=== PATIENT | female | born 1945 | race Caucasian/White ===

== ENCOUNTER 2020-04-07 21:38 | Emergency (ER) | payer MEDICARE, SELFPAY ==
[2020-04-07 21:39] VITALS: BP 152/83; PULSE 57; RESP 18; TEMP 36.2; O2SAT 100; BMI 27.5
[2020-04-07 22:13] VITALS: BP 152/83; PULSE 57; RESP 18; TEMP 36.2; O2SAT 100
[2020-04-07 22:21] LABS: Red Blood Cells-Urine 0 SEEN /hpf (0-5)
[2020-04-07 22:28] LABS: Color, Urine Yellow (Yellow); Glucose, Dipstick Normal (Normal); Ketone-Dipstick 5 mg/dl (Negative); Leukocyte Esterase-Dipstick 500 /ul (Negative); Nitrite-Dipstick Negative (Negative); Occult Blood-Urine 25 /ul (Negative); Protein-Dipstick 30 mg/dl (Negative); Specific Gravity, Urine 1.015 (1.002-1.030); Urine Bilirubin Dipstick Negative (Negative); Urine Clarity Clear (Clear); Urine Urobilinogen Normal (Normal)
[2020-04-07 22:35] LABS: Squamous Epithelial Cells - UA 50-100 SEEN /hpf (5-10)
[2020-04-07 22:36] LABS: Mucous, Urine 1+ /hpf (<or=2+); White Blood Cells 25-50 SEEN /hpf (0-5)
[2020-04-07 22:37] LABS: Bacteria 1+ /hpf (None Seen)
--- NOTE | 2020-04-08 01:22 | ED.VISSUMM ---
- ER Visit Summary Date of Service: 04/08/20 Chief Complaint: Dysuria History of Present Illness: The patient is a 74 F who presents with dysuria that has been getting worse over the past 3 weeks. Patient states she has burning whenever she urinates. Patient was originally given a prescription for Omnicef for 3 days. Patient completed this with no improvement of her symptoms. Patient was then given a prescription for Cipro for 3 days. Patient states she completed this and had no improvement of her symptoms. Patient was then given a prescription for fosfomycin. Patient states she had 2 doses of this and still has some dysuria. Patient admits to subjective chills. Patient denies any nausea or vomiting. Patient denies any back pain. Patient denies any flank pain. Physical Examination: Vital signs are stable. Patient is afebrile. Patient is in no acute distress. Oral mucosa is pink and moist. Neck is supple. Trachea is midline. There is no JVD. Heart was regular rate and rhythm. Lungs are clear and equal bilaterally. Abdomen is soft. Bowel sounds are normal. There is some mild suprapubic tenderness. There is no rebound or guarding noted. Cranial nerves II through XII are intact. There are no focal motor or sensory deficits noted. Pelvic exam shows normal vaginal mucosa. There is no evidence of vaginal candidiasis. Test Results: Urinalysis showed leukocyte esterase of 500 with 25-50 white blood cells. There were also 50-100 epithelial cells and 1+ bacteria. Emergency Department Course and Treatment: Patient's urinalysis and urine culture from 04/03/2028 done at [facility] were reviewed. Urinalysis did appear to be infected. Urine culture however showed multiple pathogens consistent with contaminated specimen. Patient was advised of her results. Patient was advised that this does appear to be a contaminated specimen. Patient was instructed to take her third dose of fosfomycin tomorrow night. Patient was instructed to follow-up with her primary care physician after this. Patient understood and was agreeable with the plan. All questions were answered. Disposition: Discharge home Impression: Urinary tract infection This note was generated with [employer] software. It may contain incorrect words, spelling, and punctuation that were not noted in review of the chart prior to signing ED Disposition - Plan for ED Patient: Disposition: Home or Assisted Living Diagnosis: Urinary tract infection Instructions: ED CYSTITIS Female Adult Referrals: Javier Martinez DO [Primary Care Provider] - 3-5 Days Additional Instructions: Take the whole packet of fosfomycin tomorrow night. Follow-up with your primary care physician in 2 to 3 days.
[2020-04-08 01:32] VITALS: BP 140/70; PULSE 72; RESP 16; TEMP 36.2; O2SAT 98
== END 2020-04-08 01:33 | disposition home or self-care (01) ==
PROVIDERS: Emergency Provider Emergency Medicine; PCP Student in an Organized Health Care Education/Training Program
DX: N39.0 Urinary tract infection, site not specified (principal)
CPT/HCPCS: 81001; 99282

== ENCOUNTER 2023-03-28 14:00 | Inpatient (IN) | payer MEDICARE, SELFPAY ==
[2023-03-28 14:01] VITALS: BP 181/87; PULSE 72; RESP 16; TEMP 36.4; BMI 25.7
--- NOTE | 2023-03-28 14:04 | CT_ITS ---
INDICATION: Neuro deficit, acute, stroke suspected EXAMINATION: CT BRAIN - CT Head Stroke Protocol W/O Contrast Injection TECHNIQUE: Multiple axial images were obtained of the head without intravenous contrast. A radiation dose optimization technique was used for this scan. IV Contrast dosage and agent: None. RADIATION DOSAGE (If Supplied By Facility): CTDIvol = ( ) mGy, DLP = ( ) mGycm COMPARISON: FINDINGS: BRAIN PARENCHYMA: No intra- or extra-axial hemorrhage. No evidence of acute infarct. No intracranial mass or mass effect. There is preservation of the torres/white matter interface. Posterior fossa structures are unremarkable. CSF SPACES: Appropriate for age. No hydrocephalus. Basal cisterns are patent. CALVARIUM, SKULL BASE, PARANASAL SINUSES AND MASTOID AIR CELLS: Clear. No discrete lytic or blastic abnormalities. ORBITS: Both globes, extraocular muscles, optic nerves and retrobulbar fat appear unremarkable. ASPECTS Score for Acute Strokes: 10 CT/STROKE Brain/Head without Cont IMPRESSION: Negative Brain CT without contrast. N.B. : The above Results were Read Back by Benitez Schrader MD to Janet Saucedo MD, and understanding confirmed on 03/28/2023 14:26:59 (ET). Electronically Signed: Benitez Schrader MD at 14:27 EDT ,
--- NOTE | 2023-03-28 14:04 | EKG12_ITS ---
Test Reason : STROKE TEAM Blood Pressure : / mmHG Vent. Rate : 065 BPM Atrial Rate : 065 BPM P-R Int : 180 ms QRS Dur : 180 ms QT Int : 468 ms P-R-T Axes : 066 031 017 degrees QTc Int : 486 ms Sinus rhythm with marked sinus arrhythmia Right bundle branch block Abnormal ECG Confirmed by JENI MCLAUGHLIN, KIARA ([id number]), editor house organ SONA BURDICK ([id number]) on 04/13/2023 1:49:21 PM Referred By: Confirmed By:JAIRO NGO MD
--- NOTE | 2023-03-28 14:04 | NURSING ---
STROKE ALERT CALLED
--- NOTE | 2023-03-28 14:04 | NURSING ---
NO OLD EKGS
[2023-03-28 14:08] VITALS: BMI 25.7
--- NOTE | 2023-03-28 14:14 | EDS_ITS ---
HPI History of Present Illness Chief Complaint: Neuro S/Sx Informant: patient and family Onset/Context/Timing Onset: Today Narrative Narrative: Patient presents with slurred speech for the last 30 minutes. At bedside family states it seems that her speech is improving but is not yet back to baseline. Patient reports generalized weakness. She denies pain. Family states that she was recently treated for hypercalcemia. He states since that time she seems to be somewhat confused. Nurse later tells me that family feels she had difficulty swallowing for the past 2 days. I was able to pull up some blood work from [facility] that was collected on February 23. At that time her calcium level was 11.6 with an ionized calcium of 1.56. It is noted that her TSH was greater than 100 at that time. Family state s there were no adjustments made to her levothyroxine. [facility] Medical History (Updated 03/28/23 @ 15:[address] Janet Saucedo MD) Hx of gastroesophageal reflux (GERD) Hypertension Hypothyroidism Home Medications amlodipine 5 mg tablet 5 mg PO BID 04/07/20 [History Last Taken Unknown] aspirin 81 mg chewable tablet 81 mg PO DAILY@0800 04/07/20 [History Last Taken Unknown] cholecalciferol (vitamin D3) 50 mcg (2,000 unit) capsule 2,000 unit PO DAILY 04/07/20 [History Last Taken Unknown] docusate sodium 50 mg capsule 50 mg PO BID PRN Constipation 04/07/20 [History Last Taken Unknown] fluticasone propionate 50 mcg/actuation nasal spray,suspension 1 spray NASAL QO DAY 04/07/20 [History Last Taken Unknown] levothyroxine 150 mcg tablet 150 mcg PO DAILY 04/07/20 [History Last Taken Unknown] pantoprazole 40 mg tablet,delayed release 40 mg PO DAILY 04/07/20 [History Last Taken Unknown] ranolazine 500 mg tablet,extended release,12 hr 500 mg PO BID 04/07/20 [History Last Taken Unknown] Allergy/AdvReac Type Severity Reaction Status Date / Time aspirin [ASA] Allergy Hives Verified 04/07/20 21:43 hydrocodone Allergy Nausea Verified 04/07/20 21:43 morphine Allergy PT UNSURE Verified 04/07/20 21:43 OF REACTION Penicillins Allergy Anaphylaxis Verified 04/07/20 21:43 Social History Smoking Status: Never smoker ROS ROS ED Constitutional Constitutional ED: Denies chills or fever(s) Eyes Eyes: Denies change in vision ENT ENT ED: Denies rhinorrhea or sore throat Cardiovascular Cardiovascular: Denies chest pain Respiratory/Chest Respiratory/Chest: Denies cough or dyspnea Gastrointestinal Gastrointestinal: Denies abdominal pain, nausea or vomiting Genitourinary Genitourinary ED: Denies dysuria Musculoskeletal Musculoskeletal: Denies back pain or extremity pain Integumentary Denies Abrasions or rash Neurologic Neurologic: Reports weakness; Denies headache(s) Psychiatric Psychiatric: Denies anxiety or depression Allergic/Immunologic Allergic/Immunologic ED: Denies lip swelling or urticaria EXAM Physical Exam Const Vital Signs: 03/28/23 14:01 03/28/23 14:01 03/28/23 14:27 Temperature 97.6 F L 97.6 F L Temperature Source Temporal Temporal Pulse Rate 72 72 Respiratory Rate 16 16 Blood Pressure 181/87 H 181/87 H Blood Pressure Mean 118 118 Pulse Ox Oxygen Delivery Method Room Air 03/28/23 14:27 Temperature 97.6 F L Temperature Source Temporal Pulse Rate 72 Respiratory Rate 16 Blood Pressure 181/87 H Blood Pressure Mean 118 Pulse Ox 97 Oxygen Delivery Method Room Air Positive well nourished and well developed General Appearance ED: well developed HEENT Reports moist mucous membranes Eyes EOMs intact bilaterally Chest Wall inspection of chest normal and palpation of chest normal Resp normal respiratory effort and clear to auscultation bilaterally Cardio Rate: regular rate Rhythm: regular rhythm GI soft to palpation and non-tender Extremity normal to inspection Neuro Neuro Narrative: A&O x2. Patient thinks that she is in [place] when she is in fact in [place]. She is able to hold both arms up with no drift. No lower extremity deficit noted. She has good sensation bilaterally. She does get somewhat confused when we ask her to repeat sentences. Family feels her speech is still slightly slurred. Skin no wounds NIHSS NIHSS Initial: 1a Level of Consciousness: 0 1b LOC Questions (Score 2 if aphasic/stupor): 0 1c LOC Commands (Only score 1st attempt): 0 2 Best Gaze (If aphasic, use reflexive mvmts.): 0 3 Visual: 0 4 Facial Palsy: 0 5 Motor Arm Right (UN = amputation/fusion): 0 5 Motor Arm Left: 0 6 Motor Leg Right: 0 6 Motor Leg Left: 0 7 Limb ataxia (Only + if out of proportion): 0 8 Sensory (Aphasia/stupor=0 or 1, coma=2): 0 9 Best Language: 0 10 Dysarthria (mute, coma=2, intubated=UN): 1 11 Extinction and Inattention (only scored if +): 0 Total Score: 1 MDM MDM MDM Narrative Medical decision making narrative: Stroke team initiated after my initial eval as family reported symptoms started half hour ago. I was later told that she had some difficulty swallowing for the past 2 days and this may have been the onset of her symptoms. Patient placed on environmental monitoring specialist. EKG obtained to evaluate for cardiac arrhythmia/ischemia. Chest x-ray obtained to evaluate for acute lung pathology, cardiac size, or mediastinal abnormality. Labwork obtained to evaluate for leukocytosis, anemia, and electrolyte derangement. CT scan of the head obtained to evaluate given signs of possible stroke. It is noted that the patient was evaluated by the stroke neurologist. At the time of her examination family now states symptoms of been going on at least 2 weeks if not a month. History & Record Review Discussion w/independent historian: Patient and Family Additional record(s) reviewed:: Prior outpatient record and Prior labs Lab Data Attestation: I reviewed the patient's lab results. Labs: Laboratory Results - last 24 hr 03/28/23 14:10 WBC 8.5 RBC 3.41 L Hgb 11.5 L Hct 33.5 L MCV 98.2 MCH 33.7 H MCHC 34.3 RDW Std Deviation 43.5 RDW Coeff of Theresa 12.0 Plt Count 243 MPV 11.0 Immature Gran % (Auto) 0.200 Neut % (Auto) 67.3 Lymph % (Auto) 23.7 [place] % (Auto) 8.0 Eos % (Auto) 0.4 Baso % (Auto) 0.4 Absolute Neuts (auto) 5.7 Absolute Lymphs (auto) 2.01 Nucleated RBC % 0 PT 13.8 INR 1.1 APTT 23.8 L Sodium 142 Potassium 2.9 L Chloride 100 Carbon Dioxide 36.0 H Anion Gap 6 BUN 22 H Creatinine 1.13 H Estim Creat Clear Calc 39.26 Est GFR (MDRD) Af Amer 60 Est GFR (MDRD) Non-Af 49 L BUN/Creatinine Ratio 19.5 Glucose 116 H Calcium 13.6 H* Troponin I High Sens 50 TSH 0.26 L Radiography Chest X-Ray - ED: 1 View, Read by ED Physician, Normal, Heart, Lungs and Mediastinum Diagnostic Testing: Clinical Impression(s) from Imaging Studies Brain CT 03/28/23 14:04 IMPRESSION: Negative Brain CT without contrast. N.B. : The above Results were Read Back by Benitez Schrader MD to Janet Saucedo MD, and understanding confirmed on 03/28/2023 14:26:59 (ET). Electronically Signed: Benitez Schrader MD at 14:27 EDT Reading Location ID and State: [employer] , Service support , ADDENDUM: 03/28/23 1434 IMPRESSION: Negative Brain CT without contrast. N.B. : The above Results were Read Back by Benitez Schrader MD to Janet Saucedo MD, and understanding confirmed on 03/28/2023 14:26:59 (ET). Electronically Signed: Benitez Schrader MD at 14:27 EDT Reading Location ID and State: [employer] , Service support , Chest X-Ray 03/28/23 15:05 IMPRESSION: Normal x-ray examination of the chest. Electronically Signed: Benitez Schrader MD at 15:32 EDT Reading Location ID and State: [employer] , Service support , EKG Initial EKG: Attestation: I personally reviewed and interpreted this EKG as follows: Interpretation: Sinus Rhythm (Sinus at 65 with right bundle branch block. No acute ischemia. No prior studies available for comparison.) Treatment and Re-Evaluation Narrative: I did discuss the case with the stroke neurologist. Given the change in timeframe of her symptom onset, she is not a candidate for TNK. After reviewing the patient's outpatient labs from 1 month ago, I am more concerned for electrolyte derangement causing her symptoms. Given the new timeframe for onset of symptoms and her behavior, I do not believe this represents an acute stroke. CBC was a white count of 8.5 with a hemoglobin 11.5. Differential unremarkable. Chemistry studies reveal a potassium of 2.9. BUN is 22 and creatinine 1.13. Calcium is elevated at 13.6. Troponin is 50. TSH is low at 0.26. Patient has been ordered IV fluid bolus along with IV potassium replacement. I will speak with the hospitalist regarding admission given her multiple electrolyte derangements. Discharge Plan Dx/Rx/DC Orders Clinical Impression: Slurred speech, Hypokalemia, Hypercalcemia Disposition Disposition: Acute Care Hospital [facility]
[2023-03-28 14:21] LABS: Absolute Lymphocyte Count 2.01 X10^3/uL (0.83-4.51); Absolute Neutrophil Count 5.7 X10^3/uL (2.0-7.7); Basophil# 0.03 X10^3/uL; Basophil% 0.4 % (0-1); Eosinophil# 0.03 X10^3/uL; Eosinophils% 0.4 % (0-5); Hematocrit 33.5 % (37-47); Hemoglobin 11.5 g/dL (12.0-15.0); Lymphocyte # 2.01 X10^3/ul (0.83-4.51); Lymphocyte % 23.7 % (19-41); Mean Corp Hgb Conc 34.3 g/dL (32-36); Mean Corpuscular Hgb 33.7 pg (27.0-32.0); Mean Corpuscular Volume 98.2 fL (81-99); Monocyte# 0.68 X10^3/uL; NRBC Flagged by Analyzer 0 % (0-5); Neutrophil # 5.72 X10^3/uL (2.7-7.7); Neutrophil % 67.3 % (47-70); Platelet Count 243 K/mm3 (150-450); RBC Distribution Width SD 43.5 fl (35.1-43.9); Red Blood Count 3.41 M/mm3 (4.2-5.4); White Blood Count 8.5 K/mm3 (4.4-11.0)
[2023-03-28 14:27] VITALS: BP 181/87; PULSE 72; RESP 16; TEMP 36.4; O2SAT 97
[2023-03-28 14:32] LABS: International Normalized Ratio 1.1; Partial Thromboplast Time 23.8 Seconds (24.1-36.2); Prothrombin Time (Protime)PT. 13.8 SECONDS (11.7-14.9)
--- NOTE | 2023-03-28 15:05 | RAD_ITS ---
STUDY: X-RAY CHEST REASON FOR EXAM: Female, 77 years old. Neuro deficit, acute, stroke suspected TECHNIQUE: Single AP portable view of the chest. COMPARISON: None. FINDINGS: The lungs are clear and expanded. There is no demonstrated pleural abnormality. Normal size heart. Normal mediastinum and verito. Normal visualized pulmonary arteries. Normal visualized aortic arch and descending thoracic aorta. Normal visualized thoracic spine. Normal visualized ribs, clavicles, and shoulders. There is no demonstrated abnormality of the visualized soft tissue structures of the upper abdomen. RAD/Chest 1 View IMPRESSION: Normal x-ray examination of the chest. Electronically Signed: Benitez Schrader MD at 15:32 EDT ,
--- NOTE | 2023-03-28 15:05 | NURSING ---
FACESHEET FAXED TO [facility]
[2023-03-28 15:34] LABS: Anion Gap 6 (5-15); BUN 22 mg/dL (7-18); BUN/Creat Ratio 19.5 RATIO (10-20); Calcium,Total 13.6 mg/dL (8.5-10.1); Chloride 100 mmol/L (98-107); Creatinine, Serum 1.13 mg/dL (0.55-1.02); EST Glomerular Filtration Rate 49 mL/min (>60); Est Glom Filt Rate - Afr Amer 60 mL/min (>60); Estimated Creatinine Clearance 39.26 ml/min; Glucose 116 mg/dL (74-106); Potassium 2.9 mmol/L (3.5-5.1); Sodium Level 142 mmol/L (136-145); Thyroid Stim Hormone (TSH) 0.26 uIU/mL (0.358-3.74); Troponin-I HS 50 pg/mL (3.0-54.0)
--- NOTE | 2023-03-28 16:02 | CT_ITS ---
STUDY: CT CHEST, ABDOMEN T PELVIS WITH CONTRAST REASON FOR EXAM: Female, 77 years old. Hypercalcemia RADIATION DOSAGE (If Supplied By Facility): CTDIvol = ( 11.37 ) mGy, DLP = ( 992.65 ) mGycm TECHNIQUE: Transaxial imaging was performed following intravenous administration of IV 100mL Isovue-370. Individualized dose optimization techniques were used for this CT. COMPARISON: No prior examinations are available for comparison. FINDINGS: CHEST 3 mm right lower lobe nodule for which no further follow-up exam is needed. No focal infiltrate is seen. There is no demonstrated pleural abnormality. There is borderline cardiomegaly. There are calcifications of the coronary arteries. No evidence of pericardial effusion. Normal mediastinum. Normal hilar regions. Normal unenhanced pulmonary arteries. There is atherosclerotic calcification of the aortic arch with tortuosity and elongation of the aortic arch and descending thoracic aorta. There are multi-level degenerative changes of the thoracic spine. ABDOMEN Hepatomegaly. Dilated intrahepatic and extrahepatic biliary ducts. There is non-visualization of the gallbladder, likely due to prior cholecystectomy. Gallbladder contraction is less likely. Normal spleen. Normal pancreas. Normal bilateral adrenal glands. Small left renal cyst appears to be simple and no further follow-up exam is needed. Tiny cysts in the right kidney. No evidence of hydronephrosis Thickening of the stomach likely due to underdistention. Normal caliber small bowel loops. Fecal retention. No evidence of acute diverticulitis. The appendix is not definitely identified. There is diffuse atherosclerotic calcification of the abdominal aorta with elongation and tortuosity, but without a demonstrated aneurysm. Normal inferior vena cava. Normal retroperitoneum. Normal abdominal wall. There are degenerative changes of the visualized lumbar spine. PELVIS Distended urinary bladder. 3.7 cm bladder diverticulum arising from the left wall of the bladder. Normal visualized small intestine. Fecal retention in the rectosigmoid colon concerning for constipation. Sigmoid diverticulosis without evidence of acute diverticulitis. There is no pelvic fluid. There is no pelvic lymphadenopathy or mass lesion. There is diffuse atherosclerotic calcification of the pelvic arteries. Normal abdominal wall. There are degenerative changes of the visualized lumbar spine. CT/CT Chest, Abd, Pel w/Contrast IMPRESSION: 1. Dilated intrahepatic biliary ducts and common bile duct which may not be significant for a post cholecystectomy patient. 2. Thickening of the stomach likely due to underdistention. 3. Diverticulosis without evidence of acute diverticulitis. 4. No focal acute inflammatory process. 5. Bladder diverticulum. 6. Fecal retention concerning for constipation. Electronically Signed: Stephan Shabazz MD at 18:24 EDT ,
[2023-03-28 16:14] VITALS: BP 173/97; PULSE 70; RESP 14; O2SAT 98
--- NOTE | 2023-03-28 16:19 | NURSING ---
PCU KOTSONIS HYPERCALCEMIA, HYPOKALEMIA, WEAKNESS
[2023-03-28] MEDS: Potassium Chloride 10mEq/100mL 10 MEQ/100 ML IV.SOLN. 100 MEQ IV BOLUS ×3 (16:32→23:51)
[2023-03-28] MEDS: 0.9% Normal Saline 1,000 ML 999 ML IV (16:32)
--- NOTE | 2023-03-28 16:37 | PCM.HP.STD ---
HPI - General General Date of Admission: 03/28/23 HPI Narrative DANIE RAMIREZ, is a 77 F who presents to the hospital with altered mental status and slurred speech as well as fatigue. Symptoms started within the last month or so. On February 23 she was at an outside hospital for work-up, at the time her TSH was over 100 and her calcium was 11.6 according to the family the physicians did not make any adjustments to her hypothyroid medication. Today she comes back in because of slurred speech for 30 minutes prior to arrival and an altered mentation, her calcium is 13.6 and her TSH is 0.26. She does appear a little bit dehydrated as her family states that she has had a very strong smelling urine at home no fevers but she has had some chills. COUNT INCLUDES THE [facility] Medical History (Updated 03/28/23 @ 15:[address] Janet Saucedo MD) Hx of gastroesophageal reflux (GERD) Hypertension Hypothyroidism Home Medications amlodipine 5 mg tablet 5 mg PO BID 04/07/20 [History Last Taken Unknown] aspirin 81 mg chewable tablet 81 mg PO DAILY@0800 04/07/20 [History Last Taken Unknown] docusate sodium 50 mg capsule 50 mg PO BID PRN Constipation 04/07/20 [History Last Taken Unknown] levothyroxine 150 mcg tablet 150 mcg PO DAILY thyroid 04/07/20 [History Last Taken Unknown] pantoprazole 40 mg tablet,delayed release 40 mg PO DAILY stomach 04/07/20 [History Last Taken Unknown] ranolazine 500 mg tablet,extended release,12 hr 500 mg PO BID chest pain 04/07/20 [History Last Taken Unknown] cinacalcet 60 mg tablet 60 mg PO DAILY hyperparathyroid 03/28/23 [History Last Taken Unknown] ferrous sulfate 325 mg (65 mg iron) tablet 325 mg PO DAILY iron 03/28/23 [History Last Taken Unknown] liothyronine 5 mcg tablet 5 mcg PO DAILY prn 03/28/23 [History Last Taken Unknown] memantine 7 mg capsule sprinkle,extended release 24hr 7 mg PO DAILY memory 03/28/23 [History Last Taken Unknown] olmesartan 5 mg tablet 5 mg PO QHS cholesterol 03/28/23 [History Last Taken Unknown] Allergy/AdvReac Type Severity Reaction Status Date / Time aspirin [ASA] Allergy Hives Verified 04/07/20 21:43 hydrocodone Allergy Nausea Verified 04/07/20 21:43 morphine Allergy PT UNSURE Verified 04/07/20 21:43 OF REACTION Penicillins Allergy Anaphylaxis Verified 04/07/20 21:43 Family History (Updated 03/28/23 @ 16:[address] Bertrand Devi MD) Other Diabetes Heart disease Surgical History (Updated 03/28/23 @ 16:[address] Bertarnd Devi MD) Status post total hip replacement, right Social History Smoking Status: Never smoker ROS Constitutional Constitutional: Reports anorexia, change in weight, chills and fatigue; Denies fever(s) or malaise Eyes Eyes: Denies blurry vision ENT HEENT: Denies headache(s) or nasal discharge Cardiovascular Cardiovascular: Denies chest pain, dyspnea on exertion or syncope Respiratory/Chest Respiratory/Chest: Denies cough, shortness of breath at rest or shortness of breath with exertion Gastrointestinal Gastrointestinal: Denies constipation, diarrhea, nausea or vomiting Genitourinary Genitourinary: Denies dysuria Neurologic Neurologic: Reports abnormal speech; Denies focal weakness, numbness or tremor(s) Psychiatric Psychiatric: Denies anxiety or depression Vital Signs Vital Signs Vital Signs: 03/28/23 14:01 03/28/23 14:01 03/28/23 14:27 Temperature 97.6 F L 97.6 F L Temperature Source Temporal Temporal Pulse Rate 72 72 Respiratory Rate 16 16 Blood Pressure 181/87 H 181/87 H Blood Pressure Mean 118 118 Pulse Ox Oxygen Delivery Method Room Air 03/28/23 14:27 03/28/23 16:14 Temperature 97.6 F L Temperature Source Temporal Pulse Rate 72 70 Respiratory Rate 16 14 Blood Pressure 181/87 H 173/97 H Blood Pressure Mean 118 122 Pulse Ox 97 98 Oxygen Delivery Method Room Air Room Air Weight Weight: 164 lb 10.965 oz Body Mass Index (BMI) 25.7 Physical Exam Narrative General: Alert, confused, Cooperative, No apparent distress HEENT: Atraumatic, PERRLA, EOMI, Normocephalic Oral: Dry mucosa Neck: Supple, No JVD Lungs: Diminished, Normal air movement, No rhonchi, No wheeze, No rales Cardiovascular: Regular rate, Regular Rhythm, Normal S1, Normal S2, murmurs Abdomen: Soft, Non Tender, Non-Distended, No Hepato-splenomegaly Extremities: No edema, Capillary Refill Less than 3 Seconds Skin: No rashes, No breakdown Musculoskeletal: No Tenderness to Palpation of Joints or Extremities Neurological: Nonfocal neuro exam moves all extremities. Speech appears slow Psych/Mental Status: Normal Affect, Appropriate Results Lab / Micro Data 03/28/23 14:10 03/28/23 14:10 Labs: Laboratory Results - last 24 hr 03/28/23 14:10: WBC 8.5, RBC 3.41 L, Hgb 11.5 L, Hct 33.5 L, MCV 98.2, MCH 33.7 H, MCHC 34.3, RDW Std Deviation 43.5, RDW Coeff of Theresa 12.0, Plt Count 243, MPV 11.0, Immature Gran % (Auto) 0.200, Neut % (Auto) 67.3, Lymph % (Auto) 23.7, [place] % (Auto) 8.0, Eos % (Auto) 0.4, Baso % (Auto) 0.4, Absolute Neuts (auto) 5.7, Absolute Lymphs (auto) 2.01, Nucleated RBC % 0, PT 13.8, INR 1.1, APTT 23.8 L, Sodium 142, Potassium 2.9 L, Chloride 100, Carbon Dioxide 36.0 H, Anion Gap 6, BUN 22 H, Creatinine 1.13 H, Estim Creat Clear Calc 39.26, Est GFR (MDRD) Af Amer 60, Est GFR (MDRD) Non-Af 49 L, BUN/Creatinine Ratio 19.5, Glucose 116 H, Calcium 13.6 H*, Troponin I High Sens 50, TSH 0.26 L Radiology Impression Brain CT 03/28/23 14:04 IMPRESSION: Negative Brain CT without contrast. N.B. : The above Results were Read Back by Benitez Schrader MD to Janet Saucedo MD, and understanding confirmed on 03/28/2023 14:26:59 (ET). Electronically Signed: Benitez Schrader MD at 14:27 EDT , ADDENDUM: 03/28/23 1434 IMPRESSION: Negative Brain CT without contrast. N.B. : The above Results were Read Back by Benitez Schrader MD to Janet Saucedo MD, and understanding confirmed on 03/28/2023 14:26:59 (ET). Electronically Signed: Benitez Schrader MD at 14:27 EDT Reading Location ID and State: [id number] / [facility] Tel , Service support , Chest X-Ray 03/28/23 15:05 IMPRESSION: Normal x-ray examination of the chest. Electronically Signed: Benitez Schrader MD at 15:32 EDT Reading Location ID and State: [employer] / [facility] Tel , Service support , Assessment & Plan Assessment/Plan (1) Hypercalcemia: PLAN: Plan 1. Acute metabolic encephalopathy secondary to dehydration and hypercalcemia of unknown etiology ? Family stated that she is not been eating very well for the last month and is likely had a few pound weight loss ? Calcium February 23 on outside hospital was 11.6 today is 13.6 ? Continue with aggressive IV fluids ? We will give a dose of medronate ? We will obtain a PTH as well as vitamin D level ? We will obtain a CT scan of her chest abdomen and pelvis with IV contrast for cancer rule out ? On admission to the ER she had a stroke alert called however given her other symptoms and her other lab work both the ED physician and myself agree that this is unlikely to be a stroke and we will proceed with no further work-up at this time ? We will obtain a T3-T4 to evaluate her thyroid function 2. Hypothyroidism ? It does not appear to be stable at the moment, at an outside hospital at the end of January her TSH was elevated over 100 and outside 0.26 ? We will check T3 and T4 ? Can resume Synthroid when verified 3. Dementia ? Family has endorsed a mild dementia ? She does not appear to be on any medications for this though they were looking into obtaining further evaluation 4. GERD ? Stable ? Can resume home medications DVT: Lovenox 76 minutes was spent on direct patient care, including documentation as well as chart review and collaboration with colleagues Charges/Coding Visit Charges Inpatient E&M: 27897 Init Hosp L3
[2023-03-28 17:20] VITALS: BP 184/104; PULSE 68; PULSE 80; RESP 14; RESP 18; TEMP 36.8; O2SAT 98
[2023-03-28 18:14] VITALS: BP 179/100; PULSE 69; RESP 16; TEMP 36.1; O2SAT 100
[2023-03-28 18:15] VITALS: BMI 24.3
[2023-03-28] MEDS: 0.9% Normal Saline 1,000 ML 125 ML IV (18:25)
[2023-03-28 19:43] LABS: Mucous, Urine 0 SEEN /hpf (<or=2+); Red Blood Cells-Urine 0 SEEN /hpf (0-5)
[2023-03-28 19:47] LABS: Color, Urine Yellow (Yellow); Glucose, Dipstick Normal (Normal); Ketone-Dipstick 5 mg/dl (Negative); Leukocyte Esterase-Dipstick 500 /ul (Negative); Nitrite-Dipstick Positive (Negative); Occult Blood-Urine 10 /ul (Negative); Protein-Dipstick 15 mg/dl (Negative); Specific Gravity, Urine 1.015 (1.002-1.030); Urine Bilirubin Dipstick Negative (Negative); Urine Clarity Sl. Cloudy (Clear); Urine Urobilinogen 1 mg/dl (Normal); Urine pH 6.5 (5.0 - 8.0)
[2023-03-28 20:05] LABS: Bacteria 3+ /hpf (None Seen); White Blood Cells 10-25 SEEN /hpf (0-5)
[2023-03-28 20:06] LABS: Squamous Epithelial Cells - UA 0-5 SEEN /hpf (5-10)
[2023-03-28 21:03] LABS: Free T3 3.3 pg/mL (2.18-3.98); T4 Free Direct 2.44 ng/dL (0.76-1.46)
[2023-03-28] MEDS: 0.9% Saline Lock 10 ML Syringe IV (22:39)
[2023-03-28] MEDS: amLODIPine 5 MG Tablet PO (22:43)
[2023-03-28 22:44] VITALS: BP 140/83; PULSE 71; RESP 16; TEMP 36.8; O2SAT 98
[2023-03-29] MEDS: 0.9% Saline Lock 10 ML Syringe IV ×3 (01:03→22:06)
[2023-03-29] MEDS: Potassium Chloride 10mEq/100mL 10 MEQ/100 ML IV.SOLN. 100 MEQ IV BOLUS ×5 (01:03→14:59)
[2023-03-29] MEDS: 0.9% Normal Saline 1,000 ML 125 ML IV ×2 (02:40→12:01)
[2023-03-29 04:40] VITALS: BP 143/58; PULSE 66; RESP 16; TEMP 36.5; O2SAT 98
[2023-03-29 05:47] LABS: Absolute Lymphocyte Count 2.48 X10^3/uL (0.83-4.51); Absolute Neutrophil Count 2.3 X10^3/uL (2.0-7.7); Basophil# 0.04 X10^3/uL; Basophil% 0.7 % (0-1); Eosinophil# 0.07 X10^3/uL; Eosinophils% 1.3 % (0-5); Hematocrit 27.2 % (37-47); Lymphocyte # 2.48 X10^3/ul (0.83-4.51); Lymphocyte % 45.6 % (19-41); Mean Corp Hgb Conc 33.1 g/dL (32-36); Mean Corpuscular Hgb 33.2 pg (27.0-32.0); Mean Corpuscular Volume 100.4 fL (81-99); Monocyte% 9.2 % (0-10); NRBC Flagged by Analyzer 0 % (0-5); Neutrophil # 2.33 X10^3/uL (2.7-7.7); Neutrophil % 42.8 % (47-70); Platelet Count 198 K/mm3 (150-450); RBC Distribution Width SD 43.9 fl (35.1-43.9); Red Blood Count 2.71 M/mm3 (4.2-5.4); White Blood Count 5.4 K/mm3 (4.4-11.0)
[2023-03-29 06:32] LABS: ALB/GLOB Ratio 1.2 RATIO (0.9-2.4); AST(SGOT) 16 U/L (15-37); Alanine Aminotransfer ALT/SGPT 12 U/L (13-56); Alkaline Phosphatase 45 U/L (45-117); Anion Gap 5 (5-15); BUN 13 mg/dL (7-18); BUN/Creat Ratio 19.5 RATIO (10-20); Calcium,Total 11.4 mg/dL (8.5-10.1); Chloride 108 mmol/L (98-107); Creatinine, Serum 0.67 mg/dL (0.55-1.02); EST Glomerular Filtration Rate 91 mL/min (>60); Est Glom Filt Rate - Afr Amer 110 mL/min (>60); Estimated Creatinine Clearance 41.05 ml/min; Globulin 2.5 g/dL (2.2-4.2); Glucose 94 mg/dL (74-106); Magnesium 1.3 mg/dL (1.6-2.6); Potassium 2.7 mmol/L (3.5-5.1); Protein, Total 5.5 g/dL (6.4-8.2); Sodium Level 144 mmol/L (136-145)
[2023-03-29] MEDS: Potassium Chloride Oral Tablet 20 MEQ 40 MEQ PO (08:56)
[2023-03-29] MEDS: Enoxaparin 40 MG/0.4 ML Syringe SC (08:59)
[2023-03-29] MEDS: Magnesium Sulfate 4gm/100mL 4 GM/100 ML IV.SOLN. IV (08:59)
[2023-03-29] MEDS: amLODIPine 5 MG Tablet PO ×2 (09:04→22:06)
[2023-03-29] MEDS: Aspirin 81 MG TAB.CHEW PO (09:05)
--- NOTE | 2023-03-29 09:22 | PN.HOSP_ITS ---
Reason for Visit Reason for Visit: Diagnoses Hypercalcemia (03/28/23) Subjective Subjective Patient still somewhat confused per daughter in the room (Sanjana Amos [phone]) but is a little bit better than yesterday, patient has a little bit of abdominal pain and has been constipated, denies any numbness or tingling, feels her swallowing is improving Objective Data Objective Data Vital Signs: Vital Signs Temp Pulse Resp BP Pulse Ox O2 Del Method 97.7 F L 66 16 143/58 H 98 Room Air 03/29/23 04:40 03/29/23 04:40 03/29/23 04:40 03/29/23 04:40 03/29/23 04:40 03/29/23 04:40 Oxygen Delivery Method Room Air Weight: 66.3 kg Body Mass Index (BMI) 24.3 Intake & Output: Intake and Output for Last 24 Hours 03/27/23 03/28/23 03/29/23 23:59 23:59 23:59 Intake Total 1200 / 1300 1806.6667 / 1806.6667 Balance 1200 / 1300 1806.6667 / 1806.6667 Lab / Micro Data 03/29/23 05:30 03/29/23 05:30 Labs: Laboratory Results - last 24 hr 03/28/23 14:10: WBC 8.5, RBC 3.41 L, Hgb 11.5 L, Hct 33.5 L, MCV 98.2, MCH 33.7 H, MCHC 34.3, RDW Std Deviation 43.5, RDW Coeff of Theresa 12.0, Plt Count 243, MPV 11.0, Immature Gran % (Auto) 0.200, Neut % (Auto) 67.3, Lymph % (Auto) 23.7, [place] % (Auto) 8.0, Eos % (Auto) 0.4, Baso % (Auto) 0.4, Absolute Neuts (auto) 5.7, Absolute Lymphs (auto) 2.01, Nucleated RBC % 0, PT 13.8, INR 1.1, APTT 23.8 L, Sodium 142, Potassium 2.9 L, Chloride 100, Carbon Dioxide 36.0 H, Anion Gap 6, BUN 22 H, Creatinine 1.13 H, Estim Creat Clear Calc 39.26, Est GFR (MDRD) Af Amer 60, Est GFR (MDRD) Non-Af 49 L, BUN/Creatinine Ratio 19.5, Glucose 116 H, Calcium 13.6 H*, Troponin I High Sens 50, TSH 0.26 L, Free T4 2.44 H, Free T3 pg/dL 3.3 03/28/23 17:20: Urine Color Yellow, Urine Clarity Sl. Cloudy, Urine pH 6.5, Ur Specific [place] 1.015, Urine Protein 15 H, Urine Glucose (UA) Normal, Urine Ketones 5 H, Urine Occult Blood 10 H, Urine Nitrite Positive H, Urine Bilirubin Negative, Urine Urobilinogen 1 H, Ur Leukocyte Esterase 500 H, Urine RBC 0 SEEN, Urine WBC 10-25 SEEN, Ur Squamous Epith Cells 0-5 SEEN, Urine Bacteria 3+, Urine Mucus 0 SEEN 03/29/23 05:30: WBC 5.4, RBC 2.71 L, Hgb 9.0 L, Hct 27.2 L, MCV 100.4 H, MCH 33.2 H, MCHC 33.1, RDW Std Deviation 43.9, RDW Coeff of Theresa 12.0, Plt Count 198, MPV 11.0, Immature Gran % (Auto) 0.400, Neut % (Auto) 42.8 L, Lymph % (Auto) 45.6 H, [place] % (Auto) 9.2, Eos % (Auto) 1.3, Baso % (Auto) 0.7, Absolute Neuts (auto) 2.3, Absolute Lymphs (auto) 2.48, Nucleated RBC % 0, Sodium 144, Potassium 2.7 L*, Chloride 108 H, Carbon Dioxide 31.0, Anion Gap 5, BUN 13, Creatinine 0.67, Estim Creat Clear Calc 41.05, Est GFR (MDRD) Af Amer 110, Est GFR (MDRD) Non-Af 91, BUN/Creatinine Ratio 19.5, Glucose 94, Calcium 11.4 H, Phosphorus 2.0 L, Magnesium 1.3 L, Total Bilirubin 0.60, AST 16, ALT 12 L, Alkaline Phosphatase 45, Total Protein 5.5 L, Albumin 3.0 L, Globulin 2.5, Albumin/Globulin Ratio 1.2 Radiography Diagnostic Testing: Radiology Impression Brain CT 03/28/23 14:04 IMPRESSION: Negative Brain CT without contrast. N.B. : The above Results were Read Back by Benitez Schrader MD to Janet Saucedo MD, and understanding confirmed on 03/28/2023 14:26:59 (ET). Electronically Signed: Benitez Schrader MD at 14:27 EDT , ADDENDUM: 03/28/23 1434 IMPRESSION: Negative Brain CT without contrast. N.B. : The above Results were Read Back by Benitez Schrader MD to Janet Saucedo MD, and understanding confirmed on 03/28/2023 14:26:59 (ET). Electronically Signed: Benitez Schrader MD at 14:27 EDT , Chest X-Ray 03/28/23 15:05 IMPRESSION: Normal x-ray examination of the chest. Electronically Signed: Benitez Schrader MD at 15:32 EDT , Chest/Abdomen/Pelvis CT 03/28/23 16:02 IMPRESSION: 1. Dilated intrahepatic biliary ducts and common bile duct which may not be significant for a post cholecystectomy patient. 2. Thickening of the stomach likely due to underdistention. 3. Diverticulosis without evidence of acute diverticulitis. 4. No focal acute inflammatory process. 5. Bladder diverticulum. 6. Fecal retention concerning for constipation. Electronically Signed: Stephan Shabazz MD at 18:24 EDT , Physical Exam Narrative General: Alert, somewhat pleasantly confused HEENT: Atraumatic, normocephalic Eyes: Anicteric, normal conjunctiva, extraocular movements grossly intact Neck: Supple Respiratory: Clear to auscultation bilaterally, normal respiratory effort Cardiovascular: Regular rate GI: Soft, very mild tender without rebound, guarding, rigidity Extremities: No edema Musculoskeletal: Moving all extremities Neuro: No overt focal neurological deficits Skin: No rashes appreciated Psych: Cooperative Assessment & Plan Assessment/Plan (1) Hypercalcemia: PLAN: Plan #Acute metabolic encephalopathy secondary to dehydration and hypercalcemia of unknown etiology ? Family stated that she is not been eating very well for the last month and is likely had a few pound weight loss ? Calcium February 23 on outside hospital was 11.6 today is 13.6 ? Continue with aggressive IV fluids ? We will give a dose of pamedronate ? We will obtain a PTH as well as vitamin D level ? We will obtain a CT scan of her chest abdomen and pelvis with IV contrast for cancer rule out ? On admission to the ER she had a stroke alert called however given her other symptoms and her other lab work both the ED physician and myself agree that this is unlikely to be a stroke and we will proceed with no further work-up at this time ? We will obtain a T3-T4 to evaluate her thyroid function -03/29: Calcium today 11.4, improving, has hypophosphatemia, hypomagnesemia, hypokalemia, will replace these. Continue fluids, status post pamidronate. PTH and vitamin D pending #Suspected UTI -Patient with UA suspicious for UTI -Urine culture sent -Given patient's anaphylaxis to penicillin she was started on Levaquin, EKG on admission with QTc 436 -Suspect this could be contributing to #1 #Hypomagnesemia, hypophosphatemia, hypokalemia -Replace and recheck lytes in the afternoon #ZENAIDA -Likely prerenal -Creatinine 1.13 on admission, did not have any previous values in our system however with fluids it is decreased down to 0.67 suggesting ZENAIDA present on admission -Continue with fluids #Hypothyroidism ? It does not appear to be stable at the moment, at an outside hospital at the end of January her TSH was elevated over 100 and outside 0.26 ? We will check T3 and T4 ? Can resume Synthroid when verified -03/29: TSH 0.26 with a free T4 of 2.44, patient presently in hyperthyroid state, will hold Synthroid dose today and decrease dose overall #Normocytic anemia -11.5 on admission, 9.0 today but patient is got a lot of fluids and suspect this is dilutional as all cell lines dropped and patient has been receiving f luids -We will check B12, folate, iron panel #Dementia ? Family has endorsed a mild dementia ? She does not appear to be on any medications for this though they were looking into obtaining further evaluation -03/29: Has been maintained on home med list, will hold at this time as it would likely not make a difference in the acute setting and can cause behavioral disturbance. It is possible her hypercalcemia is contributing to her memory as well, unclear what baseline is prior to difficulty with her calcium #Hypertension -Continue amlodipine #GERD ? Stable ? Can resume home medications DVT: Lovenox 51 minutes was spent on direct patient care, including documentation as well as chart review and collaboration with colleagues Charges/Coding Visit Charges Inpatient E&M: 52308 Subs Hosp L3
[2023-03-29 10:00] LABS: Free T3 2.8 pg/mL (2.18-3.98); T4 Free Direct 2.18 ng/dL (0.76-1.46)
[2023-03-29 10:40] VITALS: BP 126/93; PULSE 69; RESP 16; TEMP 36.9; O2SAT 100
[2023-03-29] MEDS: Ensure Plus High Protein 120 ML LIQUID PO ×3 (13:01→22:06)
[2023-03-29] MEDS: Pantoprazole Sodium 40 MG Tablet PO (13:02)
[2023-03-29 14:43] LABS: ALB/GLOB Ratio 1.3 RATIO (0.9-2.4); AST(SGOT) 16 U/L (15-37); Alanine Aminotransfer ALT/SGPT 13 U/L (13-56); Albumin, Serum 3.4 g/dL (3.2-5.0); Alkaline Phosphatase 58 U/L (45-117); Anion Gap 5 (5-15); BUN 12 mg/dL (7-18); BUN/Creat Ratio 14.2 RATIO (10-20); Calcium,Total 12.4 mg/dL (8.5-10.1); Chloride 108 mmol/L (98-107); Creatinine, Serum 0.85 mg/dL (0.55-1.02); EST Glomerular Filtration Rate 69 mL/min (>60); Est Glom Filt Rate - Afr Amer 83 mL/min (>60); Estimated Creatinine Clearance 48.29 ml/min; Globulin 2.7 g/dL (2.2-4.2); Glucose 125 mg/dL (74-106); Magnesium 2.6 mg/dL (1.6-2.6); Phosphorus 1.4 mg/dL (2.5-4.9); Potassium 3.4 mmol/L (3.5-5.1); Protein, Total 6.1 g/dL (6.4-8.2); Sodium Level 142 mmol/L (136-145)
--- NOTE | 2023-03-29 15:43 | PCM.HOSP.N ---
Hospitalist Note Repeat mag within normal limits, repeat potassium slightly low and Phos remains low, will replete with potassium Phos. On first glance it appears calcium went up however if you correct the a.m. CMP for albumin they are actually roughly equivalent. Will increase her fluids slightly low, pamidronate has already been given, patient's home medication for her calcium also continued
[2023-03-29 16:40] VITALS: BP 131/85; PULSE 68; RESP 16; TEMP 36.8; O2SAT 99
[2023-03-29] MEDS: levoFLOXacin IV 750 MG/150 ML BAG 100 MG IV (16:43)
[2023-03-29] MEDS: 0.9% Normal Saline 1,000 ML 150 ML IV (18:16)
[2023-03-29 22:03] VITALS: BP 166/80; PULSE 82; RESP 18; TEMP 36.7; O2SAT 99
[2023-03-29] MEDS: Polyethylene Glycol 3350 17 GM PACKET PO (22:06)
[2023-03-30] MEDS: 0.9% Normal Saline 1,000 ML 150 ML IV ×3 (00:36→13:39)
[2023-03-30 04:18] VITALS: BP 158/79; PULSE 77; RESP 18; TEMP 36.6; O2SAT 98
[2023-03-30 05:16] LABS: Absolute Lymphocyte Count 1.21 X10^3/uL (0.83-4.51); Absolute Neutrophil Count 3.2 X10^3/uL (2.0-7.7); Basophil# 0.03 X10^3/uL; Basophil% 0.6 % (0-1); Eosinophil# 0.13 X10^3/uL; Eosinophils% 2.6 % (0-5); Hematocrit 29.2 % (37-47); Hemoglobin 9.5 g/dL (12.0-15.0); Lymphocyte # 1.21 X10^3/ul (0.83-4.51); Lymphocyte % 24.3 % (19-41); Mean Corp Hgb Conc 32.5 g/dL (32-36); Mean Corpuscular Hgb 32.8 pg (27.0-32.0); Mean Corpuscular Volume 100.7 fL (81-99); Monocyte# 0.43 X10^3/uL; Monocyte% 8.7 % (0-10); NRBC Flagged by Analyzer 0 % (0-5); Neutrophil # 3.15 X10^3/uL (2.7-7.7); Neutrophil % 63.4 % (47-70); Platelet Count 193 K/mm3 (150-450); RBC Distribution Width CV 12.2 % (11.6-14.6); RBC Distribution Width SD 45.1 fl (35.1-43.9)
[2023-03-30] MEDS: Levothyroxine 125 MCG Tablet PO (05:19)
[2023-03-30 05:57] LABS: Anion Gap 6 (5-15); BUN 8 mg/dL (7-18); BUN/Creat Ratio 13.4 RATIO (10-20); Calcium,Total 9.8 mg/dL (8.5-10.1); Chloride 111 mmol/L (98-107); EST Glomerular Filtration Rate 103 mL/min (>60); Est Glom Filt Rate - Afr Amer 124 mL/min (>60); Estimated Creatinine Clearance 41.05 ml/min; Ferritin 224 ng/mL (8-252); Glucose 91 mg/dL (74-106); Iron 52 ug/dL (50-170); Iron Binding Capacity,Total 272 ug/dL (250-450); Magnesium 1.5 mg/dL (1.6-2.6); PERCENT IRON SATURATION 19.1 % (15.0-55.0); Phosphorus 2.1 mg/dL (2.5-4.9); Potassium 2.7 mmol/L (3.5-5.1); Sodium Level 145 mmol/L (136-145)
[2023-03-30] MEDS: 0.9% Saline Lock 10 ML Syringe IV ×2 (06:52→08:28)
[2023-03-30] MEDS: Potassium Chloride 10mEq/100mL 10 MEQ/100 ML IV.SOLN. 100 MEQ IV BOLUS ×4 (06:56→12:11)
[2023-03-30] MEDS: Potassium Chloride Oral Tablet 20 MEQ 40 MEQ PO (07:05)
[2023-03-30] MEDS: Aspirin 81 MG TAB.CHEW PO (08:27)
[2023-03-30] MEDS: Enoxaparin 40 MG/0.4 ML Syringe SC (08:27)
[2023-03-30] MEDS: Ensure Plus High Protein 120 ML LIQUID PO ×4 (08:27→22:45)
[2023-03-30] MEDS: amLODIPine 5 MG Tablet PO ×2 (08:27→22:45)
[2023-03-30 08:28] LABS: Bedside Glucose 108 mg/dL (74-106)
[2023-03-30] MEDS: Pantoprazole Sodium 40 MG Tablet PO (08:28)
[2023-03-30] MEDS: Cinacalcet HCl 30 MG Tablet 60 MG PO (08:28)
[2023-03-30] MEDS: Polyethylene Glycol 3350 17 GM PACKET PO ×2 (08:28→22:45)
[2023-03-30 10:18] VITALS: BP 141/74; PULSE 74; RESP 16; TEMP 36.9; O2SAT 100
[2023-03-30 16:18] VITALS: BP 139/70; PULSE 71; RESP 14; TEMP 36.7; O2SAT 99
--- NOTE | 2023-03-30 18:12 | PN.HOSP_ITS ---
Reason for Visit Reason for Visit: Diagnoses Hypercalcemia (03/28/23) Subjective Subjective No acute events overnight. Patient seen at bedside this morning. Sitting comfortably in bedside chair, no acute distress. Patient is alert but is not an swering most questions appropriately. She is oriented to person and knows she is in the hospital, but is not otherwise oriented to place or time. She denies any acute pain or discomfort. Denies any fevers or chills. Denies any pain with urination. No other acute concerns. Objective Data Objective Data Vital Signs: Vital Signs Temp Pulse Resp BP Pulse Ox O2 Del Method 98.4 F 74 16 141/74 H 100 Room Air 03/30/23 10:18 03/30/23 10:18 03/30/23 10:18 03/30/23 10:18 03/30/23 10:18 03/30/23 10:18 Oxygen Delivery Method Room Air Weight: 66.3 kg Body Mass Index (BMI) 24.3 Intake & Output: Intake and Output for Last 24 Hours 03/28/23 03/29/23 03/30/23 23:59 23:59 23:59 Intake Total 1200 / 1300 5657.8367 / 5657.8367 4009 / 4009 Output Total 2850 / 2850 Balance 1200 / 1300 5657.8367 / 5657.8367 1159 / 1159 Lab / Micro Data 03/30/23 04:45 03/30/23 04:45 Labs: Laboratory Results - last 24 hr 03/28/23 14:03: POC Glucose 108 H 03/30/23 04:45: WBC 5.0, RBC 2.90 L, Hgb 9.5 L, Hct 29.2 L, MCV 100.7 H, MCH 32.8 H, MCHC 32.5, RDW Std Deviation 45.1 H, RDW Coeff of Theresa 12.2, Plt Count 193, MPV 11.0, Immature Gran % (Auto) 0.400, Neut % (Auto) 63.4, Lymph % (Auto) 24.3, [place] % (Auto) 8.7, Eos % (Auto) 2.6, Baso % (Auto) 0.6, Absolute Neuts (auto) 3.2, Absolute Lymphs (auto) 1.21, Nucleated RBC % 0, Sodium 145, [place] m 2.7 L*, Chloride 111 H, Carbon Dioxide 28.0, Anion Gap 6, BUN 8, Creatinine 0.60, Estim Creat Clear Calc 41.05, Est GFR (MDRD) Af Amer 124, Est GFR (MDRD) Non-Af 103, BUN/Creatinine Ratio 13.4, Glucose 91, Calcium 9.8, Phosphorus 2.1 L , Magnesium 1.5 L, Iron 52, TIBC 272, Iron Saturation 19.1, Ferritin 224, Folate 11.70 Micro: Microbiology 03/28/23 17:20 Urine, Clean Catch Urine Culture - Preliminary Gram negative any Physical Exam Const alert, no apparent distress and average body habitus Constitutional Narrative: Chronically ill-appearing, sitting comfortably in bedside chair, no acute distress. General Appearance: cooperative and comfortable HEENT normocephalic, head/scalp atraumatic, hearing grossly normal bilaterally, nasal mucous membranes and turbinates normal and moist oral mucous membranes Eyes PERRL, EOMs intact bilaterally and conjunctivae normal Neck full ROM, no lymphadenopathy and supple Lymph Lymphatic: no lymphadenopathy noted Chest inspection of chest normal Resp normal respiratory effort, normal air movement, no use of accessory muscles and clear to auscultation bilaterally Cardio regular rate, regular rhythm, no murmurs and peripheral pulses 2+ throughout GI normal to inspection, nondistended, normoactive bowel sounds, soft to palpation, non-tender and non-distended Back/Spine normal ROM Extremity normal to inspection, full ROM and no pedal edema Skin no rashes or lesions noted Assessment & Plan Assessment/Plan (1) Hypercalcemia: PLAN: Plan Patient is a 77-year-old female with history of hypertension, hypothyroidism, GERD and cognitive impairment who presented to [facility] on 03/28/[facility]23 with worsening fatigue and altered mentation. 1. Hypercalcemia, improved Unclear etiology at this time. Patient notably was found to have a calcium of 11.6 at outside hospital at the end of January, was started on Cinacalcet at that time. Unclear what other lab results were at OSH, unable to view. Calcium 13.6 on admission here, albumin 3.4, corrected calcium 14.1. Given 1 dose of pamidronate and initiated on aggressive IV fluids. Calcium now normalized at 9.8 on 03/30. CT chest/abdomen/pelvis with IV contrast showed no significant ac jeff findings, no sign of malignancy. ?Suspect patient may have primary hyperparathyroidism, given she was started on Cinacalcet at OSH. PTH here pending. Continue home Cinacalcet. IV fluids now discontinued, encourage p.o. fluid intake. Monitor calcium daily. 2. Acute encephalopathy, improving ? Presumed secondary to hypercalcemia as above. CT head on admit with no acute findings. Patient's baseline unclear, has known history of cognitive impairment as noted below. Suspect patient may be approaching her baseline. Monitor. 3. Suspected UTI ? UA on admit consistent with UTI, urine culture pending. Given patient's anaphylaxis to penicillin, she was started on Levaquin on admit. Continue Levaquin for now, narrow as able. 4. ZENAIDA, resolved ? Presumed prerenal secondary to fluid losses from hypercalcemia. Creatinine 1.13 on admit, improved to 0.6 with IV fluids. 5. Electrolyte abnormalities ? Hypokalemia, hypophosphatemia and hypomagnesemia noted since admission. Likely secondary to electrolyte balances in setting of hypercalcemia. Replete as needed. Monitor daily. 6. Hypothyroidism ? Not currently stable. TSH 0.26 on admit, free T4 of 2.44, thus patient presently in hyperthyroid state. We will continue current dose for now, may need dose reduction in outpatient setting. Chronic medical conditions: ? Cognitive impairment: Reported by family. Continue home memantine. ? Hypertension: Continue home amlodipine. ? GERD: Stable. Continue home PPI. DVT prophylaxis: Lovenox CODE STATUS: DNR CCA, DO NOT INTUBATE Expected disposition: TBD Total clinical time spent by myself addressing the patient's medical issues, reviewing all the data, and collaborating with patient's care team: 35 minutes. Charges/Coding Visit Charges Inpatient E&M: 82216 Subs Hosp L2
[2023-03-30 20:21] VITALS: BP 138/72; PULSE 72; RESP 16; TEMP 36.6; O2SAT 99
[2023-03-31] VITALS (8 sets, daily range): BP systolic 88–132; BP diastolic 52–73; PULSE 66–80; RESP 12–17; TEMP 36.6–37.2; O2SAT 97–100
[2023-03-31] MEDS: Levothyroxine 125 MCG Tablet PO (06:01)
[2023-03-31 07:07] LABS: Absolute Lymphocyte Count 1.45 X10^3/uL (0.83-4.51); Absolute Neutrophil Count 2.7 X10^3/uL (2.0-7.7); Basophil# 0.04 X10^3/uL; Basophil% 0.8 % (0-1); Eosinophil# 0.17 X10^3/uL; Eosinophils% 3.5 % (0-5); Hematocrit 29.5 % (37-47); Hemoglobin 9.7 g/dL (12.0-15.0); Lymphocyte # 1.45 X10^3/ul (0.83-4.51); Lymphocyte % 29.6 % (19-41); Mean Corp Hgb Conc 32.9 g/dL (32-36); Mean Corpuscular Volume 100.3 fL (81-99); Mean Platelet Vol. 11.1 fl (6.2-12.0); Monocyte# 0.48 X10^3/uL; Monocyte% 9.8 % (0-10); NRBC Flagged by Analyzer 0 % (0-5); Neutrophil # 2.73 X10^3/uL (2.7-7.7); Neutrophil % 55.7 % (47-70); Platelet Count 211 K/mm3 (150-450); RBC Distribution Width CV 12.2 % (11.6-14.6); RBC Distribution Width SD 44.9 fl (35.1-43.9); Red Blood Count 2.94 M/mm3 (4.2-5.4); White Blood Count 4.9 K/mm3 (4.4-11.0)
[2023-03-31 07:45] LABS: Anion Gap 7 (5-15); BUN 7 mg/dL (7-18); BUN/Creat Ratio 11.9 RATIO (10-20); Calcium,Total 8.9 mg/dL (8.5-10.1); Chloride 108 mmol/L (98-107); Creatinine, Serum 0.59 mg/dL (0.55-1.02); EST Glomerular Filtration Rate 105 mL/min (>60); Est Glom Filt Rate - Afr Amer 127 mL/min (>60); Estimated Creatinine Clearance 41.05 ml/min; Glucose 103 mg/dL (74-106); Sodium Level 141 mmol/L (136-145)
[2023-03-31] MEDS: Enoxaparin 40 MG/0.4 ML Syringe SC (10:47)
[2023-03-31] MEDS: Aspirin 81 MG TAB.CHEW PO (10:48)
[2023-03-31] MEDS: levoFLOXacin IV 750 MG/150 ML BAG 100 MG IV (10:48)
[2023-03-31] MEDS: Pantoprazole Sodium 40 MG Tablet PO (10:49)
[2023-03-31] MEDS: Cinacalcet HCl 30 MG Tablet 60 MG PO (10:49)
[2023-03-31] MEDS: Ensure Plus High Protein 120 ML LIQUID PO ×3 (10:50→21:42)
[2023-03-31] MEDS: 0.9% Saline Lock 10 ML Syringe IV (10:55)
[2023-03-31] MEDS: Lactated Ringers 1,000 ML 999 ML IV (14:51)
[2023-03-31 14:53] LABS: PTHIN 273.5 pg/mL (18.4-80.1)
[2023-03-31] MEDS: Potassium Chloride Oral Tablet 20 MEQ 40 MEQ PO (14:56)
[2023-03-31 16:29] LABS: Vitamin B12 144 pg/mL (211-911)
--- NOTE | 2023-03-31 16:40 | CASEMGMT ---
RN?CM?ENGINEERING DESIGN MANAGER?CM?to room to meet with patient for initial transition planning/care coordination?assessment.?RN?CM?introduced self and role at [facility].??Dtr, Sanjana, @ bedside and agreeable to assessment at this time. Pt resting in bed in no distress at this time.? Pt is alert but noted w/some intermittent confusion. ? Care providers, pharmacy, and demographics verified w/Sanjana @ this time. PCP:Javier Martinez Preferred Pharmacy: [facility] Retail Insurance: Steve ABBASI Prescription Benefit:?Yes LNOK: 3 daughters: Sanjana Mensah, and Janet Living Arrangements: Lives w/ dtr, Janet, and GS, Melvin in ranch-style home w/4 steps to enter. Janet assists pt w/bathing and dressing. She works during the night and sleeps during the day, and so is unable to assist pt /. Melvin, oversees her medications but is not often home. Pt receives MOW and family assists w/other meals and family does other home mgnt tasks. Transportation: Janet DME: Pt has the following DME:?shower chair, walker, BP cuff, llft chair. HHC/SNF: No hx of SNF. Has had HHC in the past. Sanjana states she and her sisters feel it would be safest for pt to discharge to a SNF and pt is agreeable to going as well. Questions answered. Sanjana states their preferences are as follows: [facility], [facility], [facility], and [facility]. Sanjana denies wanting/needing list of other SNF options. JAY Henao, made aware. PLAN:??SNF. Aquilino BSN?RN?CM
--- NOTE | 2023-03-31 16:44 | CASEMGMT ---
Discharge Planning A list of SNF providers including quality and resource use data and consistent with the patient?s preferred geographic region, medical needs, and insurance network was created in [employer]. This list was provided to the SW. Fela Marley Discharge Planning Asst.
--- NOTE | 2023-03-31 16:49 | PN.HOSP_ITS ---
Reason for Visit Reason for Visit: Diagnoses Hypercalcemia (03/28/23) Subjective Subjective No acute events overnight. Patient seen at bedside this morning. Patient lying comfortably in bed, no acute distress. Patient does continue to appear co nfused, not answering questions appropriately. Alert and oriented x1 to person. She denies any acute pain or discomfort. No other acute concerns. Objective Data Objective Data Vital Signs: Vital Signs Temp Pulse Resp BP Pulse Ox O2 Del Method 97.8 F 70 14 89/55 L 100 Room Air 03/31/23 14:25 03/31/23 14:25 03/31/23 14:25 03/31/23 14:25 03/31/23 14:25 03/31/23 14:25 Oxygen Delivery Method Room Air Weight: 66.3 kg Body Mass Index (BMI) 24.3 Intake & Output: Intake and Output for Last 24 Hours 03/29/23 03/30/23 03/31/23 23:59 23:59 23:59 Intake Total 5657.8367 / 5657.8367 5406.5 / 5406.5 390 / 390 Output Total 3650 / 4450 1100 / 1100 Balance 5657.8367 / 5657.8367 1756.5 / 956.5 -710 / -710 Lab / Micro Data 03/31/23 06:27 03/31/23 06:27 Labs: Laboratory Results - last 24 hr 03/28/23 14:10: PTH Intact 273.5 H 03/30/23 04:45: Vitamin B12 144 L 03/31/23 06:27: WBC 4.9, RBC 2.94 L, Hgb 9.7 L, Hct 29.5 L, MCV 100.3 H, MCH 33.0 H, MCHC 32.9, RDW Std Deviation 44.9 H, RDW Coeff of Theresa 12.2, Plt Count 211, MPV 11.1, Immature Gran % (Auto) 0.600, Neut % (Auto) 55.7, Lymph % (Auto) 29.6, [place] % (Auto) 9.8, Eos % (Auto) 3.5, Baso % (Auto) 0.8, Absolute Neuts (auto) 2.7, Absolute Lymphs (auto) 1.45, Nucleated RBC % 0, Sodium 141, Potassium 3.0 L, Chloride 108 H, Carbon Dioxide 26.0, Anion Gap 7, BUN 7, Creatinine 0.59, Estim Creat Clear Calc 41.05, Est GFR (MDRD) Af Amer 127, Est GFR (MDRD) Non-Af 105, BUN/Creatinine Ratio 11.9, Glucose 103, Calcium 8.9 Micro: Microbiology 03/28/23 17:20 Urine, Clean Catch Urine Culture - Final Escherichia coli Physical Exam Const alert, no apparent distress and average body habitus Constitutional Narrative: Chronically ill-appearing, lying comfortably in bed, no acute distress. Alert and oriented x1 to person, not answering most questions appropriately. General Appearance: cooperative and comfortable HEENT normocephalic, head/scalp atraumatic, hearing grossly normal bilaterally, nasal mucous membranes and turbinates normal and moist oral mucous membranes Eyes PERRL, EOMs intact bilaterally and conjunctivae normal Neck full ROM, no lymphadenopathy and supple Lymph Lymphatic: no lymphadenopathy noted Chest inspection of chest normal Resp normal respiratory effort, normal air movement, no use of accessory muscles and clear to auscultation bilaterally Cardio regular rate, regular rhythm, no murmurs and peripheral pulses 2+ throughout GI normal to inspection, nondistended, normoactive bowel sounds, soft to palpation, non-tender and non-distended Back/Spine normal ROM Extremity normal to inspection, full ROM and no pedal edema Skin no rashes or lesions noted Assessment & Plan Assessment/Plan (1) Hypercalcemia: PLAN: Plan Patient is a 77-year-old female with history of hypertension, hypothyroidism, GERD and cognitive impairment who presented to [facility] on 03/28/2023 with worsening fatigue and altered mentation. 1. Hypercalcemia, improved Unclear etiology at this time. Patient notably was found to have a calcium of 11.6 at outside hospital at the end of January, was started on Cinacalcet at that time. Unclear what other lab results were at OSH, unable to view. Calcium 13.6 on admission here, albumin 3.4, corrected calcium 14.1. Given 1 dose of pamidronate and initiated on aggressive IV fluids. Calcium now normalized at 9.8 on 03/30. CT chest/abdomen/pelvis with IV contrast showed no significant acute findings, no sign of malignancy. ?Suspect patient may have primary hyperparathyroidism, given she was started on Cinacalcet at OSH. PTH here pending. Continue home Cinacalcet. Continue gentle maintenance IV fluids as patient has fairly poor p.o. intake. Encourage p.o. intake as able. Monitor calcium daily. 2. Acute encephalopathy, history of known cognitive impairment ?Altered mentation on admission was presumed secondary to hypercalcemia. CT head on admit with no acute findings. She has had improvement in her degree of alertness, however continues to only be alert and oriented x1 to person at this time. Attempted to call patient's daughter but was unable to reach her today, will call again tomorrow. Continue home memantine. PT/OT/case management following for discharge planning. 3. Uncomplicated UTI ? UA on admit consistent with UTI. CT CAP showed a distended urinary bladder, no evidence of hydronephrosis. Given patient's anaphylaxis to penicillin, she was started on Levaquin on admit. Unfortunately, urine culture resulted on 03/31 and grew E. coli resistant to Levaquin. Switch to Macrobid, will plan to complete 5-day course. 4. ZENAIDA, resolved ? Presumed prerenal secondary to fluid losses from hypercalcemia. Creatinine 1.13 on admit, improved to 0.6 with IV fluids. 5. Electrolyte abnormalities ? Hypokalemia, hypophosphatemia and hypomagnesemia noted since admission. Likely secondary to electrolyte balances in setting of hypercalcemia. Replete as needed. Monitor daily. 6. Constipation, improving ? Very likely secondary to hypercalcemia and poor p.o. intake. Fecal retention concerning for constipation noted on CT scan on admit. Continue MiraLAX twice daily. 7. Hypothyroidism ? Not currently stable. TSH 0.26 on admit, free T4 of 2.44, thus patient presently in hyperthyroid state. We will continue current dose for now, may need dose reduction in outpatient setting. Chronic medical conditions: ? Hypertension: Continue home amlodipine. ? GERD: Stable. Continue home PPI. DVT prophylaxis: Lovenox CODE STATUS: DNR CCA, DO NOT INTUBATE Expected disposition: Likely SNF, TBD Total clinical time spent by myself addressing the patient's medical issues, reviewing all the data, and collaborating with patient's care team: 35 minutes. Charges/Coding Visit Charges Inpatient E&M: 13144 Subs Hosp L2
--- NOTE | 2023-03-31 17:15 | CASEMGMT ---
Social Work Received update from ROMELIA Kingsley that patient and family interested in short term skilled care with identified choices as follows: [facility], [facility], [facility], and [facility]. Met with patient and daughter Sanjana Guo ([phone]) to provide A list of SNF providers including quality and resource use data and consistent with the patient?s preferred geographic region, medical needs, and insurance network. Reviewed list with patient and daughter. Sanjana reviewed list and found that [facility] not showing in network with insurance. Choices remain the same with the exclusion of [facility]. Sanjana reports plan is for short term, with goal of returning home after rehab. Patient's daughter Janet lives with patient, and helps to care for patient. Message left for Arabella in admissions at [facility] regarding referral. PLAN: Short term skilled SNF. Pending acceptance at [facility]. -ANNEMARIE Hammer .
[2023-03-31] MEDS: Lactated Ringers 1,000 ML 50 ML IV (17:20)
--- NOTE | 2023-03-31 19:14 | NURSING ---
Reviewed charting with Stephenie Gutiérrez RN
[2023-03-31] MEDS: amLODIPine 5 MG Tablet PO (21:41)
[2023-03-31] MEDS: Polyethylene Glycol 3350 17 GM PACKET PO (21:41)
[2023-03-31] MEDS: Nitrofurantoin Macrocrystals 100 MG Capsule PO (21:42)
[2023-04-01 05:00] VITALS: BP 108/64; PULSE 81; RESP 17; TEMP 37; O2SAT 98
[2023-04-01 05:51] LABS: Anion Gap 4 (5-15); BUN 15 mg/dL (7-18); BUN/Creat Ratio 18.9 RATIO (10-20); Calcium,Total 8.6 mg/dL (8.5-10.1); Chloride 110 mmol/L (98-107); Creatinine, Serum 0.79 mg/dL (0.55-1.02); EST Glomerular Filtration Rate 74 mL/min (>60); Est Glom Filt Rate - Afr Amer 90 mL/min (>60); Estimated Creatinine Clearance 41.05 ml/min; Glucose 93 mg/dL (74-106); Potassium 3.6 mmol/L (3.5-5.1); Sodium Level 141 mmol/L (136-145)
[2023-04-01] MEDS: Levothyroxine 125 MCG Tablet PO (06:37)
--- NOTE | 2023-04-01 08:30 | CASEMGMT ---
TCU is not able to take patient. SW asked Fela d/kwasi planning specialist to please send a referral to [facility] which is patient's second choice. Beverly LARRY
[2023-04-01 09:00] VITALS: BP 117/61; PULSE 67; RESP 18; TEMP 36.8; O2SAT 98
[2023-04-01] MEDS: Lactated Ringers 1,000 ML 50 ML IV (09:05)
--- NOTE | 2023-04-01 09:05 | CASEMGMT ---
Discharge Planning Patient was declined by TCU. Referral sent to [facility] via [facility]. Fela Marley, Discharge Planning Asst.
[2023-04-01] MEDS: Pantoprazole Sodium 40 MG Tablet PO (09:06)
[2023-04-01] MEDS: Aspirin 81 MG TAB.CHEW PO (09:06)
[2023-04-01] MEDS: amLODIPine 5 MG Tablet PO ×2 (09:06→21:47)
[2023-04-01] MEDS: Nitrofurantoin Macrocrystals 100 MG Capsule PO ×2 (09:06→21:47)
[2023-04-01] MEDS: Cinacalcet HCl 30 MG Tablet 60 MG PO (09:06)
[2023-04-01] MEDS: Ensure Plus High Protein 120 ML LIQUID PO ×4 (09:07→21:47)
[2023-04-01] MEDS: 0.9% Saline Lock 10 ML Syringe IV ×2 (09:07→12:30)
[2023-04-01] MEDS: Enoxaparin 40 MG/0.4 ML Syringe SC (09:07)
[2023-04-01] MEDS: Polyethylene Glycol 3350 17 GM PACKET PO ×2 (09:07→21:48)
--- NOTE | 2023-04-01 10:54 | US_ITS ---
STUDY: THYROID ULTRASOUND REASON FOR EXAM: Female, 77 years old. primary hyperparathyroidism TECHNIQUE: Ultrasound evaluation of the thyroid was performed with real-time and static torres-scale imaging. COMPARISON: None. FINDINGS: RIGHT LOBE: The right lobe of the thyroid gland measures 2.8 x 1.3 x 0.5 cm. There is a homogeneous echotexture. There are no demonstrated solid, cystic or complex lesions. LEFT LOBE: The left lobe of the thyroid gland measures 2.6 x 1.2 x 0.9 cm. There is a homogeneous echotexture. Within the mid lower pole of the left thyroid lobe there are 2 nodules, one measuring 0.53 x 0.37 x 0.53 cm with partial hypoechoic margins and heterogeneous pattern. The margins are irregular with questionable partial cystic component. A calcification is seen in the mid lower pole measuring 0.2 cm, indeterminate with no soft tissue mass. ISTHMUS: The isthmus measures 0.16 cm. The regional lymph nodes are normal. Just posterior to the right common carotid artery there is a smooth hypoechoic structure measuring 1.5 x 1.2 x 1.0 cm with internal vascularity concerning for a mass. US/Thyroid IMPRESSION: Indeterminate nodule within the left mid lower thyroid lobe with morphology favoring benign process. Note to be made that benign versus malignant processes cannot be determined without microscopic evaluation or documentation of stability. If indicated, follow-up ultrasound in 6-12 months recommended. Nonspecific calcification within the left thyroid lobe with no distinct mass. Isoechoic nodule just posterior to the right carotid artery with vascularity with differential diagnosis including abnormal lymph node or vascular neoplasm. Clinical correlation recommended. Follow-up with MRI or CT with intravenous contrast recommended for more accurate characterization. Electronically Signed: Bharti Raymond MD at 17:30 EDT ,
[2023-04-01 11:30] LABS: Phosphorus 1.3 mg/dL (2.5-4.9)
--- NOTE | 2023-04-01 12:54 | CASEMGMT ---
Discharge Planning Patient has been accepted by [facility]. Precert has been submitted. Patients daughter, Makenna, updated (unable to contact or leave a message for Sanjana). Fela Marley, Discharge Planning Asst
--- NOTE | 2023-04-01 13:12 | PN.HOSP_ITS ---
Reason for Visit Reason for Visit: Diagnoses Hypercalcemia (03/28/23) Subjective Subjective No acute events overnight. Patient seen at bedside this morning. Patient laying comfortably in bed, no acute distress. She is alert but continues to be only oriented x1 to person. She denies any acute pain or discomfort. Denies any fevers or chills. No other acute concerns currently. Objective Data Objective Data Vital Signs: Vital Signs Temp Pulse Resp BP Pulse Ox O2 Del Method 98.2 F 67 18 117/61 98 Room Air 04/01/23 09:00 04/01/23 09:00 04/01/23 09:00 04/01/23 09:00 04/01/23 09:00 04/01/23 09:00 Oxygen Delivery Method Room Air Weight: 66.3 kg Body Mass Index (BMI) 24.3 Intake & Output: Intake and Output for Last 24 Hours 03/30/23 03/31/23 04/01/23 23:59 23:59 23:59 Intake Total 5406.5 / 5406.5 1630 / 1630 1287.5 / 1287.5 Output Total 3650 / 4450 1100 / 1500 800 / 800 Balance 1756.5 / 956.5 530 / 130 487.5 / 487.5 Lab / Micro Data 03/31/23 06:27 04/01/23 05:11 Labs: Laboratory Results - last 24 hr 03/28/23 14:10: PTH Intact 273.5 H 03/30/23 04:45: Vitamin B12 144 L 04/01/23 05:11: Sodium 141, Potassium 3.6, Chloride 110 H, Carbon Dioxide 27.0, Anion Gap 4 L, BUN 15, Creatinine 0.79, Estim Creat Clear Calc 41.05, Est GFR (MDRD) Af Amer 90, Est GFR (MDRD) Non-Af 74, BUN/Creatinine Ratio 18.9, Glucose 93, Calcium 8.6, Phosphorus 1.3 L Micro: Microbiology 03/28/23 17:20 Urine, Clean Catch Urine Culture - Final Escherichia coli Physical Exam Const alert, no apparent distress and average body habitus Constitutional Narrative: Chronically ill-appearing, lying comfortably in bed, no acute distress. Alert and oriented x1 to person, not answering most questions appropriately. General Appearance: cooperative and comfortable HEENT normocephalic, head/scalp atraumatic, hearing grossly normal bilaterally, nasal mucous membranes and turbinates normal and moist oral mucous membranes Eyes PERRL, EOMs intact bilaterally and conjunctivae normal Neck full ROM, no lymphadenopathy and supple Lymph Lymphatic: no lymphadenopathy noted Chest inspection of chest normal Resp normal respiratory effort, normal air movement, no use of accessory muscles and clear to auscultation bilaterally Cardio regular rate, regular rhythm, no murmurs and peripheral pulses 2+ throughout GI normal to inspection, nondistended, normoactive bowel sounds, soft to palpation, non-tender and non-distended Back/Spine normal ROM Extremity normal to inspection, full ROM and no pedal edema Skin no rashes or lesions noted Assessment & Plan Assessment/Plan (1) Hypercalcemia: PLAN: Plan Patient is a 77-year-old female with history of hypertension, hypothyroidism, GERD and cognitive impairment who presented to [facility] on 03/28/2023 with worsening fatigue and altered mentation. 1. Hypercalcemia likely secondary to primary hyperparathyroidism, improved Found to have intact PTH of 273 on admission, with no significant renal disease. Suspected that patient may have had elevated PTH on recent previous hospitalization at [facility] in late January; that was her first hospitalization with significant hypercalcemia. Calcium 13.6 on presentation here with corrected calcium 14.1. Given 1 dose of pamidronate on admission and started on aggressive IV fluid resuscitation, with improvement to normal calcium levels over about 2 days. Patient notably had Cinacalcet 60 mg daily listed on medication list, unclear if she was taking this at home. This was also started on admission here. CT chest/abdomen/pelvis with IV contrast notably showed no significant findings, no sign of malignancy. ? Discussed with endocrinology and endocrine surgery on 04/01. Suspect that patient has primary hyperparathyroidism, will order thyroid ultrasound for further work-up. Vitamin D level pending. We will update phosphorus and calcium levels. Seems most likely that patient was not taking Cinacalcet at home after it was prescribed on previous admission in late January, as it would be unlikely for her to develop significant hypercalcemia on medication. We will continue Cinacalcet 60 mg daily. We will also give 1 dose of zoledronic acid on 04/01. Further work-up for possible parathyroidectomy to happen outpatient. 2. Acute encephalopathy, history of known cognitive impairment with chronic debility ?Altered mentation on admission was presumed secondary to hypercalcemia. CT head on admit with no acute findings. She has had improvement in her degree of alertness, however continues to only be alert and oriented x1 to person at this time. PT/OT/case management following, discussed with patient's daughter and planning for SNF on discharge. Continue home memantine. 3. Uncomplicated UTI ? UA on admit consistent with UTI. CT CAP showed a distended urinary bladder, no evidence of hydronephrosis. Given patient's anaphylaxis to penicillin, she was started on Levaquin on admit. Unfortunately, urine culture resulted on 03/31 and grew E. coli resistant to Levaquin. Switch to Macrobid, will plan to complete 5-day course. 4. ZENAIDA, resolved ? Presumed prerenal secondary to fluid losses from hypercalcemia. Creatinine 1.13 on admit, improved to 0.6 with IV fluids. 5. Electrolyte abnormalities ? Hypokalemia, hypophosphatemia and hypomagnesemia noted since admission. Likely secondary to electrolyte balances in setting of hypercalcemia. Replete as needed. Monitor daily. 6. Constipation, improving ? Very likely secondary to hypercalcemia and poor p.o. intake. Fecal retention concerning for constipation noted on CT scan on admit. Continue MiraLAX twice daily. 7. Hypothyroidism ? Not currently stable. TSH 0.26 on admit, free T4 of 2.44, thus patient presently in hyperthyroid state. We will continue current dose for now, may need dose reduction in outpatient setting. Chronic medical conditions: ? Hypertension: Continue home amlodipine. ? GERD: Stable. Continue home PPI. DVT prophylaxis: Lovenox CODE STATUS: DNR CCA, DO NOT INTUBATE Expected disposition: Likely SNF, 2 to 3 days Total clinical time spent by myself addressing the patient's medical issues, reviewing all the data, and collaborating with patient's care team: 35 minutes. Charges/Coding Visit Charges Inpatient E&M: 91520 Subs Hosp L2
[2023-04-01 15:00] VITALS: BP 107/61; PULSE 68; RESP 19; TEMP 36.8; O2SAT 96
--- NOTE | 2023-04-01 17:04 | EX.PCM.CON.S ---
Assessment & Plan Assessment/Plan (1) Hypercalcemia: PLAN: This is a 77-year-old female who presented with weakness and confusion while being found to have profound hypercalcemia. Work-up was undertaken immediately for the cause of patient's hypercalcemia. It seems most likely patient has a diagnosis of primary hyperparathyroidism given a markedly elevated PTH in addition to her elevated serum calcium. While I note that a vitamin D level was requested, this remains in pending status since 03/28/2023. To make our diagnosis official, this should be within normal limits. Patient's calcium is now normalized and there is suspicion from a provider care team that patient had a missed dose of Cinacalcet. I have stressed to patient and her family that she will require careful attention to this medication as well as regular hydration and minimizing external sources of calcium. Based on patient's history, I am suspicious that many of the issues facing Mrs. Ramirez and currently compromising her quality of life may be related to this diagnosis specifically including refractory GERD symptoms, hypertension, weakness, memory difficulties, and unexplained pains. I have shared with Mrs. Ramirez and her daughter that hyperparathyroidism is first a diagnosis made biochemically and then a process must follow for localization. Given patient's current frail state, I have suggested that it may only make sense for surgical intervention if this was a well localized gland. To this end, I have recommended thyroid ultrasound be performed and this was done earlier today. Radiology is yet to read this study formally, but it appears there is a possible candidate lesion in the right neck just deep to the carotid. For now, recommend patient complete this inpatient stay and be given a plan for outpatient endocrinology follow-up. I will also plan to follow-up with patient as an outpatient?would request this follow-up within a couple weeks of hospital discharge. HPI Consult Data Date of Consult: 04/01/23 HPI Narrative Reason for Consultation: Hypercalcemia HPI Narrative: DANIE RAMIREZ, is a 77 F who presented to [facility] on 03/28/2023 due to complaints of weakness and confusion. She was found to have profound hypercalcemia of over 13 and a PTH level over 270. Her daughter, who accompanies her in the room provides much of the history. Jointly, they recall that Ms. Ramirez has been placed on Cinacalcet for 3 weeks after having a similar admission at [facility]. They also note establishing some following with endocrinology through that ordeal. Patient's daughter confirms that there is no suspicion of missed doses of Cinacalcet. For her part, Ms. Ramirez reports that she does drink a lot of water, but also has a moderate dairy intake. Ms. Ramirez denies any history of broken bones or kidney stones. Her daughter confirms a history of hypertension for the past 30 years. They also recall history of GERD. They note that both of these issues has been worse in recent months. Lastly they report that memory has been a real struggle for Mrs. Ramirez. Patient's daughter reports that her mother has a diagnosis of hypothyroidism, but denies any awareness of any thyroid nodularity. However, she also confesses that she is unaware of any prior thyroid imaging. 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 She states that thyroid is found all throughout her family. [facility] Medical History (Updated 03/28/23 @ 15:[address] Janet Saucedo MD) Hx of gastroesophageal reflux (GERD) Hypertension Hypothyroidism Home Medications amlodipine 5 mg tablet 5 mg PO BID 04/07/20 [History Last Taken Unknown] aspirin 81 mg chewable tablet 81 mg PO DAILY@0800 04/07/20 [History Last Taken Unknown] docusate sodium 50 mg capsule 50 mg PO BID PRN Constipation 04/07/20 [History Last Taken Unknown] levothyroxine 150 mcg tablet 150 mcg PO DAILY thyroid 04/07/20 [History Last Taken Unknown] pantoprazole 40 mg tablet,delayed release 40 mg PO DAILY stomach 04/07/20 [History Last Taken Unknown] ranolazine 500 mg tablet,extended release,12 hr 500 mg PO BID chest pain 04/07/20 [History Last Taken Unknown] cinacalcet 60 mg tablet 60 mg PO DAILY hyperparathyroid 03/28/23 [History Last Taken Unknown] ferrous sulfate 325 mg (65 mg iron) tablet 325 mg PO DAILY iron 03/28/23 [History Last Taken Unknown] liothyronine 5 mcg tablet 5 mcg PO DAILY prn 03/28/23 [History Last Taken Unknown] memantine 7 mg capsule sprinkle,extended release 24hr 7 mg PO DAILY memory 03/28/23 [History Last Taken Unknown] olmesartan 5 mg tablet 5 mg PO QHS cholesterol 03/28/23 [History Last Taken Unknown] Allergy/AdvReac Type Severity Reaction Status Date / Time aspirin [ASA] Allergy Hives Verified 04/07/20 21:43 hydrocodone Allergy Nausea Verified 04/07/20 21:43 morphine Allergy PT UNSURE Verified 04/07/20 21:43 OF REACTION Penicillins Allergy Anaphylaxis Verified 04/07/20 21:43 Family History (Updated 03/28/23 @ 16:[address] Bertrand Devi MD) Other Diabetes Heart disease Surgical History (Updated 03/28/23 @ 16:[address] Bertrand Devi MD) Status post total hip replacement, right Social History Smoking Status: Never smoker Physical Exam Const alert General Appearance: frail Neck Neck Narrative: No thyroid nodularity palpable. No lymphadenopathy palpable General: normal visual inspection Lab / Micro Data 03/31/23 06:27 04/01/23 05:11 Labs: Laboratory Results - last 24 hr 04/01/23 05:11: Sodium 141, Potassium 3.6, Chloride 110 H, Carbon Dioxide 27.0, Anion Gap 4 L, BUN 15, Creatinine 0.79, Estim Creat Clear Calc 41.05, Est GFR (MDRD) Af Amer 90, Est GFR (MDRD) Non-Af 74, BUN/Creatinine Ratio 18.9, Glucose 93, Calcium 8.6, Phosphorus 1.3 L Charges/Coding Visit Charges Inpatient E&M: 06639 Init Hosp L2
[2023-04-01 21:43] VITALS: BP 130/66; PULSE 73; RESP 14; TEMP 36.9; O2SAT 100
[2023-04-02 03:28] VITALS: BP 123/79; PULSE 59; RESP 16; TEMP 36.8; O2SAT 99
[2023-04-02] MEDS: Levothyroxine 125 MCG Tablet PO (06:08)
[2023-04-02] MEDS: Lactated Ringers 1,000 ML 50 ML IV (06:08)
[2023-04-02 06:50] LABS: Anion Gap 4 (5-15); BUN 16 mg/dL (7-18); BUN/Creat Ratio 25.6 RATIO (10-20); Calcium,Total 8.7 mg/dL (8.5-10.1); Chloride 111 mmol/L (98-107); Creatinine, Serum 0.62 mg/dL (0.55-1.02); EST Glomerular Filtration Rate 98 mL/min (>60); Est Glom Filt Rate - Afr Amer 118 mL/min (>60); Estimated Creatinine Clearance 41.05 ml/min; Glucose 102 mg/dL (74-106); Potassium 3.5 mmol/L (3.5-5.1); Sodium Level 142 mmol/L (136-145)
--- NOTE | 2023-04-02 07:35 | PCM.PROGNOTE ---
Subjective Subjective I spoke with care team regarding this patient 04.01.2023 She likely (vitamin D pending) has primary hyperparathyroidism with difficult social situation resulting in severe hypercalcemia, currently controlled. Objective Data Objective Data Vital Signs: Vital Signs Temp Pulse Resp BP Pulse Ox O2 Del Method 98.2 F 59 L 16 123/79 H 99 Room Air 04/02/23 03:28 04/02/23 03:28 04/02/23 03:28 04/02/23 03:28 04/02/23 03:28 04/02/23 03:30 Oxygen Delivery Method Room Air Weight: 146 lb 2.664 oz Body Mass Index (BMI) 24.3 Intake & Output: Intake and Output for Last 24 Hours 03/31/23 04/01/23 04/02/23 23:59 23:59 23:59 Intake Total 1630 / 1630 2111.25 / 2111.25 1000 / 1000 Output Total 1100 / 1500 1000 / 1000 Balance 530 / 130 1111.25 / 1111.25 1000 / 1000 Lab / Micro Data 03/31/23 06:27 04/02/23 05:43 Labs: Laboratory Results - last 24 hr 04/01/23 05:11: Phosphorus 1.3 L 04/02/23 05:43: Sodium 142, Potassium 3.5, Chloride 111 H, Carbon Dioxide 27.0, Anion Gap 4 L, BUN 16, Creatinine 0.62, Estim Creat Clear Calc 41.05, Est GFR (MDRD) Af Amer 118, Est GFR (MDRD) Non-Af 98, BUN/Creatinine Ratio 25.6 H, Glucose 102, Calcium 8.7 Micro: Microbiology 03/28/23 17:20 Urine, Clean Catch Urine Culture - Final Escherichia coli Radiography Diagnostic Testing: Radiology Impression Thyroid Ultrasound 04/01/23 10:54 IMPRESSION: Indeterminate nodule within the left mid lower thyroid lobe with morphology favoring benign process. Note to be made that benign versus malignant processes cannot be determined without microscopic evaluation or documentation of stability. If indicated, follow-up ultrasound in 6-12 months recommended. Nonspecific calcification within the left thyroid lobe with no distinct mass. Isoechoic nodule just posterior to the right carotid artery with vascularity with differential diagnosis including abnormal lymph node or vascular neoplasm. Clinical correlation recommended. Follow-up with MRI or CT with intravenous contrast recommended for more accurate characterization. Electronically Signed: Bharti Raymond MD at 17:30 EDT , Assessment & Plan Assessment/Plan (1) Hyperparathyroidism: PLAN: Likely primary hyperparathyroidism. Need 25 (OH) vitamin D level. I ordered this today. Once 25 (OH) vitamin D level has been normalized, diagnosis can be confirmed. I recommend continuing Cinacalcet 60 mg daily with administration assistance for patient. Also continue hydration and encouragement of oral fluids. Endocrine surgery is following the patient. She is undergoing localization imaging. She has been given bisphosphonate which will hopefully assist with keeping calcium levels down and protecting against bone loss. I will follow her as outpatient. Please have clerical staff contact my office for scheduling.
[2023-04-02 07:44] VITALS: O2SAT 97
[2023-04-02 08:16] VITALS: O2SAT 97
[2023-04-02 09:28] VITALS: BP 110/90; PULSE 60; RESP 18; TEMP 36.6; O2SAT 99
[2023-04-02] MEDS: Polyethylene Glycol 3350 17 GM PACKET PO ×2 (09:34→21:56)
[2023-04-02] MEDS: Nitrofurantoin Macrocrystals 100 MG Capsule PO ×2 (09:34→21:56)
[2023-04-02] MEDS: Aspirin 81 MG TAB.CHEW PO (09:34)
[2023-04-02] MEDS: Ensure Plus High Protein 120 ML LIQUID PO ×3 (09:34→17:35)
[2023-04-02] MEDS: Pantoprazole Sodium 40 MG Tablet PO (09:35)
[2023-04-02] MEDS: Cinacalcet HCl 30 MG Tablet 60 MG PO (09:35)
[2023-04-02] MEDS: Enoxaparin 40 MG/0.4 ML Syringe SC (09:35)
[2023-04-02] MEDS: amLODIPine 5 MG Tablet PO ×2 (09:35→21:56)
[2023-04-02 13:07] LABS: Vitamin D 1,25-Dihydroxy 55.5 pg/mL (24.8-81.5)
--- NOTE | 2023-04-02 14:55 | CASEMGMT ---
SW received a voice mail from patient's insurance company. Patient is being denied for group home facility. Phone number to call for peer to peer is [phone] Option 2. SW notified physician. Patient is walking 180' contact guard. Physician said he would talk with patient's daughter as he feel patient may be able to go home. Beverly LARRY
--- NOTE | 2023-04-02 15:26 | CASEMGMT ---
Discharge Planning A list of home healthcare providers including quality and resource use data and consistent with the patient?s preferred geographic region, medical needs, and insurance network was created in [employer] Guide. This list was provided to the RN MARIANELA. Fela Marley, Discharge Planning Asst.
--- NOTE | 2023-04-02 15:30 | CASEMGMT ---
ROMELIA BEAR updated by JAY that patient was denied SNF by insurance. RN CM in to discuss HHC with patient and daughter. A list of HHC providers including quality and resource use data and consistent with the patient?s preferred geographical region, medical needs, and insurance network were provided from the [employer] Guide. RN CM requested patient and daughter review list and provided preferences in the morning, daughter voiced understanding. CM will continue to follow this patient and plan for safe discharge.
[2023-04-02 16:01] VITALS: BP 131/64; PULSE 66; RESP 18; TEMP 36.8; O2SAT 97
--- NOTE | 2023-04-02 17:32 | PCM.PN.HOSP ---
Reason for Visit Reason for Visit: Diagnoses Hyperparathyroidism, unspecified (03/28/23) Hypercalcemia (03/28/23) Subjective Subjective No acute events overnight. Patient seen at bedside this morning. Sitting comfortably in bedside chair, no acute distress. Patient appears more alert today, seems to be more oriented with conversation. She denies any fevers or chills. She denies any acute pain or discomfort. She is hoping to go home soon. No other acute concerns. Objective Data Objective Data Vital Signs: Vital Signs Temp Pulse Resp BP Pulse Ox O2 Del Method 98.2 F 66 18 131/64 H 97 Room Air 04/02/23 16:01 04/02/23 16:01 04/02/23 16:01 04/02/23 16:01 04/02/23 16:01 04/02/23 16:01 Oxygen Delivery Method Room Air Weight: 66.3 kg Body Mass Index (BMI) 24.3 Intake & Output: Intake and Output for Last 24 Hours 03/31/23 04/01/23 04/02/23 23:59 23:59 23:59 Intake Total 1630 / 1630 2111.25 / 2111.25 1887.5 / 1887.5 Output Total 1100 / 1500 1000 / 1000 Balance 530 / 130 1111.25 / 1111.25 1887.5 / 1887.5 Lab / Micro Data 03/31/23 06:27 04/02/23 05:43 Labs: Laboratory Results - last 24 hr 03/28/23 14:10: Vit D 1,25-Dihydroxy 55.5 04/02/23 05:43: Sodium 142, Potassium 3.5, Chloride 111 H, Carbon Dioxide 27.0, Anion Gap 4 L, BUN 16, Creatinine 0.62, Estim Creat Clear Calc 41.05, Est GFR (MDRD) Af Amer 118, Est GFR (MDRD) Non-Af 98, BUN/Creatinine Ratio 25.6 H, Glucose 102, Calcium 8.7, Phosphorus 2.0 L 04/02/23 06:27: Vitamin D 25-Hydroxy 49.0 Micro: Microbiology 03/28/23 17:20 Urine, Clean Catch Urine Culture - Final Escherichia coli Physical Exam Const alert, no apparent distress and average body habitus Constitutional Narrative: Chronically ill-appearing, sitting comfortably in bedside chair, no acute distress. Alert and more oriented with conversation. General Appearance: cooperative and comfortable HEENT normocephalic, head/scalp atraumatic, hearing grossly normal bilaterally, nasal mucous membranes and turbinates normal and moist oral mucous membranes Eyes PERRL, EOMs intact bilaterally and conjunctivae normal Neck full ROM, no lymphadenopathy and supple Lymph Lymphatic: no lymphadenopathy noted Chest inspection of chest normal Resp normal respiratory effort, normal air movement, no use of accessory muscles and clear to auscultation bilaterally Cardio regular rate, regular rhythm, no murmurs and peripheral pulses 2+ throughout GI normal to inspection, nondistended, normoactive bowel sounds, soft to palpation, non-tender and non-distended Back/Spine normal ROM Extremity normal to inspection, full ROM and no pedal edema Skin no rashes or lesions noted Assessment & Plan Assessment/Plan (1) Hypercalcemia: PLAN: Plan Patient is a 77-year-old female with history of hypertension, hypothyroidism, GERD and cognitive impairment who presented to [facility] on 03/28/2023 with worsening fatigue and altered mentation. 1. Hypercalcemia likely secondary to primary hyperparathyroidism, improved Found to have intact PTH of 273 on admission, with no significant renal disease. Suspected that patient may have had elevated PTH on recent previous hospitalization at [facility] in late January; that was her first hospitalization with significant hypercalcemia. Calcium 13.6 on presentation here with corrected calcium 14.1. Given 1 dose of pamidronate on admission and started on aggressive IV fluid resuscitation, with improvement to normal calcium levels over about 2 days. Patient notably had Cinacalcet 60 mg daily listed on medication list, unclear if she was taking this at home. This was also started on admission here. CT chest/abdomen/pelvis with IV contrast notably showed no significant findings, no sign of malignancy. Thyroid ultrasound 04/01 shows possible candidate lesion in the right neck just deep to the carotid. ?Endocrinology and endocrine surgery following. Continue Cinacalcet. Given 1 dose of zoledronic acid on 04/01, can hold on p.o. bisphosphonate on discharge. Follow-up 25 (OH) vitamin D level. Encourage p.o. hydration. Plan for close outpatient follow-up with endocrinology and endocrine surgery. 2. Acute metabolic encephalopathy, history of known cognitive impairment with chronic debility Altered mentation on admission was presumed secondary to hypercalcemia. CT head on admit with no acute findings. She has had improvement in her degree of alertness, but does continue to be somewhat disoriented and not answer questions appropriately. Per family, her memory has been worsening for several months and patient may be approaching her baseline. ? PT/OT/case management following. Patient unfortunately does not qualify for SNF given her improvement in activity level. We will plan for home with home health care on discharge. Continue home memantine. Likely okay for discharge home tomorrow. 3. Uncomplicated UTI ? UA on admit consistent with UTI. CT CAP showed a distended urinary bladder, no evidence of hydronephrosis. Given patient's anaphylaxis to penicillin, she was started on Levaquin on admit. Unfortunately, urine culture resulted on 03/31 and grew E. coli resistant to Levaquin. Switched to Macrobid, will plan to complete 5-day course, stop date 04/04. 4. ZENAIDA, resolved ? Presumed prerenal secondary to fluid losses from hypercalcemia. Creatinine 1.13 on admit, improved to 0.6 with IV fluids. 5. Electrolyte abnormalities ? Hypokalemia, hypophosphatemia and hypomagnesemia noted since admission. Likely secondary to electrolyte balances in setting of hypercalcemia. Replete as needed. Monitor daily. 6. Constipation, improving ? Very likely secondary to hypercalcemia and poor p.o. intake. Fecal retention concerning for constipation noted on CT scan on admit. Continue MiraLAX twice daily. 7. Hypothyroidism ? Not currently stable. TSH 0.26 on admit, free T4 of 2.44, thus patient presently in hyperthyroid state. We will continue current dose for now, may need dose reduction in outpatient setting. Chronic medical conditions: ? Hypertension: Continue home amlodipine. ? GERD: Stable. Continue home PPI. DVT prophylaxis: Lovenox CODE STATUS: DNR CCA, DO NOT INTUBATE Expected disposition: Home with home health care, likely tomorrow Total clinical time spent by myself addressing the patient's medical issues, reviewing all the data, and collaborating with patient's care team: 35 minutes. Charges/Coding Visit Charges Inpatient E&M: 54906 Subs Hosp L2
[2023-04-02 21:56] VITALS: BP 127/75; PULSE 60; RESP 14; TEMP 36.9; O2SAT 100
[2023-04-03 03:56] VITALS: BP 144/70; PULSE 99; RESP 14; TEMP 37; O2SAT 99
[2023-04-03 05:29] LABS: Anion Gap 3 (5-15); BUN 17 mg/dL (7-18); BUN/Creat Ratio 24.9 RATIO (10-20); Calcium,Total 8.7 mg/dL (8.5-10.1); Chloride 111 mmol/L (98-107); Creatinine, Serum 0.68 mg/dL (0.55-1.02); EST Glomerular Filtration Rate 88 mL/min (>60); Est Glom Filt Rate - Afr Amer 107 mL/min (>60); Estimated Creatinine Clearance 41.05 ml/min; Glucose 96 mg/dL (74-106); Potassium 3.5 mmol/L (3.5-5.1); Sodium Level 142 mmol/L (136-145)
[2023-04-03] MEDS: Levothyroxine 100 MCG Tablet PO (06:01)
[2023-04-03 09:23] VITALS: BP 105/65; PULSE 58; RESP 16; TEMP 36.8; O2SAT 100
[2023-04-03] MEDS: Aspirin 81 MG TAB.CHEW PO (09:29)
[2023-04-03] MEDS: Nitrofurantoin Macrocrystals 100 MG Capsule PO (09:29)
[2023-04-03] MEDS: Pantoprazole Sodium 40 MG Tablet PO (09:29)
[2023-04-03] MEDS: Enoxaparin 40 MG/0.4 ML Syringe SC (09:29)
[2023-04-03] MEDS: Polyethylene Glycol 3350 17 GM PACKET PO (09:29)
[2023-04-03] MEDS: Cinacalcet HCl 30 MG Tablet 60 MG PO (09:29)
[2023-04-03] MEDS: amLODIPine 5 MG Tablet PO (09:29)
[2023-04-03] MEDS: Ensure Plus High Protein 120 ML LIQUID PO (09:31)
--- NOTE | 2023-04-03 12:00 | CASEMGMT ---
RN CM in to discuss HHC with patient and daughter. Patient prefers [facility], [facility]. RN CM updated discharge planning assistance to send HHC referrals to patient's preferences. CM will continue to follow this patinet and plan for a safe discharge.
[2023-04-03 12:02] VITALS: O2SAT 95
--- NOTE | 2023-04-03 12:43 | CASEMGMT ---
Discharge Planning Referral sent to [facility] via [facility]. Fela Marley, Discharge Planning Asst.
--- NOTE | 2023-04-03 13:01 | DCINST_ITS ---
Discharge Instructions Diet Discharge Diet: No restrictions Activity Discharge Activity: Return to Normal Activity Weight Bearing Status: Full weight bearing Follow Up Care Please Follow Up With: Javier Martinez DO When: As needed Test Results: Test results from this visit will be discussed in further detail at your follow- up appointment, if applicable. Pending Tests Upon Discharge: None Discharge Plan Admission Admit Date/Time: 03/28/23 16:03 Attending Provider: Reid Santos Primary Care Provider: Javier Martinez Consulting Providers: Bertrand Devi; Sheree Nino; Javier Moya; Chaz Marin; Samira Wick Instructions Additional Instructions / Restrictions: Please take reduced dose of Synthroid 100 mcg daily. Please STOP taking olmesartan at home, as her blood pressures have been well controlled off of that medication here. It is very important that you take the Cinacalcet every day to ensure that your calcium levels do not become too high. The endocrinology and endocrine surgery offices will call you to schedule follow-up appointments soon. Discharge Orders/Prescriptions Prescriptions: New levothyroxine 100 mcg Tablet 100 mcg PO DAILY@0600 90 Days Qty: 90 0RF Continued docusate sodium 50 MG capsule 50 mg PO BID PRN (Reason: Constipation) amlodipine 5 MG tablet 5 mg PO BID Hold Instructions: DUE TO LOW BP pantoprazole 40 MG tablet 40 mg PO DAILY aspirin 81 MG tablet,chewable 81 mg PO DAILY@0800 ranolazine 500 MG tablet extended release 12 hr 500 mg PO BID cinacalcet 60 mg tablet 60 mg PO DAILY Patient Comments: TAKE 1 TABLET BY MOUTH EVERY DAY ferrous sulfate 325 mg (65 mg iron) tablet 325 mg PO DAILY Patient Comments: TAKE 1 TABLET BY MOUTH TWICE A DAY memantine 7 mg capsule,sprinkle,ER 24hr 7 mg PO DAILY Patient Comments: TAKE 1 CAPSULE BY MOUTH EVERY DAY AT BEDTIME liothyronine 5 mcg tablet 5 mcg PO DAILY Patient Comments: TAKE 1 TABLET BY MOUTH EVERY DAY Discontinued levothyroxine 150 MCG tablet 150 mcg PO DAILY olmesartan 5 mg tablet 5 mg PO QHS Patient Comments: TAKE 1 TABLET BY MOUTH EVERY DAY Referrals / Follow Up: Javier Martinez DO [Primary Care Provider] - Disposition Disposition (needs filled in before D/C Order can be placed): [facility]
--- NOTE | 2023-04-03 13:10 | DS.PCM_ITS ---
Providers Date of Admission: 03/28/23 Primary Care Physician: Dr. Javier Martinez, DO Consultations 04/01/23 07:54 Consult: Endocrinology Routine Consulting Provider: Roselia Soto Reason for Consult: primary hyperparathyroidism w/ severe hypercalcemia EMERGENT Consult: No Notified: Yes Date Notified: 04/01/23 Time Notified: 07:55 Method of Notification: Verbal Consult: General Surgery Routine Consulting Provider: Javier Moya Reason for Consult: primary hyperparathyroidism w/ severe hypercalcemia EMERGENT Consult: No Notified: Yes Date Notified: 04/01/23 Time Notified: 07:55 Method of Notification: Text Reason For Visit: HYPERCALCEMIA Diagnosis Discharge Diagnosis (1) Hypercalcemia: Status: Acute Code(s): E83.52 - Hypercalcemia Plan Patient is a 77-year-old female with history of hypertension, hypothyroidism, GERD and cognitive impairment who presented to [facility] on 03/28/2023 with worsening fatigue and altered mentation. 1. Hypercalcemia likely secondary to primary hyperparathyroidism, improved Found to have intact PTH of 273 on admission, with no significant renal disease. Suspected that patient may have had elevated PTH on recent previous hospitalization at [facility] in late January; that was her first hospitalization with significant hypercalcemia. Calcium 13.6 on presentation here with corrected calcium 14.1. Given 1 dose of pamidronate on admission and started on aggressive IV fluid resuscitation, with improvement to normal calcium levels over about 2 days. Patient notably had Cinacalcet 60 mg daily listed on medication list, unclear if she was taking this at home. This was also started on admission here. CT chest/abdomen/pelvis with IV contrast notably showed no significant findings, no sign of malignancy. Thyroid ultrasound 04/01 shows possible candidate lesion in the right neck just deep to the carotid. ?Endocrinology and endocrine surgery following. Continue Cinacalcet. Given 1 dose of zoledronic acid on 04/01, can hold on p.o. bisphosphonate on discharge. Follow-up 25 (OH) vitamin D level. Encourage p.o. hydration. Plan for close outpatient follow-up with endocrinology and endocrine surgery. 2. Acute metabolic encephalopathy, history of known cognitive impairment with chronic debility Altered mentation on admission was presumed secondary to hypercalcemia. CT head on admit with no acute findings. She has had improvement in her degree of alertness, but does continue to be somewhat disoriented and not answer questions appropriately. Per family, her memory has been worsening for several months and patient may be approaching her baseline. ? PT/OT/case management following. Patient unfortunately does not qualify for SNF given her improvement in activity level. We will plan for home with home health care on discharge. Continue home memantine. Likely okay for discharge home tomorrow. 3. Uncomplicated UTI ? UA on admit consistent with UTI. CT CAP showed a distended urinary bladder, no evidence of hydronephrosis. Given patient's anaphylaxis to penicillin, she was started on Levaquin on admit. Unfortunately, urine culture resulted on 03/31 and grew E. coli resistant to Levaquin. Switched to Macrobid, will plan to complete 5-day course, stop date 04/04. 4. ZENAIDA, resolved ? Presumed prerenal secondary to fluid losses from hypercalcemia. Creatinine 1.13 on admit, improved to 0.6 with IV fluids. 5. Electrolyte abnormalities ? Hypokalemia, hypophosphatemia and hypomagnesemia noted since admission. Likely secondary to electrolyte balances in setting of hypercalcemia. Replete as needed. Monitor daily. 6. Constipation, improving ? Very likely secondary to hypercalcemia and poor p.o. intake. Fecal retention concerning for constipation noted on CT scan on admit. Continue MiraLAX twice daily. 7. Hypothyroidism ? Not currently stable. TSH 0.26 on admit, free T4 of 2.44, thus patient presently in hyperthyroid state. We will continue current dose for now, may need dose reduction in outpatient setting. Chronic medical conditions: ? Hypertension: Continue home amlodipine. ? GERD: Stable. Continue home PPI. DVT prophylaxis: Lovenox CODE STATUS: DNR CCA, DO NOT INTUBATE Expected disposition: Home with home health care, likely tomorrow Total clinical time spent by myself addressing the patient's medical issues, reviewing all the data, and collaborating with patient's care team: 35 minutes. Medications at Discharge Home Medications amlodipine 5 mg tablet 5 mg PO BID 04/07/20 aspirin 81 mg chewable tablet 81 mg PO DAILY@0800 04/07/20 docusate sodium 50 mg capsule 50 mg PO BID PRN Constipation 04/07/20 pantoprazole 40 mg tablet,delayed release 40 mg PO DAILY stomach 04/07/20 ranolazine 500 mg tablet,extended release,12 hr 500 mg PO BID chest pain 04/07/20 cinacalcet 60 mg tablet 60 mg PO DAILY hyperparathyroid 03/28/23 ferrous sulfate 325 mg (65 mg iron) tablet 325 mg PO DAILY iron 03/28/23 liothyronine 5 mcg tablet 5 mcg PO DAILY prn 03/28/23 memantine 7 mg capsule sprinkle,extended release 24hr 7 mg PO DAILY memory 03/28/23 levothyroxine 100 mcg tablet 100 mcg PO DAILY@0600 90 days #90 tabs 04/03/23 Weight / BMI Weight Weight: 66.3 kg Body Mass Index (BMI) 24.3 ABG / Lab / Microbiology Data 03/31/23 06:27 04/03/23 04:35 Laboratory: Laboratory Results - last 24 hr 04/03/23 04:35: Sodium 142, Potassium 3.5, Chloride 111 H, Carbon Dioxide 28.0, Anion Gap 3 L, BUN 17, Creatinine 0.68, Estim Creat Clear Calc 41.05, Est GFR (MDRD) Af Amer 107, Est GFR (MDRD) Non-Af 88, BUN/Creatinine Ratio 24.9 H, Glucose 96, Calcium 8.7 Microbiology: Microbiology 03/28/23 17:20 Urine, Clean Catch Urine Culture - Final Escherichia coli D/C Instructions Discharge Diet: No restrictions Weight Bearing Status: Full weight bearing Pending Tests Upon Discharge: None Please Follow Up With: Javier Martinez DO When: As needed Discharge Plan Admission Admit Date/Time: 03/28/23 16:03 Attending Provider: Reid Santos Primary Care Provider: Javier Martinez Consulting Providers: Bertrand Devi; Sheree Nino; Javier Moya; Chaz Marin; Samira Wick Instructions Additional Instructions / Restrictions: Please take reduced dose of Synthroid 100 mcg daily. Please STOP taking olmesartan at home, as her blood pressures have been well controlled off of that medication here. It is very important that you take the Cinacalcet every day to ensure that your calcium levels do not become too high. The endocrinology and endocrine surgery offices will call you to schedule follow-up appointments soon. Discharge Orders/Prescriptions Prescriptions: New levothyroxine 100 mcg Tablet 100 mcg PO DAILY@0600 90 Days Qty: 90 0RF Continued docusate sodium 50 MG capsule 50 mg PO BID PRN (Reason: Constipation) amlodipine 5 MG tablet 5 mg PO BID Hold Instructions: DUE TO LOW BP pantoprazole 40 MG tablet 40 mg PO DAILY aspirin 81 MG tablet,chewable 81 mg PO DAILY@0800 ranolazine 500 MG tablet extended release 12 hr 500 mg PO BID cinacalcet 60 mg tablet 60 mg PO DAILY Patient Comments: TAKE 1 TABLET BY MOUTH EVERY DAY ferrous sulfate 325 mg (65 mg iron) tablet 325 mg PO DAILY Patient Comments: TAKE 1 TABLET BY MOUTH TWICE A DAY memantine 7 mg capsule,sprinkle,ER 24hr 7 mg PO DAILY Patient Comments: TAKE 1 CAPSULE BY MOUTH EVERY DAY AT BEDTIME liothyronine 5 mcg tablet 5 mcg PO DAILY Patient Comments: TAKE 1 TABLET BY MOUTH EVERY DAY Discontinued levothyroxine 150 MCG tablet 150 mcg PO DAILY olmesartan 5 mg tablet 5 mg PO QHS Patient Comments: TAKE 1 TABLET BY MOUTH EVERY DAY Referrals / Follow Up: Javier Martinez DO [Primary Care Provider] - Disposition Disposition (needs filled in before D/C Order can be placed): Home Health Service
--- NOTE | 2023-04-03 13:10 | PCM.DC.SUM ---
Providers Date of Admission: 03/28/23 Date of Discharge: 04/03/23 Primary Care Physician: Dr. Javier Martinez, Consultations 04/01/23 07:54 Consult: Endocrinology Routine Consulting Provider: Ros[facility] Reason for Consult: primary hyperparathyroidism w/ severe hypercalcemia EMERGENT Consult: No Notified: Yes Date Notified: 04/01/23 Time Notified: 07:55 Method of Notification: Verbal Consult: General Surgery Routine Consulting Provider: Javier Moya Reason for Consult: primary hyperparathyroidism w/ severe hypercalcemia EMERGENT Consult: No Notified: Yes Date Notified: 04/01/23 Time Notified: 07:55 Method of Notification: Text Reason For Visit: HYPERCALCEMIA Diagnosis Discharge Diagnosis (1) Hypercalcemia: Status: Acute Code(s): E83.52 - Hypercalcemia Medications at Discharge Home Medications amlodipine 5 mg tablet 5 mg PO BID 04/07/20 aspirin 81 mg chewable tablet 81 mg PO DAILY@0800 04/07/20 docusate sodium 50 mg capsule 50 mg PO BID PRN Constipation 04/07/20 pantoprazole 40 mg tablet,delayed release 40 mg PO DAILY stomach 04/07/20 ranolazine 500 mg tablet,extended release,12 hr 500 mg PO BID chest pain 04/07/20 cinacalcet 60 mg tablet 60 mg PO DAILY hyperparathyroid 03/28/23 ferrous sulfate 325 mg (65 mg iron) tablet 325 mg PO DAILY iron 03/28/23 liothyronine 5 mcg tablet 5 mcg PO DAILY prn 03/28/23 memantine 7 mg capsule sprinkle,extended release 24hr 7 mg PO DAILY memory 03/28/23 levothyroxine 100 mcg tablet 100 mcg PO DAILY@0600 90 days #90 tabs 04/03/23 Hospital Course Operations None Procedures - (CT brain without contrast, chest x-ray, CT chest/abdomen/pelvis with contrast, thyroid ultrasound) Summary of Care Provided Minutes Spent on Discharge: 38 Hospital Course: Patient is a 77-year-old female with history of hypertension, hypothyroidism, GERD and cognitive impairment who presented to [facility] 03[facility]23 with worsening fatigue and altered mentation. Multiple medical conditions addressed during hospitalization as noted below. Hypercalcemia: Very likely secondary to newly diagnosed primary hyperparathyroidism. Found to have intact PTH of 273 on admission, with no significant renal disease. Suspected that patient may have had elevated PTH on recent previous hospitalization at [facility] in late January; that was her first hospitalization with significant hypercalcemia. Calcium 13.6 on presentation here with corrected calcium 14.1. Given 1 dose of pamidronate on admission and started on aggressive IV fluid resuscitation, with improvement to normal calcium levels over about 2 days. Patient notably had Cinacalcet 60 mg daily listed on medication list, unclear if she was taking this at home. This was also started on admission here. CT chest/abdomen/pelvis with IV contrast notably showed no significant findings, no sign of malignancy. Thyroid ultrasound 04/01 shows possible candidate lesion in the right neck just deep to the carotid. Endocrinology and endocrine surgery evaluated patient here. Given 1 dose of zoledronic acid on 04/01 for osteoporosis prevention. Cinacalcet continued on discharge at 60 mg daily. Patient will follow-up with endocrine surgery in the office, will determine their if further imaging is required and if patient is a surgical candidate for parathyroid resection. Discharged home with home health care in stable condition on 04/03. Acute metabolic encephalopathy, improved, in setting of known cognitive impairment with chronic debility: Altered mentation on admission was presumed secondary to hypercalcemia. CT head on admit with no acute findings. Patient had significant improvement in her degree of alertness with resolution of hypercalcemia, however she continued to have difficulty with answering all questions appropriately. PT/OT/case management followed. Had extensive discussions with family. Patient lives with daughter, however daughter works full-time and patient has significant needs at home the family is concerned for cannot fully address. Unfortunately, patient had good improvement of her functional status standpoint after working with therapy and did not qualify for SNF placement. She was stable for discharge home with home health care on 04/03. Recommended close outpatient follow-up with PCP. Uncomplicated UTI: UA on admit consistent with UTI. CT CAP showed a distended urinary bladder, no evidence of hydronephrosis. Given patient's anaphylaxis to penicillin, she was started on Levaquin on admit. Unfortunately, urine culture resulted on 03/31 and grew E. coli resistant to Levaquin. Switched to Macrobid and completed full course of antibiotics prior to discharge. Discharge diagnoses: ? Hypercalcemia secondary to primary hyperparathyroidism ? Acute metabolic encephalopathy, resolved ? History of cognitive impairment with chronic debility ? Uncomplicated UTI ? ZENAIDA, resolved ? Electrolyte abnormalities, resolved ? Constipation, improved ? Hypothyroidism ? Hypertension ? GERD Total clinical time spent by myself addressing the patient's discharge needs: 38 minutes. Physical Exam Const alert, no apparent distress and average body habitus Constitutional Narrative: Chronically ill-appearing, sitting comfortably in bedside chair, no acute distress. Alert and more oriented with conversation. General Appearance: cooperative and comfortable HEENT normocephalic, head/scalp atraumatic, hearing grossly normal bilaterally, nasal mucous membranes and turbinates normal and moist oral mucous membranes Eyes PERRL, EOMs intact bilaterally and conjunctivae normal Neck full ROM, no lymphadenopathy and supple Lymph Lymphatic: no lymphadenopathy noted Chest inspection of chest normal Resp normal respiratory effort, normal air movement, no use of accessory muscles and clear to auscultation bilaterally Cardio regular rate, regular rhythm, no murmurs and peripheral pulses 2+ throughout GI normal to inspection, nondistended, normoactive bowel sounds, soft to palpation, non-tender and non-distended Back/Spine normal ROM Extremity normal to inspection, full ROM and no pedal edema Skin no rashes or lesions noted Weight / BMI Weight Weight: 66.3 kg Body Mass Index (BMI) 24.3 ABG / Lab / Microbiology Data 03/31/23 06:27 04/03/23 04:35 Laboratory: Laboratory Results - last 24 hr 04/03/23 04:35: Sodium 142, Potassium 3.5, Chloride 111 H, Carbon Dioxide 28.0, Anion Gap 3 L, BUN 17, Creatinine 0.68, Estim Creat Clear Calc 41.05, Est GFR (MDRD) Af Amer 107, Est GFR (MDRD) Non-Af 88, BUN/Creatinine Ratio 24.9 H, Glucose 96, Calcium 8.7 Microbiology: Microbiology 03/28/23 17:20 Urine, Clean Catch Urine Culture - Final Escherichia coli D/C Instructions Discharge Diet: No restrictions Weight Bearing Status: Full weight bearing Pending Tests Upon Discharge: None Please Follow Up With: Javier Martinez, When: As needed Meaningful Use Info Meaningful Use Diagnoses (Choose all that apply): None applicable Discharge Plan Admission Admit Date/Time: 03/28/23 16:03 Attending Provider: Reid Santos Primary Care Provider: Javier Martinez Consulting Providers: Bertrand Devi; Sheree Nino; Javier Moya; Chaz Marin; Delano,Samira Instructions Additional Instructions / Restrictions: Please take reduced dose of Synthroid 100 mcg daily. Please STOP taking olmesartan at home, as her blood pressures have been well controlled off of that medication here. It is very important that you take the Cinacalcet every day to ensure that your calcium levels do not become too high. The endocrinology and endocrine surgery offices will call you to schedule follow-up appointments soon. Discharge Orders/Prescriptions Prescriptions: New levothyroxine 100 mcg Tablet 100 mcg PO DAILY@0600 90 Days Qty: 90 0RF Continued docusate sodium 50 MG capsule 50 mg PO BID PRN (Reason: Constipation) amlodipine 5 MG tablet 5 mg PO BID Hold Instructions: DUE TO LOW BP pantoprazole 40 MG tablet 40 mg PO DAILY aspirin 81 MG tablet,chewable 81 mg PO DAILY@0800 ranolazine 500 MG tablet extended release 12 hr 500 mg PO BID cinacalcet 60 mg tablet 60 mg PO DAILY Patient Comments: TAKE 1 TABLET BY MOUTH EVERY DAY ferrous sulfate 325 mg (65 mg iron) tablet 325 mg PO DAILY Patient Comments: TAKE 1 TABLET BY MOUTH TWICE A DAY memantine 7 mg capsule,sprinkle,ER 24hr 7 mg PO DAILY Patient Comments: TAKE 1 CAPSULE BY MOUTH EVERY DAY AT BEDTIME liothyronine 5 mcg tablet 5 mcg PO DAILY Patient Comments: TAKE 1 TABLET BY MOUTH EVERY DAY Discontinued levothyroxine 150 MCG tablet 150 mcg PO DAILY olmesartan 5 mg tablet 5 mg PO QHS Patient Comments: TAKE 1 TABLET BY MOUTH EVERY DAY Referrals / Follow Up: Javier Martinez DO [Primary Care Provider] - Disposition Disposition (needs filled in before D/C Order can be placed): Home Health Service Charges/Coding Visit Charges Inpatient E&M: 86998 Disch Hosp >30min
[2023-04-03 13:14] VITALS: BP 131/67; PULSE 60; RESP 16; TEMP 36.8; O2SAT 100
--- NOTE | 2023-04-03 13:22 | CASEMGMT ---
Discharge Planning Patient was declined by [facility]. Referral sent to [facility] via [facility]. Fela Marley, Discharge Planning Asst.
--- NOTE | 2023-04-03 14:59 | CASEMGMT ---
RN CM updated that [facility] declined patient and [facility] was able to accept. ROMELIA BEAR in to updated patient and daughter regarding [facility] acceptance. Patient and daughter had no further questions or concerns at this time.
== END 2023-04-03 15:54 | disposition home health service (06) | DRG 643 ==
LOC: ED 16:14 → PCU 16:35
PROVIDERS: Internal Medicine; Internal Medicine Endocrinology, Diabetes & Metabolism; Admitting Provider Family Medicine; Emergency Provider Emergency Medicine; PCP Student in an Organized Health Care Education/Training Program; Visit Provider Hospitalist
DX: E21.0 Primary hyperparathyroidism (principal); G93.41 Metabolic encephalopathy; N17.9 Acute kidney failure, unspecified; N39.0 Urinary tract infection, site not specified; F03.90 Unspecified dementia, unspecified severity, without behavioral disturbance, psychotic disturbance, mood disturbance, and anxiety; E21.3 Hyperparathyroidism, unspecified; E03.9 Hypothyroidism, unspecified; I10 Essential (primary) hypertension; E05.90 Thyrotoxicosis, unspecified without thyrotoxic crisis or storm; E83.52 Hypercalcemia; K21.9 Gastro-esophageal reflux disease without esophagitis; E87.6 Hypokalemia; K59.00 Constipation, unspecified; R47.81 Slurred speech; Z66 Do not resuscitate; B96.20 Unspecified Escherichia coli [E. coli] as the cause of diseases classified elsewhere; R53.81 Other malaise
CPT/HCPCS: 36415; 70450; 71045; 71260; 74177; 76536; 80048; 80053; 81001; 82306; 82607; 82652; 82728; 82746; 82962; 83540; 83550; 83735; 83970; 84100; 84439; 84443; 84481; 84484; 85025; 85610; 85730; 87077; 87086; 87088; 87186; 93005; 97110; 97116; 97162; 97166; 97530; 97535; 99285; J3489; J7030; J7040; J7050; J7120; Q9967; A4216; J2430

== ENCOUNTER → 2023-05-08 | Outpatient (CLI) | payer MEDICARE, SELFPAY ==
[2023-05-08 17:36] LABS: ALB/GLOB Ratio 1.2 RATIO (0.9-2.4); AST(SGOT) 16 U/L (15-37); Alanine Aminotransfer ALT/SGPT 18 U/L (13-56); Albumin, Serum 3.8 g/dL (3.2-5.0); Alkaline Phosphatase 64 U/L (45-117); Anion Gap 9 (5-15); BUN 11 mg/dL (7-18); BUN/Creat Ratio 11.2 RATIO (10-20); Calcium,Total 7.3 mg/dL (8.5-10.1); Chloride 101 mmol/L (98-107); Creatinine, Serum 0.99 mg/dL (0.55-1.02); EST Glomerular Filtration Rate 58 mL/min (>60); Est Glom Filt Rate - Afr Amer 70 mL/min (>60); Globulin 3.3 g/dL (2.2-4.2); Glucose 111 mg/dL (74-106); Potassium 3.7 mmol/L (3.5-5.1); Protein, Total 7.1 g/dL (6.4-8.2); Sodium Level 135 mmol/L (136-145); T4 Free Direct 1.26 ng/dL (0.76-1.46); Thyroid Stim Hormone (TSH) 4.45 uIU/mL (0.358-3.74)
== END | disposition home or self-care (01) ==
LOC: LAB 16:27
PROVIDERS: PCP Student in an Organized Health Care Education/Training Program; Visit Provider Internal Medicine Endocrinology, Diabetes & Metabolism
DX: E03.9 Hypothyroidism, unspecified (principal); E21.3 Hyperparathyroidism, unspecified
CPT/HCPCS: 36415; 80053; 84439; 84443

== ENCOUNTER → 2023-07-03 | Outpatient (CLI) | payer MEDICARE, SELFPAY ==
[2023-07-03 15:03] LABS: Calcium,Total 12.5 mg/dL (8.5-10.1)
[2023-07-03 15:12] LABS: Vitamin D,25 Hydroxy 29.1 ng/mL
== END | disposition home or self-care (01) ==
LOC: LAB 14:10
PROVIDERS: PCP Student in an Organized Health Care Education/Training Program; Referring Provider Surgery; Visit Provider Surgery
DX: E21.3 Hyperparathyroidism, unspecified (principal)
CPT/HCPCS: 36415; 82306; 82310

== ENCOUNTER 2023-07-04 16:32 | Inpatient (IN) | payer MEDICARE, SELFPAY ==
[2023-07-04 16:32] VITALS: BP 122/71; PULSE 64; RESP 14; TEMP 36.3; O2SAT 98
[2023-07-04 16:34] VITALS: BMI 24.5
--- NOTE | 2023-07-04 17:27 | EKG12_ITS ---
Test Reason : GENERAL Blood Pressure : / mmHG Vent. Rate : 049 BPM Atrial Rate : 000 BPM P-R Int : 000 ms QRS Dur : 192 ms QT Int : 624 ms P-R-T Axes : 000 036 000 degrees QTc Int : 563 ms Wide QRS rhythm Right bundle branch block T wave abnormality, consider inferolateral ischemia Abnormal ECG Confirmed by JENI MCLAUGHLIN, KIARA ([id number]), news assignment editor SONA BURDICK ([id number]) on 07/07/2023 6:20:57 AM Referred By: Buck Guzman Confirmed By:JAIRO NGO MD
--- NOTE | 2023-07-04 17:29 | EDS_ITS ---
HPI <GERMAINE Kay - Last Filed: 07/04/23 20:00> History of Present Illness Chief Complaint: Weakness Narrative Narrative: 77-year-old female with past medical history of hypertension, hyperparathyroidism has had about 5 days of fatigue, nausea, decreased p.o. intake. She lives at home and uses a walker. Her nephew lives in the home but also works. Yesterday she was able to go to a doctor appointment with her daughter and walk independently. Today when the daughter showed up and the patient was sitting in her own urine and vomited. It took an hour for her to get her dressed and she had to be carried into the car. Daughter states she has had mental decline over the last couple months but it is significantly worse today. No falls or injury. Patient reports nausea and upset stomach. Denies chest pain or shortness of breath. She cannot tell me how often she has bladder bowel movements. [facility] <GERMAINE Kay - Last Filed: 07/04/23 20:00> [facility] Medical History (Updated 07/04/23 @ 20:00 by GERMAINE Kay) Hx of gastroesophageal reflux (GERD) Hyperparathyroidism Hypertension Hypothyroidism Home Medications amlodipine 5 mg tablet 5 mg PO BID 04/07/20 [History Last Taken Unknown] aspirin 81 mg chewable tablet 81 mg PO DAILY@0800 04/07/20 [History Last Taken Unknown] pantoprazole 40 mg tablet,delayed release 40 mg PO DAILY stomach 04/07/20 [History Last Taken Unknown] ranolazine 500 mg tablet,extended release,12 hr 500 mg PO BID chest pain 04/07/20 [History Last Taken Unknown] memantine 7 mg capsule sprinkle,extended release 24hr 7 mg PO QHS memory 03/28/23 [History Last Taken Unknown] cinacalcet 30 mg tablet 60 mg PO DAILY 07/04/23 [History Last Taken Unknown] ferrous sulfate 325 mg (65 mg iron) tablet 325 mg PO DAILY 07/04/23 [History Last Taken Unknown] levothyroxine 100 mcg tablet 150 mcg PO DAILY@0600 07/04/23 [History Last Taken Unknown] Allergy/AdvReac Type Severity Reaction Status Date / Time aspirin [ASA] Allergy Hives Verified 07/04/23 22:38 hydrocodone Allergy Nausea Verified 07/04/23 16:34 morphine Allergy PT UNSURE Verified 07/04/23 16:34 OF REACTION Penicillins Allergy Anaphylaxis Verified 07/04/23 16:34 Family History (Updated 07/03/23 @ 13:34 by Keya Armstrong LPN) Daughter Diabetes Heart disease Surgical History (Updated 07/03/23 @ 13:34 by Keya Armstrong LPN) S/P cholecystectomy Status post total hip replacement, right Social History (Updated 07/03/23 @ 13:35 by Keya Armstrong LPN) Smoking Status: Never smoker substance use type: does not use ROS <GERMAINE Kay - Last Filed: 07/04/23 20:00> ROS ED ROS Narrative Constitutional: Positive for malaise. CVS: Negative for chest pain, syncope. Respiratory: Negative for shortness of breath, cough. GI: Positive for abdominal pain, nausea, vomiting. : Negative for dysuria. Neuro: Negative for headache. EXAM <GERMAINE Kay - Last Filed: 07/04/23 20:00> Physical Exam Narrative Exam Narrative: CONST: Patient sitting in no acute distress. EYES: Normal inspection. ENT: Normal inspection, dry mucous membranes. NECK: Normal inspection. RESP: No respiratory distress, CTAB. CVS: Regular rate and rhythm, no murmur, no gallop. ABD: Soft and nontender, no guarding or rebound, nondistended. SKIN: Color normal, no rash, warm, dry, intact. EXTREMITIES: Normal appearance, no pedal edema. NEURO: Alert to self and place. Face symmetric, follows commands, moving all extremities. PSYCH: Normal affect. Const Vital Signs: 07/04/23 16:32 07/04/23 16:32 07/04/23 18:32 Temperature 97.4 F L Temperature Source Temporal Pulse Rate 64 56 L Respiratory Rate 14 14 Respiratory Pattern Normal Blood Pressure 122/71 H Blood Pressure Mean 88 Pulse Ox 98 99 Oxygen Delivery Method Room Air <Dr. Randy Mariscal DO - Last Filed: 07/04/23 23:14> Physical Exam Const Vital Signs: 07/04/23 16:32 07/04/23 16:32 07/04/23 18:32 Temperature 97.4 F L Temperature Source Temporal Pulse Rate 64 56 L Respiratory Rate 14 14 Respiratory Pattern Normal Blood Pressure 122/71 H Blood Pressure Mean 88 Pulse Ox 98 99 Oxygen Delivery Method Room Air [facility] <GERMAINE Kay - Last Filed: 07/04/23 20:00> [facility] Narrative Medical decision making narrative: History gathered from: Patient and daughter Patient has been nauseous with generalized weakness and today became too weak to ambulate. She had vomiting and urinary incontinence. She is awake alert with stable vital signs. She is AO x 2 which is a change from baseline. She has no focal neurological deficits. Heart is bradycardic but regular with no murmurs. Lungs clear. Abdomen soft with generalized tenderness. CBC shows normal white count of 8.3, hemoglobin of 11.8 is higher than previous. Potassium is 2.3, magnesium within normal at 1.7, BUN 35, creatinine 1.11, calcium 12.9. Her electrolyte abnormalities are likely from her hyperparathyroid issue. She was ordered p.o. potassium solution and IV potassium. Her EKG is sinus bradycardia at 49 bpm with a widened QRS slightly prolonged QT? I suspect these abnormalities are from hypokalemia. She was placed on the monitoring manager and is getting potassium replacement. Urinalysis also shows UTI. She has an anaphylactic allergy to penicillins. I did not order IV levofloxacin due to prolonged QT. She is not septic from a UTI and has a normal white count so I ordered oral Macrobid and sent a culture. CXR and COVID/flu testing is negative. Case was discussed with the hospitalist for admission. Lab Data Attestation: I reviewed the patient's lab results. Labs: Laboratory Results - last 24 hr 07/04/23 07/04/23 17:01 17:51 WBC 8.3 RBC 3.64 L Hgb 11.8 L Hct 34.8 L MCV 95.6 MCH 32.4 H MCHC 33.9 RDW Std Deviation 45.5 H RDW Coeff of Hteresa 13.0 Plt Count 214 MPV 12.0 Immature Gran % (Auto) 0.700 Neut % (Auto) 58.6 Lymph % (Auto) 32.4 [place] % (Auto) 7.6 Eos % (Auto) 0.2 Baso % (Auto) 0.5 Absolute Neuts (auto) 4.9 Absolute Lymphs (auto) 2.69 Nucleated RBC % 0 Sodium 138 Potassium 2.3 L* Chloride 97 L Carbon Dioxide 34.0 H Anion Gap 7 BUN 35 H Creatinine 1.11 H Est GFR (MDRD) Af Amer 61 Est GFR (MDRD) Non-Af 50 L BUN/Creatinine Ratio 31.5 H Glucose 111 H Calcium 12.9 H* Magnesium 1.7 Total Bilirubin 0.70 AST 20 ALT 16 Alkaline Phosphatase 52 Troponin I High Sens 44 Total Protein 6.9 Albumin 3.7 Globulin 3.2 Albumin/Globulin Ratio 1.2 Urine Color Yellow Urine Clarity Sl. Cloudy Urine pH 6.0 Ur Specific [place] 1.015 Urine Protein 15 H Urine Glucose (UA) Normal Urine Ketones Negative Urine Occult Blood 10 H Urine Nitrite Negative Urine Bilirubin Negative Urine Urobilinogen Normal Ur Leukocyte Esterase 100 H Urine RBC 0-5 SEEN Urine WBC 10-25 SEEN Ur Squamous Epith Cells 0-5 SEEN Urine Bacteria 4+ Urine Mucus 0 SEEN Radiography Diagnostic Testing: Clinical Impression(s) from Imaging Studies Chest X-Ray 07/04/23 17:55 IMPRESSION: Normal x-ray examination of the chest. Electronically Signed: Benitez Schrader MD at 18:55 EST , ED attending interpretation of 1-view chest x-ray shows normal heart size, no acute infiltrate. EKG Initial EKG: Attestation: I personally reviewed and interpreted this EKG as follows: Interpretation: No Acute Injury Pattern and Sinus Bradycardia Comments: Sinus bradycardia at 49 bpm, wide-complex QRS No acute STEMI criteria <Dr. Randy Mariscal, DO - Last Filed: 07/04/23 23:14> [facility] Narrative Medical decision making narrative: History gathered from: Patient and daughter Patient has been nauseous with generalized weakness and today became too weak to ambulate. She had vomiting and urinary incontinence. She is awake alert with stable vital signs. She is AO x 2 which is a change from baseline. She has no focal neurological deficits. Heart is bradycardic but regular with no murmurs. Lungs clear. Abdomen soft with generalized tenderness. CBC shows normal white count of 8.3, hemoglobin of 11.8 is higher than previous. Potassium is 2.3, magnesium within normal at 1.7, BUN 35, creatinine 1.11, calcium 12.9. Her electrolyte abnormalities are likely from her hyperparathyroid issue. She was ordered p.o. potassium solution and IV potassium. Her EKG is sinus bradycardia at 49 bpm with a widened QRS slightly prolonged QT? I suspect these a bnormalities are from hypokalemia. She was placed on the monitoring manager and is getting potassium replacement. Urinalysis also shows UTI. She has an anaphylactic allergy to penicillins. I did not order IV levofloxacin due to prolonged QT. She is not septic from a UTI and has a normal white count so I ordered oral Macrobid and sent a culture. CXR and COVID/flu testing is negative. Case was discussed with the hospitalist for admission. Attending note: Patient seen and evaluated with para professional. I perform my own [id number] evaluation. I agree with the plan of work-up. History of hyper parathyroidism diagnosis past 5 to 6 months ago. Was admitted at that time with high calcium and low potassium. Increasing weakness the past few days unable to walk today. Reports lightheaded symptoms, no syncopal episodes. Heart rate found to be low, she is on amlodipine however no other calcium channel or beta blockers. EKG sinus bradycardia, right bundle branch block no complete blocks noted. There is QT prolongation. Lab type with significant hypokalemia 2.3 magnesium added at 1.7. Oral and IV replacement given. EKG changes concerning secondary to her hypokalemia. Urine also noted signs of infection and they reported malodorous urine. Significant anaphylaxis to penicillin with QT prolongation. Culture sent and she is covered with Macrobid. Heart rate was improving with potassium replacement. Discussed with hospitalist for him to PCU. Lab Data Labs: Laboratory Results - last 24 hr 07/04/23 07/04/23 17:01 17:51 WBC 8.3 RBC 3.64 L Hgb 11.8 L Hct 34.8 L MCV 95.6 MCH 32.4 H MCHC 33.9 RDW Std Deviation 45.5 H RDW Coeff of [place] 13.0 Plt Count 214 MPV 12.0 Immature Gran % (Auto) 0.700 Neut % (Auto) 58.6 Lymph % (Auto) 32.4 [place] % (Auto) 7.6 Eos % (Auto) 0.2 Baso % (Auto) 0.5 Absolute Neuts (auto) 4.9 Absolute Lymphs (auto) 2.69 Nucleated RBC % 0 Sodium 138 Potassium 2.3 L* Chloride 97 L Carbon Dioxide 34.0 H Anion Gap 7 BUN 35 H Creatinine 1.11 H Est GFR (MDRD) Af Amer 61 Est GFR (MDRD) Non-Af 50 L BUN/Creatinine Ratio 31.5 H Glucose 111 H Calcium 12.9 H* Magnesium 1.7 Total Bilirubin 0.70 AST 20 ALT 16 Alkaline Phosphatase 52 Troponin I High Sens 44 Total Protein 6.9 Albumin 3.7 Globulin 3.2 Albumin/Globulin Ratio 1.2 Urine Color Yellow Urine Clarity Sl. Cloudy Urine pH 6.0 Ur Specific [place] 1.015 Urine Protein 15 H Urine Glucose (UA) Normal Urine Ketones Negative Urine Occult Blood 10 H Urine Nitrite Negative Urine Bilirubin Negative Urine Urobilinogen Normal Ur Leukocyte Esterase 100 H Urine RBC 0-5 SEEN Urine WBC 10-25 SEEN Ur Squamous Epith Cells 0-5 SEEN Urine Bacteria 4+ Urine Mucus 0 SEEN Radiography Diagnostic Testing: Clinical Impression(s) from Imaging Studies Chest X-Ray 07/04/23 17:55 IMPRESSION: Normal x-ray examination of the chest. Electronically Signed: Benitez Schrader MD at 18:55 EST , Discharge Plan Dx/Rx/DC Orders Clinical Impression: Generalized weakness, Acute UTI, Acute hypokalemia, Bradycardia, sinus, Prolonged QT interval, Hypercalcemia Disposition Disposition: Acute Care Hospital [facility] Discharge Date/Time: 07/04/23 22:21
[2023-07-04 17:38] LABS: Absolute Lymphocyte Count 2.69 X10^3/uL (0.83-4.51); Absolute Neutrophil Count 4.9 X10^3/uL (2.0-7.7); Basophil# 0.04 X10^3/uL; Basophil% 0.5 % (0-1); Eosinophil# 0.02 X10^3/uL; Eosinophils% 0.2 % (0-5); Hematocrit 34.8 % (37-47); Hemoglobin 11.8 g/dL (12.0-15.0); Lymphocyte # 2.69 X10^3/ul (0.83-4.51); Lymphocyte % 32.4 % (19-41); Mean Corp Hgb Conc 33.9 g/dL (32-36); Mean Corpuscular Hgb 32.4 pg (27.0-32.0); Mean Corpuscular Volume 95.6 fL (81-99); Monocyte# 0.63 X10^3/uL; Monocyte% 7.6 % (0-10); NRBC Flagged by Analyzer 0 % (0-5); Neutrophil # 4.87 X10^3/uL (2.7-7.7); Neutrophil % 58.6 % (47-70); Platelet Count 214 K/mm3 (150-450); RBC Distribution Width SD 45.5 fl (35.1-43.9); Red Blood Count 3.64 M/mm3 (4.2-5.4); White Blood Count 8.3 K/mm3 (4.4-11.0)
--- NOTE | 2023-07-04 17:55 | RAD_ITS ---
STUDY: X-RAY CHEST REASON FOR EXAM: Female, 77 years old. weakness TECHNIQUE: Single AP portable view of the chest. COMPARISON: 03/28/2023 FINDINGS: The lungs are clear and expanded. There is no demonstrated pleural abnormality. Normal size heart. Normal mediastinum and verito. Normal visualized pulmonary arteries. Normal visualized aortic arch and descending thoracic aorta. Normal visualized thoracic spine. Normal visualized ribs, clavicles, and shoulders. There is no demonstrated abnormality of the visualized soft tissue structures of the upper abdomen. RAD/Chest 1 View (Portable) IMPRESSION: Normal x-ray examination of the chest. Electronically Signed: Benitez Schrader MD at 18:55 EST ,
[2023-07-04 17:57] LABS: Mucous, Urine 0 SEEN /hpf (<or=2+)
[2023-07-04 17:58] LABS: Color, Urine Yellow (Yellow); Glucose, Dipstick Normal (Normal); Ketone-Dipstick Negative (Negative); Leukocyte Esterase-Dipstick 100 /ul (Negative); Nitrite-Dipstick Negative (Negative); Occult Blood-Urine 10 /ul (Negative); Protein-Dipstick 15 mg/dl (Negative); Specific Gravity, Urine 1.015 (1.002-1.030); Urine Bilirubin Dipstick Negative (Negative); Urine Clarity Sl. Cloudy (Clear); Urine Urobilinogen Normal (Normal)
[2023-07-04] MEDS: Ondansetron 4 MG/2 ML Vial IV (17:59)
[2023-07-04] MEDS: 0.9% Normal Saline (1000mL) 1,000 ML 999 ML IV (17:59)
[2023-07-04 18:04] LABS: ALB/GLOB Ratio 1.2 RATIO (0.9-2.4); AST(SGOT) 20 U/L (15-37); Alanine Aminotransfer ALT/SGPT 16 U/L (13-56); Albumin, Serum 3.7 g/dL (3.2-5.0); Alkaline Phosphatase 52 U/L (45-117); Anion Gap 7 (5-15); BUN 35 mg/dL (7-18); BUN/Creat Ratio 31.5 RATIO (10-20); Calcium,Total 12.9 mg/dL (8.5-10.1); Chloride 97 mmol/L (98-107); Creatinine, Serum 1.11 mg/dL (0.55-1.02); EST Glomerular Filtration Rate 50 mL/min (>60); Est Glom Filt Rate - Afr Amer 61 mL/min (>60); Globulin 3.2 g/dL (2.2-4.2); Glucose 111 mg/dL (74-106); Potassium 2.3 mmol/L (3.5-5.1); Protein, Total 6.9 g/dL (6.4-8.2); Sodium Level 138 mmol/L (136-145); Troponin-I HS 44 pg/mL (3.0-54.0)
[2023-07-04 18:14] LABS: Bacteria 4+ /hpf (None Seen); Red Blood Cells-Urine 0-5 SEEN /hpf (0-5); Squamous Epithelial Cells - UA 0-5 SEEN /hpf (5-10); White Blood Cells 10-25 SEEN /hpf (0-5)
[2023-07-04 18:27] LABS: Magnesium 1.7 mg/dL (1.6-2.6)
[2023-07-04 18:32] VITALS: PULSE 56; RESP 14; O2SAT 99
[2023-07-04] MEDS: Potassium Chloride 10mEq/100mL 10 MEQ/100 ML IV.SOLN. 100 MEQ IV BOLUS ×4 (18:50→23:08)
[2023-07-04] MEDS: Potassium Chloride Oral Soln 20 MEQ/15 ML UDC 40 MEQ PO (18:50)
--- NOTE | 2023-07-04 19:28 | PCM.HP.STD ---
HPI - General General Date of Admission: 07/04/23 Date of Service: 07/04/23 Chief Complaint: Altered mentation HPI Narrative DANIE RAMIREZ, is a 77 F with past medical history of hypertension, hyperparathyroidism, presents with fatigue, anorexia, nausea since the last 5 days. Today her daughter found her in a pool of her own urine and vomit, and due to her altered mentation, worsening functional status she was brought to the ED. During our interview, she was confused and could not remember why she was in the ED. lives with her grandson, he helps in most of her ADLs. In the ED her white count was 8.3, potassium 2.3, BUN 35, creatinine 1.1 calcium 12.9., Albumin of 1.2 urine leukocyte esterase is positive but nitrites negative, 4+ bacteria, 10-25 WBCs were present. For her hyperparathyroidism she is on Cinacalcet 30 mg twice daily, amlodipine 5 mg twice daily she is also on levothyroxine 100 mcg daily. [facility] Medical History (Updated 07/04/23 @ 20:00 by GERMAINE Kay) Hx of gastroesophageal reflux (GERD) Hyperparathyroidism Hypertension Hypothyroidism Home Medications amlodipine 5 mg tablet 5 mg PO BID 04/07/20 [History Last Taken Unknown] aspirin 81 mg chewable tablet 81 mg PO DAILY@0800 04/07/20 [History Last Taken Unknown] pantoprazole 40 mg tablet,delayed release 40 mg PO DAILY stomach 04/07/20 [History Last Taken Unknown] ranolazine 500 mg tablet,extended release,12 hr 500 mg PO BID chest pain 04/07/20 [History Last Taken Unknown] memantine 7 mg capsule sprinkle,extended release 24hr 7 mg PO QHS memory 03/28/23 [History Last Taken Unknown] cinacalcet 30 mg tablet 60 mg PO DAILY 07/04/23 [History Last Taken Unknown] ferrous sulfate 325 mg (65 mg iron) tablet 325 mg PO DAILY 07/04/23 [History Last Taken Unknown] levothyroxine 100 mcg tablet 150 mcg PO DAILY@0600 07/04/23 [History Last Taken Unknown] Allergy/AdvReac Type Severity Reaction Status Date / Time aspirin [ASA] Allergy Hives Verified 07/04/23 22:38 hydrocodone Allergy Nausea Verified 07/04/23 16:34 morphine Allergy PT UNSURE Verified 07/04/23 16:34 OF REACTION Penicillins Allergy Anaphylaxis Verified 07/04/23 16:34 Family History (Updated 07/03/23 @ 13:34 by Keya Armstrong LPN) Daughter Diabetes Heart disease Surgical History (Updated 07/03/23 @ 13:34 by Keya Armstrong LPN) S/P cholecystectomy Status post total hip replacement, right Social History (Updated 07/03/23 @ 13:35 by Keya Armstrong LPN) Smoking Status: Never smoker substance use type: does not use ROS Review of Systems ROS Unobtainable: due to mental status Vital Signs Vital Signs Vital Signs: 07/04/23 16:32 07/04/23 16:32 07/04/23 18:32 Temperature 97.4 F L Temperature Source Temporal Pulse Rate 64 56 L Respiratory Rate 14 14 Respiratory Pattern Normal Blood Pressure 122/71 H Blood Pressure Mean 88 Pulse Ox 98 99 Oxygen Delivery Method Room Air Physical Exam Const Constitutional Narrative: Confused, AO x 1 (self) HEENT normocephalic and head/scalp atraumatic Eyes PERRL Neck no lymphadenopathy Resp normal respiratory effort Cardio regular rate and regular rhythm GI normal to inspection, nondistended, normoactive bowel sounds Extremity normal to inspection Extremity Narrative: No pedal edema Results Medical Records Data Attestation: I reviewed the patient's medical records Lab / Micro Data Attestation: I reviewed the patient's lab results. 07/04/23 17:01 07/04/23 17:01 Labs: Laboratory Results - last 24 hr 07/04/23 17:01: WBC 8.3, RBC 3.64 L, Hgb 11.8 L, Hct 34.8 L, MCV 95.6, MCH 32.4 H, MCHC 33.9, RDW Std Deviation 45.5 H, RDW Coeff of Theresa 13.0, Plt Count 214, MPV 12.0, Immature Gran % (Auto) 0.700, Neut % (Auto) 58.6, Lymph % (Auto) 32.4, [place] % (Auto) 7.6, Eos % (Auto) 0.2, Baso % (Auto) 0.5, Absolute Neuts (auto) 4.9, Absolute Lymphs (auto) 2.69, Nucleated RBC % 0, Sodium 138, Potassium 2.3 L*, Chloride 97 L, Carbon Dioxide 34.0 H, Anion Gap 7, BUN 35 H, Creatinine 1.11 H, Est GFR (MDRD) Af Amer 61, Est GFR (MDRD) Non-Af 50 L, BUN/Creatinine Ratio 31.5 H, Glucose 111 H, Calcium 12.9 H*, Magnesium 1.7, Total Bilirubin 0.70, AST 20, ALT 16, Alkaline Phosphatase 52, Troponin I High Sens 44, Total Protein 6.9, Albumin 3.7, Globulin 3.2, Albumin/Globulin Ratio 1.2 07/04/23 17:51: Urine Color Yellow, Urine Clarity Sl. Cloudy, Urine pH 6.0, Ur Specific [place] 1.015, Urine Protein 15 H, Urine Glucose (UA) Normal, Urine Ketones Negative, Urine Occult Blood 10 H, Urine Nitrite Negative, Urine Bilirubin Negative, Urine Urobilinogen Normal, Ur Leukocyte Esterase 100 H, Urine RBC 0-5 SEEN, Urine WBC 10-25 SEEN, Ur Squamous Epith Cells 0-5 SEEN, Urine Bacteria 4+, Urine Mucus 0 SEEN Micro: Microbiology 07/04/23 17:51 Nasal Secretion SARS-CoV-2 & FLU Antigen (Rapid) - Final Imagaing Radiology Impression Chest X-Ray 07/04/23 17:55 IMPRESSION: Normal x-ray examination of the chest. Electronically Signed: Benitez Schrader MD at 18:55 EST , Assessment & Plan Assessment/Plan (1) Hypercalcemia: PLAN: Plan Ms Ramirez, 77 year old female presents to the ED with concerns of altered mental status and was found to have severe hypercalcemia, hypokalemia and urinalysis suspicious of urinary tract infection. She has a history of hyperparathyroidism and and is on Cinacalcet for the same. She lives with his with her grandson, but medication compliance is not known. 1. Hypercalcemia: Likely related to underlying hyperparathyroidism, continue Cinacalcet, IV fluid for 24 to 36 hours with normal saline 100 cc/h. Will hold off diuretic therapy at present, start if there are any features of fluid overload. If there is worsening would consider steroids but unlikely to be used helpful at this time. Measured serum calcium and ionized calcium tomorrow morning. 2. Urinary tract infection: Will start her on IV ciprofloxacin and would change to oral meds once she is able to tolerate p.o. diet better. 3. Altered mentation: Likely related to dehydration following hypercalcemia, there is a component of underlying dementia also will start delirium precautions. 4. Hypothyroidism: Check serum TSH levels, continue home thyroxine supplementation 5. Physical therapy, Occupational Therapy evaluation for balance, also suitability for home discharge 6. Elevated BUN: Likely dehydration secondary to hypercalcemia, continue to monitor after fluid therapy 7. Severe hypokalemia: Suspect related to hypercalcemia and diuresis, possibly also decreased oral intake. Has received therapy in the ED, will repeat labs tonight. Charges/Coding Visit Charges Inpatient E&M: 30196 Init Hosp L2
[2023-07-04] MEDS: Nitrofurantoin Macrocrystals 100 MG Capsule PO (20:43)
[2023-07-04 22:20] VITALS: BMI 24.5
[2023-07-04 23:00] VITALS: BP 155/71; PULSE 56; RESP 18; TEMP 36.7; O2SAT 99
[2023-07-04] MEDS: MELATONIN 3 MG TABLET PO (23:08)
[2023-07-04] MEDS: Acetaminophen 500 MG Tablet 1000 MG PO (23:09)
[2023-07-04] MEDS: amLODIPine 5 MG Tablet PO (23:09)
[2023-07-04] MEDS: Ciprofloxacin 500 MG Tablet PO (23:09)
[2023-07-04] MEDS: Ranolazine 500 MG Tablet PO (23:10)
[2023-07-04] MEDS: Memantine Hydrochloride 5 MG Tablet PO (23:10)
[2023-07-04] MEDS: 0.9% Normal Saline (1000mL) 1,000 ML 100 ML IV (23:33)
[2023-07-05 00:18] LABS: Potassium 3.1 mmol/L (3.5-5.1)
[2023-07-05 04:50] VITALS: BP 138/69; PULSE 51; RESP 18; TEMP 37; O2SAT 98
[2023-07-05] MEDS: Levothyroxine 150 MCG Tablet PO (04:53)
[2023-07-05 06:51] LABS: Absolute Lymphocyte Count 3.02 X10^3/uL (0.83-4.51); Absolute Neutrophil Count 3.4 X10^3/uL (2.0-7.7); Basophil# 0.04 X10^3/uL; Basophil% 0.6 % (0-1); Eosinophil# 0.07 X10^3/uL; Hematocrit 30.5 % (37-47); Hemoglobin 10.2 g/dL (12.0-15.0); Lymphocyte # 3.02 X10^3/ul (0.83-4.51); Lymphocyte % 42.3 % (19-41); Mean Corp Hgb Conc 33.4 g/dL (32-36); Mean Corpuscular Hgb 32.4 pg (27.0-32.0); Mean Corpuscular Volume 96.8 fL (81-99); Monocyte# 0.61 X10^3/uL; Monocyte% 8.5 % (0-10); NRBC Flagged by Analyzer 0 % (0-5); Neutrophil # 3.35 X10^3/uL (2.7-7.7); Neutrophil % 46.9 % (47-70); Platelet Count 193 K/mm3 (150-450); RBC Distribution Width SD 46.5 fl (35.1-43.9); Red Blood Count 3.15 M/mm3 (4.2-5.4); White Blood Count 7.1 K/mm3 (4.4-11.0)
[2023-07-05 07:25] LABS: ALB/GLOB Ratio 1.1 RATIO (0.9-2.4); AST(SGOT) 17 U/L (15-37); Alanine Aminotransfer ALT/SGPT 14 U/L (13-56); Albumin, Serum 3.3 g/dL (3.2-5.0); Alkaline Phosphatase 47 U/L (45-117); Anion Gap 2 (5-15); BUN 25 mg/dL (7-18); BUN/Creat Ratio 30.4 RATIO (10-20); Bilirubin, Direct 0.17 mg/dL (0.00-0.30); Calcium,Total 11.4 mg/dL (8.5-10.1); Chloride 105 mmol/L (98-107); Creatinine, Serum 0.82 mg/dL (0.55-1.02); EST Glomerular Filtration Rate 71 mL/min (>60); Est Glom Filt Rate - Afr Amer 86 mL/min (>60); Estimated Creatinine Clearance 50.06 ml/min; Globulin 2.9 g/dL (2.2-4.2); Glucose 84 mg/dL (74-106); Magnesium 1.4 mg/dL (1.6-2.6); Phosphorus 1.8 mg/dL (2.5-4.9); Potassium 2.7 mmol/L (3.5-5.1); Protein, Total 6.2 g/dL (6.4-8.2); Sodium Level 141 mmol/L (136-145); Thyroid Stim Hormone (TSH) 2.68 uIU/mL (0.358-3.74)
[2023-07-05 07:50] VITALS: O2SAT 92
[2023-07-05 08:21] LABS: Prothrombin Time (Protime)PT. 13.3 SECONDS (11.7-14.9)
[2023-07-05] MEDS: Pantoprazole Sodium 40 MG Tablet PO (08:29)
[2023-07-05] MEDS: Aspirin 81 MG TAB.CHEW PO (08:29)
[2023-07-05] MEDS: Cinacalcet HCl 30 MG Tablet 60 MG PO (08:30)
[2023-07-05] MEDS: 0.9% Normal Saline (1000mL) 1,000 ML 100 ML IV ×2 (08:35→17:55)
[2023-07-05 09:45] VITALS: BP 115/51; PULSE 48; RESP 16; TEMP 36.6; O2SAT 100
--- NOTE | 2023-07-05 10:02 | PN.HOSP_ITS ---
Reason for Visit Reason for Visit: Diagnoses Hypercalcemia (07/04/23) Subjective Subjective Patient was seen and examined today, she was admitted yesterday for generalized weakness and acute urinary tract infection, patient asked if she could be d ischarged home today, I told her that she was just admitted yesterday and that I would prefer her to be seen by physical therapy and have another day of antibiotics. Objective Data Objective Data Vital Signs: Vital Signs Temp Pulse Resp BP Pulse Ox O2 Del Method 97.8 F 48 L 16 115/51 L 100 Room Air 07/05/23 09:45 07/05/23 09:45 07/05/23 09:45 07/05/23 09:45 07/05/23 09:45 07/05/23 09:45 Oxygen Delivery Method Room Air Weight: 66.7 kg Body Mass Index (BMI) 24.5 Intake & Output: Intake and Output for Last 24 Hours 07/03/23 07/04/23 07/05/23 23:59 23:59 23:59 Intake Total 1300 / 1300 1000.00 / 1000.00 Balance 1300 / 1300 1000.00 / 1000.00 Lab / Micro Data 07/05/23 06:38 07/05/23 06:38 Labs: Laboratory Results - last 24 hr 07/04/23 17:01: WBC 8.3, RBC 3.64 L, Hgb 11.8 L, Hct 34.8 L, MCV 95.6, MCH 32.4 H, MCHC 33.9, RDW Std Deviation 45.5 H, RDW Coeff of Theresa 13.0, Plt Count 214, MPV 12.0, Immature Gran % (Auto) 0.700, Neut % (Auto) 58.6, Lymph % (Auto) 32.4, Lee % (Auto) 7.6, Eos % (Auto) 0.2, Baso % (Auto) 0.5, Absolute Neuts (auto) 4.9, Absolute Lymphs (auto) 2.69, Nucleated RBC % 0, Sodium 138, Potassium 2.3 L*, Chloride 97 L, Carbon Dioxide 34.0 H, Anion Gap 7, BUN 35 H, Creatinine 1.11 H, Est GFR (MDRD) Af Amer 61, Est GFR (MDRD) Non-Af 50 L, BUN/Creatinine Ratio 31.5 H, Glucose 111 H, Calcium 12.9 H*, Magnesium 1.7, Total Bilirubin 0.70, AST 20, ALT 16, Alkaline Phosphatase 52, Troponin I High Sens 44, Total Protein 6.9, Albumin 3.7, Globulin 3.2, Albumin/Globulin Ratio 1.2 07/04/23 17:51: Urine Color Yellow, Urine Clarity Sl. Cloudy, Urine pH 6.0, Ur Specific [place] 1.015, Urine Protein 15 H, Urine Glucose (UA) Normal, Urine Ketones Negative, Urine Occult Blood 10 H, Urine Nitrite Negative, Urine Bilirubin Negative, Urine Urobilinogen Normal, Ur Leukocyte Esterase 100 H, U rine RBC 0-5 SEEN, Urine WBC 10-25 SEEN, Ur Squamous Epith Cells 0-5 SEEN, Urine Bacteria 4+, Urine Mucus 0 SEEN 07/05/23 00:00: Potassium 3.1 L 07/05/23 06:38: WBC 7.1, RBC 3.15 L, Hgb 10.2 L, Hct 30.5 L, MCV 96.8, MCH 32.4 H, MCHC 33.4, RDW Std Deviation 46.5 H, RDW Coeff of Theresa 13.0, Plt Count 193, MPV 11.0, Immature Gran % (Auto) 0.700, Neut % (Auto) 46.9 L, Lymph % (Auto) 4 2.3 H, Lee % (Auto) 8.5, Eos % (Auto) 1.0, Baso % (Auto) 0.6, Absolute Neuts (auto) 3.4, Absolute Lymphs (auto) 3.02, Nucleated RBC % 0, PT 13.3, INR 1.0, Sodium 141, Potassium 2.7 L*, Chloride 105, Carbon Dioxide 34.0 H, Anion Gap 2 L , BUN 25 H, Creatinine 0.82, Estim Creat Clear Calc 50.06, Est GFR (MDRD) Af Amer 86, Est GFR (MDRD) Non-Af 71, BUN/Creatinine Ratio 30.4 H, Glucose 84, Calcium 11.4 H, Phosphorus 1.8 L, Magnesium 1.4 L, Total Bilirubin 0.60, Direct Bilirubin 0.17, AST 17, ALT 14, Alkaline Phosphatase 47, Total Protein 6.2 L, Albumin 3.3, Globulin 2.9, Albumin/Globulin Ratio 1.1, TSH 2.68 07/05/23 06:52: Ionized Calcium 6.00 H Micro: Microbiology 07/04/23 17:51 Nasal Secretion SARS-CoV-2 & FLU Antigen (Rapid) - Final Radiography Diagnostic Testing: Radiology Impression Chest X-Ray 07/04/23 17:55 IMPRESSION: Normal x-ray examination of the chest. Electronically Signed: Benitez Schrader MD at 18:55 EST Reading Location ID and State: [facility] / [place] Tel , Service support , Physical Exam Const alert, no apparent distress and average body habitus General Appearance: cooperative, well kempt and well developed Orientation / Consciousness: awake, oriented to person and oriented to place HEENT normocephalic, head/scalp atraumatic and moist oral mucous membranes Eyes PERRL, EOMs intact bilaterally and conjunctivae normal Neck supple, no JVD, thyroid normal and no carotid bruits General: trachea midline Resp normal respiratory effort, no retractions, no use of accessory muscles and clear to auscultation bilaterally Auscultation: Negative for rales, rhonchi or wheezes Cardio regular rate, regular rhythm, S1 normal heart sound, S2 normal heart sound, no murmurs, no rub and no gallops GI normal to inspection, nondistended, normoactive bowel sounds, soft to palpation, non-tender and non-distended Extremity no clubbing, cyanosis or edema Skin no rashes or lesions noted General Skin Exam: no breakdown Neuro CN's II-XII intact bilaterally, moves all extremities, no focal motor deficits and no sensory deficits noted Sensorium / Orientation: awake, alert, oriented to person and oriented to place Speech: speech normal Psych affect normal Assessment & Plan Assessment/Plan (1) Acute hypokalemia: PLAN: Plan 1. Acute cystitis-patient will remain on IV Cipro, urine cultures are pending #2 hypokalemia-I have written for an extra 40 mEq of potassium chloride orally, BMP will be rechecked at 1:00 today #3 generalized weakness-probably secondary to hypokalemia and acute cystitis, PT and OT will see the patient #4 hypothyroidism-patient will remain on Synthroid #5 essential hypertension-patient is on amlodipine, blood pressure medicines will be adjusted as necessary #6 cognitive dysfunction-patient is on Namenda as an outpatient, I will increase her dosage Total clinical time spent by myself addressing the patient's medical issues, reviewing all of her data, and collaborating with the patient's care team: 35 minutes Charges/Coding Visit Charges Inpatient E&M: 42987 Subs Hosp L2
[2023-07-05] MEDS: Ciprofloxacin 400 MG/200 ML BAG 200 MG IV ×2 (10:47→21:27)
[2023-07-05] MEDS: amLODIPine 5 MG Tablet PO ×2 (10:47→21:28)
[2023-07-05] MEDS: Enoxaparin 40 MG/0.4 ML Syringe SC (10:47)
[2023-07-05] MEDS: Ranolazine 500 MG Tablet PO ×2 (10:47→21:28)
[2023-07-05] MEDS: Potassium Chloride Oral Soln 20 MEQ/15 ML UDC 40 MEQ PO (10:49)
[2023-07-05] MEDS: Ferrous Sulfate 325 MG Tablet PO (11:49)
[2023-07-05 13:20] LABS: Anion Gap 3 (5-15); BUN 24 mg/dL (7-18); BUN/Creat Ratio 26.2 RATIO (10-20); Calcium,Total 11.6 mg/dL (8.5-10.1); Chloride 106 mmol/L (98-107); Creatinine, Serum 0.92 mg/dL (0.55-1.02); EST Glomerular Filtration Rate 63 mL/min (>60); Est Glom Filt Rate - Afr Amer 76 mL/min (>60); Estimated Creatinine Clearance 44.62 ml/min; Glucose 126 mg/dL (74-106); Potassium 3.1 mmol/L (3.5-5.1); Sodium Level 140 mmol/L (136-145)
[2023-07-05] MEDS: Acetaminophen 500 MG Tablet 1000 MG PO ×2 (13:22→21:28)
[2023-07-05 15:45] VITALS: BP 152/66; PULSE 54; RESP 18; TEMP 36.6; O2SAT 100
[2023-07-05] MEDS: Potassium Chloride Oral Tablet 20 MEQ 40 MEQ PO (17:55)
[2023-07-05] MEDS: Magnesium Chloride 64 MG Delay Rel.Tablet 128 MG PO (21:28)
[2023-07-05] MEDS: Memantine Hydrochloride 10 MG Tablet PO (21:29)
[2023-07-05 21:30] VITALS: BP 135/100; PULSE 56; RESP 18; TEMP 36.6; O2SAT 98
[2023-07-06] MEDS: 0.9% Normal Saline (1000mL) 1,000 ML 100 ML IV ×2 (03:29→14:59)
[2023-07-06 03:30] VITALS: BP 117/93; PULSE 52; RESP 18; TEMP 36.5; O2SAT 97
[2023-07-06] MEDS: Levothyroxine 150 MCG Tablet PO (03:30)
[2023-07-06 07:05] VITALS: O2SAT 94
[2023-07-06 07:14] LABS: Anion Gap 5 (5-15); BUN 15 mg/dL (7-18); BUN/Creat Ratio 20.4 RATIO (10-20); Chloride 109 mmol/L (98-107); Creatinine, Serum 0.74 mg/dL (0.55-1.02); EST Glomerular Filtration Rate 81 mL/min (>60); Est Glom Filt Rate - Afr Amer 98 mL/min (>60); Estimated Creatinine Clearance 41.05 ml/min; Glucose 100 mg/dL (74-106); Potassium 3.2 mmol/L (3.5-5.1); Sodium Level 142 mmol/L (136-145)
[2023-07-06 09:37] VITALS: BP 133/64; PULSE 50; RESP 16; TEMP 36.8; O2SAT 99
[2023-07-06] MEDS: Ciprofloxacin 400 MG/200 ML BAG 200 MG IV (09:44)
[2023-07-06] MEDS: Potassium Chloride Oral Tablet 20 MEQ 40 MEQ PO (09:46)
[2023-07-06] MEDS: Pantoprazole Sodium 40 MG Tablet PO (09:47)
[2023-07-06] MEDS: Cinacalcet HCl 30 MG Tablet 60 MG PO ×2 (09:47→20:18)
[2023-07-06] MEDS: Aspirin 81 MG TAB.CHEW PO (09:47)
[2023-07-06] MEDS: Memantine Hydrochloride 10 MG Tablet PO ×2 (09:48→20:17)
[2023-07-06] MEDS: Magnesium Chloride 64 MG Delay Rel.Tablet 128 MG PO ×2 (09:48→20:17)
[2023-07-06] MEDS: Enoxaparin 40 MG/0.4 ML Syringe SC (09:49)
[2023-07-06] MEDS: Ranolazine 500 MG Tablet PO ×2 (09:49→20:18)
[2023-07-06] MEDS: Ondansetron 4 MG/2 ML Vial IV (11:37)
[2023-07-06] MEDS: Ferrous Sulfate 325 MG Tablet PO (11:38)
--- NOTE | 2023-07-06 12:30 | CASEMGMT ---
RN MARIANELA called daughter for initial transition planning/care coordination assessment as patient is confused. RN MARIANELA introduced self and role at [facility]. Daughter willing to participate in assessment and is able to answer all questions appropriately. Care providers, pharmacy, and demographics verified. Daughter wishes for patient to discharge to SNF if appropriate. Daughter prefers [facility] for SNF and [facility] if patient is appropriate for HHC. Daughter states she has no further needs or concerns at this time. SW updated regarding request for SNF at discharge. CM to follow for discharge planning needs that may arise. PCP: Michelle Specialists: Griffin, surgeon; , sales strategy manager; Preferred Pharmacy: [facility] Insurance: [employer] Prescription Benefit: yes Living Will/HPOA: yes, daughter Sanjana Guo LNOK: daughter Living Arrangements: Patient lives with daughter and grandson in a single story home with 3 steps to enter. Patient is home alone at time while daughter and grandson work. Patient was independent at home. Transportation: daughter DME/HHC: Patient has shower chair, cane, grab bars, and walker at home. Patient has had [facility] in the past. No previous SNF Disposition Plan: HHC vs SNF Berenice WHITTINGTON, RN, CM
--- NOTE | 2023-07-06 14:00 | PN_ITS ---
Subjective Subjective Patient seen and examined. She was lying comfortably in bed. She had no active complaints. Review of systems otherwise negative. She has remained hemodynamically stable. Objective Data Objective Data Vital Signs: Vital Signs Temp Pulse Resp BP Pulse Ox O2 Del Method 98.3 F 50 L 16 133/64 H 99 Room Air 07/06/23 09:37 07/06/23 09:37 07/06/23 09:37 07/06/23 09:37 07/06/23 09:37 07/06/23 09:37 Oxygen Delivery Method Room Air Weight: 147 lb 0.773 oz Body Mass Index (BMI) 24.5 Intake & Output: Intake and Output for Last 24 Hours 07/04/23 07/05/23 07/06/23 23:59 23:59 23:59 Intake Total 1300 / 1300 3333.33 / 3333.33 1751.66 / 1751.66 Output Total 400 / 1700 1675 / 1675 Balance 1300 / 1300 2933.33 / 1633.33 76.66 / 76.66 Lab / Micro Data 07/05/23 06:38 07/06/23 05:43 Labs: Laboratory Results - last 24 hr 07/06/23 05:43: Sodium 142, Potassium 3.2 L, Chloride 109 H, Carbon Dioxide 28.0, Anion Gap 5, BUN 15, Creatinine 0.74, Estim Creat Clear Calc 41.05, Est GFR (MDRD) Af Amer 98, Est GFR (MDRD) Non-Af 81, BUN/Creatinine Ratio 20.4 H, Glucose 100, Calcium 11.0 H Micro: Microbiology 07/04/23 17:51 Urine Catheter - Catheter Urine Culture - Final Escherichia coli 07/04/23 17:51 Nasal Secretion SARS-CoV-2 & FLU Antigen (Rapid) - Final Physical Exam Const alert, oriented x3 and no apparent distress General Appearance: cooperative and well developed HEENT head/scalp atraumatic, moist oral mucous membranes and oropharynx normal Eyes EOMs intact bilaterally Neck no lymphadenopathy and supple Lymph Lymphatic: no lymphadenopathy noted Resp normal respiratory effort, normal air movement and clear to auscultation bilaterally Cardio regular rate, regular rhythm, S1 normal heart sound, S2 normal heart sound and no murmurs GI normal to inspection, nondistended, normoactive bowel sounds, soft to palpation, non-tender and non-distended Extremity normal capillary refill, no clubbing, cyanosis or edema and no calf tenderness Skin General Skin Exam: no breakdown Neuro CN's II-XII intact bilaterally, no focal motor deficits and no sensory deficits noted Motor Exam: strength 5/5 throughout and general weakness Psych thought process normal and cooperative Appearance: appropriate Assessment & Plan Assessment/Plan (1) Hypercalcemia: (2) Acute hypokalemia: (3) Acute UTI: (4) Generalized weakness: PLAN: Plan #UTI * currently on IV ciprofloxacin * urine culture growing E coli, resistant to ciprfloxaciin * Did have UTI in the past which grew E. coli which was resistant to ciprofloxacin. * Will switch to IV ceftriaxone based on culture results and adjust antibiotics based on cultures and sensitivity. * #Hypokalemia: Potassium is 3.2 today. Will replace and trend. #Hypothyroidism: On Synthroid #Hypercalcemia: * Patient is on Cinacalcet. Calcium today is 11. Was 12.9 on admission. I spoke to her robotic weld technician Dr. Marin today. * Per her robotic weld technician, patient not very compliant with her calcium dose. Her calcium dose has been increased to 60 mg twice daily. * To follow-up with Dr Marin and Dr. Moya on outpatient basis. * #Benign essential hypertension: On amlodipine. #History of dementia with cognitive dysfunction: On Namenda. * DVT prophylaxis: lovenox Charges/Coding Visit Charges Inpatient E&M: 00463 Subs Hosp L2
[2023-07-06] MEDS: Acetaminophen 500 MG Tablet 1000 MG PO ×2 (15:00→20:17)
--- NOTE | 2023-07-06 16:12 | CASEMGMT ---
Discharge Planning A list of?SNF providers including quality and resource use data and consistent with the patient's preferred geographic region, medical needs, and insurance network was created in [facility] Guide.? This list was provided to the SW. Fela Marley Discharge Planning Asst.
[2023-07-06 16:23] VITALS: BP 140/62; PULSE 51; RESP 15; TEMP 36.6; O2SAT 100
--- NOTE | 2023-07-06 16:31 | CASEMGMT ---
Therapy is recommending [facility] facility for patient. JAY met with patient's daughter Sanjana and explained recommendations. Sanjana is in agreement with SNF. SW provided Sanjana with a list of penitentiary facility providers including quality and resource use data and consistent with patient?s preferred geographic region, medical needs, and insurance network were provided from the [facility] Guide. Sanjana's first choice is [facility], [facility], and [facility]. JAY asked Fela d/c community health planning director to please send a referral to [facility]. Beverly BOWLINGW
--- NOTE | 2023-07-06 17:19 | CASEMGMT ---
Discharge Planning [facility] Fela Marley, Discharge Planning Asst.
[2023-07-06 20:15] VITALS: BP 139/66; PULSE 55; RESP 18; TEMP 36.5; O2SAT 100
[2023-07-06] MEDS: amLODIPine 5 MG Tablet PO (20:18)
[2023-07-07] MEDS: 0.9% Normal Saline (1000mL) 1,000 ML 100 ML IV ×2 (00:37→22:20)
[2023-07-07 03:00] VITALS: BP 154/79; PULSE 57; RESP 16; TEMP 36.5; O2SAT 99
[2023-07-07] MEDS: Levothyroxine 150 MCG Tablet PO (05:21)
[2023-07-07] MEDS: Acetaminophen 500 MG Tablet 1000 MG PO ×3 (05:21→20:02)
[2023-07-07 07:02] LABS: Absolute Lymphocyte Count 3.04 X10^3/uL (0.83-4.51); Absolute Neutrophil Count 2.2 X10^3/uL (2.0-7.7); Basophil# 0.07 X10^3/uL; Basophil% 1.2 % (0-1); Eosinophil# 0.14 X10^3/uL; Eosinophils% 2.3 % (0-5); Hematocrit 30.7 % (37-47); Hemoglobin 9.8 g/dL (12.0-15.0); Lymphocyte # 3.04 X10^3/ul (0.83-4.51); Lymphocyte % 50.7 % (19-41); Mean Corp Hgb Conc 31.9 g/dL (32-36); Mean Corpuscular Hgb 31.9 pg (27.0-32.0); Mean Platelet Vol. 11.4 fl (6.2-12.0); Monocyte# 0.45 X10^3/uL; Monocyte% 7.5 % (0-10); NRBC Flagged by Analyzer 0 % (0-5); Neutrophil # 2.23 X10^3/uL (2.7-7.7); Neutrophil % 37.1 % (47-70); Platelet Count 193 K/mm3 (150-450); RBC Distribution Width CV 13.1 % (11.6-14.6); RBC Distribution Width SD 47.9 fl (35.1-43.9); Red Blood Count 3.07 M/mm3 (4.2-5.4)
[2023-07-07 07:26] LABS: Anion Gap 3 (5-15); BUN 9 mg/dL (7-18); BUN/Creat Ratio 14.9 RATIO (10-20); Calcium,Total 9.9 mg/dL (8.5-10.1); Chloride 109 mmol/L (98-107); Creatinine, Serum 0.61 mg/dL (0.55-1.02); EST Glomerular Filtration Rate 101 mL/min (>60); Est Glom Filt Rate - Afr Amer 122 mL/min (>60); Estimated Creatinine Clearance 41.05 ml/min; Glucose 95 mg/dL (74-106); Potassium 2.8 mmol/L (3.5-5.1); Sodium Level 142 mmol/L (136-145)
[2023-07-07 08:14] VITALS: O2SAT 95
[2023-07-07] MEDS: Enoxaparin 40 MG/0.4 ML Syringe SC (08:16)
[2023-07-07] MEDS: Magnesium Chloride 64 MG Delay Rel.Tablet 128 MG PO ×2 (08:17→20:04)
[2023-07-07] MEDS: amLODIPine 5 MG Tablet PO ×2 (08:17→20:03)
[2023-07-07] MEDS: Aspirin 81 MG TAB.CHEW PO (08:17)
[2023-07-07] MEDS: Ranolazine 500 MG Tablet PO ×2 (08:18→20:04)
[2023-07-07] MEDS: Ceftriaxone 1 GM/50 ML BAG IV (08:18)
[2023-07-07] MEDS: Pantoprazole Sodium 40 MG Tablet PO (08:18)
[2023-07-07] MEDS: Memantine Hydrochloride 10 MG Tablet PO ×2 (08:18→20:05)
[2023-07-07] MEDS: Cinacalcet HCl 30 MG Tablet 60 MG PO ×2 (08:19→20:04)
[2023-07-07] MEDS: Ondansetron 4 MG/2 ML Vial IV (08:30)
[2023-07-07 08:33] VITALS: BP 138/58; PULSE 50; RESP 16; TEMP 36.4; O2SAT 96
[2023-07-07] MEDS: Potassium Chloride 10mEq/100mL 10 MEQ/100 ML IV.SOLN. 100 MEQ IV BOLUS ×4 (08:33→15:18)
[2023-07-07 09:06] LABS: Magnesium 1.3 mg/dL (1.6-2.6)
--- NOTE | 2023-07-07 12:21 | PN_ITS ---
Subjective Subjective Patient seen and examined. Her daughter was by her bedside. She had no active complaints and had an uneventful night. Review of systems otherwise negative. Potassium is low today at 2.8. Patient stable for discharge but per case management, symptoms family wanted to be placed so she is awaiting placement pending pre-CERT. Objective Data Objective Data Vital Signs: Vital Signs Temp Pulse Resp BP Pulse Ox O2 Del Method 97.6 F L 50 L 16 138/58 H 96 Room Air 07/07/23 08:33 07/07/23 08:33 07/07/23 08:33 07/07/23 08:33 07/07/23 08:33 07/07/23 08:33 Oxygen Delivery Method Room Air Weight: 147 lb 0.773 oz Body Mass Index (BMI) 24.5 Intake & Output: Intake and Output for Last 24 Hours 07/05/23 07/06/23 07/07/23 23:59 23:59 23:59 Intake Total 3333.33 / 3333.33 2528.33 / 2528.33 2113.33 / 2113.33 Output Total 400 / 1700 2475 / 2475 800 / 800 Balance 2933.33 / 1633.33 53.33 / 53.33 1313.33 / 1313.33 Lab / Micro Data 07/07/23 06:15 07/07/23 06:15 Labs: Laboratory Results - last 24 hr 07/07/23 06:15: WBC 6.0, RBC 3.07 L, Hgb 9.8 L, Hct 30.7 L, MCV 100.0 H, MCH 31.9, MCHC 31.9 L, RDW Std Deviation 47.9 H, RDW Coeff of Theresa 13.1, Plt Count 193, MPV 11.4, Immature Gran % (Auto) 1.200 H, Neut % (Auto) 37.1 L, Lymph % (Auto) 50.7 H, [place] % (Auto) 7.5, Eos % (Auto) 2.3, Baso % (Auto) 1.2 H, Absolute Neuts (auto) 2.2, Absolute Lymphs (auto) 3.04, Nucleated RBC % 0, Sodium 142, Potassium 2.8 L, Chloride 109 H, Carbon Dioxide 30.0, Anion Gap 3 L, BUN 9, Creatinine 0.61, Estim Creat Clear Calc 41.05, Est GFR (MDRD) Af Amer 122, Est GFR (MDRD) Non-Af 101, BUN/Creatinine Ratio 14.9, Glucose 95, Calcium 9.9, Magnesium 1.3 L Micro: Microbiology 07/04/23 17:51 Urine Catheter - Catheter Urine Culture - Final Escherichia coli 07/04/23 17:51 Nasal Secretion SARS-CoV-2 & FLU Antigen (Rapid) - Final Physical Exam Const alert, oriented x3 and no apparent distress General Appearance: cooperative and well kempt Orientation / Consciousness: awake HEENT normocephalic, head/scalp atraumatic, moist oral mucous membranes and oropharynx normal Eyes PERRL, EOMs intact bilaterally and conjunctivae normal Neck no lymphadenopathy, supple, no JVD, thyroid normal and no carotid bruits General: trachea midline Lymph Lymphatic: no lymphadenopathy noted Resp normal respiratory effort, normal air movement, no retractions, no use of accessory muscles and clear to auscultation bilaterally Cardio regular rate, regular rhythm, S1 normal heart sound, S2 normal heart sound, no murmurs, no rub and no gallops GI normal to inspection, nondistended, normoactive bowel sounds, soft to palpation, non-tender and non-distended Extremity normal to inspection, normal capillary refill, no clubbing, cyanosis or edema and no calf tenderness Skin no rashes or lesions noted General Skin Exam: no breakdown Neuro CN's II-XII intact bilaterally, moves all extremities, no focal motor deficits and no sensory deficits noted Sensorium / Orientation: awake, alert, oriented to person and oriented to place Speech: speech normal Motor Exam: strength 5/5 throughout and general weakness Psych thought process normal, cooperative and affect normal Appearance: appropriate Assessment & Plan Assessment/Plan (1) Hypercalcemia: (2) Acute hypokalemia: (3) Acute UTI: (4) Generalized weakness: PLAN: Plan #UTI * now on IV ceftriaxone * urine culture growing E coli, resistant to ciprpfloxaciin * Did have UTI in the past which grew E. coli which was resistant to ciprofloxacin. * * #Hypokalemia: Potassium is 2.8 today. Will replace and trend. WIll check magnesium #Hypothyroidism: On Synthroid #Hyperparathyroidism with resultant hypercalcemia * Patient is on Cinacalcet. Calcium today is 9.9. Was 12.9 on admission. Spoke to her technical engineer Dr Marin. * Per her technical engineer, patient not very compliant with her calcium dose. Her calcium dose has been increased to 60 mg twice daily. * To follow-up with Dr Marin and Dr. Moya on outpatient basis. * #Hypomagnesemia: Magnesium is 1.3. Will replace and trend. #Benign essential hypertension: On amlodipine. #History of dementia with cognitive dysfunction: On Namenda. * DVT prophylaxis: lovenox Disposition: longterm facility pending pre-CERT. Charges/Coding Visit Charges Inpatient E&M: 65828 Subs Hosp L2
--- NOTE | 2023-07-07 13:41 | CASEMGMT ---
Addendum entered by Beverly Melgar 07/07/23 13:53: JAY called patient's daughter Sanjana and let her know [facility] accepted patient and patient's insurance approved. JAY let Sanjana know patient will likely be discharged tomorrow. Beverly LARRY Addendum entered by Beverly Melgar 07/07/23 13:48: Patient will go to [facility] tomorrow. Beverly LARRY Original Note: [facility] declined patient. [facility] has accepted patient. They started pre-cert and obtained pre-cert. JAY asked physician if she would like to send patient today. Beverly LARRY
[2023-07-07 15:01] VITALS: BP 129/69; PULSE 50; RESP 14; TEMP 37.3; O2SAT 100
[2023-07-07] MEDS: Magnesium Sulfate 4gm/100mL 4 GM/100 ML IV.SOLN. IV (15:03)
[2023-07-07] MEDS: Ferrous Sulfate 325 MG Tablet PO (15:04)
[2023-07-07 21:00] VITALS: BP 119/71; PULSE 56; RESP 16; TEMP 36.7
[2023-07-08 03:00] VITALS: BP 122/67; PULSE 53; RESP 16; TEMP 36.6; O2SAT 97
[2023-07-08] MEDS: Levothyroxine 150 MCG Tablet PO (04:53)
[2023-07-08] MEDS: Acetaminophen 500 MG Tablet 1000 MG PO (04:53)
[2023-07-08 08:08] LABS: Absolute Lymphocyte Count 2.45 X10^3/uL (0.83-4.51); Absolute Neutrophil Count 2.8 X10^3/uL (2.0-7.7); Basophil# 0.05 X10^3/uL; Basophil% 0.8 % (0-1); Eosinophils% 3.3 % (0-5); Hematocrit 32.1 % (37-47); Hemoglobin 10.2 g/dL (12.0-15.0); Lymphocyte # 2.45 X10^3/ul (0.83-4.51); Lymphocyte % 40.1 % (19-41); Mean Corp Hgb Conc 31.8 g/dL (32-36); Mean Corpuscular Hgb 32.6 pg (27.0-32.0); Mean Corpuscular Volume 102.6 fL (81-99); Mean Platelet Vol. 11.8 fl (6.2-12.0); Monocyte# 0.52 X10^3/uL; Monocyte% 8.5 % (0-10); NRBC Flagged by Analyzer 0 % (0-5); Neutrophil # 2.83 X10^3/uL (2.7-7.7); Neutrophil % 46.3 % (47-70); Platelet Count 198 K/mm3 (150-450); RBC Distribution Width CV 13.3 % (11.6-14.6); Red Blood Count 3.13 M/mm3 (4.2-5.4); White Blood Count 6.1 K/mm3 (4.4-11.0)
[2023-07-08 08:34] LABS: Anion Gap 3 (5-15); BUN 8 mg/dL (7-18); BUN/Creat Ratio 11.9 RATIO (10-20); Calcium,Total 9.6 mg/dL (8.5-10.1); Chloride 110 mmol/L (98-107); Creatinine, Serum 0.67 mg/dL (0.55-1.02); EST Glomerular Filtration Rate 90 mL/min (>60); Est Glom Filt Rate - Afr Amer 109 mL/min (>60); Estimated Creatinine Clearance 41.05 ml/min; Glucose 86 mg/dL (74-106); Potassium 3.2 mmol/L (3.5-5.1); Sodium Level 142 mmol/L (136-145)
[2023-07-08 08:48] VITALS: BP 125/68; PULSE 51; RESP 14; TEMP 36.7; O2SAT 99
[2023-07-08] MEDS: Enoxaparin 40 MG/0.4 ML Syringe SC (08:51)
[2023-07-08] MEDS: Memantine Hydrochloride 10 MG Tablet PO (08:52)
[2023-07-08] MEDS: amLODIPine 5 MG Tablet PO (08:52)
[2023-07-08] MEDS: Aspirin 81 MG TAB.CHEW PO (08:52)
[2023-07-08] MEDS: Magnesium Chloride 64 MG Delay Rel.Tablet 128 MG PO (08:52)
[2023-07-08] MEDS: Ranolazine 500 MG Tablet PO (08:53)
[2023-07-08] MEDS: Cinacalcet HCl 30 MG Tablet 60 MG PO (08:53)
[2023-07-08] MEDS: Pantoprazole Sodium 40 MG Tablet PO (08:53)
[2023-07-08] MEDS: Ceftriaxone 1 GM/50 ML BAG IV (08:55)
[2023-07-08 10:27] VITALS: BP 116/58; PULSE 56; RESP 16; TEMP 36.8; O2SAT 99
--- NOTE | 2023-07-08 10:28 | TREXTCAR_ITS ---
Diet Diet Order/Speech Therapy: 07/04/23 21:34 Diet: Regular - General Food consistency:: Regular Liquid Consistency:: Regular/Thin Routine Orders/Code Status Enema Type: Fleetz Enema Frequency: Daily PRN Suppository Type: Dulcolax 10mg Suppository Frequency: Daily PRN O2 Frequency: PRN Keep PO Greater than or Equal to (%): 90 Therapies Weight Bearing: Weight bearing as tolerated Physical Therapy: Eval and Treat Occupational Therapy: Eval and Treat Problem/Diagnosis (1) Hypercalcemia: Status: Acute Code(s): E83.52 - Hypercalcemia (2) Acute hypokalemia: Status: Acute Code(s): E87.6 - Hypokalemia (3) Acute UTI: Status: Acute Code(s): N39.0 - Urinary tract infection, site not specified (4) Generalized weakness: Status: Acute Code(s): R53.1 - Weakness Plan #UTI * now on IV ceftriaxone * urine culture growing E coli, resistant to ciprpfloxaciin * Did have UTI in the past which grew E. coli which was resistant to ciprofloxacin. * * #Hypokalemia: Potassium is 2.8 today. Will replace and trend. WIll check magnesium #Hypothyroidism: On Synthroid #Hyperparathyroidism with resultant hypercalcemia * Patient is on Cinacalcet. Calcium today is 9.9. Was 12.9 on admission. Spoke to her contracting manager Dr Marin. * Per her contracting manager, patient not very compliant with her calcium dose. Her calcium dose has been increased to 60 mg twice daily. * To follow-up with Dr Marin and Dr. Moya on outpatient basis. * #Hypomagnesemia: Magnesium is 1.3. Will replace and trend. #Benign essential hypertension: On amlodipine. #History of dementia with cognitive dysfunction: On Namenda. * DVT prophylaxis: lovenox Disposition: group home facility pending pre-CERT. Allergies/Procedures Done in Hospital Allergies aspirin [ASA] Allergy (Verified 07/04/23 22:38) Hives Patient can't take high dose hydrocodone Allergy (Verified 07/04/23 16:34) Nausea morphine Allergy (Verified 07/04/23 16:34) PT UNSURE OF REACTION Penicillins Allergy (Verified 07/04/23 16:34) Anaphylaxis Type of Care/Length of Stay Estimated LOS: Convalescent Care Less Than 30 days Type of Care Needed: Skilled Rehab Potential: Fair Prognosis: Fair Additional Orders/Day of Discharge Day of Discharge: 07/08/23 Dietary and Speech Recommendations Dietitian Recommendations/Changes: continue regular diet w/ ensure compact TID Discharge Plan Admission Admit Date/Time: 07/04/23 19:39 Primary Reason for Your Visit: UTI Attending Provider: Kiesha Aceves Primary Care Provider: Javier Martinez Consulting Providers: Jackelin Escobar; Rojas Kinney Instructions Patient Instructions: ED Cystitis Female Adult Discharge Orders/Prescriptions Prescriptions: New potassium chloride [Klor-Con M20] 20 mEq tablet,ER particles/crystals 20 meq PO DAILY Qty: 10 0RF cefdinir 300 mg capsule 300 mg PO BID Qty: 10 0RF Continued amlodipine 5 MG tablet 5 mg PO BID Hold Instructions: DUE TO LOW BP pantoprazole 40 MG tablet 40 mg PO DAILY aspirin 81 MG tablet,chewable 81 mg PO DAILY@0800 ranolazine 500 MG tablet extended release 12 hr 500 mg PO BID ferrous sulfate 325 mg (65 mg iron) tablet 325 mg PO DAILY Patient Comments: TAKE 1 TABLET BY MOUTH TWICE A DAY levothyroxine 100 mcg Tablet 150 mcg PO DAILY@0600 polyethylene glycol 3350 [Miralax] 17 gram/dose powder 17 g PO DAILY memantine 7 mg capsule,sprinkle,ER 24hr 7 mg PO QHS Patient Comments: TAKE 1 CAPSULE BY MOUTH EVERY DAY AT BEDTIME cinacalcet 60 mg tablet 60 mg PO BID Qty: 60 4RF Referrals / Follow Up: Javier Martinez DO [Primary Care Provider] - Within 2 Weeks Disposition Disposition (needs filled in before D/C Order can be placed): [facility]
--- NOTE | 2023-07-08 10:46 | CASEMGMT ---
Patient is ready for discharge to [facility]. SW completed a 7000 in [employer] system. Plan: d/c to [facility] under skilled level of care on a convalescent stay. Beverly LARRY
--- NOTE | 2023-07-08 11:05 | PHA.DC.MR.R ---
Pharmacy [place] Med Reconciliation Pharmacy Service has performed discharge medication reconciliation for this patient. The patient's discharge medication list was reviewed for discrepancies and discrepancies were resolved. Medications at Discharge Home Medications amlodipine 5 mg tablet 5 mg PO BID 04/07/20 aspirin 81 mg chewable tablet 81 mg PO DAILY@0800 04/07/20 pantoprazole 40 mg tablet,delayed release 40 mg PO DAILY stomach 04/07/20 ranolazine 500 mg tablet,extended release,12 hr 500 mg PO BID chest pain 04/07/20 memantine 7 mg capsule sprinkle,extended release 24hr 7 mg PO QHS memory 03/28/23 ferrous sulfate 325 mg (65 mg iron) tablet 325 mg PO DAILY 07/04/23 levothyroxine 100 mcg tablet 150 mcg PO DAILY@0600 07/04/23 cinacalcet 60 mg tablet 60 mg PO BID #60 tabs 07/06/23 polyethylene glycol 3350 17 gram/dose oral powder (Miralax) 17 g PO DAILY constipation 07/06/23 cefdinir 300 mg capsule 300 mg PO BID #10 caps 07/08/23 potassium chloride 20 mEq tablet,extended release(part/cryst) (Klor-Con M) 20 meq PO DAILY #10 tabs 07/08/23
--- NOTE | 2023-07-08 11:10 | CASEMGMT ---
Discharge Planning Discharge orders, signed med lit, and transport time sent to [facility] via [facility]. Physicians will transport patient by cot at 1p. Nursing, SW, and patients daughter, Sanjana, updated. Fela aMrley, Discharge Planning Asst.
--- NOTE | 2023-07-08 12:08 | CASEMGMT ---
Discharge Planning Covid results sent to [facility] via [facility]. Fela Marley, Discharge Planning Asst.
--- NOTE | 2023-07-08 15:14 | DS.PCM_ITS ---
Providers Date of Admission: 07/04/23 Date of Discharge: 07/08/23 Primary Care Physician: Dr. Javier Martinez DO Reason For Visit: ALTERED MENTAL STATUS Diagnosis Discharge Diagnosis (1) Hypercalcemia: Status: Acute Code(s): E83.52 - Hypercalcemia (2) Acute hypokalemia: Status: Acute Code(s): E87.6 - Hypokalemia (3) Acute UTI: Status: Acute Code(s): N39.0 - Urinary tract infection, site not specified (4) Generalized weakness: Status: Acute Code(s): R53.1 - Weakness Plan #UTI * now on IV ceftriaxone * urine culture growing E coli, resistant to ciprpfloxaciin * Did have UTI in the past which grew E. coli which was resistant to ciprofloxacin. * * #Hypokalemia: Potassium is 2.8 today. Will replace and trend. WIll check magnesium #Hypothyroidism: On Synthroid #Hyperparathyroidism with resultant hypercalcemia * Patient is on Cinacalcet. Calcium today is 9.9. Was 12.9 on admission. 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 * Per her water taxi operator, patient not very compliant with her calcium dose. Her calcium dose has been increased to 60 mg twice daily. * To follow-up with Dr Marin and Dr. Moya on outpatient basis. * #Hypomagnesemia: Magnesium is 1.3. Will replace and trend. #Benign essential hypertension: On amlodipine. #History of dementia with cognitive dysfunction: On Namenda. * DVT prophylaxis: lovenox Disposition: long-term facility pending pre-CERT. Medications at Discharge Home Medications amlodipine 5 mg tablet 5 mg PO BID 04/07/20 aspirin 81 mg chewable tablet 81 mg PO DAILY@0800 04/07/20 pantoprazole 40 mg tablet,delayed release 40 mg PO DAILY stomach 04/07/20 ranolazine 500 mg tablet,extended release,12 hr 500 mg PO BID chest pain 0 memantine 7 mg capsule sprinkle,extended release 24hr 7 mg PO QHS memory 03/28/23 ferrous sulfate 325 mg (65 mg iron) tablet 325 mg PO DAILY 07/04/23 levothyroxine 100 mcg tablet 150 mcg PO DAILY@0600 07/04/23 cinacalcet 60 mg tablet 60 mg PO BID #60 tabs 07/06/23 polyethylene glycol 3350 17 gram/dose oral powder (Miralax) 17 g PO DAILY constipation 07/06/23 cefdinir 300 mg capsule 300 mg PO BID #10 caps 07/08/23 potassium chloride 20 mEq tablet,extended release(part/cryst) (Klor-Con M) 20 meq PO DAILY #10 tabs 07/08/23 Hospital Course Operations None Procedures None Summary of Care Provided Minutes Spent on Discharge: 45 Hospital Course: Patient is a 77-year-old female with a past medical history as outlined was adm itted through the ED on 07/04/2023 with a complaint of fatigue, anorexia and nausea for about 5 days prior to admission. On the day of admission she was found in a pool of her own urine and vomit and was confused. Family also noted that she had been getting quite weak. She was therefore brought into the ED. On admission calcium was elevated at 12.9 and creatinine was 1.1. Urinalysis showed evidence of UTI. She did have a history of hypercalcemia. She was admitted and managed for debility and weakness due to UTI. She was hydrated with fluids. She was initially started on IV ciprofloxacin. However in light of her history of UTI which grew E. coli sensitive to ceftriaxone but resistant to ciprofloxacin, antibiotics was switched to IV ceftriaxone. Urine cultures did grow E. coli sensitive to ceftriaxone. Confusion and altered mental status improved and she felt much better. She was evaluated by physical therapy and deemed as needing skilled therapy. She was therefore discharged to [facility] facility on 07/08/2023. She was discharged on a 5-day course of p.o. cefdinir. She is to follow-up with her primary care doctor within 1 to 2 weeks. Patient seen and examined prior to discharge. She felt well and had no active complaints. She had an uneventful night. Review of systems otherwise negative. Labs and vitals reviewed. Home medication reviewed and reconciled. Physical Exam Const alert, oriented x3, no apparent distress and average body habitus Constitutional Narrative: Confused, AO x 1 (self) General Appearance: cooperative, comfortable, well kempt and well developed Orientation / Consciousness: awake, oriented to person and oriented to place HEENT normocephalic, head/scalp atraumatic, hearing grossly normal bilaterally, moist oral mucous membranes and oropharynx normal Mouth: oral and palatal mucosa normal Eyes PERRL, EOMs intact bilaterally and conjunctivae normal Neck no lymphadenopathy, supple, no JVD, thyroid normal and no carotid bruits General: trachea midline Lymph Lymphatic: no lymphadenopathy noted Resp normal respiratory effort, normal air movement, no retractions, no use of accessory muscles and clear to auscultation bilaterally Auscultation: Negative for rales, rhonchi or wheezes Cardio regular rate, regular rhythm, S1 normal heart sound, S2 normal heart sound, no murmurs, no rub and no gallops GI normal to inspection, nondistended, normoactive bowel sounds, soft to palpation, non-tender and non-distended Extremity normal to inspection, full ROM, normal capillary refill, no clubbing, cyanosis or edema and no calf tenderness Skin no rashes or lesions noted General Skin Exam: no breakdown Neuro CN's II-XII intact bilaterally, moves all extremities, no focal motor deficits and no sensory deficits noted Sensorium / Orientation: awake, alert, oriented to person and oriented to place Speech: speech normal Motor Exam: strength 5/5 throughout and general weakness Psych thought process normal, cooperative and affect normal Appearance: appropriate Weight / BMI Weight Weight: 147 lb 0.773 oz Body Mass Index (BMI) 24.5 ABG / Lab / Microbiology Data 07/08/23 06:45 07/08/23 06:45 Laboratory: Laboratory Results - last 24 hr 07/08/23 06:45: WBC 6.1, RBC 3.13 L, Hgb 10.2 L, Hct 32.1 L, MCV 102.6 H, MCH 32.6 H, MCHC 31.8 L, RDW Std Deviation 50.0 H, RDW Coeff of Theresa 13.3, Plt Count 198, MPV 11.8, Immature Gran % (Auto) 1.000 H, Neut % (Auto) 46.3 L, Lymph % (Auto) 40.1, [place] % (Auto) 8.5, Eos % (Auto) 3.3, Baso % (Auto) 0.8, Absolute Neuts (auto) 2.8, Absolute Lymphs (auto) 2.45, Nucleated RBC % 0, Sodium 142, Potassium 3.2 L, Chloride 110 H, Carbon Dioxide 29.0, Anion Gap 3 L, BUN 8, Creatinine 0.67, Estim Creat Clear Calc 41.05, Est GFR (MDRD) Af Amer 109, Est GFR (MDRD) Non-Af 90, BUN/Creatinine Ratio 11.9, Glucose 86, Calcium 9.6 Microbiology: Microbiology 07/08/23 10:54 Nasal Secretion SARS-CoV-2 Antigen (Rapid) - Final 07/04/23 17:51 Urine Catheter - Catheter Urine Culture - Final Escherichia coli 07/04/23 17:51 Nasal Secretion SARS-CoV-2 & FLU Antigen (Rapid) - Final D/C Instructions Discharge Diet: Low fat / Low cholesterol Discharge Activity: Return to Normal Activity Weight Bearing Status: Weight bearing as tolerated Call your doctor if you observe: Fever of 101 or Higher, Shortness of breath, Swelling in the ankles and Chest pain Meaningful Use Info Meaningful Use Diagnoses (Choose all that apply): None applicable Discharge Plan Admission Admit Date/Time: 07/04/23 19:39 Primary Reason for Your Visit: UTI Attending Provider: Kiesha Aceves Primary Care Provider: Javier Martinez Consulting Providers: Jackelin Escobar; Rojas Kinney Instructions Patient Instructions: ED Cystitis Female Adult Discharge Orders/Prescriptions Prescriptions: New potassium chloride [Klor-Con M20] 20 mEq tablet,ER particles/crystals 20 meq PO DAILY Qty: 10 0RF cefdinir 300 mg capsule 300 mg PO BID Qty: 10 0RF Continued amlodipine 5 MG tablet 5 mg PO BID Hold Instructions: DUE TO LOW BP pantoprazole 40 MG tablet 40 mg PO DAILY aspirin 81 MG tablet,chewable 81 mg PO DAILY@0800 ranolazine 500 MG tablet extended release 12 hr 500 mg PO BID ferrous sulfate 325 mg (65 mg iron) tablet 325 mg PO DAILY Patient Comments: TAKE 1 TABLET BY MOUTH TWICE A DAY levothyroxine 100 mcg Tablet 150 mcg PO DAILY@0600 polyethylene glycol 3350 [Miralax] 17 gram/dose powder 17 g PO DAILY memantine 7 mg capsule,sprinkle,ER 24hr 7 mg PO QHS Patient Comments: TAKE 1 CAPSULE BY MOUTH EVERY DAY AT BEDTIME cinacalcet 60 mg tablet 60 mg PO BID Qty: 60 4RF Referrals / Follow Up: Javier Martinez DO [Primary Care Provider] - Within 2 Weeks Disposition Disposition (needs filled in before D/C Order can be placed): Assisted Facility Charges/Coding Visit Charges Inpatient E&M: 07093 Disch Hosp >30min
== END 2023-07-08 14:15 | disposition skilled nursing facility (03) | DRG 690 ==
LOC: ED 20:05 → PCU 20:38
PROVIDERS: Internal Medicine; Physician Assistant; Admitting Provider Internal Medicine; Emergency Provider Emergency Medicine; PCP Student in an Organized Health Care Education/Training Program; Referring Provider Emergency Medicine; Visit Provider Student in an Organized Health Care Education/Training Program
DX: N30.00 Acute cystitis without hematuria (principal); B96.20 Unspecified Escherichia coli [E. coli] as the cause of diseases classified elsewhere; F03.90 Unspecified dementia, unspecified severity, without behavioral disturbance, psychotic disturbance, mood disturbance, and anxiety; E21.3 Hyperparathyroidism, unspecified; E03.9 Hypothyroidism, unspecified; I10 Essential (primary) hypertension; E87.6 Hypokalemia; E83.52 Hypercalcemia; Z91.148 Patient's other noncompliance with medication regimen for other reason; Z79.82 Long term (current) use of aspirin; Z79.899 Other long term (current) drug therapy
CPT/HCPCS: 36415; 71045; 80048; 80053; 81001; 82248; 82306; 82310; 82330; 83735; 84100; 84132; 84443; 84484; 85025; 85610; 87077; 87086; 87088; 87186; 87426; 87428; 92610; 93005; 97162; 97166; 97530; 97802; 99285; J7030; P9612; J0744; J2405

== ENCOUNTER → 2023-07-24 | Outpatient (CLI) | payer MEDICARE, SELFPAY ==
--- NOTE | 2023-07-24 17:32 | CT_ITS ---
STUDY: CT SOFT TISSUE NECK WITH CONTRAST REASON FOR EXAM: Female, 77 years old. Hyperparathyroidism RADIATION DOSAGE (If Supplied By Facility): CTDIvol = ( 6.95 ) mGy, DLP = ( 615.60 ) mGycm TECHNIQUE: The patient was scanned in a multi-detector CT scanner. High resolution transaxial imaging was performed following intravenous administration of IV 75mL Isovue-370. Sagittal and coronal images were reconstructed. Individualized dose optimization techniques were used for this CT. COMPARISON: None. FINDINGS: Normal bilateral parotid glands. Normal bilateral steel pan form placing supervisor spaces. Normal bilateral parapharyngeal spaces. Prominent calcified plaque of the carotid arteries with narrowing. Normal bilateral sublingual and submandibular glands and spaces. Normal visualized nasopharynx. Normal retropharyngeal space. Normal perivertebral space. Normal visualized bilateral faucial tonsils. The visualized tongue, tongue base and oropharynx are normal. The visualized cervical lymph nodes (levels I-) are within normal size limits, and maintain normal morphology. There is no demonstrated solid or cystic mass lesion. There is no abnormal contrast enhancement. Normal epiglottis, bilateral vallecula and hypopharynx. The pre-epiglottic and paraglottic adipose spaces are normal. Normal visualized bilateral piriform sinuses, aryepiglottic folds, vocal cords, and arytenoid-cricoid articulations. Normal subglottic trachea. Normal bilateral lobes of the thyroid gland. No nodules. Normal visualized pulmonary apices. Normal visualized paranasal sinuses. Normal visualized cervical spine. CT/Soft Tissue Neck W/WO Contrast IMPRESSION: No definite acute or significant abnormality seen. No evidence for nodule related to the thyroid. Electronically Signed: Cooper Chávez MD at 21:49 EST ,
[2023-07-24 20:05] LABS: ALB/GLOB Ratio 1.2 RATIO (0.9-2.4); AST(SGOT) 15 U/L (15-37); Alanine Aminotransfer ALT/SGPT 14 U/L (13-56); Albumin, Serum 3.8 g/dL (3.2-5.0); Alkaline Phosphatase 54 U/L (45-117); Anion Gap 7 (5-15); BUN 27 mg/dL (7-18); BUN/Creat Ratio 24.5 RATIO (10-20); Chloride 101 mmol/L (98-107); EST Glomerular Filtration Rate 51 mL/min (>60); Est Glom Filt Rate - Afr Amer 62 mL/min (>60); Globulin 3.1 g/dL (2.2-4.2); Glucose 88 mg/dL (74-106); Potassium 3.7 mmol/L (3.5-5.1); Protein, Total 6.9 g/dL (6.4-8.2); Sodium Level 135 mmol/L (136-145)
== END | disposition home or self-care (01) ==
PROVIDERS: Internal Medicine Endocrinology, Diabetes & Metabolism; PCP Student in an Organized Health Care Education/Training Program; Referring Provider Surgery; Visit Provider Surgery
DX: E21.3 Hyperparathyroidism, unspecified (principal)
CPT/HCPCS: 70492; 80053; Q9967

== ENCOUNTER 2023-08-03 17:34 | Inpatient (IN) | payer MEDICARE, SELFPAY ==
[2023-08-03] VITALS (7 sets, daily range): BP systolic 118–166; BP diastolic 67–112; PULSE 51–80; RESP 14–16; TEMP 36.1–37; O2SAT 98–100; BMI 21.6
--- NOTE | 2023-08-03 18:20 | EX.ED.DYSGE1 ---
HPI <YOU Parker - Last Filed: 08/03/23 19:57> History of Present Illness Chief Complaint: Complaint Narrative Narrative: Patient is a 77-year-old female with history of hypertension, hypothyroidism, GERD, history of elevated calcium levels, UTIs who presents to the emergency department for fatigue, worsening UTI symptoms . The patient has been on 1 week of cefdinir 300 mg, patient is currently being treated for UTI. The patient lives with her daughter, per the daughter, the patient is unable to get out of bed, is having significant nausea and vomiting, unable to drink. The daughter is concerned that she is getting dehydrated and that the infection is taking over. Per the daughter, the patient is acting more confused. Denies any fevers however have chills. [facility] <YOU Parker - Last Filed: 08/03/23 19:57> [facility] Medical History (Updated 08/03/23 @ 19:57 by YOU Parker) Acute hypokalemia Bradycardia, sinus Generalized weakness Hx of gastroesophageal reflux (GERD) Hypercalcemia Hyperparathyroidism Hypertension Hypothyroidism Prolonged QT interval Home Medications amlodipine 5 mg tablet 5 mg PO BID HIGH BLOOD PRESSURE 04/07/20 [History Last Taken Unknown] aspirin 81 mg chewable tablet 81 mg PO DAILY@0800 HEART HEALTH 04/07/20 [History Last Taken Unknown] pantoprazole 40 mg tablet,delayed release 40 mg PO DAILY ACID REFLUX 04/07/20 [History Last Taken Unknown] ranolazine 500 mg tablet,extended release,12 hr 500 mg PO BID CHEST PAIN 04/07/20 [History Last Taken Unknown] memantine 7 mg capsule sprinkle,extended release 24hr 7 mg PO QHS memory 03/28/23 [History Last Taken Unknown] ferrous sulfate 325 mg (65 mg iron) tablet 325 mg PO DAILY SUPPLEMENT 07/04/23 [History Last Taken Unknown] levothyroxine 100 mcg tablet 150 mcg PO DAILY@0600 THYROID 07/04/23 [History Last Taken Unknown] cinacalcet 60 mg tablet 60 mg PO BID #60 tabs 07/06/23 [Rx Last Taken Unknown] polyethylene glycol 3350 17 gram/dose oral powder (Miralax) 17 g PO DAILY CONSTIPATION 07/06/23 [History Last Taken Unknown] cefdinir 300 mg capsule 300 mg PO BID ANTIBIOTIC #10 caps 07/08/23 [Rx Last Taken Unknown] potassium chloride 20 mEq tablet,extended release(part/cryst) (Klor-Con M) 20 meq PO DAILY SUPPLEMENT #10 tabs 07/08/23 [Rx Last Taken Unknown] olmesartan 5 mg tablet 5 mg PO DAILY HIGH BLOOD PRESSURE 08/03/23 [History Last Taken Unknown] Allergy/AdvReac Type Severity Reaction Status Date / Time aspirin [ASA] Allergy Hives Verified 08/03/23 17:37 hydrocodone Allergy Nausea Verified 08/03/23 17:37 morphine Allergy PT UNSURE Verified 08/03/23 17:37 OF REACTION Penicillins Allergy Anaphylaxis Verified 08/03/23 17:37 Family History Daughter Diabetes Heart disease Surgical History S/P cholecystectomy Status post total hip replacement, right Social History (Updated 08/03/23 @ 18:27 by Emperatriz Spears) household members: family housing: house Smoking Status: Never smoker substance use type: does not use ROS <YOU Parker - Last Filed: 08/03/23 19:57> ROS ED ROS Narrative Constitutional: Negative for fever, weight loss, weakness. Positive for chills Eyes: Negative for vision loss, vision change, double vision ENT: Negative for any sore throat, ear pain, congestion Cardiovascular: Negative for any chest pain, tightness, palpitations Respiratory: Negative for any cough, sputum production, hemoptysis, dyspnea, dyspnea on exertion, orthopnea Gastrointestinal: Negative for any abdominal pain, diarrhea, constipation, blood in stool, blood in vomit. Positive for nausea and vomiting : Negative for any urinary frequency, dysuria, retention, blood in urine. Positive for dark-colored urine Muscle skeletal: Negative for any myalgias, arthralgias, neck pain, back pain Neurological: Negative for any headache, syncope, paresthesias, dizziness Skin: Negative for any rashes, lumps, itching, abrasions, lacerations Psychiatric: Negative for any depression, anxiety, stress, suicidal ideation, homicidal ideation Hematologic: Negative for any easy bruising, excessive bruising, easy bleeding Allergies: Negative for any eczema, hives, rash EXAM <John Aslanides, INSPECT[employer] - Last Filed: 08/03/23 19:57> Physical Exam Narrative Exam Narrative: Vital signs reviewed. Patient is slightly ill appearing. She is alert and orient x 2. HEET: Head normocephalic atraumatic, TMs clear bilaterally. Posterior pharynx is clear, dry mucous membranes. Nares clear bilaterally. Neck: Supple with no lymphadenopathy or tenderness. No signs of meningismus. Cardiac: Bradycardic rate with systolic murmur, no gallops or rubs, equal peripheral pulses bilaterally. Respiratory: Lungs clear to auscultation bilaterally. No chest tenderness. Abdomen: Soft, nontender, nondistended. No abdominal bruit or pulsatile masses. No hepatosplenomegaly Extremities: No peripheral edema, no signs of gross trauma or deformity. Active full range of motion of all extremities. Neuro: Cranial nerves II through XII intact, no focal neurological deficits. Skin: Clean dry and intact with no rash, purpura, petechiae, vesicles or pustules. Backs/flank: No CVA tenderness, no midline spinal tenderness, no deformity. Psych: Normal mood and affect. No SI, HI or acute psychosis. Const Vital Signs: 08/03/23 17:34 08/03/23 18:37 08/03/23 19:00 Temperature 97.0 F L 98.6 F 98.0 F Temperature Source Temporal Temporal Temporal Pulse Rate 80 51 L 61 Respiratory Rate 16 16 16 Blood Pressure 118/70 163/70 H 122/77 H Blood Pressure Mean 86 101 92 Pulse Ox 100 Oxygen Delivery Method Room Air 08/03/23 20:00 Temperature 98 F Temperature Source Temporal Pulse Rate 53 L Respiratory Rate 14 Blood Pressure 154/67 H Blood Pressure Mean 96 Pulse Ox Oxygen Delivery Method <Dr. Kiet Jerez, DO - Last Filed: 08/03/23 21:23> Physical Exam Const Vital Signs: 08/03/23 17:34 08/03/23 18:37 08/03/23 19:00 Temperature 97.0 F L 98.6 F 98.0 F Temperature Source Temporal Temporal Temporal Pulse Rate 80 51 L 61 Respiratory Rate 16 16 16 Blood Pressure 118/70 163/70 H 122/77 H Blood Pressure Mean 86 101 92 Pulse Ox 100 Oxygen Delivery Method Room Air 08/03/23 20:00 Temperature 98 F Temperature Source Temporal Pulse Rate 53 L Respiratory Rate 14 Blood Pressure 154/67 H Blood Pressure Mean 96 Pulse Ox Oxygen Delivery Method [facility] <John Lopez NPMagdi - Last Filed: 08/03/23 19:57> [facility] Lab Data Labs: Laboratory Results - last 24 hr 08/03/23 18:10 WBC 7.3 RBC 3.60 L Hgb 11.7 L Hct 34.8 L MCV 96.7 MCH 32.5 H MCHC 33.6 RDW Std Deviation 44.5 H RDW Coeff of Theresa 12.5 Plt Count 250 MPV 11.7 Immature Gran % (Auto) 0.800 Neut % (Auto) 66.4 Lymph % (Auto) 24.0 [place] % (Auto) 6.7 Eos % (Auto) 1.4 Baso % (Auto) 0.7 Absolute Neuts (auto) 4.9 Absolute Lymphs (auto) 1.76 Nucleated RBC % 0 Sodium 134 L Potassium 2.9 L Chloride 93 L Carbon Dioxide 34.0 H Anion Gap 7 BUN 13 Creatinine 1.31 H Est GFR (MDRD) Af Amer 50 L Est GFR (MDRD) Non-Af 42 L BUN/Creatinine Ratio 9.9 L Glucose 119 H Lactic Acid 1.2 Calcium 12.6 H* Total Bilirubin 0.80 AST 20 ALT 18 Alkaline Phosphatase 64 Total Protein 7.3 Albumin 4.0 Globulin 3.3 Albumin/Globulin Ratio 1.2 Lipase 20 Urine Color Yellow Urine Clarity Clear Urine pH 7.0 Ur Specific [place] 1.010 Urine Protein 15 H Urine Glucose (UA) Normal Urine Ketones 5 H Urine Occult Blood Negative Urine Nitrite Negative Urine Bilirubin Negative Urine Urobilinogen Normal Ur Leukocyte Esterase 25 H Urine RBC 0 SEEN Urine WBC 0-5 SEEN Ur Squamous Epith Cells 0-5 SEEN Urine Bacteria RARE Urine Mucus 0 SEEN Radiography Diagnostic Testing: Clinical Impression(s) from Imaging Studies Chest X-Ray 08/03/23 19:00 IMPRESSION: No acute cardiopulmonary disease. Electronically Signed: Bharti Raymond MD at 19:11 EST , Treatment and Re-Evaluation :: Patient appears to be therapy for this. Unwell appearing, patient appears slightly lethargic however she is alert and orient x 2. Vital signs are stable. Presenting to the emergency department with worsening urinary symptoms, confusion, body aches. Differential diagnosis clued UTI, sepsis, pyelonephritis, dehydration. Patient received IV fluids, urinalysis will be sent as well as urine culture. Laboratory values including CBC, chemistry, lipase. Patient's laboratory values showed a stable CBC with a slight hemoglobin of 11.7 however this is an improvement from early June. Patient's chemistries did have some abnormalities. Sodium was 134, potassium was 2.9 chloride was 93 with a carbon dioxide of 34. Patient's creatinine did get bumped to 1.31, this is elevated for the patient, patient's normal ranges between 0.6-0.9. Patient's GFR is 42, calcium was grossly elevated at 12.6, patient has been struggling with elevated calcium for the last several months. Patient has been as high as 12.9, however less than 1 week ago, patient was 11. Patient's urinalysis was negative for any infection. Chest x-ray showed no acute process. At this time, secondary to the patient's ongoing weakness, hypercalcemia, acute renal sufficiency, dehydration, I do believe the patient would benefit from admission. I spoke with hospitalist who agrees. I spoke with the patient's family who is agreement. Patient stable for admission <Dr. Kiet Jerez, DO - Last Filed: 08/03/23 21:23> [facility] Narrative Medical decision making narrative: Patient appears to be therapy for this. Unwell appearing, patient appears slightly lethargic however she is alert and orient x 2. Vital signs are stable. Presenting to the emergency department with worsening urinary symptoms, confusion, body aches. Differential diagnosis clued UTI, sepsis, pyelonephritis, dehydration. Patient received IV fluids, urinalysis will be sent as well as urine culture. Laboratory values including CBC, chemistry, lipase. Patient's laboratory values showed a stable CBC with a slight hemoglobin of 11.7 however this is an improvement from early June. Patient's chemistries did have some abnormalities. Sodium was 134, potassium was 2.9 chloride was 93 with a carbon dioxide of 34. Patient's creatinine did get bumped to 1.31, this is elevated for the patient, patient's normal ranges between 0.6-0.9. Patient's GFR is 42, calcium was grossly elevated at 12.6, patient has been struggling with elevated calcium for the last several months. Patient has been as high as 12.9, however less than 1 week ago, patient was 11. Patient's urinalysis was negative for any infection. Chest x-ray showed no acute process. At this time, secondary to the patient's ongoing weakness, hypercalcemia, acute renal sufficiency, dehydration, I do believe the patient would benefit from admission. I spoke with hospitalist who agrees. I spoke with the patient's family who is agreement. Patient stable for admission This patient was seen with a PA/INSPECTOR GENERAL Individually assessed they patient including history and physical. I have reviewed everything on the chart that is available and agree with the documentation provided by the PA/INSPECTOR GENERAL including discussion about the assessment, treatment plan, discussion, and return precautions. Patient presenting with nausea, vomiting. There was concern for UTI. She is also had history of parathyroid issues and is seeing Dr. Moya. Apparently supposed to have further workup and surgical procedure upcoming. Ultimately she is found to have low potassium and high calcium which may be the etiology of her symptoms as her urinalysis looks okay today. Family feels she is too weak to go home and we discussed this with the hospitalist for admission. Impression: 1. Dehydration 2. Hypothyroidism 3. Hypercalcemia 4. Nausea/vomiting Lab Data Attestation: I reviewed the patient's lab results. Labs: Laboratory Results - last 24 hr 08/03/23 18:10 WBC 7.3 RBC 3.60 L Hgb 11.7 L Hct 34.8 L MCV 96.7 MCH 32.5 H MCHC 33.6 RDW Std Deviation 44.5 H RDW Coeff of Theresa 12.5 Plt Count 250 MPV 11.7 Immature Gran % (Auto) 0.800 Neut % (Auto) 66.4 Lymph % (Auto) 24.0 [place] % (Auto) 6.7 Eos % (Auto) 1.4 Baso % (Auto) 0.7 Absolute Neuts (auto) 4.9 Absolute Lymphs (auto) 1.76 Nucleated RBC % 0 Sodium 134 L Potassium 2.9 L Chloride 93 L Carbon Dioxide 34.0 H Anion Gap 7 BUN 13 Creatinine 1.31 H Est GFR (MDRD) Af Amer 50 L Est GFR (MDRD) Non-Af 42 L BUN/Creatinine Ratio 9.9 L Glucose 119 H Lactic Acid 1.2 Calcium 12.6 H* Total Bilirubin 0.80 AST 20 ALT 18 Alkaline Phosphatase 64 Total Protein 7.3 Albumin 4.0 Globulin 3.3 Albumin/Globulin Ratio 1.2 Lipase 20 Urine Color Yellow Urine Clarity Clear Urine pH 7.0 Ur Specific [place] 1.010 Urine Protein 15 H Urine Glucose (UA) Normal Urine Ketones 5 H Urine Occult Blood Negative Urine Nitrite Negative Urine Bilirubin Negative Urine Urobilinogen Normal Ur Leukocyte Esterase 25 H Urine RBC 0 SEEN Urine WBC 0-5 SEEN Ur Squamous Epith Cells 0-5 SEEN Urine Bacteria RARE Urine Mucus 0 SEEN Radiography Diagnostic Testing: Clinical Impression(s) from Imaging Studies Chest X-Ray 08/03/23 19:00 IMPRESSION: No acute cardiopulmonary disease. Electronically Signed: Bharti Raymond MD at 19:11 EST , Discharge Plan Dx/Rx/DC Orders Clinical Impression: Acute dehydration, Hyperparathyroidism, Acute renal insufficiency, Weakness, Acute hypokalemia Disposition Disposition: [facility] Discharge Date/Time: 08/03/23 21:12
[2023-08-03 18:37] LABS: Absolute Lymphocyte Count 1.76 X10^3/uL (0.83-4.51); Absolute Neutrophil Count 4.9 X10^3/uL (2.0-7.7); Basophil# 0.05 X10^3/uL; Basophil% 0.7 % (0-1); Eosinophils% 1.4 % (0-5); Hematocrit 34.8 % (37-47); Hemoglobin 11.7 g/dL (12.0-15.0); Lymphocyte # 1.76 X10^3/ul (0.83-4.51); Mean Corp Hgb Conc 33.6 g/dL (32-36); Mean Corpuscular Hgb 32.5 pg (27.0-32.0); Mean Corpuscular Volume 96.7 fL (81-99); Mean Platelet Vol. 11.7 fl (6.2-12.0); Monocyte# 0.49 X10^3/uL; Monocyte% 6.7 % (0-10); NRBC Flagged by Analyzer 0 % (0-5); Neutrophil # 4.86 X10^3/uL (2.7-7.7); Neutrophil % 66.4 % (47-70); Platelet Count 250 K/mm3 (150-450); RBC Distribution Width CV 12.5 % (11.6-14.6); RBC Distribution Width SD 44.5 fl (35.1-43.9); White Blood Count 7.3 K/mm3 (4.4-11.0)
[2023-08-03] MEDS: 0.9% Normal Saline (1000mL) 1,000 ML 1000 ML IV (18:38)
[2023-08-03 18:40] LABS: Mucous, Urine 0 SEEN /hpf (<or=2+); Red Blood Cells-Urine 0 SEEN /hpf (0-5)
[2023-08-03 18:49] LABS: Color, Urine Yellow (Yellow); Glucose, Dipstick Normal (Normal); Ketone-Dipstick 5 mg/dl (Negative); Leukocyte Esterase-Dipstick 25 /ul (Negative); Nitrite-Dipstick Negative (Negative); Occult Blood-Urine Negative /ul (Negative); Protein-Dipstick 15 mg/dl (Negative); Urine Bilirubin Dipstick Negative (Negative); Urine Clarity Clear (Clear); Urine Urobilinogen Normal (Normal)
[2023-08-03 18:55] LABS: Bacteria RARE /hpf (None Seen); Squamous Epithelial Cells - UA 0-5 SEEN /hpf (5-10); White Blood Cells 0-5 SEEN /hpf (0-5)
--- OUTSIDE RECORDS SUMMARY | 2023-08-03 18:55 | XMS RPT_ITS | CCD ---
Author Name Unknown Address [address] [place] [address] Organization [facility] Care Team Providers Care Roll Inspector Name Role Phone Michelle SHINE MD, Bakari Primary Care Provider [phone] BAKARI RODRIGUEZ DO Primary Care Physician [phone] Sanjana Wallace PT Unavailable Unavailable Michelle SHINE MD, Michael Primary Care Provider [phone] Michelle SHINE DO, Michael Primary Care Provider [phone] Michelle SHINE DO, Michael A Primary Care Provider [phone] JEREMIAH STEELE DO Primary Care Physician JEREMIAH STEELE DO Primary Care Unavailable JEREMIAH STEELE DO Attending Unavailable IVETTE BROCK JEREMIAH E Referring Unavailable IVETTE BROCK JEREMIAH E Primary Care Unavailable IVETTE BROCK JEREMIAH E Attending Unavailable JEREMIAH STEELE DO E Attending Unavailable IVETTE BROCK JEREMIAH E Primary Care Unavailable JEREMIAH STEELE DO E Attending Unavailable IVETTE BROCK JEREMIAH E Primary Care Unavailable IVETTE BROCK JEREMIAH E Primary Care Unavailable BOGDAN STOUT Attending Unavailab Terence MCLAUGHLIN, DR ABDON Zuñiga Attending Unavailab BAKARI Veliz DO Primary Care Unavailable JEREMIAH STEELE DO Primary Care Unavailable DELANEY KRAUSE MD Attending Unavailable BAKARI RODRIGUEZ DO Primary Care Unavailable ALVARADO PERALTA DO Attending Unavailable BAKARI RODRIGUEZ DO Attending Unavailable BAKARI RODRIGUEZ DO Primary Care Unavailable BAKARI RODRIGUEZ DO Primary Care Unavailable DAVID SHABAZZ PA-C Attending Unavailable BAKARI RODRIGUEZ DO Primary Care Unavailable BAKARI RODRIGUEZ DO Consulting Saw ARROYO MD, DR ABDON Zuñiga Admitting Unavailab Terence MCLAUGHLIN, DR ABDON Zuñiga Attending Unavailab alex ARROYO MD, DR ABDON Zuñiga Referring Unavailab RIGOBERTO Jay Consulting BAKARI Palmer DO Primary Care Unavailable DINA MCLAUGHLIN, DR ABDON Zuñiga Attending Unavailab JEREMIAH Delong DO Primary Care Unavailable JEREMIAH STEELE DO Attending Unavailable Allergies Allergy Classification Reported Allergen(s) Allergy Type Date of Onset Reaction(s) Facility (16 sources) Aspirin; Translations: [aspirin] Drug Allergy 12-02-2019 Unknown, Eruption of skin (disorder) [facility] Medications Current Medications Medication Drug Class(es) Dates Sig (Normalized) Sig (Original) 8 hr acetaminophen 650 mg extended release oral tablet (9 sources) Start: 12-16-2022 Tylenol 8 Hour 650 mg oral tablet, extended release Dose : 650 mg = 1 tab(s), Oral, TID, Generic acetaminophen 500-650mg dosing are fine to use. Do not take with alcohol within 24 hour period., # 100 tab(s), 0 Refill(s), Pharmacy: [facility]/pharmacy #[id number], Right hip pain, 165.1, cm, 08/19/22 13:11:00 EST, Height Start Date: 12/16/22 Status: Ordered Completed/Discontinued Medications Medication Drug Class(es) Dates Sig (Normalized) Sig (Original) levothyroxine sodium 0.15 mg oral tablet (16 sources) l-Thyroxine Start: 02-23-2023 End: 05-24-2023 Synthroid 150 mcg (0.15 mg) oral tablet Dose : 150 mcg = 1 tab(s), Oral, qDay, needs synthroid brand, TRI;, # 90 tab(s), 0 Refill(s), TRI, Pharmacy: [facility]/pharmacy #[id number], 165, cm, 02/23/23 12:59:00 EDT, Height, kg, 02/23/23 12:59:00 EDT, Dosing Weight Start Date: 02/23/23 Stop Date: 05/24/23 Status: Ordered Problems Active Problems Problem Classification Problem Date Documented Date Episodic/Chronic Abdominal hernia (10 sources) Hiatal hernia 05-03-2019 Episodic Adjustment disorders (6 sources) Grief finding; Translations: [Adjustment disorder with depressed mood] Onset: 0 12-23-2019 Chronic Allergic reactions (10 sources) Allergy to 1-bdmhdlo-3-methylglutar yl-coenzyme A reductase inhibitor 03-16-2020 Episodic Cataract (10 sources) Cataract 04-19-2021 Chronic Chronic kidney disease (6 sources) Chronic kidney disease stage 3; Translations: [Chronic kidney disease] Onset: 3 12-14-2019 Chronic Conduction disorders (10 sources) Right bundle branch block 05-09-2019 Chronic Congestive heart failure; nonhypertensive (7 sources) Chronic heart failure co-occurrent with normal ejection fraction; Translations: [Chronic diastolic (congestive) heart failure] Onset: 0 12-23-2019 Chronic Coronary atherosclerosis and other heart disease (20 sources) Stable angina; Translations: [Other forms of angina pectoris] Onset: 1 10-08-2020 Chronic Deficiency and other anemia (10 sources) Anemia of chronic disease 06-15-2019 Chronic Deficiency and other anemia (11 sources) Iron deficiency anemia; Translations: [Iron deficiency anemia, unspecified] 10-19-2020 Episodic Deficiency and other anemia (1 source) Anemia; Translations: [Anemia, unspecified] Onset: 3 Episodic Deficiency and other anemia (5 sources) Normocytic anemia 12-16-2022 Episodic Diabetes mellitus without complication (11 sources) Hyperglycemia; Translations: [Impaired fasting glycemia] 09-14-2019 Episodic Disorders of lipid metabolism (10 sources) Hyperlipidemia 05-03-2019 Chronic E Codes: Fall (10 sources) Fall in home 05-30-2020 Esophageal disorders (10 sources) Gastroesophageal reflux disease 09-14-2019 Chronic Essential hypertension (17 sources) Benign hypertension; Translations: [Essential (primary) hypertension] Onset: 6 10-03-2021 Chronic Genitourinary symptoms and ill-defined conditions (20 sources) Dysuria; Translations: [Increased frequency of urination] Onset: 4 03-28-2020 Episodic Heart valve disorders (20 sources) Tricuspid valve regurgitation; Translations: [Rheumatic tricuspid insufficiency] Onset: 2 10-03-2021 Chronic Heart valve disorders (16 sources) Heart murmur; Translations: [Cardiac murmur, unspecified] Onset: 2 10-03-2021 Episodic Mood disorders (10 sources) Depressive disorder; 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] 10-19-2020 Chronic Nonmalignant breast conditions (5 sources) Breast lump 05-03-2019 Episodic Nonspecific chest pain (9 sources) Chest pain; Translations: [Chest pain, unspecified] Onset: 0 12-23-2019 Episodic Nutritional deficiencies (11 sources) Vitamin D deficiency; Translations: [Vitamin D deficiency, unspecified] 12-14-2019 Chronic Open wounds of head; neck; and trunk (5 sources) Laceration of eyebrow 05-30-2020 Episodic Osteoarthritis (20 sources) Arthritis; Translations: [Osteoarthritis of right hip joint] Onset: 3 05-03-2019 Chronic Other aftercare (1 source) Post-discharge follow-up 08-27-2022 Episodi c Other bone disease and musculoskeletal deformities (10 sources) Cervical somatic dysfunction 05-03-2019 Episodic Other bone disease and musculoskeletal deformities (10 sources) Osteopenia 05-29-2020 Episodic Other bone disease and musculoskeletal deformities (10 sources) Somatic dysfunction of pelvic region 09-14-2019 Episodic Other bone disease and musculoskeletal deformities (10 sources) Somatic dysfunction of rib 09-14-2019 Episodic Other bone disease and musculoskeletal deformities (10 sources) Somatic dysfunction of thoracic region 09-14-2019 Episodic Other connective tissue disease (2 sources) Hip joint prosthesis present; Translations: [Presence of right artificial hip joint] Onset: 3 Chronic Other connective tissue disease (1 source) Trochanteric bursitis of right hip; Translations: [Trochanteric bursitis, right hip] Episodic Other endocrine disorders (10 sources) Secondary hyperparathyroidism 07-17-2020 Chronic Other endocrine disorders (2 sources) Hyperparathyroidism, unspecified; Translations: [Hyperparathyroidism, unspecified] Onset: 4 Chronic Other gastrointestinal disorders (10 sources) Constipation 09-14-2019 Episodic Other gastrointestinal disorders (10 sources) Dark stools 07-17-2020 Episodic Other liver diseases (10 sources) Large liver 05-03-2019 Episodic Other nervous system disorders (10 sources) 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 Other nervous system disorders (10 sources) Impaired cognition 09-21-2020 Episodic Other non-traumatic joint disorders (1 source) Pain in right hip joint; Translations: [Pain in right hip] Episodic Other nutritional; endocrine; and metabolic disorders (9 sources) Hypercalcemia 07-04-2022 Chronic Other nutritional; endocrine; and metabolic disorders (2 sources) Hypercalcemia; Translations: [Hypercalcemia] Onset: 4 Chronic Other screening for suspected conditions (not mental disorders or infectious disease) (6 sources) Carotid artery doppler abnormal; Translations: [Abnormal findings on diagnostic imaging of other specified body structures] Onset: 0 10-03-2021 Chronic Other skin disorders (10 sources) Vitiligo 05-03-2019 Episodic Other upper respiratory disease (10 sources) Allergic rhinitis 12-14-2019 Chronic Other upper respiratory disease (10 sources) Hoarse 09-14-2019 Episodic Other upper respiratory disease (10 sources) Nasal discharge 09-14-2019 Episodic Paralysis (10 sources) Monoparesis - leg 05-03-2019 Chronic Chanda-; endo-; and myocarditis; cardiomyopathy (except that caused by tuberculosis or sexually transmitted disease) (16 sources) Pericardial effusion; Translations: [Pericardial effusion (noninflammatory)] Onset: 3 10-03-2021 Episodic Pulmonary heart disease (17 sources) Pulmonary hypertension; Translations: [Pulmonary hypertension, unspecified] Onset: 2 10-03-2021 Chronic Residual codes; unclassified (5 sources) Immunization due 04-20-2020 Episodic Residual codes; unclassified (10 sources) Insomnia 10-19-2020 Episodic Residual codes; unclassified (4 sources) Screening due 07-04-2022 Episodic Spondylosis; intervertebral disc disorders; other back problems (10 sources) Neck pain 09-14-2019 Episodic Thyroid disorders (11 sources) Hypothyroidism; Translations: [Hypothyroidism, unspecified] 05-03-2019 Chronic Unclassified (20 sources) Patient encounter status 04-20-2020 Unclassified (6 sources) History of repair of hip joint 08-27-2022 Unclassified (3 sources) Finding of thyroid gland 04-13-2023 Urinary tract infections (2 sources) Urinary tract infection, site not specified; Translations: [Urinary tract infection, site not specified] Onset: 4 Episodic Past or Other Problems Problem Classification Problem Date Documented Date Episodic/Chronic Other circulatory disease (6 sources) H/O: angina pectoris; Translations: [Personal history of other diseases of the circulatory system] Onset: 10-03-2021 10-03-2021 Episodic Other circulatory disease (6 sources) Bruit; Translations: [Other specified symptoms and signs involving the circulatory and respiratory systems] Onset: 10-03-2021 10-03-2021 Episodic Other lower respiratory disease (7 sources) Dyspnea; Translations: [Shortness of breath] Onset: 10-11-2021 10-11-2021 Episodic Other screening for suspected conditions (not mental disorders or infectious disease) (6 sources) Electrocardiogram abnormal; Translations: [Abnormal electrocardiogram [ECG] [EKG]] Onset: 10-08-2020 10-08-2020 Episodic Pleurisy; pneumothorax; pulmonary collapse (6 sources) Pleural effusion; Translations: [Pleural effusion, not elsewhere classified] Onset: 06-13-1993 10-03-2021 Episodic Residual codes; unclassified (6 sources) Past history of procedure; Translations: [Personal history of other medical treatment] Onset: 03-02-2019 10-03-2021 Episodic Residual codes; unclassified (6 sources) Non-smoker; Translations: [Other specified health status] Onset: 10-03-2021 10-03-2021 Episodic Results Test Name Value Interpretation Reference Range Facil ity Vital Signs Date Time Vital Sign Value Performing Clinician Faci lit 08-21-2022 13:49-0500 Reason For Taking VItal Signs DR ABDON ARROYO MD [facility] 08-21-2022 10:38-[address] ABDON ARROYO MD [facility] 08-21-2022 10:38-[address] ABDON Anaya [facility] 08-21-2022 10:38-0500 Body temperature 97.52 [degF] DR ABDON ARROYO MD [facility] 08-21-2022 10:38-0500 Diastolic Blood Pressure Non-Invasive [address] ABDON ARROYO MD [facility] 08-21-2022 10:38-0500 Heart rate 53 /min DR ABDON ARROYO MD [facility] 08-21-2022 10:38-0500 Reason For Taking VItal Signs DR ABDON ARROYO MD [facility] 08-21-2022 10:38-0500 Respiratory rate 18 /min DR ABDON ARROYO MD [facility] 08-21-2022 10:38-0500 Systolic Blood Pressure Non-Invasive [address] ABDON ARROYO MD [facility] 08-21-2022 09:34-0500 Reason For Taking VItal Signs DR ABDON ARROYO MD [facility] 08-21-2022 06:50-[address] ABDON ARROYO MD [facility] 08-21-2022 06:50-[address] ABDON Anaya [facility] 08-21-2022 06:50-0500 Body temperature 98.06 [degF] DR ABDON ARROYO MD [facility] 08-21-2022 06:50-0500 Diastolic Blood Pressure Non-Invasive [address] ABDON ARROYO MD [facility] 08-21-2022 06:50-0500 Heart rate 56 /min DR ABDON ARROYO MD [facility] 08-21-2022 06:50-0500 Respiratory rate 18 /min DR ABDON ARROYO MD [facility] 08-21-2022 06:50-0500 Systolic Blood Pressure Non-Invasive [address] ABDON ARROYO MD [facility] 08-21-2022 03:47-0500 Body temperature 98.06 [degF] DR ABDON ARROYO MD [facility] 08-21-2022 03:47-0500 Diastolic Blood Pressure Non-Invasive [address] ABDON ARROYO MD [facility] 08-21-2022 03:47-0500 Heart rate 67 /min DR ABDON ARROYO MD [facility] 08-21-2022 03:47-0500 Respiratory rate 16 /min DR ABDON ARROYO MD [facility] 08-21-2022 03:47-0500 Systolic Blood Pressure Non-Invasive [address] ABDON ARROYO MD [facility] 08-20-2022 23:50-0500 Heart rate 54 /min DR ABDON ARROYO MD [facility] 08-19-2022 15:04-[address] ABDON ARROYO MD [facility] 08-19-2022 15:04-[address] ABDON Anaya [facility] 08-19-2022 13:11-0500 Body height 165.[address] ABDON ARROYO MD [facility] 08-19-2022 13:11-0500 Body weight 73.[address] ABDON ARROYO MD [facility] 08-19-2022 13:11-0500 Body weight 26.96 kg/m2 DR ABDON ARROYO MD [facility] 08-19-2022 13:04-0500 Body temperature 96.98 [degF] DR ABDON ARROYO MD [facility] 08-19-2022 11:50-0500 Body temperature 95.36 [degF] DR ABDON ARROOY MD [facility] 08-19-2022 11:45-0500 Respiratory Rate - Anes 11 br/min DR ABDON ARROYO MD [facility] 08-19-2022 11:40-0500 Respiratory Rate - Anes 12 br/min DR ABDON ARROYO MD [facility] 08-19-2022 11:35-0500 Respiratory Rate - Anes 12 br/min DR ABDON ARROYO MD [facility] 08-19-2022 07:52-0500 Body height 165.[address] ABDON ARROYO MD [facility] 08-19-2022 07:52-0500 Body temperature 97.88 [degF] DR ABDON ARROYO MD [facility] 08-19-2022 07:52-0500 Body weight 73.[address] ABDON ARROYO MD [facility] 08-19-2022 07:52-0500 Heart rate 56 /min DR ABDON ARROYO MD [facility] 08-05-2022 13:53-0500 Blood Pressure Cuff Size DR ABDON ARROYO MD [facility] 08-05-2022 13:53-[address] ABDON ARROYO MD [facility] 08-05-2022 13:53-[address] ABDON Anaya [facility] 08-05-2022 13:53-0500 Body height 165.[address] ABDON RAROYO MD [facility] 08-05-2022 13:53-0500 Body weight 73.[address] ABDON ARROYO MD [facility] 08-05-2022 13:53-0500 Body weight 26.96 kg/m2 DR ABDON ARROYO MD [facility] 08-05-2022 13:53-0500 Diastolic Blood Pressure Non-Invasive [address] ABDON ARROYO MD [facility] 08-05-2022 13:53-0500 Heart rate 45 /min DR ABDON ARROYO MD [facility] 08-05-2022 13:53-0500 Systolic Blood Pressure Non-Invasive [address] ABDON ARROYO MD [facility] Encounters Encounter Date Encounter Type Care Provider Facility Start: 07-29-2023 End: 07-30-2023 ambulatory JEREMIAH STEELE DO Facility:[facility] Start: 07-29-2023 End: 07-29-2023 Patient encounter procedure JEREMIAH STEELE DO [facility] Start: 07-29-2023 End: 08-03-2023 ambulatory JEREMIAH STEELE DO Facility:[facility] Start: 07-29-2023 End: 08-02-2023 Outreach Lab JEREMIAH STEELE DO [facility] Start: 07-28-2023 ambulatory JEREMIAH STEELE DO Faci lity:B Start: 07-28-2023 End: 08-01-2023 Outreach Lab DELANEY KRAUSE MD [facility] Start: 04-08-2023 ambulatory JEREMIAH STEELE DO Faci lity:B Start: 02-23-2023 End: 02-24-2023 ambulatory JEREMIAH STEELE DO Facility:[facility] Start: 02-23-2023 End: 02-23-2023 Patient encounter procedure JEREMIAH STEELE DO [facility] Start: 02-23-2023 End: 02-23-2023 Preprocedural examination done JEREMIAH STEELE DO [facility] Start: 01-28-2023 Refill Alvarado mercado DO Work Phone: [facility] Procedures Date Procedure Procedure Detail Performing Clinician Start: 08-19-2022 Insertion of hip prosthesis DR ABDON MIGUEL MD Start: 10-03-2021 History of percutaneous transluminal coronary angioplasty History of PTCA Alvarado Peralta DO Work Phone: Start: 12-23-2019 History of placement of stent for coronary artery disease History of heart artery stent Alvarado Peralta DO Work Phone: Start: 10-29-[address] ABDON ARROYO MD Start: 12-25-1995 History of percutaneous transluminal coronary angioplasty H/O percutaneous transluminal coronary angioplasty Krystle Donato GAMER.INSIDE SALES REPRESENTATIVE Work Phone: Start: 12-25-1995 Heart structure (body structure) DR ABDON ARROYO MD Plan of Treatment Date Care Activity Detail Author Start: 03-27-2023 Influenza vaccination C [facility] Start: 07-27-2022 ADVANCE DIRECTIVE DISCUSSION ADVANCE DIRECTIVE DISCUSSION [facility] Start: 07-27-2022 DEPRESSION ASSESSMENT DEPRESSION ASS ESSMENT [facility] Start: 03-27-2022 Influenza vaccination C [facility] Start: 07-27-2021 ADVANCE DIRECTIVE DISCUSSION ADVANCE DIRECTIVE DISCUSSION [facility] Start: 05-06-2021 COVID-19 VACCINE (3 - Booster for Moderna series) COVID-19 VACCINE (3 - Booster for Moderna series) [facility] Start: 01-29-2021 COVID-19 VACCINE (3 - Booster for Moderna series) COVID-19 VACCINE (3 - Booster for Moderna series) [facility] Start: 11-08-2008 BONE DENSITY BONE DENSITY [facility] Start: 11-08-2008 PNEUMOVAX AGE 65 AND OVER WITH 5YR LOOKBACK (#1) PNEUMOVAX AGE 65 AND OVER WITH 5YR LOOKBACK (#1) [facility] Start: 11-08-1993 SHINGRIX VACCINE (1 of 2) OSPINA GRIX VACCINE (1 of 2) [facility] Start: 11-08-1988 DIABETES SCREEN DIABETES SCREEN [facility] Start: 11-08-1962 Urine microalbumin profile DTAP,TDAP ,TD (1 - Tdap) [facility] Start: 11-08-1961 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 DISEASE VISIT ANNUAL PCP TEAM CHRONIC DISEASE VISIT [facility] Start: 11-08-1961 BP CONTROLLED (<130/80) BP CONTROLLE D (<130/80) [facility] Start: 11-08-1961 Hepatitis B surface antibody level LDL CHOLESTEROL [facility] Start: 11-08-1961 HEPATITIS [facility] Start: 1955 Adult depression [facility] assessment DEPRESSION SCREENING [facility] Start: 11-08-1949 PNEUMOCOCCAL: 65+ (1 - PCV) PNEUMOCOCCAL: 65+ (1 - PCV) [facility] Immunizations Immunization Date Immunization Notes Care Provider Brendan hernadez 12-04-2020 SARS-CoV-2 (COVID-19 ) mRNA-[address] [facility] Payers Date Payer Category Payer Medicare [id number] 2022 Unknown [id number] 2020 Unknown ANTHEM BLUE CROS S AND BLUE SHIELD ANTHEM MEDIBLUE HMO [id number] 2020-Present [phone] [address] [place] [address] HMO [id number] 2020 Unknown ANTHEM BLUE CROS S AND BLUE SHIELD ANTHEM JOSEUE HMO [id number] 2020-Present [phone] [address] [place] [address] HMO [id number] 1943 Unknown [id number] [id number]. 1943 Unknown [id number] [id number]. 1943 Unknown [id number] [id number]. 1943 Unknown [id number] [id number]. 1943 Unknown [id number] [id number]. 1943 Unknown [id number] [id number]. 1943 Unknown [id number] [id number]. 1943 Unknown [id number] [id number]. 1943 Unknown [id number] [id number]. 1943 Unknown [id number] [id number]. 1943 Unknown [id number] [id number]. 1943 Unknown [id number] Social History Date Type Detail Facility Start: 05-03-2019 End: 12-23-2019 Tobacco smoking status NHIS Never smoked tobacco [facility] Start: 12-23-2019 Tobacco use and exposure Smoke less tobacco non-user [facility] Start: 11-12-2021 End: 11-13-2022 Alcohol intake Ex-drinker (finding) [facility] Start: 1945 Sex Assigned At Not on file C [facility] Sex Assigned At Female [facility] Functional Status Date Assessment Result Facility 08-21-2022 Functional Status [facility] 08-21-2022 Functional Status bilateral knee high [facility] 08-21-2022 Functional Status 3 [facility] 08-21-2022 [facility] Functional Status [facility] 08-20-2022 [facility] Functional Status Lunch Percent 75 [facility] 08-20-2022 Functional Status [facility] 08-20-2022 Functional Status [facility] 08-20-2022 Functional Status [facility] 08-20-2022 [facility] Functional Status 1st floor bedr oom, 1st floor bathroom [facility] 08-19-2022 Functional Status Sensory Deficits None A [facility] 08-19-2022 Functional Status ice on, tension pillow in place [facility] 08-19-2022 [facility] Functional Status Sensory Deficits None A [facility] Mental Status Date Assessment Result Facility 08-21-2022 Mental Status Not oriented to time, Not oriented to situation [facility] 08-20-2022 [facility] 08-20-2022 Mental Status [facility] Clinical Notes 11-18-2021 to 08-01-2023 Telephone Encounter - Marta Shea - 01/28/2023 10:10 AM EDTTelephone Encounter - Debbie Ross MA - 01/01/2023 8:35 AM EDTTelephone Encounter - Debbie Ross MA - 09/15/2022 1:13 PM EST Note Date & Type Note Facility 08-01-2023 Note . MICRO - Microbiology PROCEDURE: Urine Culture [*1] SOURCE: Urine, Clean Catch BODY SITE: COLLECTED DATE/TIME: 07/29/2023 14:49 EST RECEIVED DATE/TIME: 07/30/2023 15:40 EST START DATE/TIME: 07/30/2023 15:40 EST FREE TEXT SOURCE: FINAL REPORTS Final Report [] Verified Date/Time/Personnel: 08/01/2023 08:06 EST >100,000 cfu/ml Escherichia coli PRELIMINARY REPORTS Preliminary Report [] Verified Date/Time/Personnel: 07/31/2023 10:52 EST >100,000 cfu/ml Escherichia coli KUMAR to follow SUSCEPTIBILITY RESULTS Escherichia coli Antibiotic KUMAR Dilut KUMAR Inter Ampicillin <=8 Susceptible Ampicillin/ <=4/2 Susceptible Sulbactam Aztreonam <=4 Susceptible Cefazolin <=2 Susceptible Ciprofloxacin >2 Resistant Ertapenem <=0.5 Susceptible Gentamicin <=2 Susceptible ID Panel Not Not Applicable Applicable Imipenem <=1 Susceptible Levofloxacin >4 Resistant Meropenem <=1 Susceptible Minocycline <=4 Susceptible Nitrofurantoin <=32 Susceptible Trimethoprim/ <=0.5/9.5 Susceptible Sulfa Performing Locations *1: This test was performed at: [facility], [address] [place] [address], [id number] , [facility] ([place]) 01-28-2023 Miscellaneous Notes Pharmacy faxes requesting refill: Requested Prescriptions Refused Prescriptions Disp Refills ranolazine ER (RANEXA) 500 mg 12 hr tablet [Pharmacy Med Name: RANOLAZINE ER 500 MG TABLET] 60 tablet 0 Sig: TAKE 1 TABLET BY MOUTH TWICE A DAY Date of last visit:10/11/21 NO SHOW FOR 12/2022 APPT HAS NOT RESCHEDULED Phone #: [phone] (home) [phone] (cell) The patients preferred pharmacy has been captured for this encounter? yes documented in this encounter [facility] 01-01-2023 Miscellaneous Notes Pharmacy faxes requesting refill: Requested Prescriptions Pending Prescriptions Disp Refills ranolazine ER (RANEXA) 500 mg 12 hr tablet [Pharmacy Med Name: RANOLAZINE ER 500 MG TABLET] 60 tablet 0 Sig: TAKE 1 TABLET BY MOUTH TWICE A DAY Date of last visit:10/11/2021 Patient has appointment 01/14/2023 and is now being seen in [place]. Phone #: [phone] (home) [phone] (cell) The patients preferred pharmacy has been captured for this encounter? yes documented in this encounter [facility] 09-15-2022 Miscellaneous Notes Patient calls requesting refill: Requested Prescriptions Pending Prescriptions Disp Refills ranolazine ER (RANEXA) 500 mg 12 hr tablet 180 tablet 0 Sig: Take 1 tablet by mouth twice daily. Date of last visit:10/11/2021 Phone #: [phone] (home) [phone] (cell) The patients preferred pharmacy has been captured for this encounter? yes documented in this encounter [facility] 08-21-2022 Hospital Discharge instructions Patient Education 08/21/2022 14:31:09 5 - [facility] Post-op Instruction 02/2017 (45807) [facility] Post-operative Instructions PLEASE FOLLOW [facility] POST-OP INSTRUCTIONS GIVEN WATCH FOR SIGNS OF INFECTION: call the office ([phone]) if experencing any of the following: (Usually appears 36-48 hours after surgery) Increased temperature (101 degrees Fahrenheit or higher) Redness or swelling Increased uncontrolled pain Foul odor or drainage Calf discomfort Significant swelling Or if having any chest pain, shortness of breath, or difficulty breathing or swallowing call the office or go the nearest Emergency Room. If you have any questions, please call your doctor at the number listed on your follow up instructions. Form: 338A (18870) R: 11/3008/19/2022 12:42:01 Total Hip Replacement, Anterior, Care After, Lrtc-oa-Hzko Total Hip Replacement, Anterior, Care After This sheet gives you information about how to care for yourself after your procedure. Your doctor may also give you more specific instructions. If you have problems or questions, contact your doctor. What can I expect after the procedure? After the procedure, it is common to have: Pain. Stiffness. Discomfort. Follow these instructions at home: Medicines Take dukr-awd-lkegpki and prescription medicines only as told by your doctor. If you were prescribed a medicine to thin your blood (anticoagulant), take it as told by your doctor. Surgery cut care Follow instructions from your doctor about how to take care of your cut (incision) from surgery. Make sure you: ?Wash your hands with soap and water before you change your bandage (dressing). If you cannot use soap and water, use alcohol-based hand heat treating bluer. ?Change your bandage as told by your doctor. ?Leave stitches (sutures), skin glue, or skin tape (adhesive) strips in place. They may need to stay in place for 2 weeks or longer. If tape strips get loose and curl up, you may trim the loose edges. Do not remove tape strips completely unless your doctor tells you to do that. Check your surgical cut every day for signs of infection. Check for: ?Redness, swelling, or pain. ?Fluid or blood. ?Warmth. ?Pus or a bad smell. Bathing Do not take baths, swim, or use a hot tub until your doctor says it is okay. Keep the bandage dry until your doctor says it can be removed. Managing pain, stiffness, and swelling If directed, put ice on the hip area. ?Put ice in a plastic bag. ?Place a towel between your skin and the bag. ?Leave the ice on for 20 minutes, 2 3 times a day. Move your toes often to avoid stiffness and to lessen swelling. Raise (elevate) your leg above the level of your heart while you are sitting or lying down. Activity Rest as told by your doctor. Do not sit for a long time without moving. Get up to take short walks every 1 2 hours. This is important. Ask for help if you feel weak or unsteady. Do exercises as told by your doctor or physical therapist. Use a walker, crutches, or a cane as told by your doctor. ?You may use your legs to support (bear) your body weight as told by your doctor. Follow instructions about how much weight you may safely support on your affected leg (weight-bearing restrictions). ?A physical therapist may show you how to get out of a bed and chair and how to go up and down stairs. You will first do this with a walker, crutches, or a cane. Then you will do it without any of these devices. ?Once you are able to walk without a limp, you may stop using a walker, crutches, or cane. Return to your normal activities as told by your doctor. Ask your doctor what activities are safe for you. Safety To help prevent falls: ?Keep floors clear of objects you may trip over. ?Place items that you may need within easy reach. Wear an apron or tool belt with pockets for carrying objects. This leaves your hands free to help with your balance. Driving Do not drive or use heavy machinery while taking prescription pain medicine. Ask your doctor when it is safe to drive. General instructions Wear compression stockings as told by your doctor. These help to prevent blood clots and reduce swelling in your legs. Keep doing breathing exercises as told by your doctor. This helps prevent lung infection. If you are taking prescription pain medicine, take actions to prevent or treat constipation. Your doctor may suggest that you: ?Drink enough fluid to keep your pee (urine) pale yellow. ?Eat foods that are high in fiber. These include fresh fruits and vegetables, whole grains, and beans. ?Limit foods that are high in fat and sugar. These include fried or sweet foods. ?Take an mpxc-wli-uojzkub or prescription medicine for constipation. Do not use any products that have nicotine or tobacco in them, such as cigarettes and e-cigarettes. These can delay bone healing. If you need help quitting, ask your doctor. Tell your doctor if you plan to have dental work. Also: ?Tell your dentist about your joint replacement. ?Ask your doctor if there are instructions you need to follow before dental care and routine cleanings. Keep all follow-up visits as told by your doctor. This is important. Contact a doctor if: You have a fever or chills. You have a cough. You feel short of breath. Your medicine is not helping your pain. You have any of these at or near your cut from surgery: ?Redness, swelling, or pain. ?Fluid or blood. ?An area that feels warm when you touch it. ?Pus or a bad smell. Get help right away if: You have very bad pain. You have trouble breathing. You have chest pain. You have redness, swelling, pain, and warmth in your calf or leg. Summary Follow instructions from your doctor about how to take care of your surgery cut (incision). Do not take baths, swim, or use a hot tub until your doctor says it is okay. Use crutches, a walker, or a cane as told by your doctor. If you were prescribed a medicine to thin your blood (anticoagulant), take it as told by your doctor. This information is not intended to replace advice given to you by your health care provider. Make sure you discuss any questions you have with your health care provider. Document Released: 10/27/2018 Document Revised: 11/21/2019 Document Reviewed: 10/27/2018 [employer] Patient Education 2020 [employer] Follow Up Care 06/17/2022 14:40:44 With:DAVID SHABAZZ PA-C, Orthopedic Address: [facility] [address] [place] [id number]- When:09/01/2022 09:45:00 Comments:This is your post-op appointment. Follow-up as scheduled. With:BAKARI RODRIGUEZ DO Address: [address] [facility] [place] [address]- [phone] When:09/02/2022 11:00:00 Comments:This is your post-hospital follow-up to get your blood work results. Have your lab work done prior to this appointment. It is with Dr. Michelle Paul's nurse practitioner. [facility] 08-21-2022 Note Discharge Instructions Thank you for allowing [facility] to assist you with your healthcare needs. The following is important discharge information regarding your hospital visit. Your Care Team Abdon Arroyo MD Your Diagnosis Osteoarthritis Status post total hip replacement, right Postoperative anemia, Anemia (HFpEF) heart failure with preserved ejection fraction Aortic stenosis CAD S/P percutaneous coronary angioplasty CKD (chronic kidney disease) HTN (hypertension) Pulmonary hypertension What to do next Scheduled Follow-Up Appointments Appointment Type When With Where Contact InformationPC [facility] Follow-Up 09/02/2022 11:00 AM EST SANJAY BERRY APRN-INSIDE SALES REPRESENTATIVE [address] [id number] OV 11/11/2022 08:30 AM EDT BAKARI RODRIGUEZ DO [address] [id number] Follow Up Appointments Follow Up with BAKARI RODRIGUEZ DO When 09/02/2022 11:00 AM EST Why: This is your post-hospital follow-up to get your blood work results. Have your lab work done prior to this appointment. It is with Dr. Michelle Paul's nurse practitioner. Where: [address] [place] [phone] Follow Up with DAVID SHABAZZ PA-C, Orthopedic When 09/01/2022 09:45 AM EST Why: This is your post-op appointment. Follow-up as scheduled. Where: [facility] [address] [place] [id number]- The Following Activity and Diet Have Been Ordered for You No qualifying data available. No qualifying data available. The Following Equipment Has Been Ordered for You No qualifying data available. The Following Treatments Have Been Ordered for You Discharge Labs Discharge Outpatient Labwork - Ordered -- cbc, Anemia, follow-up within: 2 weeks, Results Notify to: BAKARI RODRIGUEZ DO, 08/21/22 14:57:00 EST Discharge Radiology No qualifying data available. Other Therapies No qualifying data available. Post Acute Orders No qualifying data available. Someone Will Contact You Regarding These Home Health Referrals Consult Home Health - PT (Home Health PT Consult) - Ordered -- 08/21/22 14:30:00 EST, Home Therapy Order: PT Eval & Treat, Reason: Post total hip, Home Therapy Instruction: with Walker, Direct anterior total hip arthroplasty Allergies hydroCHLOROthiazide (Rash) Statins (Dizzy) fentaNYL (unknown) aspirin (Rash) codeine (Unknown) erythromycin levothyroxine (Nausea) lisinopril penicillin Medications Please ask your primary doctor or pharmacist before taking any other medication not listed, including over the counter drugs, herbal medications, vitamins and or supplements as they may interact with your home medications. What How Much When Why Instructions Last Dose New docusate-senna (Senokot S 50 mg-8.6 mg oral tablet) 2 tab(s) by mouth Two (2) times a day Duration: 2 Days Take until first bowel movement, then as needed Pickup at [facility]/pharmacy #[id number] New traMADol (traMADol 50 mg oral tablet) 1 tab(s) by mouth Every 6 hours as needed for Pain, scale 7-10 Status post total hip replacement, right Duration: 7 Days Pickup at [facility]/pharmacy #[id number] Changed acetaminophen (acetaminophen 500 mg oral tablet) 2 tab(s) by mouth Three (3) times a day as needed for as needed for pain not to exceed 3000 mg/ day Pickup at [facility]/pharmacy #[id number] Changed aspirin 81 Milligram by mouth Twice daily with meals Take 81 mg aspirin twice daily with food for 4 weeks postoperatively for DVT prophylaxis. Unchanged amLODIPine (amLODIPine 5 mg oral tablet) 1 tab(s) by mouth Two (2) times a day Duration: 90 Days Unchanged cholecalciferol (cholecalciferol 125 mcg (5000 intl units) oral tablet) 1 tab(s) by mouth Once a day Duration: 90 Days new dose Unchanged docusate (docusate sodium 100 mg oral capsule) 1 cap by mouth Once a day Unchanged ferrous sulfate (IRON (ferrous sulfate 325 mg) 65 mg oral tablet) 1 tab(s) by mouth Two (2) times a day Take with food. Unchanged fluticasone nasal (Flonase 50 mcg/ inh nasal spray) 1 spray(s) each nostril Once a day as needed for Allergy symptoms Unchanged levothyroxine (Synthroid 150 mcg (0.15 mg) oral tablet) 1 tab(s) by mouth Once a day Duration: 90 Days needs synthroid brand, TRI; Unchanged olmesartan (olmesartan 5 mg oral tablet) 1 tab(s) by mouth Once a day Unchanged pantoprazole (pantoprazole 40 mg oral enteric coated tablet) 1 tab(s) by mouth Once a day Duration: 90 Days Unchanged ranolazine (ranolazine 500 mg oral tablet, extended release) 1 tab(s) by mouth Once a day Pharmacy Information [facility]/pharmacy #[id number]: [address], [place] [phone] Please take this list to your next doctor s visit. Bring all medications you take, including over the counter medications, herbals and other supplements with you to your doctor s visit. Patients and families are reminded to discard old lists and to update any records with all medication providers or retail pharmacies. Education Materials [facility] Post-operative Instructions PLEASE FOLLOW [facility] POST-OP INSTRUCTIONS GIVEN WATCH FOR SIGNS OF INFECTION: call the office ([phone]) if experencing any of the following: (Usually appears 36-48 hours after surgery) Increased temperature (101 degrees Fahrenheit or higher) Redness or swelling Increased uncontrolled pain Foul odor or drainage Calf discomfort Significant swelling Or if having any chest pain, shortness of breath, or difficulty breathing or swallowing call the office or go the nearest Emergency Room. If you have any questions, please call your doctor at the number listed on your follow up instructions. Form: 338A (97351) R: 11/30 Total Hip Replacement, Anterior, Care After This sheet gives you information about how to care for yourself after your procedure. Your doctor may also give you more specific instructions. If you have problems or questions, contact your doctor. What can I expect after the procedure? After the procedure, it is common to have: Pain. Stiffness. Discomfort. Follow these instructions at home: Medicines Take sijv-ozn-dnvrjug and prescription medicines only as told by your doctor. If you were prescribed a medicine to thin your blood (anticoagulant), take it as told by your doctor. Surgery cut care Follow instructions from your doctor about how to take care of your cut (incision) from surgery. Make sure you: ? Wash your hands with soap and water before you change your bandage (dressing). If you cannot use soap and water, use alcohol-based hand heat treating bluer. ? Change your bandage as told by your doctor. ? Leave stitches (sutures), skin glue, or skin tape (adhesive) strips in place. They may need to stay in place for 2 weeks or longer. If tape strips get loose and curl up, you may trim the loose edges. Do not remove tape strips completely unless your doctor tells you to do that. Check your surgical cut every day for signs of infection. Check for: ? Redness, swelling, or pain. ? Fluid or blood. ? Warmth. ? Pus or a bad smell. Bathing Do not take baths, swim, or use a hot tub until your doctor says it is okay. Keep the bandage dry until your doctor says it can be removed. Managing pain, stiffness, and swelling If directed, put ice on the hip area. ? Put ice in a plastic bag. ? Place a towel between your skin and the bag. ? Leave the ice on for 20 minutes, 2 3 times a day. Move your toes often to avoid stiffness and to lessen swelling. Raise (elevate) your leg above the level of your heart while you are sitting or lying down. Activity Rest as told by your doctor. Do not sit for a long time without moving. Get up to take short walks every 1 2 hours. This is important. Ask for help if you feel weak or unsteady. Do exercises as told by your doctor or physical therapist. Use a walker, crutches, or a cane as told by your doctor. ? You may use your legs to support (bear) your body weight as told by your doctor. Follow instructions about how much weight you may safely support on your affected leg (weight-bearing restrictions). ? A physical therapist may show you how to get out of a bed and chair and how to go up and down stairs. You will first do this with a walker, crutches, or a cane. Then you will do it without any of these devices. ? Once you are able to walk without a limp, you may stop using a walker, crutches, or cane. Return to your normal activities as told by your doctor. Ask your doctor what activities are safe for you. Safety To help prevent falls: ? Keep floors clear of objects you may trip over. ? Place items that you may need within easy reach. Wear an apron or tool belt with pockets for carrying objects. This leaves your hands free to help with your balance. Driving Do not drive or use heavy machinery while taking prescription pain medicine. Ask your doctor when it is safe to drive. General instructions Wear compression stockings as told by your doctor. These help to prevent blood clots and reduce swelling in your legs. Keep doing breathing exercises as told by your doctor. This helps prevent lung infection. If you are taking prescription pain medicine, take actions to prevent or treat constipation. Your doctor may suggest that you: ? Drink enough fluid to keep your pee (urine) pale yellow. ? Eat foods that are high in fiber. These include fresh fruits and vegetables, whole grains, and beans. ? Limit foods that are high in fat and sugar. These include fried or sweet foods. ? Take an tcey-xot-vqfitec or prescription medicine for constipation. Do not use any products that have nicotine or tobacco in them, such as cigarettes and e-cigarettes. These can delay bone healing. If you need help quitting, ask your doctor. Tell your doctor if you plan to have dental work. Also: ? Tell your dentist about your joint replacement. ? Ask your doctor if there are instructions you need to follow before dental care and routine cleanings. Keep all follow-up visits as told by your doctor. This is important. Contact a doctor if: You have a fever or chills. You have a cough. You feel short of breath. Your medicine is not helping your pain. You have any of these at or near your cut from surgery: ? Redness, swelling, or pain. ? Fluid or blood. ? An area that feels warm when you touch it. ? Pus or a bad smell. Get help right away if: You have very bad pain. You have trouble breathing. You have chest pain. You have redness, swelling, pain, and warmth in your calf or leg. Summary Follow instructions from your doctor about how to take care of your surgery cut (incision). Do not take baths, swim, or use a hot tub until your doctor says it is okay. Use crutches, a walker, or a cane as told by your doctor. If you were prescribed a medicine to thin your blood (anticoagulant), take it as told by your doctor. This information is not intended to replace advice given to you by your health care provider. Make sure you discuss any questions you have with your health care provider. Document Released: 10/27/2018 Document Revised: 11/21/2019 Document Reviewed: 10/27/2018 Elsevier Patient Education 2019 [employer] Additional Information VACCINATE! IT SAVES LIVES! Members of the community who have not yet received the COVID-19 vaccine and would like to receive it can visit one of [facility] vaccine clinics. There are many vaccine clinic locations within the [facility]. For locations and available times, please visit [email or web address] It is important to note that some COVID mobile vaccine clinics are held outdoors and may be canceled in rainy or stormy conditions. To learn more about pediatric vaccinations (ages 5-11), we invite you to visit the [employer] [facility] webpage. [email or web address]/[email or web address]-Utijv-Jtugaosnqzo-Frequently-[email or web address] -Questions.html To learn more about the COVID-19 vaccine, we invite you to visit the [employer] website for a list of frequently asked questions. [email or web address] [facility] Patient Portal Access Instructions: Stay connected with your healthcare team and access your personal medical information anytime with the [facility] Patient Portal.If you would like a full copy of your medical records, please contact the [facility] Medical Records Department, Thursday through Thursday between 8a.m. and 4:30p.m. Please follow the directions below to access the portal: 1.Access the email account you provided upon registration to the [facility].2.Look for an invitation email from [facility].3.Open the email and access the invitation link: Accept Invitation to [facility]4.Fill in the required bright to create your account. Sign into [email or web address] with your username and password that you created in the above steps to stay up to date. You can then view a summary of results, a summary of your visits, and the ability to download your summaries to your computer or send the information securely to a physician. Remember that your healthcare information is confidential, so carefully consider who you will allow to register on the [facility] Patient Portal for access to your information. You can also access the [facility] Patient Portal on the [employer]. Simply click on Health Records under Health Data and then click on the [employer] logo. HOW TO SAFELY DISPOSE OF PRESCRIPTION MEDICATIONS Please use one of the following methods to safely dispose of your unused medications. 1.Use a drug disposal kit: the drug disposal pouch allows you to safely discard your old and unused drugs. Ask your nurse to give you one when you are discharged.2.Visit a local take-back location: Many local pharmacies and police departments have programs that collect old and unwanted prescription drugs. Call your local pharmacy or go to [email or web address]/[email or web address] to find one close to you.3.Make use of household items: Use cat litter or old coffee grounds to dispose medications if other options are not available. Mix your drugs with these household products, seal them in an airtight container and throw it into the garbage. Call [facility]: [phone] to be sure your drugs can be disposed of in this way. Some medicines may require a different approach.4.Never flush your medications down the toilet. IF YOU HAVE BEEN PRESCRIBED AN OPIOID FOR PAIN If you have been prescribed an opioid (such as hydrocodone, oxycodone or morphine), it is critical to understand the possible side effects and risks of opioid pain medications. Even when taken as directed, opioids can have several side effects including: Tolerance, meaning you might need to take more of a medication for the same pain relief. Nausea, vomiting and/or constipation. Sleepiness, dizziness, dry mouth, confusion, depression or itching. Physical dependence, meaning you have withdrawal symptoms when a medication is stopped, can develop within a few days. KNOW YOUR RESPONSIBILITIES It is important to know exactly how much and how often to take the opioid pain medications you are prescribed. Never take opioids in higher amounts or more often than prescribed. Do not combine opioids with alcohol or other drugs that cause drowsiness, such as benzodiazepines, also known as benzos, including diazepam and alprazolam, muscle relaxants or sleep aids. Never sell or share prescription opioids. This is illegal. Store opioids in a secure place and out of reach of others (including children, family, friends and visitors). The last page of this document has been signed and retained as a CHART COPY. [employer]atures Patient Education Materials [facility] Post-op Instruction 02/2017 (13294) Total Hip Replacement, Anterior, Care After, Acbd-nd-Xtja Medication Leaflets My discharge plan and instructions have been reviewed and explained to me and I,DANIE RAMIREZ M understand my current condition and have read and understand these discharge instructions. I have received a written copy of the plan/instructions. If I have questions, I am aware that I should contact my doctor. 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 Patient with history of osteoarthritis, heart failure with preserved ejection fraction, aortic stenosis, CAD s/p percutaneous coronary angioplasty, CKD, HTN, and Pulmonary hypertension. Patient seen 07/04/2022 by Leena Rodriguez DO for pre-op assessment. Patient POD 2 from right total hip replacement. Vitals remain stable throughout the night and today. Patient bradycardic as per her baseline, and is asymptomatic. Leukocytosis improved today, likely due to recent surgery. Postoperative anemia stabilized. Patient denies CP, SOA, lightheaded, or dizziness. Creatinine and GFR remain improved from baseline. Patient reports slight pain that is being managed with scheduled Tylenol. Patient reports problems with constipation in the past. Patient reports she has been working with PT and feels therapy is going well. On exam today, pt denies any fever or chills. No headache. Denies chest pain, palpitations. No cough, dyspnea, sputum production. Denies N/V/D/. No melena/hematochezia. No dysuria or hematuria. No new paresthesias. Objective Vitals and Measurements T: 36.7 C (Oral) TMIN: 36.5 C (Oral) TMAX: 36.8 C (Oral) HR: 56(Monitored) RR: 18 BP: 110/53 SpO2: 92% Intake and Output 7AM Yesterday to 7AM Today Intake and Output (Last 24 hours) Intake Supplement Intake 240.00 Output Urine Count 1.00 Total Summary Total Intake 240.00 Total Output 0.00 Fluid Balance 240.00 Physical Exam General Appearance: Well appearing, well nourished. Head: Normocephalic EENT: No conjunctival erythremia or drainage. PERRLA. Hearing without deficit. No nasal drainage. Mucus membranes pink, and moist. Swallowing without difficulty. Neck: Supple without mass or lesions Cardiac: Heart rhythm regular. Grade III murmur to auscultation without gallop or rub. Lungs: Lungs clear to auscultation. Abdomen: Positive bowel sounds x4 quadrants. Abdomen soft and non-tender to palpation. Musculoskeletal: Movement, sensation and pulses intact. Extremities: Peripheral pulses intact. Sensation present. No edema noted. Neurological: Cranial nerves intact. Skin: Skin pale, warm, and dry. Surgical dressing/ wound vac intact to right hip. Slight edema and ecchymosis noted to surgical site. Psychiatric: Patient alert and oriented to situation. Weight Dosing Weight: 73.5 kg (08/19/22) Dosing Weight: 73.5 kg (08/19/22) Medications Medications (23) Active Scheduled: (13) acetaminophen 500 mg Tablet 1,000 mg 2 tab(s), Oral, q8h amLODIPine 5 mg tablet 5 mg 1 tab(s), Oral, BID aspirin 81 mg Chewable 81 mg 1 tab(s), Oral, BIDM docusate sodium 100 mg Capsule 100 mg 1 cap(s), Oral, BID docusate-senna (Senokot S) 50 mg-8.6 mg Tablet 2 tab(s), Oral, BID famotidine 20 mg tablet 20 mg 1 tab(s), Oral, qDay ferrous sulfate 325 mg Tablet 325 mg 1 tab(s), Oral, BID levothyroxine 75 mcg tablet 150 mcg 2 tab(s), Oral, qDay losartan 25 mg tablet 12.5 mg 0.5 tab(s), Oral, qDay magnesium hydroxide 8% Suspension 30 mL UD 30 mL, Oral, Daily meloxicam 7.5 mg tablet 7.5 mg 1 tab(s), Oral, BIDM multivitamin (Myadec) with minerals Therapeutic Multiple Vitamins with Minerals Tablet 1 tab(s), Oral, qDayM pantoprazole 20 mg EC tablet 40 mg 2 tab(s), Oral, qDay Continuous: (0) PRN: (10) acetaminophen 325 mg Tablet 650 mg 2 tab(s), Oral, q4h diphenhydramine 25 mg tablet 25 mg 1 tab(s), Oral, q6h diphenhyDRAMINE 50 mg/mL (1 mL) INJ 25 mg 0.5 mL, IV Push, q6h fluticasone nasal 0.05 mg/inh [place] 50 mcg 1 spray(s), Nostril, each, qDay ketorolac 30 mg/mL (1 mL) vial 15 mg 0.5 mL, IV Push, q6h morphine 2 mg/mL 1 mL syringe 2 mg 1 mL, IV Push, q1h ondansetron 2 mg/ 1 mL 2 mL INJ 4 mg 2 mL, IV Push, q8h scopolamine 1.5 mg (1 mg / 72 hours patch) 1 patch(es), Transdermal, q72h sodium biphosphate-sodium phosphate 19 gm-7 gm Enema 133 mL, Rectal, qDay tramadol 50 mg Tablet 50 mg 1 tab(s), Oral, q6h Lab Results 08/21 05:10 WBC: 10.9 H Hgb: 8.6 L Hct: 25.0 L Platelet: 146 Neutrophil %: 68.3 Glucose Level: 122 H Sodium Level: 143 Potassium Level: 3.9 BUN: 21 H Creatinine Lvl (s): 0.77 08/20 13:00 Hgb: 8.6 L Hct: 25.4 L 08/20 05:37 WBC: 13.0 H Hgb: 8.5 L Hct: 25.1 L Platelet: 174 Neutrophil %: 83.6 H Glucose Level: 128 H Sodium Level: 140 Potassium Level: 3.6 BUN: 14 Creatinine Lvl (s): 0.95 Imaging Results and Diagnostics XR Hip Right w/Pelvis 4 Views Result Date: August 19, 2022 Verified By: MONIKA STEELE DO CLINICAL STATEMENT: IMPRESSION: Expected postsurgical changes from right hip arthroplasty. XR Fluoro 1-2 Hrs Tech Time Result Date: August 19, 2022 Verified By: CLINICAL STATEMENT: IMPRESSION: Assessment/Plan 1. Osteoarthritis 2. Status post total hip replacement, right 3. Postoperative anemia 4. (HFpEF) heart failure with preserved ejection fraction 5. Aortic stenosis 6. CAD S/P percutaneous coronary angioplasty 7. CKD (chronic kidney disease) 8. HTN (hypertension) 9. Pulmonary hypertension Right hip osteoarthritis, s/p right total hip replacement with management per ortho team. Wound vac intact to right hip surgical sight. Pain continues to been managed with oral scheduled Tylenol. HFPEF not an acute exacerbation. Aortic stenosis with mild regurgitation. Mitral and tricuspid values with mild regurgitation. Right ventricle size mildly increased, indicative of pulmonary hypertension. CAD with previous angioplasty. Patient to continue home medications for cardiac management. SBP goal 140 or less. Maintain O2 sat of 95% or greater with use of oxygen if indicated. No lower extremity swelling or dyspnea noted. Continue PORTER hose and SCD's while in hospital. Continue to monitor for signs of HF exacerbation. CKD stage 3. GFR today 72, creatinine 0.77CKD remains improved from baseline. Patient baseline anemic. H&H today 8.6 and 25, remains stable from labs 08/20/2022. Postoperative anemia to be monitored with follow up labs. Patient medically optimized for discharge. Recommend continuing ferrous sulfate with bowel regimen. Continue bowel regimen. DVT prophylaxis: SCD's Labs diagnostics and progress notes reviewed as noted in HPI Code status: Full Code Plan of care discussed with patient. All questions answered. Patient verbalized understanding and is agreeable to plan of care. Digitally Signed by MENDEZ REYNOLDS on 08/21/2022 09:20 AM [facility] 08-21-2022 Nurse Progress note per Madelaine Vaughn NP ok to give this patient Toradol as ordered in SEP for pain due to Tramadol being ineffective. Digitally Signed by Ward Fernandes LPN on 08/21/2022 12:16 AM [facility] 08-20-2022 Note Date of Service August 20, 2022 Subjective The patient was sitting in bed upon examination. Patient denies any chest pain, shortness of breath, dizziness, lightheadedness, nausea or vomiting, or calf pain. No adverse overnight events. Pain has been controlled on medications. Patient has had some postoperative confusion. Patient was alert and oriented to her name and who I was. She was aware of the hospital she was at. However patient initially thought she was in the hospital for her hysterectomy. She then said that was not right and she was here for her hip. I did contact patient's daughter Janet who states they do feel she has some onset of dementia and has had confusion prior to the surgery. Objective Vitals and Measurements T: 36.6 C (Oral) TMIN: 35.2 C (Temporal Artery) TMAX: 36.7 C (Oral) HR: 48(Monitored) RR: 18 BP: 114/62 SpO2: 96% HT: 165.1 cm WT: 73.5 kg BMI: 26.96 Intake and Output 7AM Yesterday to 7AM Today Intake and Output (Last 24 hours) Intake Oral Intake 600.00 Administration Information 1342.63 Supplement Intake 0.00 Output Intra-Op EBL 300.00 Stool Count 0.00 Urine Count 2.00 Diaper Count 1.00 Total Summary Total Intake 1942.63 Total Output 300.00 Fluid Balance 1642.63 Physical Exam Vital signs stable, afebrile Incisional wound VAC in place with no draining in canister or tubing Right hip is soft and supple Patient is able to plantarflex and dorsiflex actively Sensation is intact to saphenous, sural, superficial and deep peroneal, and tibial distribution Dressing is clean dry and intact Negative signs and symptoms of DVT, negative Homans bilaterally Weight Dosing Weight: 73.5 kg (08/19/22) Dosing Weight: 73.5 kg (08/19/22) Medications Medications (27) Active Scheduled: (15) acetaminophen 500 mg Tablet 1,000 mg 2 tab(s), Oral, q8h amLODIPine 5 mg tablet 5 mg 1 tab(s), Oral, BID aspirin 81 mg Chewable 81 mg 1 tab(s), Oral, BIDM bisacodyl 5 mg EC tablet 10 mg 2 tab(s), Oral, Once docusate sodium 100 mg Capsule 100 mg 1 cap(s), Oral, BID docusate-senna (Senokot S) 50 mg-8.6 mg Tablet 2 tab(s), Oral, BID famotidine 20 mg tablet 20 mg 1 tab(s), Oral, qDay ferrous sulfate 325 mg Tablet 325 mg 1 tab(s), Oral, BID levothyroxine 75 mcg tablet 150 mcg 2 tab(s), Oral, qDay losartan 25 mg tablet 12.5 mg 0.5 tab(s), Oral, qDay magnesium hydroxide 8% Suspension 30 mL UD 30 mL, Oral, Daily meloxicam 7.5 mg tablet 7.5 mg 1 tab(s), Oral, BIDM multivitamin (Myadec) with minerals Therapeutic Multiple Vitamins with Minerals Tablet 1 tab(s), Oral, qDayM ondansetron 2 mg/ 1 mL 2 mL INJ 4 mg 2 mL, IV Push, q8h pantoprazole 20 mg EC tablet 40 mg 2 tab(s), Oral, qDay Continuous: (1) Lactated Ringers 1,000 mL 1,000 mL, Intravenous, 100 mL/hr PRN: (11) acetaminophen 325 mg Tablet 650 mg 2 tab(s), Oral, q4h diphenhydramine 25 mg tablet 25 mg 1 tab(s), Oral, q6h diphenhyDRAMINE 50 mg/mL (1 mL) INJ 25 mg 0.5 mL, IV Push, q6h fluticasone nasal 0.05 mg/inh [place] 50 mcg 1 spray(s), Nostril, each, qDay ketorolac 30 mg/mL (1 mL) vial 15 mg 0.5 mL, IV Push, q6h morphine 2 mg/mL 1 mL syringe 2 mg 1 mL, IV Push, q1h ondansetron 2 mg/ 1 mL 2 mL INJ 4 mg 2 mL, IV Push, q8h oxycodone 5 mg tablet (immediate release) 5 mg 1 tab(s), Oral, q4h oxycodone 5 mg tablet (immediate release) 10 mg 2 tab(s), Oral, q4h scopolamine 1.5 mg (1 mg / 72 hours patch) 1 patch(es), Transdermal, q72h sodium biphosphate-sodium phosphate 19 gm-7 gm Enema 133 mL, Rectal, qDay Lab Results 08/20 05:37 WBC: 13.0 H Hgb: 8.5 L Hct: 25.1 L Platelet: 174 Neutrophil %: 83.6 H Glucose Level: 128 H Sodium Level: 140 Potassium Level: 3.6 BUN: 14 Creatinine Lvl (s): 0.95 EKG No qualifying data available. Assessment/Plan 1. Osteoarthritis 1. Status post right direct anterior total hip arthroplasty postop day #1 2. Continue pain medications: Tylenol. I did discontinue the oxycodone and will put tramadol only for breakthrough pain. Try to limit the narcotics with her underlying confusion. Patient is unable to take nonsteroidal anti-inflammatories due to her chronic kidney disease. 3. DVT prophylaxis: Take 81 mg aspirin twice daily with food for 4 weeks postoperatively for DVT prophylaxis. Patient denies previous history of DVT or pulmonary embolism 4. Physical therapy: Weightbearing as tolerated with walker. I did discuss case with the physical therapist and we are assessing patient for appropriate discharge planning. 5. H & H: 8.5/25.1, asymptomatic. Postoperative acute on chronic anemia secondary to acute blood loss from surgery without intraoperative complications. Preoperatively patient on August 05, 2022 had hemoglobin/hematocrit 11.3/33.7. Patient currently takes ferrous sulfate and folic acid. We will continue to monitor this while she is in the hospital. Would recommend follow-up with primary care physician in 2 weeks for repeat lab work. 6. Reactive leukocytosis: Currently 13.0, afebrile. Patient did receive Decadron intraoperatively 7. Encouraged incentive spirometry 8. Continue postoperative medical management per medicine 9. Disposition: Case was discussed with Dr. Abdon Arroyo. I also discussed case with the high school social studies teacher and physical therapist. We would like to get physical therapy to assess patient for appropriate discharge planning. I did contact her daughter Janet who does live with her mother as well as her nephew. Her daughter does work third shift but the nephew may be able to help out in the evening. Patient did have a RAPT score of 5 which is a high probability of possible increased level of care postoperatively. I also want to follow her hemoglobin and repeat this tomorrow. She does have some underlying confusion but her daughter states before surgery they were seeing signs of confusion and possible underlying dementia. Patient will require additional stay at this time to be further managed and monitored. We will reassess how she does with physical therapy today for appropriate discharge planning. Possible fdc facility versus home health. I have reviewed the [place] Automated Rx Reporting System (OARRS) report for this patient for refill pattern and other prescriber involvement as part of the appropriate surveillance for the provision of acute and chronic controlled medications. The report was requested and reviewed on the date of this entry, and was considered in the prescribing process This dictation was created using voice recognition software. Phonetic and/or grammatical errors may exist. 2. (HFpEF) heart failure with preserved ejection fraction 3. Status post total hip replacement, right 4. Aortic stenosis 5. CAD S/P percutaneous coronary angioplasty 6. CKD (chronic kidney disease) 7. HTN (hypertension) 8. Pulmonary hypertension Digitally Signed by DAVID SHABAZZ PA-C on 08/20/2022 08:14 AM [facility] 08-19-2022 Note ORIGINAL EXAMINATION: ONE XRAY VIEW OF THE PELVIS AND TWO XRAY VIEWS RIGHT HIP 08/19/2022 12:16 pm COMPARISON: Right hip radiograph 11/01/2018, fluoroscopy earlier same day HISTORY: ORDERING SYSTEM PROVIDED HISTORY: Reason for Exam: Status Post Arthroplasty FINDINGS: Diffuse osseous demineralization noted. Patient is status post right hip arthroplasty. Expected postsurgical changes are noted, including subcutaneous emphysema. The hardware appears intact. No acute fracture or dislocation is seen. There are moderate degenerative changes of the left hip joint. IMPRESSION: Expected postsurgical changes from right hip arthroplasty. Interpreted by: Monika Steele Preliminary Report By: Monika Steele Electronically signed By Monika Steele Dictated Date: 08/19/2022 12:37:55 PM Prelim Date: 08/19/2022 12:41:03 PM Sign Date: 08/19/2022 12:41:03 PM Ordering Provider: ABDON ARROYO [facility] 08-19-2022 Note ORIGINAL EXAMINATION: ONE XRAY VIEW OF THE PELVIS AND TWO XRAY VIEWS RIGHT HIP 08/19/2022 12:16 pm COMPARISON: Right hip radiograph 11/01/2018, fluoroscopy earlier same day HISTORY: ORDERING SYSTEM PROVIDED HISTORY: Reason for Exam: Status Post Arthroplasty FINDINGS: Diffuse osseous demineralization noted. Patient is status post right hip arthroplasty. Expected postsurgical changes are noted, including subcutaneous emphysema. The hardware appears intact. No acute fracture or dislocation is seen. There are moderate degenerative changes of the left hip joint. IMPRESSION: Expected postsurgical changes from right hip arthroplasty. Interpreted by: Monika Steele Preliminary Report By: Monika Steele Electronically signed By Monika Steele Dictated Date: 08/19/2022 12:37:55 PM Prelim Date: 08/19/2022 12:41:03 PM Sign Date: 08/19/2022 12:41:03 PM Ordering Provider: ABDON ARROYO [facility] 08-19-2022 Note ORIGINAL Images acquired, not reported on this accession number. [facility] 08-19-2022 Note ORIGINAL Images acquired, not reported on this accession number. [facility] 08-19-2022 Anesthesiology Consult note Patient: DANIE RAMIREZ Age: 76 years Sex: Female : 1945 Associated Diagnoses: None Author: NERIS RUCKER APRN-TRAVIS Preoperative Information Anesthesia history Patient's history: negative. Family's history: negative. Health Status Allergies: Allergic Reactions (Selected) Severe HydroCHLOROthiazide- Rash. Moderate FentaNYL- Unknown. Statins- Dizzy. Severity Not Documented Aspirin- Rash. Codeine- Unknown. Erythromycin- No reactions were documented. Levothyroxine- Nausea. Lisinopril- No reactions were documented. Penicillin- No reactions were documented., Allergies (9) ActiveReaction hydroCHLOROthiazideRash fentaNYLunknown StatinsDizzy aspirinRash codeineUnknown erythromycinNone Documented levothyroxineNausea lisinoprilNone Documented penicillinNone Documented Current medications: (Selected) Inpatient Medications Ordered Betadine 10% topical solution: 17.5 mL, mL/hr, Topical (INT), PREOP pharm Cleocin Phosphate: 600 mg, 50 mL, 100 mL/hr, IV Piggyback, PREOP pharm Cyklokapron IVPB: 2,000 mg, 20 mL, 0 mL/hr, Topical (INT), PREOP pharm Decadron: 10 mg, 1 mL, IV Push, AsDirected LR 1,000 mL: 20 mL/hr, Intravenous, Stop: 08/19/22 23:59:00 EST Naropin 100 mg + EPINEPHrine 1 mg/mL injectable solution 0.3 mg + morphine 2.5 m mg, 20 mL, 0 mL/hr, Other, PREOP pharm Naropin 100 mg + EPINEPHrine 1 mg/mL injectable solution 0.3 mg + morphine 2.5 m mg, 20 mL, 0 mL/hr, Other, PREOP pharm Prescriptions Prescribed Flonase 50 mcg/inh nasal spray: 1 spray(s), Nasal, qDay, for 90 day(s), 1 spray each nostril daily, 3 EA, 1 Refill(s) Synthroid 150 mcg (0.15 mg) oral tablet: 150 mcg, 1 tab(s), Oral, qDay, for 90 day(s), needs synthroid brand, TRI;, 90 tab(s), 1 Refill(s) amLODIPine 5 mg oral tablet: 5 mg, 1 tab(s), Oral, BID, for 90 day(s), 180 tab(s), 1 Refill(s) cetirizine 10 mg oral tablet: 10 mg, 1 tab(s), Oral, qDay, for 90 day(s), 90 tab(s), 1 Refill(s) cholecalciferol 125 mcg (5000 intl units) oral tablet: 5,000 International_Unit, 1 tab(s), Oral, qDay, for 90 day(s), new dose, 90 tab(s), 1 Refill(s) olmesartan 5 mg oral tablet: 5 mg, 1 tab(s), Oral, qDay, 90 tab(s), 1 Refill(s) pantoprazole 40 mg oral enteric coated tablet: 40 mg, 1 tab(s), Oral, qDay, for 90 day(s), 90 tab(s), 1 Refill(s) Documented Medications Documented [facility] SENNA LAXATIVE 8.6 MG TAB: 0 Refill(s) IRON (ferrous sulfate 325 mg) 65 mg oral tablet: 325 mg, 1 tab(s), Oral, BID, Take with food., 3 Refill(s) Tylenol 8 HR Arthritis Pain 650 mg oral tablet, extended release: 1,300 mg, 2 tab(s), Oral, BID, 0 Refill(s) aspirin 81 mg oral delayed release tablet: 81 mg, 1 tab(s), Oral, Daily, 0 Refill(s) ranolazine 500 mg oral tablet, extended release: 500 mg, 1 tab(s), Oral, BID, 60 tab(s), 0 Refill(s), Medications (7) Active Scheduled: (6) clindamycin PMX 600 mg 50 mL, IV Piggyback, PREOP pharm dexamethasone 10 mg/mL (1mL) SDV 10 mg 1 mL, IV Push, AsDirected povidone iodine topical 17.5 mL, Topical (INT), PREOP pharm ropivacaine 100 mg + epinephrine 0.3 mg + morphine 2.5 mg 100 mg 20 mL, Other, PREOP pharm ropivacaine 100 mg + epinephrine 0.3 mg + morphine 2.5 mg 100 mg 20 mL, Other, PREOP pharm tranexamic acid 2,000 mg 20 mL, Topical (INT), PREOP pharm Continuous: (1) Lactated Ringers 1,000 mL 1,000 mL, Intravenous, 20 mL/hr PRN: (0) Problem list: Medical Allergic rhinitis / SNOMED CT 119636960 / Confirmed Allergy to statin medication / SNOMED CT 1286195601 / Confirmed Anemia of chronic disease / SNOMED CT 018000782 / Confirmed Aortic stenosis / SNOMED CT 233579082 / Confirmed Arthritis / SNOMED CT 3793745 / Confirmed Breast lump or mass / SNOMED CT 608712960 / Confirmed Cataract / SNOMED CT 574787524 / Confirmed Somatic dysfunction of cervical region / SNOMED CT 3709581639 / Confirmed CKD (chronic kidney disease) stage 3, GFR 30-59 ml/min / SNOMED CT 1295741334 / Confirmed Constipation / SNOMED CT 01123350 / Confirmed Dark stools / SNOMED CT 02108473 / Confirmed Depression / SNOMED CT 13217599 / Confirmed Sleep-wake cycle disorder / SNOMED CT 801421385 / Confirmed Dysuria / SNOMED CT 11590154 / Confirmed Fall at home / SNOMED CT 43297233 / Confirmed GERD (gastroesophageal reflux disease) / SNOMED CT 520298625 / Confirmed Hiatal hernia / SNOMED CT 862451726 / Confirmed Voice hoarseness / SNOMED CT 320406894 / Confirmed Hypercalcemia / SNOMED CT 108635912 / Confirmed Elevated fasting glucose / SNOMED CT 122522004 / Confirmed HLD (hyperlipidemia) / SNOMED CT 22619341 / Confirmed HTN (hypertension) / SNOMED CT 1680343401 / Confirmed Hypothyroidism / SNOMED CT 80753763 / Confirmed Immunization due / SNOMED CT 200740190 / Confirmed Cognitive impairment / SNOMED CT 6035937949 / Confirmed Urinary frequency / SNOMED CT 729081168 / Confirmed Insomnia / SNOMED CT 817597123 / Confirmed Iron deficiency anemia / SNOMED CT 546515252 / Confirmed Eyebrow laceration / SNOMED CT 1831685991 / Confirmed Enlarged liver / SNOMED CT 315421687 / Confirmed Right leg weakness / SNOMED CT 692957942 / Confirmed Rhinorrhea / SNOMED CT 481826906 / Confirmed Neck pain / SNOMED CT 512447924 / Confirmed Osteoarthritis of right hip / SNOMED CT 3578876733 / Confirmed Osteopenia / SNOMED CT 110790783 / Confirmed Medicare annual wellness visit, subsequent / SNOMED CT 478739766 / Confirmed Screening for cardiovascular condition / SNOMED CT 985914360 / Confirmed Preop examination / SNOMED CT 092265460 / Confirmed Pre-op exam / SNOMED CT 463897692 / Confirmed Pericardial effusion / SNOMED CT 8793755861 / Confirmed Pulmonary hypertension / SNOMED CT 249464382 / Confirmed CAD S/P percutaneous coronary angioplasty / SNOMED CT 9442175313 / Confirmed Rheumatic mitral regurgitation / SNOMED CT 54819242 / Confirmed Right bundle branch block / SNOMED CT 31982727 / Confirmed Screening due / SNOMED CT 628473175 / Confirmed Secondary hyperparathyroidism / SNOMED CT 180693639 / Confirmed Somatic dysfunction of pelvic region / SNOMED CT 5449637284 / Confirmed Somatic dysfunction of rib region / SNOMED CT 9527445203 / Confirmed Somatic dysfunction of thoracic region / SNOMED CT 7648132318 / Confirmed Systolic murmur / SNOMED CT 41399550 / Confirmed Tricuspid regurgitation / SNOMED CT 966764596 / Confirmed Vitamin D deficiency / SNOMED CT 28962706 / Confirmed Vitiligo / SNOMED CT 14568007 / Confirmed, Active Problems (54) Allergic rhinitis Allergy to statin medication Anemia of chronic disease Aortic stenosis Arthritis Breast lump or mass CAD S/P percutaneous coronary angioplasty Cataract CHF (congestive heart failure) CKD (chronic kidney disease) stage 3, GFR 30-59 ml/min Cognitive impairment Constipation Dark stools Depression Dysuria Elevated fasting glucose Enlarged liver Eyebrow laceration Fall at home GERD (gastroesophageal reflux disease) Hiatal hernia HLD (hyperlipidemia) HTN (hypertension) Hypercalcemia Hypothyroidism Immunization due Insomnia Iron deficiency anemia Medicare annual wellness visit, subsequent Neck pain Osteoarthritis of right hip Osteopenia Pericardial effusion Pre-op exam Preop examination Pulmonary hypertension Rheumatic mitral regurgitation Rhinorrhea Right bundle branch block Right leg weakness Screening due Screening for cardiovascular condition Secondary hyperparathyroidism Sleep-wake cycle disorder Somatic dysfunction of cervical region Somatic dysfunction of pelvic region Somatic dysfunction of rib region Somatic dysfunction of thoracic region Systolic murmur Tricuspid regurgitation Urinary frequency Vitamin D deficiency Vitiligo Voice hoarseness Histories Past Medical History: No active or resolved past medical history items have been selected or recorded. Family History: Asthma Father Hypertension Father Heart disease Brother Alzheimer's disease Mother Procedure history: Echocardiogram ([id number]) on 10/29/2017 at 71 Years. Heart ([id number]) on 12/25/1995 at 50 Years. Comments: 05/03/2019 11:14 EDT - Prabha Bonner LPN stent Hysterectomy ([id number]). Cholecystectomy (33866271). Creation of pericardial window (02306501). Cataract ([id number]). Comments: 11/11/2021 14:49 EDT - Ofelia Porter [employer] left eye EGD - Esophagogastroduodenoscopy ([id number]). Social History Social & Psychosocial Habits Alcohol 05/03/2019 Use: Never Substance Abuse 05/03/2019 Use: Never Tobacco 05/03/2019 Tobacco Use: Never (less than 100 in l Home/Environment 05/03/2019 Other risks in environment: minimal smoke exposure Nutrition/Health 06/26/2021 Caffeine intake amount: 1-2 coffee daily . Physical Examination Vital Signs 08/19/2022 7:52 EST Temperature Temporal Artery 36.6 DegC Apical Heart Rate 56 bpm LOW Respiratory Rate 12 br/min LOW Systolic Blood Pressure Non-Invasive 184 mmHg >HHI Diastolic Blood Pressure Non-Invasive 87 mmHg Vital Signs(last 24 hrs) Last Charted Resp Rate L 12br/min (AUG 19 07:52) SBPC 184mmHg (AUG 19 07:52) DBP87 mmHg (AUG 19 07:52) Measurements from flowsheet : Measurements 08/19/2022 7:52 EST Height 165.1 cm Admission Weight 73.5 kg Endeavor Body Weight 57.00 kg Admission Body Mass Index 26.96 m2 Pain assessment: Pain Assessment 08/19/2022 7:52 EST Pain Scale Type 0-10 Pain scale . General: Alert and oriented. Airway: Normal temporomandibular joint mobility. Mallampati classification: II (soft palate, fauces, uvula visible). Dentition Evaluation: No teeth. Respiratory: Lungs are clear to auscultation, Respirations are non-labored. Cardiovascular: Normal rate, Regular rhythm. Neurologic: Alert, Oriented. Review / Management Results review: No qualifying data available , Lab results 08/19/2022 8:46 EST SN - Preop - CTm Pt in SDS Room 08/19/2022 7:52 08/19/2022 8:36 EST Skin Symptoms Rash Antecubital Left 08/19/2022 20 gauge Peripheral IV Activity: Insert new site Peripheral IV Dressing Condition: Clean, Dry, Intact Peripheral IV Dressing Activity: Applied, Transparent dressing Peripheral IV Line Status/Patency: Continuous infusion Peripheral IV Line Care: Secured with tape Peripheral IV Site Condition: No complications Peripheral IV Equipment: Extension set, PRN Adaptor Peripheral IV Number of Attempts: 2 08/19/2022 8:35 EST famotidine 20 mg mg vancomycin 1,250 mg mg Lactated Ringers Injection 1,000 mL mL Sodium Chloride 0.9% 250 mL mL 08/19/2022 8:31 EST Infectious Disease Symptoms Patient states no symptoms Safety Brochure Information Reviewed Unable to complete Teena Odell Video Viewed No Teaching Evaluation Needs further teaching Admission Note-Nursing Same Day Patient History (Modified) 08/19/2022 7:52 EST Height 165.1 cm Admission Weight 73.5 kg Endeavor Body Weight 57.00 kg Admission Body Mass Index 26.96 m2 Temperature Temporal Artery 36.6 DegC Apical Heart Rate 56 bpm LOW Respiratory Rate 12 br/min LOW Systolic Blood Pressure Non-Invasive 184 mmHg >HHI Diastolic Blood Pressure Non-Invasive 87 mmHg Pain Scale Type 0-10 Pain scale Heart Sounds ICU S1S2 Oxygen Therapy Room air Oxygen Saturation 100 % Abdomen Description Non-distended Bowel Sounds All Quadrants Present Urinary Elimination Voiding, no difficulties Skin Temperature Cool Skin Description [place], Dry Skin Integrity Intact Mucous Membrane Color [place] Skin Moisture General Dry IV Present Present Characteristics of Speech Clear Level of Consciousness Alert Strength All Extremities Moderate Affect/Behavior Appropriate, Calm, Cooperative Orientation Oriented x 4 Allergies Yes Head Packager On Yes Consent Form Signed Yes Patient Dressed In Hospital gown Pre-op Preparation Dentures, full removed, Undergarments removed CHG Preoperative Wash/Wipe Night before procedure, Day of procedure History & Physical Update On Chart Yes History & Physical On Chart Yes Obstructive Sleep Apnea Assess Completed Yes Belongings At Bedside Coat, Dentures, upper, Glasses, Pajamas, Undergarments Personal Home Medications Received No home medications were brought in Belongings Sent To Security None Activity Status ADL Awake Assistive Device Walker NPO Status Maintained Standard Safety ID band on, Allergy Band on, Call device within reach, Bed in low position, Wheels locked, Non-Slip footwear Allergy Band on and Verified Yes Blood Band on and Verified No Patient ID Band on and Verified Yes Implants Verified Yes Pacemaker/AICD Verified Yes Anesthesia Consent Signed Yes Blood Consent Signed Yes Last Fluid Intake 08/18/2022 23:45 Last Food Intake 08/18/2022 23:45 Last Void 08/19/2022 8:15 Patient Cleared for Surgery By BAKARI RODRIGUEZ DO Cardiac Clearance For Surgery By ALVARADO PERALTA DO 08/19/2022 7:27 EST citric acid-sodium citrate Not Given: Other (Not Done) 08/19/2022 6:58 EST IHC At-Risk Indicator YES 08/18/2022 11:12 EST Patient Letter . Assessment and Plan [place] [employer] (ASA) physical status classification: Class III. Anesthetic Preoperative Plan Anesthetic technique: Spinal. Regional: Spinal. Postoperative pain management: Per surgeon. Risks discussed: nausea, vomiting, headache, hypotension, allergic reaction, serious complications. Informed consent: signed by patient. Digitally Signed by NERIS RUCKER on 08/19/2022 09:19 AM [facility] 08-01-2022 Miscellaneous Notes Per Aim, Approved; Auth # [id number] 08/01/2022-10/29/2022 Oli Estrada Prior authorization request for stress test to be done at [facility] is being submitted for review. Please notify clerical staff when ready. Mike Novak RN documented in this encounter [facility] 07-31-2022 Miscellaneous Notes Addended by: MIKE NOVAK on: 07/31/2022 01:12 PM Modules accepted: Orders Please sign order for stress test. Patient having surgery 08/19/22 Spoke to patient's daughter Janet and let her know it is ok to go to [facility] and we will notify them when it is scheduled Stress at [facility] is ok Appt with me depends upon the results of the stress Patient's daughter Janet called in stated Mom is having hip replacement surgery on 08/19/2022, per the cardiac clearance form it is recommended to have Stress test done. She would like to have it at [facility], she would also like to know if she needs an appointment to see dr. Peralta before surgery. Please call Janet she's going to be handling Mom's appointments. [phone] documented in this encounter [facility] 11-18-2021 Miscellaneous Notes Pt called and notified per carotid ultrasound normal for age. Pt agreeable Patient contacted by phone, no answer message left on voice mail. Call carotdi doppler normal for age Pt echo and carotid have been scanned in for review documented in this encounter [facility] Evaluation + Plan note Future Appointments Appointment Date:11/11/2022 08:30:00 AM Scheduled Provider:BAKARI RODRIGUEZ DO Location:[facility] Appointment Type:PC OV Future Scheduled TestsFerritin 08/14/21Thyroid Stimulating Hormone 08/14/21A1C Hemoglobin 08/14/21Complete Blood Count 08/14/21Complete Blood Count 02/12/22Lipid Profile 08/14/21Lipid Profile 02/12/22Microalbumin Level Urine 08/14/21Vitamin D Level 08/14/21Complete Metabolic Panel 08/14/21Complete Metabolic Panel 02/12/22MA Mammo Screening Bilateral w/ Adam 11/18/21BD Bone Density DEXA Axial Skeleton 11/10/21 [facility] Evaluation + Plan note Future Appointments Appointment Date:08/08/2022 08:15:00 AM Scheduled Provider: Location:[facility] Appointment Type:NM Myocardial Spect Rest/Stress [place] Appointment Date:08/22/2022 10:30:00 AM Scheduled Provider: Location:[facility] Appointment Type:PT Outpatient Evaluation Appointment Date:11/11/2022 08:30:00 AM Scheduled Provider:BAKARI RODRIGUEZ DO Location:[facility] Appointment Type:PC OV Future Scheduled TestsCalcium Level Ionized 07/04/22Ferritin 08/14/21Ferritin 07/04/22Thyroid Stimulating Hormone 08/14/21Thyroid Stimulating Hormone 07/04/22Free T4 07/04/22A1C Hemoglobin 08/14/21A1C Hemoglobin 07/04/22Complete Blood Count 08/14/21Complete Blood Count 07/04/22Complete Blood Count 02/12/22Free T3 07/04/22Lipid Profile 08/14/21Lipid Profile 02/12/22Iron Studies 07/04/22Microalbumin Level Urine 08/14/21PTH, Intact 07/04/22Vitamin D Level 08/14/21Vitamin D Level 07/04/22Complete Metabolic Panel 08/14/21Complete Metabolic Panel 07/04/22Complete Metabolic Panel 02/12/22MA Mammo Screening Bilateral w/ Adam 11/18/21BD Bone Density DEXA Axial Skeleton 11/10/21NM Myocardial Spect Rest/Stress 08/08/22 [facility] Evaluation + Plan note Future Appointments Appointment Date:08/22/2022 10:30:00 AM Scheduled Provider: Location:[facility] Appointment Type:PT Outpatient Evaluation Appointment Date:11/11/2022 08:30:00 AM Scheduled Provider:BAKARI RODRIGUEZ DO Location:[facility] Appointment Type:[facility] Future Scheduled TestsCalcium Level Ionized 07/04/22Ferritin 08/14/21Ferritin 07/04/22Thyroid Stimulating Hormone 08/14/21Thyroid Stimulating Hormone 07/04/22Free T4 07/04/22A1C Hemoglobin 08/14/21A1C Hemoglobin 07/04/22Complete Blood Count 08/14/21Complete Blood Count 07/04/22Complete Blood Count 02/12/22Free T3 07/04/22Lipid Profile 08/14/21Lipid Profile 02/12/22Iron Studies 07/04/22Microalbumin Level Urine 08/14/21PTH, Intact 07/04/22Vitamin D Level 08/14/21Vitamin D Level 07/04/22Complete Metabolic Panel 08/14/21Complete Metabolic Panel 07/04/22Complete Metabolic Panel 02/12/22MA Mammo Screening Bilateral w/ Adam 11/18/21BD Bone Density DEXA Axial Skeleton 11/10/21 [facility] Evaluation + Plan note Future Appointments Appointment Date:09/02/2022 11:00:00 AM Scheduled Provider:SANJAY BERRY Location:[facility] Appointment Type:[facility] Hospital Follow-Up Appointment Date:11/11/2022 08:30:00 AM Scheduled Provider:BAKARI RODRIGUEZ DO Location:[facility] Appointment Type:PC OV Future Scheduled TestsCalcium Level Ionized 07/04/22Ferritin 07/04/22Thyroid Stimulating Hormone 07/04/22Free T4 07/04/22A1C Hemoglobin 07/04/22Complete Blood Count 07/04/22Complete Blood Count 02/12/22Free T3 07/04/22Lipid Profile 02/12/22Iron Studies 07/04/22PTH, Intact 07/04/22Vitamin D Level 07/04/22Complete Metabolic Panel 07/04/22Complete Metabolic Panel 02/12/22MA Mammo Screening Bilateral w/ Adam 11/18/21BD Bone Density DEXA Axial Skeleton 11/10/21 [facility] Evaluation + Plan note Future Appointments Appointment Date:11/11/2022 08:30:00 AM Scheduled Provider:BAKARI RODRIGUEZ DO Location:[facility] Appointment Type: OV Future Scheduled TestsCalcium Level Ionized 07/04/22Ferritin 07/04/22Thyroid Stimulating Hormone 08/27/22Thyroid Stimulating Hormone 07/04/22Free T4 08/27/22Free T4 07/04/22A1C Hemoglobin 07/04/22Complete Blood Count 08/27/22Complete Blood Count 07/04/22Complete Blood Count 02/12/22Free T3 08/27/22Free T3 07/04/22Lipid Profile 02/12/22Iron Studies 07/04/22PTH, Intact 07/04/22Vitamin D Level 07/04/22Complete Metabolic Panel 07/04/22Complete Metabolic Panel 02/12/22MA Mammo Screening Bilateral w/ Adam 11/18/21BD Bone Density DEXA Axial Skeleton 11/10/21 [facility] Evaluation + Plan note Future Appointments Appointment Date:05/01/2023 10:00:00 AM Scheduled Provider:JEREMIAH STEELE DO Location:[facility] Appointment Type: OV Appointment Date:05/15/2023 01:30:00 PM Scheduled Provider:JEREMIAH STEELE DO Location:[facility] Appointment Type: OV [facility] Evaluation + Plan note Future Appointments Appointment Date:05/01/2023 10:00:00 AM Scheduled Provider:JEREMIAH STEELE DO Location:[facility] Appointment Type: OV Appointment Date:05/15/2023 01:30:00 PM Scheduled Provider:JEREMIAH STEELE DO Location:[facility] Appointment Type:PC OV Future Scheduled TestsCross-Linked N-Telopeptide Urine 02/26/23PTH, Related Peptide 02/26/23Calcium Level Ionized 02/26/23Magnesium Level 02/26/23Phosphorus Level 02/26/23Urinalysis 02/26/23Thyroid Stimulating Hormone 02/24/23Thyroid Stimulating Hormone 02/26/23Thyroxine 02/24/23Free T4 02/26/23Calcium Random Urine 02/26/23Creatinine Random Urine 02/26/23Vitamin D, 1,25-Dihydroxy 02/26/23Free T3 02/26/23Protein Electrophoresis Panel 02/26/23PTH, Intact 02/26/23Total T3 02/24/23Vitamin D Level 02/26/23Complete Metabolic Panel 02/26/23NM Parathyroid Study 02/24/23 [facility] Evaluation + Plan note Future Appointments Appointment Date:08/03/2023 01:00:00 PM Scheduled Provider:JEREMIAH STEELE DO Location:[facility] Appointment Type:PC OV Appointment Date:09/29/2023 02:30:00 PM Scheduled Provider:BOGDAN ZHENG Location:[facility] Appointment Type: OV Future Scheduled TestsCross-Linked N-Telopeptide Urine 02/26/23PTH, Related Peptide 02/26/23Calcium Level Ionized 07/25/23Calcium Level Ionized 02/26/23Magnesium Level 02/26/23Phosphorus Level 02/26/23Urinalysis 02/26/23Thyroid Stimulating Hormone 07/25/23Thyroid Stimulating Hormone 02/26/23Free T4 07/25/23Free T4 02/26/23Urine Culture 07/29/23Calcium Random Urine 02/26/23Complete Blood Count 07/25/23Creatinine Random Urine 02/26/23Vitamin D, 1,25-Dihydroxy 02/26/23Free T3 02/26/23Protein Electrophoresis Panel 02/26/23PTH, Intact 02/26/23Vitamin D Level 02/26/23Complete Metabolic Panel 07/25/23Complete Metabolic Panel 02/26/23NM Parathyroid Study 02/24/23 [facility] Evaluation + Plan note Future Appointments Appointment Date:08/06/2023 03:30:00 PM Scheduled Provider:JEREMIAH STEELE DO Location:[facility] Appointment Type:PC OV Appointment Date:09/29/2023 02:30:00 PM Scheduled Provider:BOGDAN ZHENG [facility] Appointment Type:CV OV Future Scheduled TestsCross-Linked N-Telopeptide Urine 02/26/23PTH, Related Peptide 02/26/23Calcium Level Ionized 07/25/23Calcium Level Ionized 02/26/23Magnesium Level 02/26/23Phosphorus Level 02/26/23Urinalysis 02/26/23Thyroid Stimulating Hormone 07/25/23Thyroid Stimulating Hormone 02/26/23Free T4 07/25/23Free T4 02/26/23Calcium Random Urine 02/26/23Complete Blood Count 07/25/23Creatinine Random Urine 02/26/23Vitamin D, 1,25-Dihydroxy 02/26/23Free T3 02/26/23Protein Electrophoresis Panel 02/26/23PTH, Intact 02/26/23Vitamin D Level 02/26/23Complete Metabolic Panel 07/25/23Complete Metabolic Panel 02/26/23NM Parathyroid Study 02/24/23 [facility] Stable angina (HCC) Other and unspecified angina pectoris Chest pain in adult [facility] Diagnosis Stable angina (HCC) Other and unspecified angina pectoris Chest pain in adult [facility] Narrative No data available for this section [facility] Discharge instructions No data available for this section [facility] Progress note No data available for this section [facility] Summary Purpose Family History No Family History Records Found No data available for this section No data available for this section No data available for this section No data available for this section No data available for this section No Family History Records Found Advance Directives No Advanced Directives Records FoundNo Advanced Directives Records Found Additional Source Comments Source Comments (unrecognize d section and content) In the event this informatio n is protected by the Federal Confidentiality of Alcohol and Drug Abuse Patient Records regulations: The Federal rules restrict any use of the information to criminally investigate or prosecute any alcohol or drug abuse patient.[facility] the event this information is protected by the Federal Confidentiality of Alcohol and Drug Abuse Patient Records regulations: The Federal rules restrict any use of the information to criminally investigate or prosecute any alcohol or drug abuse patient.[facility] the event this information is protected by the Federal Confidentiality of Alcohol and Drug Abuse Patient Records regulations: The Federal rules restrict any use of the information to criminally investigate or prosecute any alcohol or drug abuse patient.[facility] the event this information is protected by the Federal Confidentiality of Alcohol and Drug Abuse Patient Records regulations: The Federal rules restrict any use of the information to criminally investigate or prosecute any alcohol or drug abuse patient.[facility] the event this information is protected by the Federal Confidentiality of Alcohol and Drug Abuse Patient Records regulations: The Federal rules restrict any use of the information to criminally investigate or prosecute any alcohol or drug abuse patient.[facility] Hospital[facility] the event this information is protected by the Federal Confidentiality of Alcohol and Drug Abuse Patient Records regulations: The Federal rules restrict any use of the information to criminally investigate or prosecute any alcohol or drug abuse patient.[facility] Reason for Visit (unrecogniz ed section and content) Reason Comments Patient Question Reason Comments PA for stress test Reason Onset Date Comments Refill Request 09/15/2022 Reason Comments Refill Request Care Teams (unrecognized sec tion and content) Roll Inspector Relationship Specialty Start Date End Date Bakari Rodriguez IV, MD [address] [place] [id number] PCP - General Family Medicine 12/23/19 Roll Inspector Relationship Specialty Start Date End Date Bakari Rodriguez IV, MD [address] [place] [id number] PCP - General Family Medicine 12/23/19 Roll Inspector Relationship Specialty Start Date End Date Bakari Rodriguez IV, DO [address] [place] [id number] PCP - General Family Medicine 12/23/19 Roll Inspector Relationship Specialty Start Date End Date Bakari Rodriguez IV, DO [address] [place] [id number] PCP - General Family Medicine 12/23/19 Care Team (unrecognized sect ion and content) Care Team Personnel Name: Herson Wallace PT Position: P3 Scheduling - Director Outpatient Services Advanced Member Role: Other Name: BAKARI RODRIGUEZ DO Position: P4 Physician - Primary Care Member Role: Primary Care Physician Address: Address: [address] [place] [id number]- Care Team Related Persons Name: JANET RAMIREZ Address: Home [address] [place] [phone] [place] Name: JANET RAMIREZ Address: Home [address] [place] [phone] [place] Address: Temporary [address] [place] [phone] Care Team Personnel Name: Herson Wallace PT Position: P3 Scheduling - Director Outpatient Services Advanced Member Role: Other Name: BAKARI RODRIGUEZ DO Position: P4 Physician - Primary Care Member Role: Primary Care Physician Address: Address: [address] [place] [id number] Care Team Related Persons Name: JANET RAMIREZ Address: Home [address] [place] [phone] [place] Name: JANET RAMIREZ Address: Home [address] [place] [phone] [place] Address: Temporary [address] [place], [place] [phone] Care Team Personnel Name: Herson Wallacerk Sanjana PT Position: P3 Scheduling - Director Outpatient Services Advanced Member Role: Other Name: BAKARI RODRIGUEZ DO Position: P4 Physician - Primary Care Member Role: Primary Care Physician Address: Address: [address] [place] [phone]- Care Team Related Persons Name: JANET RAMIREZ Address: Home [address] [place], [place] [id number] [place] Name: JANET RAMIREZ Address: Home [address] [place], [place] [id number] [place] Address: Temporary [address] [place], [place] [phone] Care Team Personnel Name: Herson Wallace Clerk Sanjana PT Position: P3 Scheduling - Director Outpatient Services Advanced Member Role: Other Name: BAKARI RODRIGUEZ DO Position: P4 Physician - Primary Care Member Role: Primary Care Physician Address: Address: [address] [place] [phone]- Care Team Related Persons Name: JANET RAMIREZ Address: Home [address] [place], [place] [phone] [place] Name: JANET RAMIREZ Address: Home [address] [facility], [phone] Name: JANET RAMIREZ Address: Home [address] [place], [place] [phone] [place] Address: Temporary [address] [place], [place] [phone] Care Team Personnel Name: Herson Wallacerjosefa Allan PT Position: P3 Scheduling - Director Outpatient Services Advanced Member Role: Other Name: BAKARI RODRIGUEZ DO Position: P4 Physician - Primary Care Member Role: Primary Care Physician Address: Address: [address] [place] [id number]- Care Team Related Persons Name: JANET RAMIREZ Address: Home [address] [facility], [phone] Name: JANET RAMIREZ Address: Home [address] [place], [place] [phone] [place] Name: JANET RAMIREZ Address: Home [address] [place], [place] [phone] [place] Address: [place] [address] [address] [place], [place] [phone] INFORMATION SOURCE (unrecogn ized section and content) DATE CREATED AUTHOR AUTHOR'S DANITA FERNANDEZ 08/03/2023 [facility] princess ([place]) FOR RECORDS PERTAINING TO PATIENTS WHO ARE OR HAVE BEEN ENROLLED IN A CHEMICAL DEPENDENCY/SUBSTANCEABUSE PROGRAM, SOME INFORMATION MAY BE OMITTED. This clinical summary was aggregated from multiple sources. Caution should be exercised in using it in the provision of clinical care. This summary normalizes information from multiple sources, and as a consequence, information in this document may materially change the coding, format and clinical context of patient data. In addition, data may be omitted in some cases. CLINICAL DECISIONS SHOULD BE BASED ON THE PRIMARY CLINICAL RECORDS. [employer] provides no warranty or guarantee of the accuracy or completeness of information in this document.
--- NOTE | 2023-08-03 19:00 | RAD_ITS ---
STUDY: X-RAY CHEST REASON FOR EXAM: Female, 77 years old. cough TECHNIQUE: Single AP portable view of the chest. COMPARISON: 07/04/2023. FINDINGS: Partial obscuration of the lung apices by patient''s chin. The lungs are clear and expanded. There is no demonstrated pleural abnormality. Normal size heart. Normal mediastinum and verito. Normal visualized pulmonary arteries. There is atherosclerotic calcification of the aortic arch with tortuosity. There are diffuse degenerative changes of the visualized thoracic spine. There is degenerative osteoarthritis of the bilateral shoulders. Possible diffuse osteopenia. There is no demonstrated abnormality of the visualized soft tissue structures of the upper abdomen. RAD/Chest 1 View (Portable) IMPRESSION: No acute cardiopulmonary disease. Electronically Signed: Bharti Raymond MD at 19:11 EST ,
[2023-08-03 19:04] LABS: Lactic Acid 1.2 mmol/L (0.4-1.9)
[2023-08-03 19:06] LABS: ALB/GLOB Ratio 1.2 RATIO (0.9-2.4); AST(SGOT) 20 U/L (15-37); Alanine Aminotransfer ALT/SGPT 18 U/L (13-56); Alkaline Phosphatase 64 U/L (45-117); Anion Gap 7 (5-15); BUN 13 mg/dL (7-18); BUN/Creat Ratio 9.9 RATIO (10-20); Calcium,Total 12.6 mg/dL (8.5-10.1); Chloride 93 mmol/L (98-107); Creatinine, Serum 1.31 mg/dL (0.55-1.02); EST Glomerular Filtration Rate 42 mL/min (>60); Est Glom Filt Rate - Afr Amer 50 mL/min (>60); Globulin 3.3 g/dL (2.2-4.2); Glucose 119 mg/dL (74-106); Lipase 20 U/L (13-75); Potassium 2.9 mmol/L (3.5-5.1); Protein, Total 7.3 g/dL (6.4-8.2); Sodium Level 134 mmol/L (136-145)
[2023-08-03] MEDS: Ondansetron 4 MG/2 ML Vial IV (19:36)
--- NOTE | 2023-08-03 20:09 | PCM.HP.STD ---
HPI - General General Date of Admission: 08/03/23 Date of Service: 08/03/23 Chief Complaint: Generalized weakness HPI Narrative DANIE RAMIREZ, is a 77 F who presents to the emergency room with chief complaint of generalized weakness. Patient has had significant past medical history of hypercalcemia for which she was being worked up as an outpatient by Dr. Moya. She is also recently had a urinary tract infection of E. coli which was treated with cefdinir as an outpatient and current urinalysis in the emergency room today was negative. Patient is feeling weak and according to the daughter is exhibiting some confusion that has not at her normal baseline. Calcium level is greater than 12 currently and otherwise laboratory studies were unremarkable. Patient will be admitted and treated for hypercalcemia. Patient denies any chest pain, shortness of breath or fevers or chills at present time. Patient denies having history of urinary stones. [facility] Medical History (Updated 08/03/23 @ 19:57 by YOU Parker) Acute hypokalemia Bradycardia, sinus Generalized weakness Hx of gastroesophageal reflux (GERD) Hypercalcemia Hyperparathyroidism Hypertension Hypothyroidism Prolonged QT interval Home Medications amlodipine 5 mg tablet 5 mg PO BID HIGH BLOOD PRESSURE 04/07/20 [History Last Taken Unknown] aspirin 81 mg chewable tablet 81 mg PO DAILY@0800 HEART HEALTH 04/07/20 [History Last Taken Unknown] pantoprazole 40 mg tablet,delayed release 40 mg PO DAILY ACID REFLUX 04/07/20 [History Last Taken Unknown] ranolazine 500 mg tablet,extended release,12 hr 500 mg PO BID CHEST PAIN 04/07/20 [History Last Taken Unknown] memantine 7 mg capsule sprinkle,extended release 24hr 7 mg PO QHS memory 03/28/23 [History Last Taken Unknown] ferrous sulfate 325 mg (65 mg iron) tablet 325 mg PO DAILY SUPPLEMENT 07/04/23 [History Last Taken Unknown] levothyroxine 100 mcg tablet 150 mcg PO DAILY@0600 THYROID 07/04/23 [History Last Taken Unknown] cinacalcet 60 mg tablet 60 mg PO BID #60 tabs 07/06/23 [Rx Last Taken Unknown] polyethylene glycol 3350 17 gram/dose oral powder (Miralax) 17 g PO DAILY CONSTIPATION 07/06/23 [History Last Taken Unknown] cefdinir 300 mg capsule 300 mg PO BID ANTIBIOTIC #10 caps 07/08/23 [Rx Last Taken Unknown] potassium chloride 20 mEq tablet,extended release(part/cryst) (Klor-Con M) 20 meq PO DAILY SUPPLEMENT #10 tabs 07/08/23 [Rx Last Taken Unknown] olmesartan 5 mg tablet 5 mg PO DAILY HIGH BLOOD PRESSURE 08/03/23 [History Last Taken Unknown] Allergy/AdvReac Type Severity Reaction Status Date / Time aspirin [ASA] Allergy Hives Verified 08/03/23 17:37 hydrocodone Allergy Nausea Verified 08/03/23 17:37 morphine Allergy PT UNSURE Verified 08/03/23 17:37 OF REACTION Penicillins Allergy Anaphylaxis Verified 08/03/23 17:37 Family History Daughter Diabetes Heart disease Surgical History S/P cholecystectomy Status post total hip replacement, right Social History (Updated 08/03/23 @ 18:27 by Emperatriz Spears) household members: family housing: house Smoking Status: Never smoker substance use type: does not use ROS Constitutional Constitutional: Reports fatigue and weakness; Denies chills or fever(s) Eyes Eyes: Denies blurry vision ENT HEENT: Denies abnormal hearing Cardiovascular Cardiovascular: Denies chest pain Respiratory/Chest Respiratory/Chest: Denies shortness of breath at rest Gastrointestinal Gastrointestinal: Denies abdominal pain Genitourinary Genitourinary: Denies dysuria Musculoskeletal Musculoskeletal: Reports stiffness Integumentary Integumentary: Denies wounds Neurologic Neurologic: Reports confusion and weakness; Denies tremor(s) Psychiatric Psychiatric: Denies depression Hematologic/Lymphatic Hematologic/Lymphatic: Denies easy bruising Vital Signs Vital Signs Vital Signs: 08/03/23 17:34 08/03/23 18:37 Temperature 97.0 F L 98.6 F Temperature Source Temporal Temporal Pulse Rate 80 51 L Respiratory Rate 16 16 Blood Pressure 118/70 163/70 H Blood Pressure Mean 86 101 Pulse Ox 100 Oxygen Delivery Method Room Air Physical Exam Const alert and well nourished General Appearance: cooperative Orientation / Consciousness: confused HEENT normocephalic and head/scalp atraumatic Eyes PERRL Neck no lymphadenopathy Lymph Lymphatic: no lymphadenopathy noted Resp normal air movement Cardio regular rate, regular rhythm, S1 normal heart sound and S2 normal heart sound Heart Sounds: murmur GI soft to palpation, non-tender and non-distended Extremity normal capillary refill Skin General Skin Exam: no breakdown and turgor normal Neuro no focal motor deficits and no sensory deficits noted Psych cooperative and affect normal Appearance: appropriate Results Lab / Micro Data 08/03/23 18:10 08/03/23 18:10 Labs: Laboratory Results - last 24 hr 08/03/23 18:10: WBC 7.3, RBC 3.60 L, Hgb 11.7 L, Hct 34.8 L, MCV 96.7, MCH 32.5 H, MCHC 33.6, RDW Std Deviation 44.5 H, RDW Coeff of Theresa 12.5, Plt Count 250, MPV 11.7, Immature Gran % (Auto) 0.800, Neut % (Auto) 66.4, Lymph % (Auto) 24.0, [place] % (Auto) 6.7, Eos % (Auto) 1.4, Baso % (Auto) 0.7, Absolute Neuts (auto) 4.9, Absolute Lymphs (auto) 1.76, Nucleated RBC % 0, Sodium 134 L, Potassium 2.9 L, Chloride 93 L, Carbon Dioxide 34.0 H, Anion Gap 7, BUN 13, Creatinine 1.31 H, Est GFR (MDRD) Af Amer 50 L, Est GFR (MDRD) Non-Af 42 L, BUN/Creatinine Ratio 9.9 L, Glucose 119 H, Lactic Acid 1.2, Calcium 12.6 H*, Total Bilirubin 0.80, AST 20, ALT 18, Alkaline Phosphatase 64, Total Protein 7.3, Albumin 4.0, Globulin 3.3, Albumin/Globulin Ratio 1.2, Lipase 20, Urine Color Yellow, Urine Clarity Clear, Urine pH 7.0, Ur Specific [place] 1.010, Urine Protein 15 H, Urine Glucose (UA) Normal, Urine Ketones 5 H, Urine Occult Blood Negative, Urine Nitrite Negative, Urine Bilirubin Negative, Urine Urobilinogen Normal, Ur Leukocyte Esterase 25 H, Urine RBC 0 SEEN, Urine WBC 0-5 SEEN, Ur Squamous Epith Cells 0-5 SEEN, Urine Bacteria RARE, Urine Mucus 0 SEEN Imagaing Radiology Impression Chest X-Ray 08/03/23 19:00 IMPRESSION: No acute cardiopulmonary disease. Electronically Signed: Bharti Raymond MD at 19:11 EST , Assessment & Plan Assessment/Plan (1) Acute hypokalemia: (2) Weakness: (3) Hypothyroidism: QUALIFIERS: Hypothyroidism type: acquired Qualified Code(s): E03.9 - Hypothyroidism, unspecified (4) Hyperparathyroidism: PLAN: Plan 1 hypercalcemia?admit patient to general medical floor, consult Dr. Moya for continued workup of hypercalcemia and hyperparathyroidism will order ultrasound of thyroid if not already done. Will make patient n.p.o., will give dose of zoledronic acid 4 mg IV x 1 and continue IV hydration therapy overnight. Will repeat BMP in the a.m. and a free calcium level and parathyroid hormone level. 2. Generalized weakness?will have supportive nursing care over night and consult case management for discharge planning as patient is not able to manage ADLs at this time 3. DVT prophylaxis?SCDs Charges/Coding Visit Charges Inpatient E&M: 16467 Init Hosp L2
--- OUTSIDE RECORDS SUMMARY | 2023-08-03 20:23 | XMS RPT_ITS | CCD ---
Author Name Unknown Address [address] [place] [address] Organization [facility] Care Team Providers Care Home Care Consultant Name Role Phone Michelle SHINE MD, Bakari Primary Care Provider [phone] BAKARI RODRIGUEZ DO Primary Care Physician [phone] Sanjana Wallace PT Unavailable Unavailable Michelle SHINE MD, Michael Primary Care Provider [phone] Michelle SHINE DO, Michael Primary Care Provider [phone] Michelle SHINE DO, Michael A Primary Care Provider JEREMIAH STEELE DO Primary Care Physician JEREMIAH [...] Unavailable DELANEY KRAUSE MD Attending Unavailable BAKARI RODRIUGEZ DO Primary Care Unavailable ALVARADO PERALTA DO [...] Allergy 12-02-2019 Unknown, Eruption of skin (disorder) [facility] Medications Current Medications Medication Drug Class(es) Dates [...] period., # 100 tab(s), 0 Refill(s), Pharmacy: [facility] #[id number], Right hip pain, 165.1, cm, 08/19/22 [...] # 90 tab(s), 0 Refill(s), TRI, Pharmacy: [facility] #[id number], 165, cm, 02/23/23 12:59:00 EDT, Height, kg, 02/23/23 12:59:00 EDT, Dosing Weight Start Date: 02/23/23 Stop Date: 05/24/23 Status: Ordered Problems Active Problems Problem Classification Problem Date Documented Date Episodic/Chronic Abdominal hernia (10 sources) Hiatal hernia 05-03-2019 Episodic Adjustment disorders (6 sources) Grief finding; Translations: [Adjustment disorder with depressed mood] Onset: 0 12-23-2019 Chronic Allergic reactions (10 sources) Allergy to 6-ppokmqa-9-methylglutar yl-coenzyme A reductase inhibitor 03-16-2020 Episodic Cataract [...] Taking VItal Signs DR ABDON ARROYO MD [facility] 08-21-2022 10:38-[address] ABDON ARROYO MD [facility] 08-21-2022 10:38-[address] ABDON Anaya [facility] 08-21-2022 10:38-0500 Body temperature 97.52 [degF] DR ABDON ARROYO MD [facility] 08-21-2022 10:38-0500 Diastolic Blood Pressure Non-Invasive [address] ABDON ARROYO MD [facility] 08-21-2022 10:38-0500 Heart rate 53 /min DR ABDON ARROYO MD [facility] 08-21-2022 10:38-0500 Reason For Taking VItal Signs DR ABDON ARROYO MD [facility] 08-21-2022 10:38-0500 Respiratory rate 18 /min DR ABDON ARROYO MD [facility] 08-21-2022 10:38-0500 Systolic Blood Pressure Non-Invasive [address] ABDON ARROYO MD [facility] 08-21-2022 09:34-0500 Reason For Taking VItal Signs DR ABDON ARROYO MD [facility] 08-21-2022 06:50-[address] ABDON ARROYO MD [facility] 08-21-2022 06:50-[address] ABDON Anaya [facility] 08-21-2022 06:50-0500 Body temperature 98.06 [degF] DR ABDON ARROYO MD [facility] 08-21-2022 06:50-0500 Diastolic Blood Pressure Non-Invasive [address] ABDON ARROYO MD [facility] 08-21-2022 06:50-0500 Heart rate 56 /min DR ABDON ARROYO MD [facility] 08-21-2022 06:50-0500 Respiratory rate 18 /min DR ABDON ARROYO MD [facility] 08-21-2022 06:50-0500 Systolic Blood Pressure Non-Invasive [address] ABDON ARROYO MD [facility] 08-21-2022 03:47-0500 Body temperature 98.06 [degF] DR ABDON ARROYO MD [facility] 08-21-2022 03:47-0500 Diastolic Blood Pressure Non-Invasive [address] ABDON ARROYO MD [facility] 08-21-2022 03:47-0500 Heart rate 67 /min DR ABDON ARROYO MD [facility] 08-21-2022 03:47-0500 Respiratory rate 16 /min DR ABDON ARROYO MD [facility] 08-21-2022 03:47-0500 Systolic Blood Pressure Non-Invasive [address] ABDON ARROYO MD [facility] 08-20-2022 23:50-0500 Heart rate 54 /min DR ABDON ARROYO MD [facility] 08-19-2022 15:04-[address] ABDON ARROYO MD [facility] 08-19-2022 15:04-[address] ABDON Anaya [facility] 08-19-2022 13:11-0500 Body height 165.[address] ABDON ARROYO MD [facility] 08-19-2022 13:11-0500 Body weight 73.[address] ABDON ARROYO MD [facility] 08-19-2022 13:11-0500 Body weight 26.96 kg/m2 DR ABDON ARROYO MD [facility] 08-19-2022 13:04-0500 Body temperature 96.98 [degF] DR ABDON ARROYO MD [facility] 08-19-2022 11:50-0500 Body temperature 95.36 [degF] DR ABDON ARROYO MD [facility] 08-19-2022 11:45-0500 Respiratory Rate - Anes 11 br/min DR ABDON ARROYO MD [facility] 08-19-2022 11:40-0500 Respiratory Rate - Anes 12 br/min DR ABDON ARROYO MD [facility] 08-19-2022 11:35-0500 Respiratory Rate - Anes 12 br/min DR ABDON ARROYO MD [facility] 08-19-2022 07:52-0500 Body height 165.[address] ABDON ARROYO MD [facility] 08-19-2022 07:52-0500 Body temperature 97.88 [degF] DR ABDON ARROYO MD [facility] 08-19-2022 07:52-0500 Body weight 73.[address] ABDON ARROYO MD [facility] 08-19-2022 07:52-0500 Heart rate 56 /min DR ABDON ARROYO MD [facility] 08-05-2022 13:53-[address] Cuff Size [address] ABDON ARROYO MD [facility] 08-05-2022 13:53-[address] ABDON ARROYO MD [facility] 08-05-2022 13:53-[address] ABDON Anaya [facility] 08-05-2022 13:53-0500 Body height 165.[address] ABDON ARROYO MD [facility] 08-05-2022 13:53-0500 Body weight 73.[address] ABDON ARROYO MD [facility] 08-05-2022 13:53-0500 Body weight 26.96 kg/m2 DR ABDON ARROYO MD [facility] 08-05-2022 13:53-0500 Diastolic Blood Pressure Non-Invasive [address] ABDON ARROYO MD [facility] 08-05-2022 13:53-0500 Heart rate 45 /min DR ABDON ARROYO MD [facility] 08-05-2022 13:53-0500 Systolic Blood Pressure Non-Invasive [address] ABDON ARROYO MD [facility] Encounters Encounter Date Encounter Type Care Provider Facility Start: 07-29-2023 End: 07-30-2023 ambulatory JEREMIAH STEELE DO Facility:B Start: 07-29-2023 End: 07-29-2023 Patient encounter procedure JEREMIAH STEELE DO [facility] Start: 07-29-2023 End: 08-03-2023 ambulatory JEREMIAH STEELE DO Facility:[facility] Start: 07-29-2023 End: 08-02-2023 Outreach Lab JEREMIAH STEELE DO [facility] Start: 07-28-2023 ambulatory JEREMIAH STEELE DO Faci lity:B Start: 07-28-2023 End: 08-01-2023 Outreach Lab DELANEY KRAUSE MD [facility] Start: 04-08-2023 ambulatory JEREMIAH STEELE DO Faci lity:B Start: 02-23-2023 End: 02-24-2023 ambulatory JEREMIAH STEELE DO Facility:[facility] Start: 02-23-2023 End: 02-23-2023 Patient encounter procedure JEREMIAH STEELE DO [facility] Start: 02-23-2023 End: 02-23-2023 Preprocedural examination done JEREMIAH STEELE DO [facility] Start: 01-28-2023 Refill Alvarado mercado DO Work Phone: [facility] Cardiology Procedures Date Procedure Procedure Detail Performing Clinician Start: 08-19-2022 Insertion of hip prosthesis DR ABODN MIGUEL MD Start: 10-03-2021 History of percutaneous transluminal coronary angioplasty History of PTCA Alvarado Peralta DO Work Phone: Start: 12-23-2019 History of placement of stent for coronary artery disease History of heart artery stent Alvarado Peralta DO Work Phone: Start: 10-29-[address] ABDON ARROYO MD Start: 12-25-1995 History of percutaneous transluminal coronary angioplasty H/O percutaneous transluminal coronary angioplasty Krystle Donato PAINT MAKER.CLUSTER BORE OPERATOR Work Phone: Start: 12-25-1995 Heart structure (body structure) DR ABDON ARROYO MD Plan of Treatment Date Care Activity Detail Author Start: 03-27-2023 Influenza vaccination C [facility] Start: 07-27-2022 ADVANCE DIRECTIVE DISCUSSION ADVANCE DIRECTIVE DISCUSSION [facility] Start: 07-27-2022 DEPRESSION ASSESSMENT DEPRESSION ASS ESSMENT [facility] Start: 03-27-2022 Influenza vaccination C [facility] Start: 07-27-2021 ADVANCE DIRECTIVE DISCUSSION ADVANCE DIRECTIVE DISCUSSION [facility] Start: 05-06-2021 COVID-19 VACCINE (3 - Booster for Moderna series) COVID-19 VACCINE (3 - Booster for Moderna series) [facility] Start: 01-29-2021 COVID-19 VACCINE (3 - Booster for Moderna series) COVID-19 VACCINE (3 - Booster for Moderna series) [facility] Start: 11-08-2008 BONE DENSITY BONE DENSITY [facility] Start: 11-08-2008 PNEUMOVAX AGE 65 AND OVER WITH 5YR LOOKBACK (#1) PNEUMOVAX AGE 65 AND OVER WITH 5YR LOOKBACK (#1) [facility] Start: 11-08-1993 SHINGRIX VACCINE (1 of 2) OSPINA GRIX VACCINE (1 of 2) [facility] Start: 11-08-1988 DIABETES SCREEN DIABETES SCREEN [facility] Start: 11-08-1962 Urine microalbumin profile DTAP,TDAP ,TD (1 - Tdap) [facility] Start: 11-08-1961 ANNUAL PCP TEAM OVERCOILER CECY DISEASE VISIT ANNUAL PCP TEAM CHRONIC DISEASE VISIT [facility] Start: 11-08-1961 BP CONTROLLED (<130/80) BP CONTROLLE D (<130/80) [facility] Start: 11-08-1961 Hepatitis B surface antibody level LDL CHOLESTEROL [facility] Start: 11-08-1961 HEPATITIS C SCREENING [facility]PATITIS [facility] Start: 1955 Adult depression [facility] assessment DEPRESSION SCREENING [facility] Start: 11-08-1949 PNEUMOCOCCAL: 65+ (1 - PCV) PNEUMOCOCCAL: 65+ (1 - PCV) [facility] Immunizations Immunization Date Immunization Notes Care Provider Brendan hernadez 12-04-2020 SARS-CoV-2 (COVID-19 ) mRNA-[address] ABDON ARROYO MD [facility] Payers Date Payer Category Payer Medicare [id number] 2022 Unknown [id number] 2020 Unknown ANTHEM BLUE CROS S AND BLUE SHIELD ANTHEM MEDIBLUE HMO [id number] 2020-Present [phone] [address] [place] [address] HMO [id number] 2020 Unknown ANTHEM BLUE CROS S AND BLUE SHIELD ANTHEM JOSEUE HMO [id number] 2020-Present [phone] [address] [place] [address] HMO [id number] 1943 Unknown [id number] [id number]. 1943 Unknown [id number] 2.16.840.1.144673.3.579.2. 1943 Unknown [id number] 2.16840.1.431385.3.579.2. 1943 Unknown [id number] 2.16.840.1.181724.3.579.2. 1943 Unknown [id number] 2.16.840.1.117890.3.579.2. 1943 Unknown [id number] 2.16.840.1.059033.3.579.2. 1943 Unknown [id number] 2.16840.1.973387.3.579.2. 1943 Unknown [id number] 2.16.840.1.397703.3.579.2. 1943 Unknown [id number] 2.16.840.1.885042.3.579.2. 1943 Unknown [id number] 2.16.840.1.672573.3.579.2. 1943 Unknown [id number] 2.16.840.1.538677.3.579.2. 1943 Unknown [id number] [id number] Social History Date Type Detail Facility Start: 05-03-2019 End: 12-23-2019 Tobacco smoking status NHIS Never smoked tobacco [facility] Start: 12-23-2019 Tobacco use and exposure Smoke less tobacco non-user [facility] Start: 11-12-2021 End: 11-13-2022 Alcohol intake Ex-drinker (finding) [facility] Start: 1945 Sex Assigned At Not on file C [facility] Sex Assigned At Female [facility] Functional Status Date Assessment Result Facility 08-21-2022 Functional Status [facility] 08-21-2022 Functional Status bilateral knee high [facility] 08-21-2022 Functional Status 3 [facility] 08-21-2022 [facility] Functional Status [facility] 08-20-2022 [facility] Status [facility] 08-20-2022 Functional Status Lunch Percent 75 [facility] 08-20-2022 Functional Status [facility] 08-20-2022 Functional Status [facility] 08-20-2022 Functional Status [facility] 08-20-2022 [facility] 08-19-2022 Functional Status 1st floor bedr oom, 1st floor bathroom [facility] 08-19-2022 Functional Status Sensory Deficits None [facility] 08-19-2022 Functional Status ice on, tension pillow in place [facility] 08-19-2022 Functional Status Maintained [facility] 08-05-2022 Functional Status Sensory Deficits None [facility] Mental Status Date Assessment Result Facility 08-21-2022 Mental Status Not oriented to time, Not oriented to situation [facility] 08-20-2022 Mental Status [facility] 08-20-2022 Mental Status [facility] Clinical Notes 11-18-2021 to 08-01-2023 [...] Locations *1: This test was performed at: [facility], [address] [place] [address], [address] , [facility] ([place]) 01-28-2023 Miscellaneous Notes Pharmacy faxes requesting refill: Requested Prescriptions Refused Prescriptions Disp Refills ranolazine ER (RANEXA) 500 mg 12 hr tablet [Pharmacy Med Name: RANOLAZINE ER 500 MG TABLET] 60 tablet 0 Sig: TAKE 1 TABLET BY MOUTH TWICE A DAY Date of last visit:10/11/21 NO SHOW FOR 12/2022 APPT HAS NOT RESCHEDULED Phone #: [phone] (home) [phone] (cell) The patients preferred pharmacy has been captured for this encounter? yes documented in this encounter [facility] 01-01-2023 Miscellaneous Notes Pharmacy faxes requesting refill: Requested Prescriptions Pending Prescriptions Disp Refills ranolazine ER (RANEXA) 500 mg 12 hr tablet [Pharmacy Med Name: RANOLAZINE ER 500 MG TABLET] 60 tablet 0 Sig: TAKE 1 TABLET BY MOUTH TWICE A DAY Date of last visit:10/11/2021 Patient has appointment 01/14/2023 and is now being seen in [place]. Phone #: [phone] (home) [phone] (cell) The patients preferred pharmacy has been captured for this encounter? yes documented in this encounter [facility] 09-15-2022 Miscellaneous Notes Patient calls requesting refill: Requested Prescriptions Pending Prescriptions Disp Refills ranolazine ER (RANEXA) 500 mg 12 hr tablet 180 tablet 0 Sig: Take 1 tablet by mouth twice daily. Date of last visit:10/11/2021 Phone #: [phone] (home) [phone] (cell) The patients preferred pharmacy has been captured for this encounter? yes documented in this encounter [facility] 08-21-2022 Hospital Discharge instructions Patient Education 08/21/2022 14:31:09 5 - [facility] Post-op Instruction 02/2017 (01657) [facility] Post-operative Instructions PLEASE FOLLOW [facility] POST-OP INSTRUCTIONS GIVEN WATCH FOR SIGNS OF INFECTION: call the office ([phone]) if experencing any of the following: (Usually [...] on your follow up instructions. Form: 338A (22739) R: 11/3008/19/2022 12:42:01 Total Hip Replacement, Anterior, Care After, Hdgl-mf-Band Total Hip Replacement, Anterior, Care After This sheet gives you information about how to care for yourself after your procedure. Your doctor may also give you more specific instructions. If you have problems or questions, contact your doctor. What can I expect after the procedure? After the procedure, it is common to have: Pain. Stiffness. Discomfort. Follow these instructions at home: Medicines Take qxiu-dtc-qbxvmuw and prescription medicines only as told by [...] use soap and water, use alcohol-based hand fence builder. ?Change your bandage as told by your [...] include fried or sweet foods. ?Take an nwzy-awn-cvkmsya or prescription medicine for constipation. Do not [...] 10/27/2018 Document Revised: 11/21/2019 Document Reviewed: 10/27/2018 [employer] Patient Education 2020 reMail. Follow Up Care 06/17/2022 14:40:44 With:DAVID SHABAZZ PA-C, Orthopedic Address: [facility] [address] [place] [phone]- When:09/01/2022 09:45:00 Comments:This is your post-op appointment. Follow-up as scheduled. With:BAKARI RODRIGUEZ DO Address: [address] [facility] [place] [address] [phone] When:09/02/2022 11:00:00 Comments:This is your post-hospital follow-up to get your blood work results. Have your lab work done prior to this appointment. It is with Dr. Michelle Paul's nurse practitioner. [facility] 08-21-2022 Note Discharge Instructions Thank you for [...] Follow-Up 09/02/2022 11:00 AM EST SANJAY BERRY APRN-CLUSTER BORE OPERATOR [address] [address] OV 11/11/2022 08:30 AM EDT BAKARI RODRIGUEZ DO [address] [address] Follow Up Appointments Follow Up with BAKARI RODRIGUEZ DO When 09/02/2022 11:00 AM EST Why: This is your post-hospital follow-up to get your blood work results. Have your lab work done prior to this appointment. It is with Dr. Michelle Paul's nurse practitioner. Where: [address] [place] [phone] Follow Up with DAVID SHABAZZ PA-C, Orthopedic When 09/01/2022 09:45 AM EST Why: This is your post-op appointment. Follow-up as scheduled. Where: [facility] [address] [place] [address]- The Following Activity and Diet Have Been [...] bowel movement, then as needed Pickup at [facility] #[id number] New traMADol (traMADol 50 mg oral tablet) 1 tab(s) by mouth Every 6 hours as needed for Pain, scale 7-10 Status post total hip replacement, right Duration: 7 Days Pickup at [facility] #[id number] Changed acetaminophen (acetaminophen 500 mg oral tablet) 2 tab(s) by mouth Three (3) times a day as needed for as needed for pain not to exceed 3000 mg/ day Pickup at [facility] #[id number] Changed aspirin 81 Milligram by mouth [...] by mouth Once a day Pharmacy Information [facility] #[id number]: [address], [place] [id number] [phone] Please take this list to your next [...] FOR SIGNS OF INFECTION: call the office ([phone]) if experencing any of the following: (Usually [...] on your follow up instructions. Form: 338A (96229) R: 11/30 Total Hip Replacement, Anterior, Care [...] Follow these instructions at home: Medicines Take hfrj-oet-ljguyqk and prescription medicines only as told by [...] use soap and water, use alcohol-based hand fence builder. ? Change your bandage as told by [...] fried or sweet foods. ? Take an wogs-pbm-jjbjfip or prescription medicine for constipation. Do not [...] Document Reviewed: 10/27/2018 Elsevier Patient Education 2019 [employer] Additional Information VACCINATE! IT SAVES LIVES! Members of the community who have not yet received the COVID-19 vaccine and would like to receive it can visit one of [facility] vaccine clinics. There are many vaccine clinic locations within the [facility]. For locations and available times, please visit [email or web address] It is important to note that some COVID mobile vaccine clinics are held outdoors and may be canceled in rainy or stormy conditions. To learn more about pediatric vaccinations (ages 5-11), we invite you to visit the [employer] [facility] webpage. [email or web address]/pages/[email or web address]-Gowuu-Rlwzkjnoczb-Frequently-Asked -Questions.html To learn more about the COVID-19 vaccine, we invite you to visit the [facility] website for a list of frequently asked questions. [email or web address] [email or web address]/[email or web address]-Nzmycnmtvq_Vx ked-Questions.pdf [facility] [employer] Patient Portal Access Instructions: Stay connected with your healthcare team and access your personal medical information anytime with the [employer] Patient Portal.If you would like a full copy of your medical records, please contact the [facility] Medical Records Department, Thursday through Thursday between 8a.m. and 4:30p.m. Please follow the directions below to access the portal: 1.Access the email account you provided upon registration to the [facility].2.Look for an invitation email from [facility].3.Open the email and access the invitation link: Accept Invitation to [employer]4.Fill in the required bright to create your account. Sign into www.[employer] with your username and password that you [...] you will allow to register on the [employer] Patient Portal for access to your information. You can also access the [employer] Patient Portal on the [employer]. Simply click on Health Records under Health Data and then click on the [employer] logo. HOW TO SAFELY DISPOSE OF PRESCRIPTION [...] Call your local pharmacy or go to [email or web address] to find one close to you.3.Make use of household items: Use cat litter or old coffee grounds to dispose medications if other options are not available. Mix your drugs with these household products, seal them in an airtight container and throw it into the garbage. Call [facility]: [phone] to be sure your drugs can be [...] [facility] Post-op Instruction 02/2017 (58434) Total Hip Replacement, Anterior, Care After, Sluf-rz-Copf Medication Leaflets My discharge plan and instructions have been reviewed and explained to me and I,DANIE RAMIREZ M understand my current condition and have read and understand these discharge instructions. I have received a written copy of the plan/instructions. If I have questions, I am aware that I should contact my doctor. Patient/Games Dealer Signature: _ Date/Time: Relationship to Patient: Witness Name/Signature: Date/Time: [facility] 08-21-2022 Note Date of Service 08/21/2022 Chief Complaint Osteoarthritis s/p Right Total Hip Replacement Subjective Patient is a 76 year old female seen at [facility] in consult for medical management. Patient with [...] IV Push, q6h fluticasone nasal 0.05 mg/inh [place] 50 mcg 1 spray(s), Nostril, each, qDay [...] by MENDEZ REYNOLDS on 08/21/2022 09:20 AM [facility] 08-21-2022 Nurse Progress note per Madelaine Vaughn NP ok to give this patient Toradol as ordered in SEP for pain due to Tramadol being ineffective. Digitally Signed by Ward Fernandes LPN on 08/21/2022 12:16 AM [facility] 08-20-2022 Note Date of Service August 20, [...] IV Push, q6h fluticasone nasal 0.05 mg/inh [place] 50 mcg 1 spray(s), Nostril, each, qDay [...] Arroyo. I also discussed case with the social work supervisor and physical therapist. We would like to [...] therapy today for appropriate discharge planning. Possible long-term facility versus home health. I have reviewed [...] DAVID SHABAZZ PA-C on 08/20/2022 08:14 AM [facility] 08-19-2022 Note ORIGINAL EXAMINATION: ONE XRAY VIEW [...] 08/19/2022 12:41:03 PM Ordering Provider: ABDON ARROYO [facility] 08-19-2022 Note ORIGINAL EXAMINATION: ONE XRAY VIEW [...] 08/19/2022 12:41:03 PM Ordering Provider: ABDON ARROYO [facility] 08-19-2022 Note ORIGINAL Images acquired, not reported on this accession number. [facility] 08-19-2022 Note ORIGINAL Images acquired, not reported on this accession number. [facility] 08-19-2022 Anesthesiology Consult note Patient: DANIE RAMIREZ [...] list: Medical Allergic rhinitis / SNOMED CT 833309900 / Confirmed Allergy to statin medication / SNOMED CT 5788431294 / Confirmed Anemia of chronic disease / SNOMED CT 705830951 / Confirmed Aortic stenosis / SNOMED CT 595747594 / Confirmed Arthritis / SNOMED CT 2386642 / Confirmed Breast lump or mass / SNOMED CT 403326008 / Confirmed Cataract / SNOMED CT 344491443 / Confirmed Somatic dysfunction of cervical region / SNOMED CT 0288836405 / Confirmed CKD (chronic kidney disease) stage 3, GFR 30-59 ml/min / SNOMED CT 7055788023 / Confirmed Constipation / SNOMED CT 78456390 / Confirmed Dark stools / SNOMED CT 53538988 / Confirmed Depression / SNOMED CT 76880385 / Confirmed Sleep-wake cycle disorder / SNOMED CT 340218733 / Confirmed Dysuria / SNOMED CT 70781692 / Confirmed Fall at home / SNOMED CT 13815983 / Confirmed GERD (gastroesophageal reflux disease) / SNOMED CT 298449745 / Confirmed Hiatal hernia / SNOMED CT 773748756 / Confirmed Voice hoarseness / SNOMED CT 973540833 / Confirmed Hypercalcemia / SNOMED CT 566242409 / Confirmed Elevated fasting glucose / SNOMED CT 554257803 / Confirmed HLD (hyperlipidemia) / SNOMED CT 74276944 / Confirmed HTN (hypertension) / SNOMED CT 2543528993 / Confirmed Hypothyroidism / SNOMED CT 92612240 / Confirmed Immunization due / SNOMED CT 999321383 / Confirmed Cognitive impairment / SNOMED CT 9192465833 / Confirmed Urinary frequency / SNOMED CT 354306001 / Confirmed Insomnia / SNOMED CT 328824483 / Confirmed Iron deficiency anemia / SNOMED CT 179154022 / Confirmed Eyebrow laceration / SNOMED CT 5064918375 / Confirmed Enlarged liver / SNOMED CT 536462765 / Confirmed Right leg weakness / SNOMED CT 227153757 / Confirmed Rhinorrhea / SNOMED CT 885860381 / Confirmed Neck pain / SNOMED CT 819715174 / Confirmed Osteoarthritis of right hip / SNOMED CT 6259314271 / Confirmed Osteopenia / SNOMED CT 048688619 / Confirmed Medicare annual wellness visit, subsequent / SNOMED CT 123724811 / Confirmed Screening for cardiovascular condition / SNOMED CT 806898771 / Confirmed Preop examination / SNOMED CT 106910543 / Confirmed Pre-op exam / SNOMED CT 093256491 / Confirmed Pericardial effusion / SNOMED CT 0573677350 / Confirmed Pulmonary hypertension / SNOMED CT 609825126 / Confirmed CAD S/P percutaneous coronary angioplasty / SNOMED CT 3032663319 / Confirmed 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 Right bundle branch block / SNOMED CT 14251559 / Confirmed Screening due / SNOMED CT 162335229 / Confirmed Secondary hyperparathyroidism / SNOMED CT 971383523 / Confirmed Somatic dysfunction of pelvic region / SNOMED CT 9233272012 / Confirmed Somatic dysfunction of rib region / SNOMED CT 2643008304 / Confirmed Somatic dysfunction of thoracic region / SNOMED CT 7997410534 / Confirmed Systolic murmur / SNOMED CT 57843220 / Confirmed Tricuspid regurgitation / SNOMED CT 286338790 / Confirmed Vitamin D deficiency / SNOMED CT 44300253 / Confirmed Vitiligo / SNOMED CT 27325633 / Confirmed, Active Problems (54) Allergic rhinitis [...] Brother Alzheimer's disease Mother Procedure history: Echocardiogram ([id number]) on 10/29/2017 at 71 Years. Heart ([id number]) on 12/25/1995 at 50 Years. Comments: 05/03/2019 11:14 EDT - Prabha Bonner LPN stent Hysterectomy ([id number]). Cholecystectomy (41256585). Creation of pericardial window (52114640). Cataract (006628884). 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 Social History Social & Psychosocial Habits Alcohol [...] Height 165.1 cm Admission Weight 73.5 kg [place] Body Weight 57.00 kg Admission Body Mass [...] Height 165.1 cm Admission Weight 73.5 kg [place] Body Weight 57.00 kg Admission Body Mass [...] no difficulties Skin Temperature Cool Skin Description [place], Dry Skin Integrity Intact Mucous Membrane Color [place] Skin Moisture General Dry IV Present Present Characteristics of Speech Clear Level of Consciousness Alert Strength All Extremities Moderate Affect/Behavior Appropriate, Calm, Cooperative Orientation Oriented x 4 Allergies Yes Documentation Spec On Yes 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 Assessment and Plan Citizen Of [place] [employer] Anesthesi[employer] (ASA) physical status classification: Class III. Anesthetic Preoperative Plan Anesthetic technique: Spinal. Regional: Spinal. Postoperative pain management: Per surgeon. Risks discussed: nausea, vomiting, headache, hypotension, allergic reaction, serious complications. Informed consent: signed by patient. Digitally Signed by NERIS RUCKER on 08/19/2022 09:19 AM [facility] 08-01-2022 Miscellaneous Notes Per Aim, Approved; Auth # [id number] 08/01/2022-10/29/2022 Oli Estrada Prior authorization request for stress test to be done at [facility] is being submitted for review. Please notify clerical staff when ready. Mike Novak RN documented in this encounter [facility] 07-31-2022 Miscellaneous Notes Addended by: MIKE NOVAK on: 07/31/2022 01:12 PM Modules accepted: Orders Please sign order for stress test. Patient having surgery 08/19/22 Spoke to patient's daughter Janet and let her know it is ok to go to [facility] and we will notify them when it is scheduled Stress at [facility] is ok Appt with me depends upon the results of the stress Patient's daughter Janet called in stated Mom is having hip replacement surgery on 08/19/2022, per the cardiac clearance form it is recommended to have Stress test done. She would like to have it at [facility], she would also like to know if she needs an appointment to see dr. Peralta before surgery. Please call Janet she's going to be handling Mom's appointments. [phone] documented in this encounter [facility] 11-18-2021 Miscellaneous Notes Pt called and notified per carotid ultrasound normal for age. Pt agreeable Patient contacted by phone, no answer message left on voice mail. Call carotdi doppler normal for age Pt echo and carotid have been scanned in for review documented in this encounter [facility] Evaluation + Plan note Future Appointments Appointment Date:11/11/2022 08:30:00 AM Scheduled Provider:BAKARI RODRIGUEZ DO Location:[facility] Appointment Type:PC OV Future Scheduled TestsFerritin 08/14/21Thyroid Stimulating Hormone 08/14/21A1C Hemoglobin 08/14/21Complete Blood Count 08/14/21Complete Blood Count 02/12/22Lipid Profile 08/14/21Lipid Profile 02/12/22Microalbumin Level Urine 08/14/21Vitamin D Level 08/14/21Complete Metabolic Panel 08/14/21Complete Metabolic Panel 02/12/22MA Mammo Screening Bilateral w/ Adam 11/18/21BD Bone Density DEXA Axial Skeleton 11/10/21 [facility] Evaluation + Plan note Future Appointments Appointment Date:08/08/2022 08:15:00 AM Scheduled Provider: Location:[facility] Appointment Type:NM Myocardial Spect Rest/Stress [place] Appointment Date:08/22/2022 10:30:00 AM Scheduled Provider: Location:[facility] Appointment Type:PT Outpatient Evaluation Appointment Date:11/11/2022 08:30:00 AM Scheduled Provider:BAKARI RODRIGUEZ DO Location:[facility] Appointment Type:PC OV Future Scheduled TestsCalcium Level [...] Axial Skeleton 11/10/21NM Myocardial Spect Rest/Stress 08/08/22 [facility] Evaluation + Plan note Future Appointments Appointment Date:08/22/2022 10:30:00 AM Scheduled Provider: Location:[facility] Appointment Type:PT Outpatient Evaluation Appointment Date:11/11/2022 08:30:00 AM Scheduled Provider:BAKARI RODRIGUEZ DO Location:[facility] Appointment Type:[facility] Future Scheduled TestsCalcium Level Ionized 07/04/22Ferritin 08/14/21Ferritin [...] 11/18/21BD Bone Density DEXA Axial Skeleton 11/10/21 [facility] Evaluation + Plan note Future Appointments Appointment Date:09/02/2022 11:00:00 AM Scheduled Provider:SANJAY BERRY Location:[facility] Appointment Type:[facility] Hospital Follow-Up Appointment Date:11/11/2022 08:30:00 AM Scheduled Provider:BAKARI RODRIGUEZ DO Location:[facility] Appointment Type:PC OV Future Scheduled TestsCalcium Level Ionized 07/04/22Ferritin 07/04/22Thyroid Stimulating Hormone 07/04/22Free T4 07/04/22A1C Hemoglobin 07/04/22Complete Blood Count 07/04/22Complete Blood Count 02/12/22Free T3 07/04/22Lipid Profile 02/12/22Iron Studies 07/04/22PTH, Intact 07/04/22Vitamin D Level 07/04/22Complete Metabolic Panel 07/04/22Complete Metabolic Panel 02/12/22MA Mammo Screening Bilateral w/ Adam 11/18/21BD Bone Density DEXA Axial Skeleton 11/10/21 [facility] Evaluation + Plan note Future Appointments Appointment Date:11/11/2022 08:30:00 AM Scheduled Provider:BAKARI RODRIGUEZ DO Location:[facility] Appointment Type: OV Future Scheduled TestsCalcium Level Ionized 07/04/22Ferritin 07/04/22Thyroid Stimulating Hormone 08/27/22Thyroid Stimulating Hormone 07/04/22Free T4 08/27/22Free T4 07/04/22A1C Hemoglobin 07/04/22Complete Blood Count 08/27/22Complete Blood Count 07/04/22Complete Blood Count 02/12/22Free T3 08/27/22Free T3 07/04/22Lipid Profile 02/12/22Iron Studies 07/04/22PTH, Intact 07/04/22Vitamin D Level 07/04/22Complete Metabolic Panel 07/04/22Complete Metabolic Panel 02/12/22MA Mammo Screening Bilateral w/ Adam 11/18/21BD Bone Density DEXA Axial Skeleton 11/10/21 [facility] Evaluation + Plan note Future Appointments Appointment Date:05/01/2023 10:00:00 AM Scheduled Provider:JEREMIAH STEELE DO Location:[facility] Appointment Type: OV Appointment Date:05/15/2023 01:30:00 PM Scheduled Provider:JEREMIAH STEELE DO Location:[facility] Appointment Type: OV [facility] Evaluation + Plan note Future Appointments Appointment Date:05/01/2023 10:00:00 AM Scheduled Provider:JEREMIAH STEELE DO Location:[facility] Appointment Type: OV Appointment Date:05/15/2023 01:30:00 PM Scheduled Provider:JEREMIAH STEELE DO Location:[facility] Appointment Type:PC OV Future Scheduled TestsCross-Linked N-Telopeptide Urine 02/26/23PTH, Related Peptide 02/26/23Calcium Level Ionized 02/26/23Magnesium Level 02/26/23Phosphorus Level 02/26/23Urinalysis 02/26/23Thyroid Stimulating Hormone 02/24/23Thyroid Stimulating Hormone 02/26/23Thyroxine 02/24/23Free T4 02/26/23Calcium Random Urine 02/26/23Creatinine Random Urine 02/26/23Vitamin D, 1,25-Dihydroxy 02/26/23Free T3 02/26/23Protein Electrophoresis Panel 02/26/23PTH, Intact 02/26/23Total T3 02/24/23Vitamin D Level 02/26/23Complete Metabolic Panel 02/26/23NM Parathyroid Study 02/24/23 [facility] Evaluation + Plan note Future Appointments Appointment Date:08/03/2023 01:00:00 PM Scheduled Provider:JEREMIAH STEELE DO Location:[facility] Appointment Type:PC OV Appointment Date:09/29/2023 02:30:00 PM Scheduled Provider:BOGDAN ZHENG Location:[facility] Appointment Type: OV Future Scheduled TestsCross-Linked [...] 07/25/23Complete Metabolic Panel 02/26/23NM Parathyroid Study 02/24/23 [facility] Evaluation + Plan note Future Appointments Appointment Date:08/06/2023 03:30:00 PM Scheduled Provider:JEREMIAH STEELE DO Location:[facility] Appointment Type:PC OV Appointment Date:09/29/2023 02:30:00 PM Scheduled Provider:BOGDAN ZHENG Location[facility] Appointment Type:CV OV Future Scheduled TestsCross-Linked [...] 07/25/23Complete Metabolic Panel 02/26/23NM Parathyroid Study 02/24/23 [facility] Stable angina (HCC) Other and unspecified angina pectoris Chest pain in adult [facility] Diagnosis Stable angina (HCC) Other and unspecified angina pectoris Chest pain in adult [facility] Narrative No data available for this section [facility] Hospital Discharge instructions No data available for this section [facility] Progress note No data available for this section [facility] Summary Purpose Family History No Family History [...] or prosecute any alcohol or drug abuse patient.[facility] the event this information is protected by the Federal Confidentiality of Alcohol and Drug Abuse Patient Records regulations: The Federal rules restrict any use of the information to criminally investigate or prosecute any alcohol or drug abuse patient.[facility] Center[facility] the event this information is protected by the Federal Confidentiality of Alcohol and Drug Abuse Patient Records regulations: The Federal rules restrict any use of the information to criminally investigate or prosecute any alcohol or drug abuse patient.[facility] Center[facility] the event this information is protected by the Federal Confidentiality of Alcohol and Drug Abuse Patient Records regulations: The Federal rules restrict any use of the information to criminally investigate or prosecute any alcohol or drug abuse patient.[facility] Center[facility] the event this information is protected by the Federal Confidentiality of Alcohol and Drug Abuse Patient Records regulations: The Federal rules restrict any use of the information to criminally investigate or prosecute any alcohol or drug abuse patient.[facility] Center[facility] the event this information is protected by the Federal Confidentiality of Alcohol and Drug Abuse Patient Records regulations: The Federal rules restrict any use of the information to criminally investigate or prosecute any alcohol or drug abuse patient.[facility] Reason for Visit (unrecogniz ed section and content) Reason Comments Patient Question Reason Comments PA for stress test Reason Onset Date Comments Refill Request 09/15/2022 Reason Comments Refill Request Care Teams (unrecognized sec tion and content) Home Care Consultant Relationship Specialty Start Date End Date Bakari Rodriguez IV, MD [address] [place] [id number] PCP - General Family Medicine 12/23/19 Home Care Consultant Relationship Specialty Start Date End Date Bakari Rodriguez IV, MD [address] [place] [id number] PCP - General Family Medicine 12/23/19 Home Care Consultant Relationship Specialty Start Date End Date Bakari Rodriguez IV, DO [address] [place] [phone] PCP - General Family Medicine 12/23/19 Home Care Consultant Relationship Specialty Start Date End Date Bakari Rodriguez IV, DO [address] [place] [address] [phone] PCP - General Family Medicine 12/23/19 Care Team (unrecognized sect ion and content) Care Team Personnel Name: Herson Wallace PT Position: P3 Scheduling - Quality Control Tech Advanced Member Role: Other Name: BAKARI RODRIGUEZ DO Position: P4 Physician - Primary Care Member Role: Primary Care Physician Address: Address: [address] [place] [phone]- Care Team Related Persons Name: JANET RAMIREZ Address: Home [address] [place] [phone] [place] Name: JANET RAMIREZ Address: Home [address] [place] [phone] [place] Address: Temporary [address] [place] [phone] Care Team Personnel Name: Herson Wallace PT Position: P3 Scheduling - Quality Control Tech Advanced Member Role: Other Name: BAKARI RODRIGUEZ DO Position: P4 Physician - Primary Care Member Role: Primary Care Physician Address: Address: [address] [place] [id number] Care Team Related Persons Name: JANET RAMIREZ Address: Home [address] [place] [phone] [place] Name: JANET RAMIREZ Address: Home [address] [place] [phone] [place] Address: Temporary [address] [place], [place] [phone] Care Team Personnel Name: Herson Wallacerk Sanjana PT Position: P3 Scheduling - Quality Control Tech Advanced Member Role: Other Name: BAKARI RODRIGUEZ DO Position: P4 Physician - Primary Care Member Role: Primary Care Physician Address: Address: [address] [place] [phone]- Care Team Related Persons Name: JANET RAMIREZ Address: Home [address] [place], [place] [phone] [place] Name: JANET RAMIREZ Address: Home [address] [place], [place] [phone] [place] Address: Temporary [address] [place], [place] [phone] Care Team Personnel Name: Herson Wallace Clerk Sanjana PT Position: P3 Scheduling - Quality Control Tech Advanced Member Role: Other Name: BAKARI RODRIGUEZ DO Position: P4 Physician - Primary Care Member Role: Primary Care Physician Address: Address: [address] [place] [phone]- Care Team Related Persons Name: JANET RAMIREZ Address: Home [address] [place], [place] [phone] [place] Name: JANET RAMIREZ Address: Home [address] [facility], [phone] Name: JANET RAMIREZ Address: Home [address] [place], [place] [id number] [place] Address: Temporary [address] [place], [place] [phone] Care Team Personnel Name: Herson Wallacerjosefa Allan PT Position: P3 Scheduling - Quality Control Tech Advanced Member Role: Other Name: BAKARI RODRIGUEZ DO Position: P4 Physician - Primary Care Member Role: Primary Care Physician Address: Address: [address] [place] [phone]- Care Team Related Persons Name: JANET RAMIREZ Address: Home [address] [facility], [phone] Name: JANET RAMIREZ Address: Home [address] [place], [place] [phone] [place] Name: JANET RAMIREZ Address: Home [address] [place], [place] [phone] [place] Address: [place] [address] [address] [place], [place] [phone] INFORMATION SOURCE (unrecogn ized section and content) DATE CREATED AUTHOR AUTHOR'S DANITA FERNANDEZ 08/03/2023 [facility] [place] ([place]) FOR RECORDS PERTAINING TO PATIENTS WHO ARE [...] BE BASED ON THE PRIMARY CLINICAL RECORDS. [email or web address] provides no warranty or guarantee of the accuracy or completeness of information in this document.
--- OUTSIDE RECORDS SUMMARY | 2023-08-03 20:32 | XMS RPT_ITS | CCD ---
Author Name Unknown Address [address] [place] [address] Organization [facility] Care Team Providers Care 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 Name Role Phone Michelle SHINE MD, Bakari [...] Allergy 12-02-2019 Unknown, Eruption of skin (disorder) [facility] Medications Current Medications Medication Drug [...] period., # 100 tab(s), 0 Refill(s), Pharmacy: [facility]/pharmacy #[id number], Right hip pain, 165.1, cm, 08/19/22 [...] # 90 tab(s), 0 Refill(s), TRI, Pharmacy: [facility]/pharmacy #[id number], 165, cm, 02/23/23 12:59:00 EDT, Height, kg, 02/23/23 12:59:00 EDT, Dosing Weight Start Date: 02/23/23 Stop Date: 05/24/23 Status: Ordered Problems Active Problems Problem Classification Problem Date Documented Date Episodic/Chronic Abdominal hernia (10 sources) Hiatal hernia 05-03-2019 Episodic Adjustment disorders (6 sources) Grief finding; Translations: [Adjustment disorder with depressed mood] Onset: 0 12-23-2019 Chronic Allergic reactions (10 sources) Allergy to 7-lcwbyps-7-methylglutar yl-coenzyme A reductase inhibitor 03-16-2020 Episodic Cataract [...] Taking VItal Signs DR ABDON ARROYO MD [facility] 08-21-2022 10:38-[address] ABDON ARROYO MD [facility] 08-21-2022 10:38-[address] ABDON Anaya [facility] 08-21-2022 10:38-0500 Body temperature 97.52 [degF] DR ABDON ARROYO MD [facility] 08-21-2022 10:38-0500 Diastolic Blood Pressure Non-Invasive [address] ABDON ARROYO MD [facility] 08-21-2022 10:38-0500 Heart rate 53 /min DR ABDON ARROYO MD [facility] 08-21-2022 10:38-0500 Reason For Taking VItal Signs DR ABDON ARROYO MD [facility] 08-21-2022 10:38-0500 Respiratory rate 18 /min DR ABDON ARROYO MD [facility] 08-21-2022 10:38-0500 Systolic Blood Pressure Non-Invasive [address] ABDON ARROYO MD [facility] 08-21-2022 09:34-0500 Reason For Taking VItal Signs DR ABDON ARROYO MD [facility] 08-21-2022 06:50-[address] ABDON ARROYO MD [facility] 08-21-2022 06:50-[address] ABDON Anaya [facility] 08-21-2022 06:50-0500 Body temperature 98.06 [degF] DR ABDON ARROYO MD [facility] 08-21-2022 06:50-0500 Diastolic Blood Pressure Non-Invasive [address] ABDON ARROYO MD [facility] 08-21-2022 06:50-0500 Heart rate 56 /min DR ABDON ARROYO MD [facility] 08-21-2022 06:50-0500 Respiratory rate 18 /min DR ABDON ARROYO MD [facility] 08-21-2022 06:50-0500 Systolic Blood Pressure Non-Invasive [address] ABDON ARROYO MD [facility] 08-21-2022 03:47-0500 Body temperature 98.06 [degF] DR ABDON ARROYO MD [facility] 08-21-2022 03:47-0500 Diastolic Blood Pressure Non-Invasive [address] ABDON ARROYO MD [facility] 08-21-2022 03:47-0500 Heart rate 67 /min DR ABDON ARROYO MD [facility] 08-21-2022 03:47-0500 Respiratory rate 16 /min DR ABDON ARROYO MD [facility] 08-21-2022 03:47-0500 Systolic Blood Pressure Non-Invasive [address] ABDON ARROYO MD [facility] 08-20-2022 23:50-0500 Heart rate 54 /min DR ABDON ARROYO MD [facility] 08-19-2022 15:04-[address] ABDON ARROYO MD [facility] 08-19-2022 15:04-[address] ABDON Anaya [facility] 08-19-2022 13:11-0500 Body height 165.[address] ABDON ARROYO MD [facility] 08-19-2022 13:11-0500 Body weight 73.[address] ABDON ARROYO MD [facility] 08-19-2022 13:11-0500 Body weight 26.96 kg/m2 DR ABDON ARROYO MD [facility] 08-19-2022 13:04-0500 Body temperature 96.98 [degF] DR ABDON ARROYO MD [facility] 08-19-2022 11:50-0500 Body temperature 95.36 [degF] DR ABDON ARROYO MD [facility] 08-19-2022 11:45-0500 Respiratory Rate - Anes 11 br/min DR ABDON ARROYO MD [facility] 08-19-2022 11:40-0500 Respiratory Rate - Anes 12 br/min DR ABDON ARROYO MD [facility] 08-19-2022 11:35-0500 Respiratory Rate - Anes 12 br/min DR ABDON ARROYO MD [facility] 08-19-2022 07:52-0500 Body height 165.[address] ABDON ARROYO MD [facility] 08-19-2022 07:52-0500 Body temperature 97.88 [degF] DR ABDON ARROYO MD [facility] 08-19-2022 07:52-0500 Body weight 73.[address] ABDON ARROYO MD [facility] 08-19-2022 07:52-0500 Heart rate 56 /min DR ABDON ARROYO MD [facility] 08-05-2022 13:53-[address] Cuff Size DR ABDON ARROYO MD [facility] 08-05-2022 13:53-[address] ABDON ARROYO MD [facility] 08-05-2022 13:53-[address] ABDON Anaya [facility] 08-05-2022 13:53-0500 Body height 165.[address] ABDON ARROYO MD [facility] 08-05-2022 13:53-0500 Body weight 73.[address] ABDON ARROYO MD [facility] 08-05-2022 13:53-0500 Body weight 26.96 kg/m2 DR ABDON ARROYO MD [facility] 08-05-2022 13:53-0500 Diastolic Blood Pressure Non-Invasive [address] ABDON ARROYO MD [facility] 08-05-2022 13:53-0500 Heart rate 45 /min DR ABDON ARROYO MD [facility] 08-05-2022 13:53-0500 Systolic Blood Pressure Non-Invasive [address] ABDON ARROYO MD [facility] Encounters Encounter Date Encounter Type Care Provider Facility Start: 07-29-2023 End: 07-30-2023 ambulatory JEREMIAH STEELE DO Facility:B Start: 07-29-2023 End: 07-29-2023 Patient encounter procedure JEREMIAH STEELE DO [facility] Start: 07-29-2023 End: 08-03-2023 ambulatory JEREMIAH STEELE DO Facility:[facility] Start: 07-29-2023 End: 08-02-2023 Outreach Lab JEREMIAH STEELE DO [facility] Start: 07-28-2023 ambulatory JEREMIAH STEELE DO Faci lity:B Start: 07-28-2023 End: 08-01-2023 Outreach Lab DELANEY KRAUSE MD [facility] Start: 04-08-2023 ambulatory JEREMIAH STEELE DO Faci lity:B Start: 02-23-2023 End: 02-24-2023 ambulatory JEREMIAH STEELE DO Facility:[facility] Start: 02-23-2023 End: 02-23-2023 Patient encounter procedure JEREMIAH STEELE DO [facility] Start: 02-23-2023 End: 02-23-2023 Preprocedural examination done JEREMIAH STEELE DO [facility] Start: 01-28-2023 Refill Alvarado mercado DO Work Phone: [facility] Procedures Date Procedure Procedure Detail Performing [...] H/O percutaneous transluminal coronary angioplasty Krystle Donato ENOLOGIST.ENROLLMENT MANAGER Work Phone: Start: 12-25-1995 Heart structure (body structure) DR ABDON ARROYO MD Plan of Treatment Date Care Activity Detail Author Start: 03-27-2023 Influenza vaccination C [facility] Start: 07-27-2022 ADVANCE DIRECTIVE DISCUSSION ADVANCE DIRECTIVE DISCUSSION [facility] Start: 07-27-2022 DEPRESSION ASSESSMENT DEPRESSION ASS ESSMENT [facility] Start: 03-27-2022 Influenza vaccination C [facility] Start: 07-27-2021 ADVANCE DIRECTIVE DISCUSSION ADVANCE DIRECTIVE DISCUSSION [facility] Start: 05-06-2021 COVID-19 VACCINE (3 - Booster for Moderna series) COVID-19 VACCINE (3 - Booster for Moderna series) [facility] Start: 01-29-2021 COVID-19 VACCINE (3 - Booster for Moderna series) COVID-19 VACCINE (3 - Booster for Moderna series) [facility] Start: 11-08-2008 BONE DENSITY BONE DENSITY [facility] Start: 11-08-2008 PNEUMOVAX AGE 65 AND OVER WITH 5YR LOOKBACK (#1) PNEUMOVAX AGE 65 AND OVER WITH 5YR LOOKBACK (#1) [facility] Start: 11-08-1993 SHINGRIX VACCINE (1 of 2) OSPINA GRIX VACCINE (1 of 2) [facility] Start: 11-08-1988 DIABETES SCREEN DIABETES SCREEN [facility] Start: 11-08-1962 Urine microalbumin profile DTAP,TDAP ,TD (1 - Tdap) [facility] Start: 11-08-1961 ANNUAL PCP TEAM ELECTRICAL AND RADIO AIRCRAFT MECHANIC CECY DISEASE VISIT ANNUAL PCP TEAM CHRONIC DISEASE VISIT [facility] Start: 11-08-1961 BP CONTROLLED (<130/80) BP CONTROLLE D (<130/80) [facility] Start: 11-08-1961 Hepatitis B surface antibody level LDL CHOLESTEROL [facility] Start: 11-08-1961 HEPATITIS [facility] Start: 1955 Adult depression scr [facility] assessment DEPRESSION SCREENING [facility] Start: 11-08-1949 PNEUMOCOCCAL: 65+ (1 - PCV) PNEUMOCOCCAL: 65+ (1 - PCV) [facility] Immunizations Immunization Date Immunization Notes Care Provider Brendan hernadez 12-04-2020 SARS-CoV-2 (COVID-19 ) mRNA-[address] ABDON ARROYO MD [facility] Payers Date Payer Category Payer Medicare [id number] 2022 Unknown [id number] 2020 Unknown ANTHEM BLUE CROS S AND BLUE SHIELD ANTHEM MEDIBLUE HMO [id number] 2020-Present [phone] [address] [place] [address] HMO [id number] 2020 Unknown ANTHEM BLUE CROS S AND BLUE SHIELD ANTHEM JOSEUE HMO [id number] 2020-Present [phone] [address] [place] [address] HMO [id number] 1943 Unknown [id number] [id number]. 1943 Unknown [id number] 2.16.840.1.076630.3.579.2. 1943 Unknown [id number] 2.16840.1.554980.3.579.2. 1943 Unknown [id number] 2.16.840.1.510322.3.579.2. 1943 Unknown [id number] 2.16.840.1.121751.3.579.2. 1943 Unknown [id number] 2.16.840.1.962079.3.579.2. 1943 Unknown [id number] 2.16840.1.828953.3.579.2. 1943 Unknown [id number] 2.16.840.1.517879.3.579.2. 1943 Unknown [id number] 2.16.840.1.421200.3.579.2. 1943 Unknown [id number] 2.16.840.1.141070.3.579.2. 1943 Unknown [id number] 2.16.840.1.050642.3.579.2. 1943 Unknown [id number] [id number] Social History Date Type Detail Facility Start: 05-03-2019 End: 12-23-2019 Tobacco smoking status NHIS Never smoked tobacco [facility] Start: 12-23-2019 Tobacco use and exposure Smoke less tobacco non-user [facility] Start: 11-12-2021 End: 11-13-2022 Alcohol intake Ex-drinker (finding) [facility] Start: 1945 Sex Assigned At Not on file [facility] Sex Assigned At Female [facility] Functional Status Date Assessment Result Facility 08-21-2022 Functional Status [facility] 08-21-2022 Functional Status bilateral knee high [facility] 08-21-2022 Functional Status 3 Teena [facility] 08-21-2022 [facility] Functional Status Teena [facility] 08-20-2022 [facility] Functional Status Lunch Percent [facility] 08-20-2022 Functional Status Teena [facility] 08-20-2022 Functional Status Teena [facility] 08-20-2022 Functional Status Teena [facility] 08-20-2022 [facility] Functional Status 1st floor bedr oom, 1st floor bathroom [facility] 08-19-2022 Functional Status Sensory Deficits None [facility] 08-19-2022 Functional Status ice on, tension pillow in place [facility] 08-19-2022 [facility] Functional Status Sensory Deficits None [facility] Mental Status Date Assessment Result Facility 08-21-2022 Mental Status Not oriented to time, Not oriented to situation [facility] 08-20-2022 Mental Status [facility] 08-20-2022 Mental Status [facility] Clinical Notes 11-18-2021 to 08-01-2023 Telephone Encounter [...] Locations *1: This test was performed at: [facility], [address] [place] [address], [address] , [facility] ([place]) 01-28-2023 Miscellaneous Notes Pharmacy faxes requesting refill: Requested Prescriptions Refused Prescriptions Disp Refills ranolazine ER (RANEXA) 500 mg 12 hr tablet [Pharmacy Med Name: RANOLAZINE ER 500 MG TABLET] 60 tablet 0 Sig: TAKE 1 TABLET BY MOUTH TWICE A DAY Date of last visit:10/11/21 NO SHOW FOR 12/2022 APPT HAS NOT RESCHEDULED Phone #: [phone] (home) [phone] (cell) The patients preferred pharmacy has been captured for this encounter? yes documented in this encounter [facility] 01-01-2023 Miscellaneous Notes Pharmacy faxes requesting refill: Requested Prescriptions Pending Prescriptions Disp Refills ranolazine ER (RANEXA) 500 mg 12 hr tablet [Pharmacy Med Name: RANOLAZINE ER 500 MG TABLET] 60 tablet 0 Sig: TAKE 1 TABLET BY MOUTH TWICE A DAY Date of last visit:10/11/2021 Patient has appointment 01/14/2023 and is now being seen in [place]. Phone #: [phone] (home) [phone] (cell) The patients preferred pharmacy has been captured for this encounter? yes documented in this encounter [facility] 09-15-2022 Miscellaneous Notes Patient calls requesting refill: Requested Prescriptions Pending Prescriptions Disp Refills ranolazine ER (RANEXA) 500 mg 12 hr tablet 180 tablet 0 Sig: Take 1 tablet by mouth twice daily. Date of last visit:10/11/2021 Phone #: [phone] (home) [phone] (cell) The patients preferred pharmacy has been captured for this encounter? yes documented in this encounter [facility] 08-21-2022 Hospital Discharge instructions Patient Education 08/21/2022 14:31:09 5 - [facility] Post-op Instruction 02/2017 (07286) [facility] Post-operative Instructions PLEASE FOLLOW [facility] POST-OP INSTRUCTIONS GIVEN WATCH FOR SIGNS OF INFECTION: call the office ([phone]) if experencing any of the following: (Usually [...] on your follow up instructions. Form: 338A (06772) R: 11/3008/19/2022 12:42:01 Total Hip Replacement, Anterior, Care After, Dmgi-oz-Goqo Total Hip Replacement, Anterior, Care After This sheet gives you information about how to care for yourself after your procedure. Your doctor may also give you more specific instructions. If you have problems or questions, contact your doctor. What can I expect after the procedure? After the procedure, it is common to have: Pain. Stiffness. Discomfort. Follow these instructions at home: Medicines Take hquw-zop-pahihum and prescription medicines only as told by [...] use soap and water, use alcohol-based hand special delivery messenger. ?Change your bandage as told by your [...] include fried or sweet foods. ?Take an jafj-vei-xzllfxn or prescription medicine for constipation. Do not [...] 10/27/2018 Document Revised: 11/21/2019 Document Reviewed: 10/27/2018 [employer] Patient Education 2020 [employer]. Follow Up Care 06/17/2022 14:40:44 With:DAVID SHABAZZ PA-C, Orthopedic Address: [facility] [address] [place] [address]- When:09/01/2022 09:45:00 Comments:This is your post-op appointment. Follow-up as scheduled. With:BAKARI RODRIGUEZ DO Address: [address] [facility] [place] [address]- [phone] When:09/02/2022 11:00:00 Comments:This is your post-hospital follow-up to get your blood work results. Have your lab work done prior to this appointment. It is with Dr. Michelle Paul's nurse practitioner. [facility] 08-21-2022 Note Discharge Instructions Thank you for [...] Follow-Up 09/02/2022 11:00 AM EST SANJAY BERRY APRN-ENROLLMENT MANAGER [address] [address] OV 11/11/2022 08:30 AM EDT BAKARI RODRIGUEZ DO [address] [address] Follow Up Appointments Follow Up with BAKARI RODRIGUEZ DO When 09/02/2022 11:00 AM EST Why: This is your post-hospital follow-up to get your blood work results. Have your lab work done prior to this appointment. It is with Dr. Michelle Paul's nurse practitioner. Where: [address] [place] [phone] [phone] Follow Up with DAVID SHABAZZ PA-C, Orthopedic When 09/01/2022 09:45 AM EST Why: This is your post-op appointment. Follow-up as scheduled. Where: [facility] [address] [place] [phone]- The Following Activity and Diet Have Been [...] bowel movement, then as needed Pickup at [facility]/pharmacy #[id number] New traMADol (traMADol 50 mg oral tablet) 1 tab(s) by mouth Every 6 hours as needed for Pain, scale 7-10 Status post total hip replacement, right Duration: 7 Days Pickup at [facility]/pharmacy #[id number] Changed acetaminophen (acetaminophen 500 mg oral tablet) 2 tab(s) by mouth Three (3) times a day as needed for as needed for pain not to exceed 3000 mg/ day Pickup at [facility]/pharmacy #4605 Changed aspirin 81 Milligram by mouth [...] by mouth Once a day Pharmacy Information [facility]/pharmacy #[id number]: [address], [place] [id number] [phone] Please take this list to your next [...] FOR SIGNS OF INFECTION: call the office ([phone]) if experencing any of the following: (Usually [...] on your follow up instructions. Form: 338A (65103) R: 11/30 Total Hip Replacement, Anterior, Care [...] Follow these instructions at home: Medicines Take clxb-mol-jfeatpk and prescription medicines only as told by [...] use soap and water, use alcohol-based hand special delivery messenger. ? Change your bandage as told by [...] fried or sweet foods. ? Take an jpck-crb-zilzvqa or prescription medicine for constipation. Do not [...] Document Reviewed: 10/27/2018 Elsevier Patient Education 2019 [employer] Additional Information VACCINATE! IT SAVES LIVES! Members of the community who have not yet received the COVID-19 vaccine and would like to receive it can visit one of [facility] vaccine clinics. There are many vaccine clinic locations within the [facility]. For locations and available times, please visit [email or web address] [email or web address] It is important to note that some COVID mobile vaccine clinics are held outdoors and may be canceled in rainy or stormy conditions. To learn more about pediatric vaccinations (ages 5-11), we invite you to visit the [facility] webpage. [email or web address]://[email or web address]/pages/[email or web address]-Hlylg-Nebugaxktxo-Frequently-Asked -Questions.html To learn more about the COVID-19 vaccine, we invite you to visit the [facility] website for a list of frequently asked questions. [email or web address] [email or web address]-[email or web address]_Nk [email or web address]-Questions.pdf [facility] Patient Portal Access Instructions: Stay connected with your healthcare team and access your personal medical information anytime with the [facility] Patient Portal.If you would like a full copy of your medical records, please contact the [facility] Medical Records Department, Thursday through Thursday between 8a.m. and 4:30p.m. Please follow the directions below to access the portal: 1.Access the email account you provided upon registration to the [facility].2.Look for an invitation email from [facility].3.Open the email and access the invitation link: Accept Invitation to [facility]4.Fill in the required bright to create your account. Sign into [email or web address] with your username and password that you [...] you will allow to register on the [facility] Patient Portal for access to your information. You can also access the [facility] Patient Portal on the [employer]. Simply click on Health Records under Health Data and then click on the [employer]Check logo. HOW TO SAFELY DISPOSE OF PRESCRIPTION [...] Call your local pharmacy or go to [email or web address] work.Asia Translate/[email or web address] to find one close to you.3.Make use of household items: Use cat litter or old coffee grounds to dispose medications if other options are not available. Mix your drugs with these household products, seal them in an airtight container and throw it into the garbage. Call [facility]: [phone] to be sure your drugs can be [...] [facility] Post-op Instruction 02/2017 (74484) Total Hip Replacement, Anterior, Care After, Lpxa-up-Vpbk Medication Leaflets My discharge plan and instructions have been reviewed and explained to me and I,DANIE RAMIREZ M understand my current condition and have read and understand these discharge instructions. I have received a written copy of the plan/instructions. If I have questions, I am aware that I should contact my doctor. Patient/Financial Foundations Representative Signature: _ Date/Time: Relationship to Patient: Witness Name/Signature: Date/Time: [facility] 08-21-2022 Note Date of Service 08/21/2022 Chief Complaint Osteoarthritis s/p Right Total Hip Replacement Subjective Patient is a 76 year old female seen at [facility] in consult for medical management. Patient with [...] IV Push, q6h fluticasone nasal 0.05 mg/inh Deshler 50 mcg 1 spray(s), Nostril, each, qDay [...] by MENDEZ REYNOLDS on 08/21/2022 09:20 AM [facility] 08-21-2022 Nurse Progress note per Madelaine Vaughn NP ok to give this patient Toradol as ordered in SEP for pain due to Tramadol being ineffective. Digitally Signed by Ward Fernandes LPN on 08/21/2022 12:16 AM [facility] 08-20-2022 Note Date of Service August 20, [...] IV Push, q6h fluticasone nasal 0.05 mg/inh Deshler 50 mcg 1 spray(s), Nostril, each, qDay [...] Arroyo. I also discussed case with the web content & social media manager and physical therapist. We would like to [...] therapy today for appropriate discharge planning. Possible jail facility versus home health. I have reviewed the [place] Automated Rx Reporting System (OARRS) report for [...] DAVID SHABAZZ PA-C on 08/20/2022 08:14 AM [facility] 08-19-2022 Note ORIGINAL EXAMINATION: ONE XRAY VIEW [...] 08/19/2022 12:41:03 PM Ordering Provider: ABDON ARROYO [facility] 08-19-2022 Note ORIGINAL EXAMINATION: ONE XRAY VIEW [...] 08/19/2022 12:41:03 PM Ordering Provider: ABDON ARROYO [facility] 08-19-2022 Note ORIGINAL Images acquired, not reported on this accession number. [facility] 08-19-2022 Note ORIGINAL Images acquired, not reported on this accession number. [facility] 08-19-2022 Anesthesiology Consult note Patient: DANIE RAMIREZ [...] list: Medical Allergic rhinitis / SNOMED CT 578465199 / Confirmed Allergy to statin medication / SNOMED CT 5285752085 / Confirmed Anemia of chronic disease / SNOMED CT 786970682 / Confirmed Aortic stenosis / SNOMED CT 546000386 / Confirmed Arthritis / SNOMED CT 5097827 / Confirmed Breast lump or mass / SNOMED CT 043175420 / Confirmed Cataract / SNOMED CT 405080735 / Confirmed Somatic dysfunction of cervical region / SNOMED CT 8763827578 / Confirmed CKD (chronic kidney disease) stage 3, GFR 30-59 ml/min / SNOMED CT 9187364033 / Confirmed Constipation / SNOMED CT 67175226 / Confirmed Dark stools / SNOMED CT 05033664 / Confirmed Depression / SNOMED CT 78436423 / Confirmed Sleep-wake cycle disorder / SNOMED CT 665394394 / Confirmed Dysuria / SNOMED CT 41881545 / Confirmed Fall at home / SNOMED CT 87768438 / Confirmed GERD (gastroesophageal reflux disease) / SNOMED CT 835119630 / Confirmed Hiatal hernia / SNOMED CT 615793448 / Confirmed Voice hoarseness / SNOMED CT 641393435 / Confirmed Hypercalcemia / SNOMED CT 804601737 / Confirmed Elevated fasting glucose / SNOMED CT 122989309 / Confirmed HLD (hyperlipidemia) / SNOMED CT 88778457 / Confirmed HTN (hypertension) / SNOMED CT 8814881220 / Confirmed Hypothyroidism / SNOMED CT 62534151 / Confirmed Immunization due / SNOMED CT 188908291 / Confirmed Cognitive impairment / SNOMED CT 2245146102 / Confirmed Urinary frequency / SNOMED CT 322578981 / Confirmed Insomnia / SNOMED CT 266984976 / Confirmed Iron deficiency anemia / SNOMED CT 684555064 / Confirmed Eyebrow laceration / SNOMED CT 2533625961 / Confirmed Enlarged liver / SNOMED CT 875467537 / Confirmed Right leg weakness / SNOMED CT 807277714 / Confirmed Rhinorrhea / SNOMED CT 346570070 / Confirmed Neck pain / SNOMED CT 683251035 / Confirmed Osteoarthritis of right hip / SNOMED CT 8667914559 / Confirmed Osteopenia / SNOMED CT 118514017 / Confirmed Medicare annual wellness visit, subsequent / SNOMED CT 400442545 / Confirmed Screening for cardiovascular condition / SNOMED CT 812782992 / Confirmed Preop examination / SNOMED CT 033652152 / Confirmed Pre-op exam / SNOMED CT 111461319 / Confirmed Pericardial effusion / SNOMED CT 4816778096 / Confirmed Pulmonary hypertension / SNOMED CT 591202471 / Confirmed CAD S/P percutaneous coronary angioplasty / SNOMED CT 2339245597 / Confirmed 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 Right bundle branch block / SNOMED CT 54040103 / Confirmed Screening due / SNOMED CT 627626493 / Confirmed Secondary hyperparathyroidism / SNOMED CT 769427249 / Confirmed Somatic dysfunction of pelvic region / SNOMED CT 7190112251 / Confirmed Somatic dysfunction of rib region / SNOMED CT 8200088588 / Confirmed Somatic dysfunction of thoracic region / SNOMED CT 8301594101 / Confirmed Systolic murmur / SNOMED CT 99463167 / Confirmed Tricuspid regurgitation / SNOMED CT 821795234 / Confirmed Vitamin D deficiency / SNOMED CT 36130442 / Confirmed Vitiligo / SNOMED CT 56911120 / Confirmed, Active Problems (54) Allergic rhinitis [...] Brother Alzheimer's disease Mother Procedure history: Echocardiogram ([id number]) on 10/29/2017 at 71 Years. Heart ([id number]) on 12/25/1995 at 50 Years. Comments: 05/03/2019 11:14 EDT - Prabha Bonner LPN stent Hysterectomy ([id number]). Cholecystectomy (01374361). Creation of pericardial window (15623932). Cataract (452295625). Comments: 11/11/2021 14:49 EDT - Ofelia Porter SOLAR DEVELOPMENT ENGINEER left eye EGD - Esophagogastroduodenoscopy ([id number]). Social History Social & Psychosocial Habits Alcohol [...] Height 165.1 cm Admission Weight 73.5 kg [place] Body Weight 57.00 kg Admission Body Mass [...] Height 165.1 cm Admission Weight 73.5 kg [place] Body Weight 57.00 kg Admission Body Mass [...] no difficulties Skin Temperature Cool Skin Description [place], Dry Skin Integrity Intact Mucous Membrane Color [place] Skin Moisture General Dry IV Present Present Characteristics of Speech Clear Level of Consciousness Alert Strength All Extremities Moderate Affect/Behavior Appropriate, Calm, Cooperative Orientation Oriented x 4 Allergies Yes Lasting Floorworker On Yes 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 Assessment and Plan [place] [employer] (ASA) physical status classification: Class III. Anesthetic Preoperative Plan Anesthetic technique: Spinal. Regional: Spinal. Postoperative pain management: Per surgeon. Risks discussed: nausea, vomiting, headache, hypotension, allergic reaction, serious complications. Informed consent: signed by patient. Digitally Signed by NERIS RUCKER on 08/19/2022 09:19 AM [facility] 08-01-2022 Miscellaneous Notes Per Aim, Approved; Auth # [id number] 08/01/2022-10/29/2022 Oli Estrada Prior authorization request for stress test to be done at [facility] is being submitted for review. Please notify clerical staff when ready. Mike Novak RN documented in this encounter [facility] 07-31-2022 Miscellaneous Notes Addended by: MIKE NOVAK on: 07/31/2022 01:12 PM Modules accepted: Orders Please sign order for stress test. Patient having surgery 08/19/22 Spoke to patient's daughter Janet and let her know it is ok to go to [facility] and we will notify them when it is scheduled [facility] ok Appt with me depends upon the results of the stress Patient's daughter Janet called in stated Mom is having hip replacement surgery on 08/19/2022, per the cardiac clearance form it is recommended to have Stress test done. She would like to have it at [facility], she would also like to know if she needs an appointment to see dr. Peralta before surgery. Please call Janet she's going to be handling Mom's appointments. [phone] documented in this encounter [facility] 11-18-2021 Miscellaneous Notes Pt called and notified per carotid ultrasound normal for age. Pt agreeable Patient contacted by phone, no answer message left on voice mail. Call carotdi doppler normal for age Pt echo and carotid have been scanned in for review documented in this encounter [facility] Evaluation + Plan note Future Appointments Appointment Date:11/11/2022 08:30:00 AM Scheduled Provider:BAKARI RODRIGUEZ DO Location:[facility] Appointment Type:PC OV Future Scheduled TestsFerritin 08/14/21Thyroid Stimulating Hormone 08/14/21A1C Hemoglobin 08/14/21Complete Blood Count 08/14/21Complete Blood Count 02/12/22Lipid Profile 08/14/21Lipid Profile 02/12/22Microalbumin Level Urine 08/14/21Vitamin D Level 08/14/21Complete Metabolic Panel 08/14/21Complete Metabolic Panel 02/12/22MA Mammo Screening Bilateral w/ Adam 11/18/21BD Bone Density DEXA Axial Skeleton 11/10/21 [facility] Evaluation + Plan note Future Appointments Appointment Date:08/08/2022 08:15:00 AM Scheduled Provider: Location:[facility] Appointment Type:NM Myocardial Spect Rest/Stress [place] Appointment Date:08/22/2022 10:30:00 AM Scheduled Provider: Location:[facility] Appointment Type:PT Outpatient Evaluation Appointment Date:11/11/2022 08:30:00 AM Scheduled Provider:BAKARI RODRIGUEZ DO Location:[facility] Appointment Type:PC OV Future Scheduled TestsCalcium [...] Axial Skeleton 11/10/21NM Myocardial Spect Rest/Stress 08/08/22 [facility] Evaluation + Plan note Future Appointments Appointment Date:08/22/2022 10:30:00 AM Scheduled Provider: Location:[facility] Appointment Type:PT Outpatient Evaluation Appointment Date:11/11/2022 08:30:00 AM Scheduled Provider:BAKARI RODRIGUEZ DO Location:[facility] Appointment Type:[facility] Future Scheduled TestsCalcium Level Ionized 07/04/22Ferritin 08/14/21Ferritin [...] 11/18/21BD Bone Density DEXA Axial Skeleton 11/10/21 [facility] Evaluation + Plan note Future Appointments Appointment Date:09/02/2022 11:00:00 AM Scheduled Provider:SANJAY BERRY Location:[facility] Appointment Type:[facility] Hospital Follow-Up Appointment Date:11/11/2022 08:30:00 AM Scheduled Provider:BAKARI RODRIGUEZ DO Location:[facility] Appointment Type:PC OV Future Scheduled TestsCalcium Level Ionized 07/04/22Ferritin 07/04/22Thyroid Stimulating Hormone 07/04/22Free T4 07/04/22A1C Hemoglobin 07/04/22Complete Blood Count 07/04/22Complete Blood Count 02/12/22Free T3 07/04/22Lipid Profile 02/12/22Iron Studies 07/04/22PTH, Intact 07/04/22Vitamin D Level 07/04/22Complete Metabolic Panel 07/04/22Complete Metabolic Panel 02/12/22MA Mammo Screening Bilateral w/ Adam 11/18/21BD Bone Density DEXA Axial Skeleton 11/10/21 [facility] Evaluation + Plan note Future Appointments Appointment Date:11/11/2022 08:30:00 AM Scheduled Provider:BAKARI RODRIGUEZ DO Location:[facility] Appointment Type: OV Future Scheduled [...] 11/18/21BD Bone Density DEXA Axial Skeleton 11/10/21 [facility] Evaluation + Plan note Future Appointments Appointment Date:05/01/2023 10:00:00 AM Scheduled Provider:JEREMIAH STEELE DO Location:[facility] Appointment Type: OV Appointment Date:05/15/2023 01:30:00 PM Scheduled Provider:JEREMIAH STEELE DO Location:[facility] Appointment Type: OV [facility] Evaluation + Plan note Future Appointments Appointment Date:05/01/2023 10:00:00 AM Scheduled Provider:JEREMIAH STEELE DO Location:[facility] Appointment Type: OV Appointment Date:05/15/2023 01:30:00 PM Scheduled Provider:JEREMIAH STEELE DO Location:[facility] Appointment Type:PC OV Future Scheduled TestsCross-Linked N-Telopeptide Urine 02/26/23PTH, Related Peptide 02/26/23Calcium Level Ionized 02/26/23Magnesium Level 02/26/23Phosphorus Level 02/26/23Urinalysis 02/26/23Thyroid Stimulating Hormone 02/24/23Thyroid Stimulating Hormone 02/26/23Thyroxine 02/24/23Free T4 02/26/23Calcium Random Urine 02/26/23Creatinine Random Urine 02/26/23Vitamin D, 1,25-Dihydroxy 02/26/23Free T3 02/26/23Protein Electrophoresis Panel 02/26/23PTH, Intact 02/26/23Total T3 02/24/23Vitamin D Level 02/26/23Complete Metabolic Panel 02/26/23NM Parathyroid Study 02/24/23 [facility] Evaluation + Plan note Future Appointments Appointment Date:08/03/2023 01:00:00 PM Scheduled Provider:JEREMIAH STEELE DO Location:[facility] Appointment Type:PC OV Appointment Date:09/29/2023 02:30:00 PM Scheduled Provider:BOGDAN ZHENG Location:[facility] Appointment Type: OV Future [...] 07/25/23Complete Metabolic Panel 02/26/23NM Parathyroid Study 02/24/23 [facility] Evaluation + Plan note Future Appointments Appointment Date:08/06/2023 03:30:00 PM Scheduled Provider:JEREMIAH STEELE DO Location:[facility] Appointment Type:PC OV Appointment Date:09/29/2023 02:30:00 PM Scheduled Provider:BOGDAN ZHENG [facility] Appointment Type:CV OV Future Scheduled TestsCross-Linked [...] 07/25/23Complete Metabolic Panel 02/26/23NM Parathyroid Study 02/24/23 [facility] Diagnosis Stable angina (HCC) Other and unspecified angina pectoris Chest pain in adult [facility] Diagnosis Stable angina (HCC) Other and unspecified angina pectoris Chest pain in adult [facility] Narrative No data available for this section [facility] Hospital Discharge instructions No data available for this section [facility] Progress note No data available for this section [facility] Summary Purpose Family History No Family History [...] or prosecute any alcohol or drug abuse patient.[facility] Hospital[facility] the event this information is protected by the Federal Confidentiality of Alcohol and Drug Abuse Patient Records regulations: The Federal rules restrict any use of the information to criminally investigate or prosecute any alcohol or drug abuse patient.[facility] Hospital[facility] the event this information is protected by the Federal Confidentiality of Alcohol and Drug Abuse Patient Records regulations: The Federal rules restrict any use of the information to criminally investigate or prosecute any alcohol or drug abuse patient.[facility] Hospital[facility] the event this information is protected by the Federal Confidentiality of Alcohol and Drug Abuse Patient Records regulations: The Federal rules restrict any use of the information to criminally investigate or prosecute any alcohol or drug abuse patient.[facility] HospitalIn the event this information is protected by the Federal Confidentiality of Alcohol and Drug Abuse Patient Records regulations: The Federal rules restrict any use of the information to criminally investigate or prosecute any alcohol or drug abuse patient.[facility] HospitalIn the event this information is protected by the Federal Confidentiality of Alcohol and Drug Abuse Patient Records regulations: The Federal rules restrict any use of the information to criminally investigate or prosecute any alcohol or drug abuse patient.[facility] Reason for Visit (unrecogniz ed section and content) Reason Comments Patient Question Reason Comments PA for stress test Reason Onset Date Comments Refill Request 09/15/2022 Reason Comments Refill Request Care Teams (unrecognized sec tion and content) 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 Start Date End Date Bakari Rodriguez IV, MD [address] [place] [id number] PCP - General Family Medicine 12/23/19 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 Start Date End Date Bakari Rodriguez IV, MD [address] [place] [phone] PCP - General Family Medicine 12/23/19 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 Start Date End Date Bakari Rodriguez IV, DO [address] [place] [phone] PCP - General Family Medicine 12/23/19 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 Start Date End Date Bakari Rodriguez IV, DO [address] [place] [id number] PCP - General Family Medicine 12/23/19 Care Team (unrecognized sect ion and content) Care Team Personnel Name: Herson Wallace PT Position: P3 Scheduling - Rn Bariatric Advanced Member Role: Other Name: BAKARI RODRIGUEZ DO Position: P4 Physician - Primary Care Member Role: Primary Care Physician Address: Address: [address] [place] [address]- Care Team Related Persons Name: JANET RAMIREZ Address: Home [address] [place] [phone] [place] Name: JANET RAMIREZ Address: Home [address] [place] [phone] [place] Address: Temporary [address] [place] [id number] Care Team Personnel Name: Herson Wallace PT Position: P3 Scheduling - Rn Bariatric Advanced Member Role: Other Name: BAKARI RODRIGUEZ DO Position: P4 Physician - Primary Care Member Role: Primary Care Physician Address: Address: [address] [place] [id number] Care Team Related Persons Name: JANET RAMIREZ Address: Home [address] [place] [phone] [place] Name: JANET RAMIREZ Address: Home [address] [place] [phone] [place] Address: Temporary [address] [place], [place] [phone] Care Team Personnel Name: Herson Wallacerk Sanjana PT Position: P3 Scheduling - Rn Bariatric Advanced Member Role: Other Name: BAKARI RODRIGUEZ DO Position: P4 Physician - Primary Care Member Role: Primary Care Physician Address: Address: [address] [place] [id number]- Care Team Related Persons Name: JANET RAMIREZ Address: Home [address] [place], [place] [phone] [place] Name: JANET RAMIREZ Address: Home [address] [place], [place] [phone] [place] Address: Temporary [address] [place], [place] [phone] Care Team Personnel Name: Herson Wallace Clerk Sanjana PT Position: P3 Scheduling - Rn Bariatric Advanced Member Role: Other Name: BAKARI RODRIGUEZ DO Position: P4 Physician - Primary Care Member Role: Primary Care Physician Address: Address: [address] [place] [address]- Care Team Related Persons Name: JANET RAMIREZ Address: Home [address] [place], [place] [phone] [place] Name: JANET RAMIREZ Address: Home [address] [facility], [phone] Name: JANET RAMIREZ Address: Home [address] [place], [place] [phone] [place] Address: Temporary [address] [place], [place] [id number] Care Team Personnel Name: Herson Wallacerjosefa Allan PT Position: P3 Scheduling - Rn Bariatric Advanced Member Role: Other Name: BAAKRI RODRIGUEZ DO Position: P4 Physician - Primary Care Member Role: Primary Care Physician Address: Address: [address] [place] [address]- Care Team Related Persons Name: JANET RAMIREZ Address: Home [address] [facility], [phone] Name: JANET RAMIREZ Address: Home [address] [place], [place] [phone] [place] Name: JANET RAMIREZ Address: Home [address] [place], [place] [phone] [place] Address: [place] [address] [address] [place], [place] [phone] INFORMATION SOURCE (unrecogn ized section and content) DATE CREATED AUTHOR AUTHOR'S DANITA FERNANDEZ 08/03/[address] [facility] princess ([place]) FOR RECORDS PERTAINING TO PATIENTS WHO ARE [...] BE BASED ON THE PRIMARY CLINICAL RECORDS. [employer] provides no warranty or guarantee of the accuracy or completeness of information in this document.
--- OUTSIDE RECORDS SUMMARY | 2023-08-03 21:09 | XMS RPT_ITS | CCD ---
Author Name Unknown Address [address] [place] [address] Organization [facility] Care Team Providers Care Automotive Drivability Technician Name Role Phone Michelle SHINE MD, Bakari Primary Care Provider [phone] BAKARI RODRIGUEZ DO Primary Care Physician [phone] Sanjana Wallace PT Unavailable Unavailable Michelle SHINE MD, Michael Primary Care Provider [phone] Michelle SHINE DO, Michael Primary Care Provider [phone] Michelle SHINE DO, Michael A Primary Care Provider [phone] JEREMIAH STEELE DO Primary Care Physician JEREMIAH [...] JEREMIAH Delong DO Primary Care Unavailable JEREMIAH TSEELE DO Attending Unavailable Allergies Allergy Classification Reported Allergen(s) Allergy Type Date of Onset Reaction(s) Facility (16 sources) Aspirin; Translations: [aspirin] Drug Allergy 12-02-2019 Unknown, Eruption of skin (disorder) [facility] Medications Current Medications Medication Drug Class(es) [...] period., # 100 tab(s), 0 Refill(s), Pharmacy: [facility]/pharmacy #[id number], Right hip pain, 165.1, cm, 08/19/22 [...] # 90 tab(s), 0 Refill(s), TRI, Pharmacy: [facility]/pharmacy #[id number], 165, cm, 02/23/23 12:59:00 EDT, Height, kg, 02/23/23 12:59:00 EDT, Dosing Weight Start Date: 02/23/23 Stop Date: 05/24/23 Status: Ordered Problems Active Problems Problem Classification Problem Date Documented Date Episodic/Chronic Abdominal hernia (10 sources) Hiatal hernia 05-03-2019 Episodic Adjustment disorders (6 sources) Grief finding; Translations: [Adjustment disorder with depressed mood] Onset: 0 12-23-2019 Chronic Allergic reactions (10 sources) Allergy to 5-ofylulz-1-methylglutar yl-coenzyme A reductase inhibitor 03-16-2020 Episodic Cataract [...] Taking VItal Signs DR ABDON ARROYO MD [place] 08-21-2022 10:38-[address] ABDON ARROYO MD [place] 08-21-2022 10:38-[address] ABDON Anaya [place] 08-21-2022 10:38-0500 Body temperature 97.52 [degF] DR ABDON ARROYO MD [place] 08-21-2022 10:38-0500 Diastolic Blood Pressure Non-Invasive [address] ABDON ARROYO MD [place] 08-21-2022 10:38-0500 Heart rate 53 /min DR ABDON ARROYO MD [place] 08-21-2022 10:38-0500 Reason For Taking VItal Signs DR ABDON ARROYO MD [place] 08-21-2022 10:38-0500 Respiratory rate 18 /min DR ABDON ARROYO MD [place] 08-21-2022 10:38-0500 Systolic Blood Pressure Non-Invasive [address] ABDON ARROYO MD [place] 08-21-2022 09:34-0500 Reason For Taking VItal Signs DR ABDON ARROYO MD [place] 08-21-2022 06:50-[address] ABDON ARROYO MD [place] 08-21-2022 06:50-[address] ABDON Anaya [place] 08-21-2022 06:50-0500 Body temperature 98.06 [degF] DR ABDON ARROYO MD [place] 08-21-2022 06:50-0500 Diastolic Blood Pressure Non-Invasive [address] ABDON ARROYO MD [place] 08-21-2022 06:50-0500 Heart rate 56 /min DR ABDON ARROYO MD [place] 08-21-2022 06:50-0500 Respiratory rate 18 /min DR ABDON ARROYO MD [place] 08-21-2022 06:50-0500 Systolic Blood Pressure Non-Invasive [address] ABDON ARROYO MD [place] 08-21-2022 03:47-0500 Body temperature 98.06 [degF] DR ABDON ARROYO MD [place] 08-21-2022 03:47-0500 Diastolic Blood Pressure Non-Invasive [address] ABDON ARROYO MD [place] 08-21-2022 03:47-0500 Heart rate 67 /min DR ABDON ARROYO MD [place] 08-21-2022 03:47-0500 Respiratory rate 16 /min DR ABDON ARROYO MD [place] 08-21-2022 03:47-0500 Systolic Blood Pressure Non-Invasive [address] ABDON ARROYO MD [place] 08-20-2022 23:50-0500 Heart rate 54 /min DR ABDON ARROYO MD [place] 08-19-2022 15:04-[address] ABDON ARROYO MD [place] 08-19-2022 15:04-[address] ABDON Anaya [place] 08-19-2022 13:11-0500 Body height 165.[address] ABDON ARROYO MD [place] 08-19-2022 13:11-0500 Body weight 73.[address] ABDON ARROYO MD [place] 08-19-2022 13:11-0500 Body weight 26.96 kg/m2 DR ABDON ARROYO MD [place] 08-19-2022 13:04-0500 Body temperature 96.98 [degF] DR ABDON ARROYO MD [place] 08-19-2022 11:50-0500 Body temperature 95.36 [degF] DR ABDON ARROYO MD [place] 08-19-2022 11:45-0500 Respiratory Rate - Anes 11 br/min DR ABDON ARROYO MD [place] 08-19-2022 11:40-0500 Respiratory Rate - Anes 12 br/min DR ABDON ARROYO MD [place] 08-19-2022 11:35-0500 Respiratory Rate - Anes 12 br/min DR ABDON ARROYO MD [place] 08-19-2022 07:52-0500 Body height 165.[address] ABDON ARROYO MD [place] 08-19-2022 07:52-0500 Body temperature 97.88 [degF] DR ABDON ARROYO MD [place] 08-19-2022 07:52-0500 Body weight 73.[address] ABDON ARROYO MD [place] 08-19-2022 07:52-0500 Heart rate 56 /min DR ABDON ARROYO MD [place] 08-05-2022 13:53-0500 Blood Pressure Cuff Size DR ABDON ARROYO MD [place] 08-05-2022 13:53-[address] ABDON ARROYO MD [place] 08-05-2022 13:53-[address] ABDON Anaya [place] 08-05-2022 13:53-0500 Body height 165.[address] ABDON ARROYO MD [place] 08-05-2022 13:53-0500 Body weight 73.[address] ABDON ARROYO MD [place] 08-05-2022 13:53-0500 Body weight 26.96 kg/m2 DR ABDON ARROYO MD [place] 08-05-2022 13:53-0500 Diastolic Blood Pressure Non-Invasive [address] ABDON ARROYO MD [place] 08-05-2022 13:53-0500 Heart rate 45 /min DR ABDON ARROYO MD [place] 08-05-2022 13:53-0500 Systolic Blood Pressure Non-Invasive [address] ABDON ARROYO MD [place] Encounters Encounter Date Encounter Type Care Provider Facility Start: 07-29-2023 End: 07-30-2023 ambulatory JEREMIAH STEELE DO Facility:B Start: 07-29-2023 End: 07-29-2023 Patient encounter procedure JEREMIAH STEELE DO [facility] Start: 07-29-2023 End: 08-03-2023 ambulatory JEREMIAH STEELE DO Facility:[facility] Start: 07-29-2023 End: 08-02-2023 Outreach Lab JEREMIAH STEELE DO [facility] Start: 07-28-2023 ambulatory JEREMIAH STEELE DO Faci lity:B Start: 07-28-2023 End: 08-01-2023 Outreach Lab DELANEY KRAUSE MD [facility] Start: 04-08-2023 ambulatory JEREMIAH STEELE DO Faci lity:B Start: 02-23-2023 End: 02-24-2023 ambulatory JEREMIAH STEELE DO Facility:B Start: 02-23-2023 End: 02-23-2023 Patient encounter procedure JEREMIAH STEELE DO [facility] Start: 02-23-2023 End: 02-23-2023 Preprocedural examination done JEREMIAH STEELE DO [place] Start: 01-28-2023 Refill Alvarado mercado DO Work Phone: [facility] Cardiology Procedures Date Procedure Procedure Detail [...] H/O percutaneous transluminal coronary angioplasty Krystle Donato MANA[employer] Work Phone: Start: 12-25-1995 Heart structure (body structure) DR ABDON ARROYO MD Plan of Treatment Date Care Activity Detail Author Start: 03-27-2023 Influenza vaccination C [facility] Start: 07-27-2022 ADVANCE DIRECTIVE DISCUSSION ADVANCE DIRECTIVE DISCUSSION [facility] Start: 07-27-2022 DEPRESSION ASSESSMENT DEPRESSION ASS ESSMENT [facility] Start: 03-27-[address] [facility] Start: 07-27-2021 ADVANCE DIRECTIVE DISCUSSION ADVANCE DIRECTIVE DISCUSSION [facility] Start: 05-06-2021 COVID-19 VACCINE (3 - Booster for Moderna series) COVID-19 VACCINE (3 - Booster for Moderna series) [facility] Start: 01-29-2021 COVID-19 VACCINE (3 - Booster for Moderna series) COVID-19 VACCINE (3 - Booster for Moderna series) [facility] Start: 11-08-2008 BONE DENSITY BONE DENSITY [facility] Start: 11-08-2008 PNEUMOVAX AGE 65 AND OVER WITH 5YR LOOKBACK (#1) PNEUMOVAX AGE 65 AND OVER WITH 5YR LOOKBACK (#1) [facility] Start: 11-08-1993 SHINGRIX VACCINE (1 of 2) OSPINA GRIX VACCINE (1 of 2) [facility] Start: 11-08-1988 DIABETES SCREEN DIABETES SCREEN [facility] Start: 11-08-1962 Urine microalbumin profile DTAP,TDAP ,TD (1 - Tdap) [facility] Start: 11-08-1961 ANNUAL PCP TEAM DELI SLICER CECY DISEASE VISIT ANNUAL PCP TEAM CHRONIC DISEASE VISIT [facility] Start: 11-08-1961 BP CONTROLLED (<130/80) BP CONTROLLE D (<130/80) [facility] Start: 11-08-1961 Hepatitis B surface antibody level LDL CHOLESTEROL [facility] Start: 11-08-1961 HEPATITIS C SCREENING HEPATITIS C [facility] Start: 1955 Adult depression scr [facility] assessment DEPRESSION SCREENING [facility] Start: 11-08-1949 PNEUMOCOCCAL: 65+ (1 - PCV) PNEUMOCOCCAL: 65+ (1 - PCV) [facility] Immunizations Immunization Date Immunization Notes Care Provider Brendan hernadez 12-04-2020 SARS-CoV-2 (COVID-19 ) mRNA-[address] ABDON ARROYO MD [facility] Payers Date Payer Category Payer Medicare [id number] 2022 Unknown [id number] 2020 Unknown ANTHEM BLUE CROS S AND BLUE SHIELD ANTHEM MEDIBLUE HMO [id number] 2020-Present [phone] [address] [place] [address] HMO [id number] 2020 Unknown ANTHEM BLUE CROS S AND BLUE SHIELD ANTHEM JOSEUE HMO [id number] 2020-Present [phone] [address] [place] [address] HMO [id number] 1943 Unknown [id number] [id number]. 1943 Unknown [id number] 2.16.840.1.591594.3.579.2. 1943 Unknown [id number] 2.16840.1.198271.3.579.2. 1943 Unknown [id number] 2.16.840.1.670869.3.579.2. 1943 Unknown [id number] 2.16.840.1.563498.3.579.2. 1943 Unknown [id number] 2.16.840.1.121552.3.579.2. 1943 Unknown [id number] 2.16840.1.349865.3.579.2. 1943 Unknown [id number] 2.16.840.1.400768.3.579.2. 1943 Unknown [id number] 2.16.840.1.463758.3.579.2. 1943 Unknown [id number] 2.16.840.1.689122.3.579.2. 1943 Unknown [id number] 2.16.840.1.386485.3.579.2. 1943 Unknown [id number] [id number] Social History Date Type Detail Facility Start: 05-03-2019 End: 12-23-2019 Tobacco smoking status NHIS Never smoked tobacco [facility] Start: 12-23-2019 Tobacco use and exposure Smoke less tobacco non-user [facility] Start: 11-12-2021 End: 11-13-2022 Alcohol intake Ex-drinker (finding) [facility] Start: 1945 Sex Assigned At Not on file C [facility] Sex Assigned At Female [facility] Functional Status Date Assessment Result Facility 08-21-2022 Functional Status [facility] 08-21-2022 Functional Status bilateral knee high [facility] 08-21-2022 Functional Status 3 [facility] 08-21-2022 [facility]-20[facility] Functional Status [facility] 08-20-2022 [facility] 08-20-2022 Functional Status Lunch Percent 75 [facility] 08-20-2022 Functional Status [facility] 08-20-2022 Functional Status [facility] 08-20-2022 Functional Status [facility] 08-20-2022 [facility] 08-19-2022 Functional Status 1st floor bedr oom, 1st floor bathroom [place] 08-19-2022 Functional Status Sensory Deficits None A [facility] 08-19-2022 Functional Status ice on, tension pillow in place [place] 08-19-2022 Functional Status [facility] 08-05-2022 Functional Status Sensory Deficits None A [facility] Mental Status Date Assessment Result Facility 08-21-2022 Mental Status Not oriented to time, Not oriented to situation [place] 08-20-[address] [facility] [address] [facility] [place] 08-20-2022 Mental Status [facility] Clinical Notes 11-18-2021 to 08-01-2023 Telephone Encounter [...] Locations *1: This test was performed at: [facility], [address] [place] [address], [address] , [facility] 01-28-2023 Miscellaneous Notes Pharmacy faxes requesting refill: Requested Prescriptions Refused Prescriptions Disp Refills ranolazine ER (RANEXA) 500 mg 12 hr tablet [Pharmacy Med Name: RANOLAZINE ER 500 MG TABLET] 60 tablet 0 Sig: TAKE 1 TABLET BY MOUTH TWICE A DAY Date of last visit:10/11/21 NO SHOW FOR 12/2022 APPT HAS NOT RESCHEDULED Phone #: [phone] (home) [phone] (cell) The patients preferred pharmacy has been captured for this encounter? yes documented in this encounter [facility] 01-01-2023 Miscellaneous Notes Pharmacy faxes requesting refill: Requested Prescriptions Pending Prescriptions Disp Refills ranolazine ER (RANEXA) 500 mg 12 hr tablet [Pharmacy Med Name: RANOLAZINE ER 500 MG TABLET] 60 tablet 0 Sig: TAKE 1 TABLET BY MOUTH TWICE A DAY Date of last visit:10/11/2021 Patient has appointment 01/14/2023 and is now being seen in [place]. Phone #: [phone] (home) [phone] (cell) The patients preferred pharmacy has been captured for this encounter? yes documented in this encounter [facility] 09-15-2022 Miscellaneous Notes Patient calls requesting refill: Requested Prescriptions Pending Prescriptions Disp Refills ranolazine ER (RANEXA) 500 mg 12 hr tablet 180 tablet 0 Sig: Take 1 tablet by mouth twice daily. Date of last visit:10/11/2021 Phone #: [phone] (home) [phone] (cell) The patients preferred pharmacy has been captured for this encounter? yes documented in this encounter [facility] 08-21-2022 Hospital Discharge instructions Patient Education 08/21/2022 14:31:09 5 - [facility] Post-op Instruction 02/2017 (22490) [facility] Post-operative Instructions PLEASE FOLLOW [facility] POST-OP INSTRUCTIONS GIVEN WATCH FOR SIGNS OF INFECTION: call the office ([phone]) if experencing any of the following: (Usually [...] on your follow up instructions. Form: 338A (78157) R: 11/3008/19/2022 12:42:01 Total Hip Replacement, Anterior, Care After, Hapl-zn-Erxl Total Hip Replacement, Anterior, Care After This sheet gives you information about how to care for yourself after your procedure. Your doctor may also give you more specific instructions. If you have problems or questions, contact your doctor. What can I expect after the procedure? After the procedure, it is common to have: Pain. Stiffness. Discomfort. Follow these instructions at home: Medicines Take upso-ocz-dzofudc and prescription medicines only as told by [...] use soap and water, use alcohol-based hand barrer and tacker. ?Change your bandage as told by your [...] include fried or sweet foods. ?Take an norc-xje-nivhydv or prescription medicine for constipation. Do not [...] 10/27/2018 Document Revised: 11/21/2019 Document Reviewed: 10/27/2018 [employer] Patient Education 2020 American Board of Addiction Medicine (ABAM). Follow Up Care 06/17/2022 14:40:44 With:DAVID SHABAZZ PA-C, Orthopedic Address: [facility] [address] [place] [address]- When:09/01/2022 09:45:00 Comments:This is your post-op appointment. Follow-up as scheduled. With:BAKARI RODRIGUEZ DO Address: [address] [facility] [place] [address]- [phone] When:09/02/2022 11:00:00 Comments:This is your post-hospital follow-up to get your blood work results. Have your lab work done prior to this appointment. It is with Dr. Michelle Paul's nurse practitioner. [place] 08-21-2022 Note Discharge Instructions Thank you for [...] Follow-Up 09/02/2022 11:00 AM EST SANJAY BERRY APRN-[employer]T MAKER [address] [address] OV 11/11/2022 08:30 AM EDT BAKARI RODRIGUEZ DO [address] [address] Follow Up Appointments Follow Up with BAKARI RODRIGUEZ DO When 09/02/2022 11:00 AM EST Why: This is your post-hospital follow-up to get your blood work results. Have your lab work done prior to this appointment. It is with Dr. Michelle Paul's nurse practitioner. Where: [address] [place] [phone] [phone] Follow Up with DAVID SHABAZZ PA-C, Orthopedic When 09/01/2022 09:45 AM EST Why: This is your post-op appointment. Follow-up as scheduled. Where: [facility] [address] [place] [address]- The Following Activity and Diet Have Been [...] bowel movement, then as needed Pickup at [facility]/pharmacy #[id number] New traMADol (traMADol 50 mg oral tablet) 1 tab(s) by mouth Every 6 hours as needed for Pain, scale 7-10 Status post total hip replacement, right Duration: 7 Days Pickup at [facility]/pharmacy #4605 Changed acetaminophen (acetaminophen 500 mg oral tablet) 2 tab(s) by mouth Three (3) times a day as needed for as needed for pain not to exceed 3000 mg/ day Pickup at [facility]/pharmacy #4605 Changed aspirin 81 Milligram by mouth [...] by mouth Once a day Pharmacy Information [facility]/pharmacy #[id number]: [address], [place] [id number] [phone] Please take this list to your next [...] FOR SIGNS OF INFECTION: call the office ([phone]) if experencing any of the following: (Usually [...] on your follow up instructions. Form: 338A (64239) R: 11/30 Total Hip Replacement, Anterior, Care [...] Follow these instructions at home: Medicines Take skwr-duo-wbyxmlo and prescription medicines only as told by [...] use soap and water, use alcohol-based hand barrer and tacker. ? Change your bandage as told by [...] fried or sweet foods. ? Take an sdjb-rbz-xjslpkn or prescription medicine for constipation. Do not [...] Document Reviewed: 10/27/2018 Elsevier Patient Education 2019 [employer] Additional Information VACCINATE! IT SAVES LIVES! Members of the community who have not yet received the COVID-19 vaccine and would like to receive it can visit one of [facility] vaccine clinics. There are many vaccine clinic locations within the [facility]. For locations and available times, please visit [email or web address] It is important to note that some COVID mobile vaccine clinics are held outdoors and may be canceled in rainy or stormy conditions. To learn more about pediatric vaccinations (ages 5-11), we invite you to visit the [facility] webpage. [email or web address]/[email or web address]-Hsogmunzcqy-Frequently-[email or web address] -Questions.html To learn more about the COVID-19 vaccine, we invite you to visit the [facility] website for a list of frequently asked questions. [email or web address] [email or web address]/[email or web address]-Qpjggyokwa_Lh ked-Questions.pdf [facility] [facility] Patient Portal Access Instructions: Stay connected with your healthcare team and access your personal medical information anytime with the [facility] Patient Portal.If you would like a full copy of your medical records, please contact the [facility] Medical Records Department, Thursday through Thursday between 8a.m. and 4:30p.m. Please follow the directions below to access the portal: 1.Access the email account you provided upon registration to the [facility].2.Look for an invitation email from [facility].3.Open the email and access the invitation link: Accept Invitation to [facility].Fill in the required bright to create your account. Sign into www.[email or web address] with your username and password that you [...] you will allow to register on the [facility] Patient Portal for access to your information. You can also access the [facility] Patient Portal on the [employer]. Simply click on Health Records under Health Data and then click on the G[employer] logo. HOW TO SAFELY DISPOSE OF PRESCRIPTION [...] Call your local pharmacy or go to [email or web address] to find one close to you.3.Make use of household items: Use cat litter or old coffee grounds to dispose medications if other options are not available. Mix your drugs with these household products, seal them in an airtight container and throw it into the garbage. Call [facility]: [phone] to be sure your drugs can be [...] [facility] Post-op Instruction 02/2017 (52796) Total Hip Replacement, Anterior, Care After, Qxnj-xe-Iopn Medication Leaflets My discharge plan and instructions have been reviewed and explained to me and I,DANIE RAMIREZ M understand my current condition and have read and understand these discharge instructions. I have received a written copy of the plan/instructions. If I have questions, I am aware that I should contact my doctor. Patient/Duco Polisher Signature: _ Date/Time: Relationship to Patient: Witness Name/Signature: Date/Time: [place] 08-21-2022 Note Date of Service 08/21/2022 Chief Complaint Osteoarthritis s/p Right Total Hip Replacement Subjective Patient is a 76 year old female seen at [facility] in consult for medical management. Patient [...] IV Push, q6h fluticasone nasal 0.05 mg/inh Branch 50 mcg 1 spray(s), Nostril, each, qDay [...] by MENDEZ REYNOLDS on 08/21/2022 09:20 AM [place] 08-21-2022 Nurse Progress note per Madelaine Vaughn NP ok to give this patient Toradol as ordered in SEP for pain due to Tramadol being ineffective. Digitally Signed by Ward Fernandes LPN on 08/21/2022 12:16 AM [place] 08-20-2022 Note Date of Service August 20, [...] IV Push, q6h fluticasone nasal 0.05 mg/inh Branch 50 mcg 1 spray(s), Nostril, each, qDay [...] I also discussed case with the social media developer and physical therapist. We would like to [...] versus home health. I have reviewed the [place] Automated Rx Reporting System (OARRS) report for [...] DAVID SHABAZZ PA-C on 08/20/2022 08:14 AM [place] 08-19-2022 Note ORIGINAL EXAMINATION: ONE XRAY VIEW [...] 08/19/2022 12:41:03 PM Ordering Provider: ABDON ARROYO [place] 08-19-2022 Note ORIGINAL EXAMINATION: ONE XRAY VIEW [...] 08/19/2022 12:41:03 PM Ordering Provider: ABDON ARROYO [place] 08-19-2022 Note ORIGINAL Images acquired, not reported on this accession number. [place] 08-19-2022 Note ORIGINAL Images acquired, not reported on this accession number. [place] 08-19-2022 Anesthesiology Consult note Patient: DANIE RAMIREZ [...] list: Medical Allergic rhinitis / SNOMED CT 516433329 / Confirmed Allergy to statin medication / SNOMED CT 2229631266 / Confirmed Anemia of chronic disease / SNOMED CT 498028423 / Confirmed Aortic stenosis / SNOMED CT 459784155 / Confirmed Arthritis / SNOMED CT 0791740 / Confirmed Breast lump or mass / SNOMED CT 777984880 / Confirmed Cataract / SNOMED CT 848535587 / Confirmed Somatic dysfunction of cervical region / SNOMED CT 7763344152 / Confirmed CKD (chronic kidney disease) stage 3, GFR 30-59 ml/min / SNOMED CT 2210428251 / Confirmed Constipation / SNOMED CT 99767461 / Confirmed Dark stools / SNOMED CT 90967564 / Confirmed Depression / SNOMED CT 35802689 / Confirmed Sleep-wake cycle disorder / SNOMED CT 764485065 / Confirmed Dysuria / SNOMED CT 20867520 / Confirmed Fall at home / SNOMED CT 63728668 / Confirmed GERD (gastroesophageal reflux disease) / SNOMED CT 448708290 / Confirmed Hiatal hernia / SNOMED CT 390738171 / Confirmed Voice hoarseness / SNOMED CT 666933593 / Confirmed Hypercalcemia / SNOMED CT 304913029 / Confirmed Elevated fasting glucose / SNOMED CT 349167824 / Confirmed HLD (hyperlipidemia) / SNOMED CT 64300707 / Confirmed HTN (hypertension) / SNOMED CT 7067046408 / Confirmed Hypothyroidism / SNOMED CT 51920255 / Confirmed Immunization due / SNOMED CT 381086382 / Confirmed Cognitive impairment / SNOMED CT 4667039404 / Confirmed Urinary frequency / SNOMED CT 900710946 / Confirmed Insomnia / SNOMED CT 951831447 / Confirmed Iron deficiency anemia / SNOMED CT 840495004 / Confirmed Eyebrow laceration / SNOMED CT 4773258945 / Confirmed Enlarged liver / SNOMED CT 011358140 / Confirmed Right leg weakness / SNOMED CT 326997439 / Confirmed Rhinorrhea / SNOMED CT 571634088 / Confirmed Neck pain / SNOMED CT 432188659 / Confirmed Osteoarthritis of right hip / SNOMED CT 5237357624 / Confirmed Osteopenia / SNOMED CT 381509274 / Confirmed Medicare annual wellness visit, subsequent / SNOMED CT 291543034 / Confirmed Screening for cardiovascular condition / SNOMED CT 997432254 / Confirmed Preop examination / SNOMED CT 324551404 / Confirmed Pre-op exam / SNOMED CT 396064154 / Confirmed Pericardial effusion / SNOMED CT 7989604153 / Confirmed Pulmonary hypertension / SNOMED CT 039202429 / Confirmed CAD S/P percutaneous coronary angioplasty / SNOMED CT 1083762733 / Confirmed 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 Right bundle branch block / SNOMED CT 14917537 / Confirmed Screening due / SNOMED CT 071183290 / Confirmed Secondary hyperparathyroidism / SNOMED CT 198694061 / Confirmed Somatic dysfunction of pelvic region / SNOMED CT 3918545081 / Confirmed Somatic dysfunction of rib region / SNOMED CT 6242588786 / Confirmed Somatic dysfunction of thoracic region / SNOMED CT 4492995227 / Confirmed Systolic murmur / SNOMED CT 09925965 / Confirmed Tricuspid regurgitation / SNOMED CT 368571567 / Confirmed Vitamin D deficiency / SNOMED CT 75471628 / Confirmed Vitiligo / SNOMED CT 52113957 / Confirmed, Active Problems (54) Allergic rhinitis [...] Brother Alzheimer's disease Mother Procedure history: Echocardiogram ([id number]) on 10/29/2017 at 71 Years. Heart ([id number]) on 12/25/1995 at 50 Years. Comments: 05/03/2019 11:14 EDT - Prabha Bonner LPN stent Hysterectomy ([id number]). Cholecystectomy (66476992). Creation of pericardial window (10762973). Cataract ([id number]). Comments: 11/11/2021 14:49 EDT - Ofelia Porter BUSINESS ANALYST CONSULTANT left eye EGD - Esophagogastroduodenoscopy ([id number]). Social History Social & Psychosocial Habits Alcohol [...] Height 165.1 cm Admission Weight 73.5 kg [place] Body Weight 57.00 kg Admission Body Mass [...] Height 165.1 cm Admission Weight 73.5 kg [place] Body Weight 57.00 kg Admission Body Mass [...] no difficulties Skin Temperature Cool Skin Description [place], Dry Skin Integrity Intact Mucous Membrane Color [place] Skin Moisture General Dry IV Present Present Characteristics of Speech Clear Level of Consciousness Alert Strength All Extremities Moderate Affect/Behavior Appropriate, Calm, Cooperative Orientation Oriented x 4 Allergies Yes [employer] Director On Yes 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 Assessment and Plan [place] [employer] Anesthesiologists (ASA) physical status classification: Class III. Anesthetic Preoperative Plan Anesthetic technique: Spinal. Regional: Spinal. Postoperative pain management: Per surgeon. Risks discussed: nausea, vomiting, headache, hypotension, allergic reaction, serious complications. Informed consent: signed by patient. Digitally Signed by NERIS RUCKER on 08/19/2022 09:19 AM [place] 08-01-2022 Miscellaneous Notes Per Aim, Approved; Auth # [id number] 08/01/2022-10/29/2022 Oli Estrada Prior authorization request for stress test to be done at [facility] is being submitted for review. Please notify clerical staff when ready. Mike Novak RN documented in this encounter [facility] 07-31-2022 Miscellaneous Notes Addended by: MIKE NOVAK on: 07/31/2022 01:12 PM Modules accepted: Orders Please sign order for stress test. Patient having surgery 08/19/22 Spoke to patient's daughter Janet and let her know it is ok to go to [facility] and we will notify them when it is scheduled Stress at [facility] is ok Appt with me depends upon the results of the stress Patient's daughter Janet called in stated Mom is having hip replacement surgery on 08/19/2022, per the cardiac clearance form it is recommended to have Stress test done. She would like to have it at [facility], she would also like to know if she needs an appointment to see dr. Peralta before surgery. Please call Janet she's going to be handling Mom's appointments. [phone] documented in this encounter [facility] 11-18-2021 Miscellaneous Notes Pt called and notified per carotid ultrasound normal for age. Pt agreeable Patient contacted by phone, no answer message left on voice mail. Call carotdi doppler normal for age Pt echo and carotid have been scanned in for review documented in this encounter [facility] Evaluation + Plan note Future Appointments Appointment Date:11/11/2022 08:30:00 AM Scheduled Provider:BAKARI RODRIGUEZ DO Location:[facility] Appointment Type:PC OV Future Scheduled TestsFerritin 08/14/21Thyroid Stimulating Hormone 08/14/21A1C Hemoglobin 08/14/21Complete Blood Count 08/14/21Complete Blood Count 02/12/22Lipid Profile 08/14/21Lipid Profile 02/12/22Microalbumin Level Urine 08/14/21Vitamin D Level 08/14/21Complete Metabolic Panel 08/14/21Complete Metabolic Panel 02/12/22MA Mammo Screening Bilateral w/ Adam 11/18/21BD Bone Density DEXA Axial Skeleton 11/10/21 [place] Evaluation + Plan note Future Appointments Appointment Date:08/08/2022 08:15:00 AM Scheduled Provider: Location:[facility] Appointment Type:NM Myocardial Spect Rest/Stress [place] Appointment Date:08/22/2022 10:30:00 AM Scheduled Provider: Location:[facility] Appointment Type:PT Outpatient Evaluation Appointment Date:11/11/2022 08:30:00 AM Scheduled Provider:BAKARI RODRIGUEZ DO Location:[facility] Appointment Type:PC OV Future Scheduled TestsCalcium Level [...] Axial Skeleton 11/10/21NM Myocardial Spect Rest/Stress 08/08/22 [place] Evaluation + Plan note Future Appointments Appointment Date:08/22/2022 10:30:00 AM Scheduled Provider: Location:[facility] Appointment Type:PT Outpatient Evaluation Appointment Date:11/11/2022 08:30:00 AM Scheduled Provider:BAKARI RODRIGUEZ DO Location:[facility] Appointment Type[facility] Future Scheduled TestsCalcium Level Ionized 07/04/22Ferritin 08/14/21Ferritin [...] 11/18/21BD Bone Density DEXA Axial Skeleton 11/10/21 [place] Evaluation + Plan note Future Appointments Appointment Date:09/02/2022 11:00:00 AM Scheduled Provider:SANJAY BERRY Location:[facility] Appointment Type:[facility] Hospital Follow-Up Appointment Date:11/11/2022 08:30:00 AM Scheduled Provider:BAKARI RODRIGUEZ DO Location:[facility] Appointment Type:PC OV Future Scheduled TestsCalcium Level Ionized 07/04/22Ferritin 07/04/22Thyroid Stimulating Hormone 07/04/22Free T4 07/04/22A1C Hemoglobin 07/04/22Complete Blood Count 07/04/22Complete Blood Count 02/12/22Free T3 07/04/22Lipid Profile 02/12/22Iron Studies 07/04/22PTH, Intact 07/04/22Vitamin D Level 07/04/22Complete Metabolic Panel 07/04/22Complete Metabolic Panel 02/12/22MA Mammo Screening Bilateral w/ Adam 11/18/21BD Bone Density DEXA Axial Skeleton 11/10/21 [place] Evaluation + Plan note Future Appointments Appointment Date:11/11/2022 08:30:00 AM Scheduled Provider:BAKARI RODRIGUEZ DO Location:[facility] Appointment Type: OV Future [...] 11/18/21BD Bone Density DEXA Axial Skeleton 11/10/21 [place] Evaluation + Plan note Future Appointments Appointment Date:05/01/2023 10:00:00 AM Scheduled Provider:JEREMIAH STEELE DO Location:[facility] Appointment Type: OV Appointment Date:05/15/2023 01:30:00 PM Scheduled Provider:JEREMIAH STEELE DO Location:[facility] Appointment Type: OV [place] Evaluation + Plan note Future Appointments Appointment Date:05/01/2023 10:00:00 AM Scheduled Provider:JEREMIAH STEELE DO Location:[facility] Appointment Type: OV Appointment Date:05/15/2023 01:30:00 PM Scheduled Provider:JEREMIAH STEELE DO Location:[facility] Appointment Type:PC OV Future Scheduled TestsCross-Linked N-Telopeptide Urine 02/26/23PTH, Related Peptide 02/26/23Calcium Level Ionized 02/26/23Magnesium Level 02/26/23Phosphorus Level 02/26/23Urinalysis 02/26/23Thyroid Stimulating Hormone 02/24/23Thyroid Stimulating Hormone 02/26/23Thyroxine 02/24/23Free T4 02/26/23Calcium Random Urine 02/26/23Creatinine Random Urine 02/26/23Vitamin D, 1,25-Dihydroxy 02/26/23Free T3 02/26/23Protein Electrophoresis Panel 02/26/23PTH, Intact 02/26/23Total T3 02/24/23Vitamin D Level 02/26/23Complete Metabolic Panel 02/26/23NM Parathyroid Study 02/24/23 [place] Evaluation + Plan note Future Appointments Appointment Date:08/03/2023 01:00:00 PM Scheduled Provider:JEREMIAH STEELE DO Location:[facility] Appointment Type:PC OV Appointment Date:09/29/2023 02:30:00 PM Scheduled Provider:BOGDAN ZHENG Location:[facility] Appointment Type: OV Future Scheduled [...] 07/25/23Complete Metabolic Panel 02/26/23NM Parathyroid Study 02/24/23 [place] Evaluation + Plan note Future Appointments Appointment Date:08/06/2023 03:30:00 PM Scheduled Provider:JEREMIAH STEELE DO Location:[facility] Appointment Type:PC OV Appointment Date:09/29/2023 02:30:00 PM Scheduled Provider:BOGDAN ZHENG [facility] Appointment Type:CV OV Future [...] 07/25/23Complete Metabolic Panel 02/26/23NM Parathyroid Study 02/24/23 [place] [facility] Diagnosis Stable angina (HCC) Other and unspecified angina pectoris Chest pain in adult [facility] Diagnosis Stable angina (HCC) Other and unspecified angina pectoris Chest pain in adult [facility] Narrative No data available for this section [place] [facility] Discharge instructions No data available for this section [place] Progress note No data available for this section [place] Summary Purpose Family History No Family History [...] or prosecute any alcohol or drug abuse patient.[facility] the event this information is protected by the Federal Confidentiality of Alcohol and Drug Abuse Patient Records regulations: The Federal rules restrict any use of the information to criminally investigate or prosecute any alcohol or drug abuse patient.[facility] the event this information is protected by the Federal Confidentiality of Alcohol and Drug Abuse Patient Records regulations: The Federal rules restrict any use of the information to criminally investigate or prosecute any alcohol or drug abuse patient.[facility] the event this information is protected by the Federal Confidentiality of Alcohol and Drug Abuse Patient Records regulations: The Federal rules restrict any use of the information to criminally investigate or prosecute any alcohol or drug abuse patient.[facility] the event this information is protected by the Federal Confidentiality of Alcohol and Drug Abuse Patient Records regulations: The Federal rules restrict any use of the information to criminally investigate or prosecute any alcohol or drug abuse patient.[facility] the event this information is protected by the Federal Confidentiality of Alcohol and Drug Abuse Patient Records regulations: The Federal rules restrict any use of the information to criminally investigate or prosecute any alcohol or drug abuse patient.[facility] Reason for Visit (unrecogniz ed section and content) Reason Comments Patient Question Reason Comments PA for stress test Reason Onset Date Comments Refill Request 09/15/2022 Reason Comments Refill Request Care Teams (unrecognized sec tion and content) Automotive Drivability Technician Relationship Specialty Start Date End Date Bakari Rodriguez IV, MD [address] [place] [id number] PCP - General Family Medicine 12/23/19 Automotive Drivability Technician Relationship Specialty Start Date End Date Bakari Rodriguez IV, MD [address] [place] [address] PCP - General Family Medicine 12/23/19 Automotive Drivability Technician Relationship Specialty Start Date End Date Bakari Rodriguez IV, DO [address] [place] [address] PCP - General Family Medicine 12/23/19 Automotive Drivability Technician Relationship Specialty Start Date End Date Bakari Rodriguez IV, DO [address] [place] [id number] PCP - General Family Medicine 12/23/19 Care Team (unrecognized sect ion and content) Care Team Personnel Name: Herson Wallace PT Position: P3 Scheduling - Administration Physician Advanced Member Role: Other Name: BAKARI RODRIGUEZ DO Position: P4 Physician - Primary Care Member Role: Primary Care Physician Address: Address: [address] [place] [address]- Care Team Related Persons Name: JANET RAMIREZ Address: Home [address] [place] [phone] [place] Name: JANET RAMIREZ Address: Home [address] [place] [phone] [place] Address: Temporary [address] [place] [phone] Care Team Personnel Name: Herson Wallace PT Position: P3 Scheduling - Administration Physician Advanced Member Role: Other Name: BAKARI RODRIGUEZ DO Position: P4 Physician - Primary Care Member Role: Primary Care Physician Address: Address: [address] [place] [phone] Care Team Related Persons Name: JANET RAMIREZ Address: Home [address] [place] [phone] [place] Name: JANET RAMIREZ Address: Home [address] [place] [phone] [place] Address: Temporary [address] [place], [place] [id number] Care Team Personnel Name: Herson Wallacerk Sanjana PT Position: P3 Scheduling - Administration Physician Advanced Member Role: Other Name: BAKARI RODRIGUEZ DO Position: P4 Physician - Primary Care Member Role: Primary Care Physician Address: Address: [address] [place] [address]- Care Team Related Persons Name: JANET RAMIREZ Address: Home [address] [place], [place] [phone] [place] Name: JANET RAMIREZ Address: Home [address] [place], [place] [phone] [place] Address: Temporary [address] [place], [place] [phone] Care Team Personnel Name: Herson Wallace Clerk Sanjana PT Position: P3 Scheduling - Administration Physician Advanced Member Role: Other Name: BAKARI RODRIGUEZ DO Position: P4 Physician - Primary Care Member Role: Primary Care Physician Address: Address: [address] [place] [address]- Care Team Related Persons Name: JANET RAMIREZ Address: Home [address] [place], [place] [phone] [place] Name: JANET RAMIREZ Address: Home [address] [facility], [phone] Name: JANET RAMIREZ Address: Home [address] [place], [place] [phone] [place] Address: Temporary [address] [place], [place] [phone] Care Team Personnel Name: Herson Wallacerjosefa Allan PT Position: P3 Scheduling - Administration Physician Advanced Member Role: Other Name: BAKARI RODRIGUEZ DO Position: P4 Physician - Primary Care Member Role: Primary Care Physician Address: Address: [address] [place] [address]- Care Team Related Persons Name: JANET RAMIREZ Address: Home [address] [facility], [phone] Name: JANET RAMIREZ Address: Home [address] [place], [place] [phone] [place] Name: JANET RAMIREZ Address: Home [address] [place], [place] [phone] [place] Address: [place] [address] [address] [place] [place] [phone] INFORMATION SOURCE (unrecogn ized section and content) DATE CREATED AUTHOR AUTHOR'S DANITA FERNANDEZ 08/03/2023 [facility] princess ([place]) FOR RECORDS PERTAINING TO PATIENTS WHO ARE [...] BE BASED ON THE PRIMARY CLINICAL RECORDS. [employer] provides no warranty or guarantee of the accuracy or completeness of information in this document.
[2023-08-03] MEDS: Potassium Chloride Oral Tablet 20 MEQ 40 MEQ PO (21:10)
[2023-08-03] MEDS: Potassium Chloride 10mEq/100mL 10 MEQ/100 ML IV.SOLN. 100 MEQ IV BOLUS ×3 (21:22→23:33)
[2023-08-03] MEDS: 0.9% Normal Saline (1000mL) 1,000 ML 75 ML IV (21:41)
[2023-08-04] MEDS: Potassium Chloride 10mEq/100mL 10 MEQ/100 ML IV.SOLN. 100 MEQ IV BOLUS (00:40)
[2023-08-04 03:09] VITALS: BP 126/77; PULSE 90; RESP 16; TEMP 36.2; O2SAT 99
[2023-08-04 06:04] LABS: Absolute Neutrophil Count 3.8 X10^3/uL (2.0-7.7); Basophil# 0.06 X10^3/uL; Basophil% 0.7 % (0-1); Eosinophil# 0.12 X10^3/uL; Eosinophils% 1.4 % (0-5); Hematocrit 29.9 % (37-47); Hemoglobin 9.8 g/dL (12.0-15.0); Lymphocyte % 43.2 % (19-41); Mean Corp Hgb Conc 32.8 g/dL (32-36); Mean Corpuscular Hgb 32.3 pg (27.0-32.0); Mean Corpuscular Volume 98.7 fL (81-99); Mean Platelet Vol. 11.5 fl (6.2-12.0); Monocyte# 0.69 X10^3/uL; Monocyte% 8.3 % (0-10); NRBC Flagged by Analyzer 0 % (0-5); Neutrophil # 3.79 X10^3/uL (2.7-7.7); Neutrophil % 45.6 % (47-70); Platelet Count 231 K/mm3 (150-450); RBC Distribution Width CV 12.5 % (11.6-14.6); RBC Distribution Width SD 45.5 fl (35.1-43.9); Red Blood Count 3.03 M/mm3 (4.2-5.4); White Blood Count 8.3 K/mm3 (4.4-11.0)
[2023-08-04 06:32] LABS: ALB/GLOB Ratio 1.2 RATIO (0.9-2.4); AST(SGOT) 17 U/L (15-37); Alanine Aminotransfer ALT/SGPT 15 U/L (13-56); Albumin, Serum 3.4 g/dL (3.2-5.0); Alkaline Phosphatase 53 U/L (45-117); Anion Gap 7 (5-15); BUN 11 mg/dL (7-18); BUN/Creat Ratio 12.1 RATIO (10-20); Calcium,Total 10.9 mg/dL (8.5-10.1); Chloride 100 mmol/L (98-107); Creatinine, Serum 0.91 mg/dL (0.55-1.02); EST Glomerular Filtration Rate 64 mL/min (>60); Est Glom Filt Rate - Afr Amer 77 mL/min (>60); Estimated Creatinine Clearance 45.11 ml/min; Globulin 2.9 g/dL (2.2-4.2); Glucose 82 mg/dL (74-106); Potassium 3.2 mmol/L (3.5-5.1); Protein, Total 6.3 g/dL (6.4-8.2); Sodium Level 139 mmol/L (136-145)
[2023-08-04 08:14] LABS: Ionized Calcium 5.46 mg/dL (4.36-5.20)
[2023-08-04 08:21] VITALS: BP 121/53; PULSE 58; RESP 16; RESP 17; TEMP 36.2; O2SAT 98; O2SAT 99
--- NOTE | 2023-08-04 08:21 | PN.HOSP_ITS ---
Reason for Visit Reason for Visit: Diagnoses Hypothyroidism, unspecified (08/03/23) Hyperparathyroidism, unspecified (08/03/23) Hypokalemia (08/03/23) Weakness (08/03/23) Subjective Subjective Patient is a 77-year-old lady recently treated for acute urinary tract infection as outpatient with cefdinir who was brought to the emergency department with altered mental status and UTI symptoms. Repeat urinalysis in the emergency department however came back unremarkable. Patient was found to have hypercalcemia admitted to a monitored bed for further management Objective Data Objective Data Vital Signs: Vital Signs Temp Pulse Resp BP Pulse Ox O2 Del Method 97.1 F L 90 16 126/77 H 99 Room Air 08/04/23 03:09 08/04/23 03:09 08/04/23 03:09 08/04/23 03:09 08/04/23 03:09 08/04/23 03:09 Oxygen Delivery Method Room Air Weight: 59 kg Body Mass Index (BMI) 21.6 Intake & Output: Intake and Output for Last 24 Hours 08/02/23 08/03/23 08/04/23 23:59 23:59 23:59 Intake Total 1200 / 1200 200 / 200 Output Total 275 / 275 Balance 1200 / 1200 -75 / -75 Lab / Micro Data 08/04/23 05:53 08/04/23 05:53 Labs: Laboratory Results - last 24 hr 08/03/23 18:10: WBC 7.3, RBC 3.60 L, Hgb 11.7 L, Hct 34.8 L, MCV 96.7, MCH 32.5 H, MCHC 33.6, RDW Std Deviation 44.5 H, RDW Coeff of Theresa 12.5, Plt Count 250, MPV 11.7, Immature Gran % (Auto) 0.800, Neut % (Auto) 66.4, Lymph % (Auto) 24.0, [place] % (Auto) 6.7, Eos % (Auto) 1.4, Baso % (Auto) 0.7, Absolute Neuts (auto) 4.9, Absolute Lymphs (auto) 1.76, Nucleated RBC % 0, Sodium 134 L, Potassium 2.9 L, Chloride 93 L, Carbon Dioxide 34.0 H, Anion Gap 7, BUN 13, Creatinine 1.31 H, Est GFR (MDRD) Af Amer 50 L, Est GFR (MDRD) Non-Af 42 L, BUN/Creatinine Ratio 9.9 L, Glucose 119 H, Lactic Acid 1.2, Calcium 12.6 H*, Total Bilirubin 0.80, AST 20, ALT 18, Alkaline Phosphatase 64, Total Protein 7.3, Albumin 4.0, Globulin 3.3, Albumin/Globulin Ratio 1.2, Lipase 20, Urine Color Yellow, Urine Clarity Clear, Urine pH 7.0, Ur Specific [place] 1.010, Urine Protein 15 H, U rine Glucose (UA) Normal, Urine Ketones 5 H, Urine Occult Blood Negative, Urine Nitrite Negative, Urine Bilirubin Negative, Urine Urobilinogen Normal, Ur Leukocyte Esterase 25 H, Urine RBC 0 SEEN, Urine WBC 0-5 SEEN, Ur Squamous Epith Cells 0-5 SEEN, Urine Bacteria RARE, Urine Mucus 0 SEEN 08/04/23 05:53: WBC 8.3, RBC 3.03 L, Hgb 9.8 L, Hct 29.9 L, MCV 98.7, MCH 32.3 H , MCHC 32.8, RDW Std Deviation 45.5 H, RDW Coeff of Theresa 12.5, Plt Count 231, MPV 11.5, Immature Gran % (Auto) 0.800, Neut % (Auto) 45.6 L, Lymph % (Auto) 43.2 H, [place] % (Auto) 8.3, Eos % (Auto) 1.4, Baso % (Auto) 0.7, Absolute Neuts (auto) 3.8, Absolute Lymphs (auto) 3.60, Nucleated RBC % 0, Sodium 139, Potassium 3.2 L , Chloride 100, Carbon Dioxide 32.0, Anion Gap 7, BUN 11, Creatinine 0.91, Estim Creat Clear Calc 45.11, Est GFR (MDRD) Af Amer 77, Est GFR (MDRD) Non-Af 64, BUN/Creatinine Ratio 12.1, Glucose 82, Calcium 10.9 H, Ionized Calcium 5.46 H, Total Bilirubin 0.50, AST 17, ALT 15, Alkaline Phosphatase 53, Total Protein 6.3 L, Albumin 3.4, Globulin 2.9, Albumin/Globulin Ratio 1.2 Radiography Diagnostic Testing: Radiology Impression Chest X-Ray 08/03/23 19:00 IMPRESSION: No acute cardiopulmonary disease. Electronically Signed: Bharti Raymond MD at 19:11 EST , Physical Exam Narrative GENERAL: cooperative HEENT: Atraumatic; normocephalic EYES; Anicteric, Normal Conjunctiva NECK; supple, normal thyroid, RESPIRATORY: Diminished to auscultation CARDIOVASCULAR: Regular S1 S2, GI: soft, normoactive bowel sounds, : No Renal angle tenderness; EXTREMITIES: No edema, no clubbing, MUSCULOSKELETAL: no muscle wasting NEURO: Awake; no lateralizing signs. SKIN: No Rash PSYCH; Flat affect Assessment & Plan Assessment/Plan (1) Acute hypokalemia: (2) Weakness: (3) Hypothyroidism: QUALIFIERS: Hypothyroidism type: acquired Qualified Code(s): E03.9 - Hypothyroidism, unspecified (4) Hyperparathyroidism: PLAN: Plan Patient is a 77-year-old lady recently treated for acute urinary tract infection as outpatient with cefdinir who was brought to the emergency department with altered mental status and UTI symptoms. Repeat urinalysis in the emergency department however came back unremarkable. Patient was found to have hypercalcemia admitted to a monitored bed for further management 1. Hypercalcemia ? Patient has history of hyperparathyroidism hypercalcemia on Cinacalcet appa rently noncompliant with therapy. Patient is followed by Dr. Marin as well as Dr. Moya on outpatient basis. Calcium on admission was 12.6 patient did receive zoledronic acid as well as IV fluid calcium down to 10.9. Repeat calcium ordered for a.m. 2. Recently treated acute cystitis ? Repeat urinalysis unremarkable 3. Hypothyroidism - Patient is on levothyroxine home dose continued 4. Hypokalemia ? Corrected per protocol 5. Hypertension - Blood pressure controlled, home medications continued with dose adjustment as needed 6. GERD ? On PPI 7. Dementia ? Patient is on Namenda 8. DVT prophylaxis - On enoxaparin Time spent in the patient's overall evaluation,decision-making process, review of diagnostic data, adjustment of management, discussion with other providers, nursing nursing and ancillary staff involved in patient's care documentation, 50 Minutes Charges/Coding Visit Charges Inpatient E&M: [id number] [place] [id number]
[2023-08-04] MEDS: 0.9% Normal Saline (1000mL) 1,000 ML 75 ML IV (11:32)
--- NOTE | 2023-08-04 11:43 | EX.PCM.CON.S ---
Assessment & Plan Assessment/Plan (1) Hyperparathyroidism: PLAN: This is a 77-year-old female who is admitted for recurrent confusion and weakness with hypercalcemia. It is difficult to completely tease out whether or not her symptoms are solely secondary to her hypercalcemia or if her urinary tract infection may still be playing a role. However, I do suspect at least some component is due to the calcium imbalance. Verbally, she confirms to me that she remains hydrated and taking her Cinacalcet yet her calcium is elevated. I would like to confirm this information from family. I have previously tried to stress the importance of these interventions until she is able to undergo surgery. Acutely patient is managed by the hospitalist service appropriately with IV fluid rehydration and bisphosphonate administration. Already her calcium is down trended. I do not have additional recommendations for this treatment based on her favorable response, but would ask to reiterate to patient that she should abstain from any significant sources of dietary calcium or multivitamins. I am seeking outpatient follow-up with patient to complete the final workup before planning for surgery. As an aside, I have discussed patient's recent CT imaging of the neck with radiology (which was read as negative) and have suspicion for a adenoma candidate of the right neck. Will remain available for any assistance. HPI Consult Data Date of Consult: 08/04/23 HPI Narrative HPI Narrative: DANIE RAMIREZ, is a 77 F who presented to [facility] yesterday with apparent weakness and increased confusion. She was noted to have marked hypercalcemia and was thus admitted to the hospitalist service. She was also noted to have had a recent hospitalization for similar symptoms and was diagnosed with a urinary tract infection. It is reported that patient was actively on antibiotics at the time of the present admission. Ms. Ramirez is a patient of mine established through a prior inpatient admission for hypercalcemia. She is presently under the workup for primary hyperparathyroidism. We are still waiting sestamibi imaging and DEXA imaging as an outpatient. Ms. Ramirez confirms to me that she has been staying hydrated and tries to take her Cinacalcet as prescribed. Unfortunately no family is in the room to confirm this report. FORMERLY [facility], [facility] Medical History Acute hypokalemia Bradycardia, sinus Generalized weakness Hx of gastroesophageal reflux (GERD) Hypercalcemia Hyperparathyroidism Hypertension Hypothyroidism Prolonged QT interval Home Medications amlodipine 5 mg tablet 5 mg PO BID HIGH BLOOD PRESSURE 04/07/20 [History Last Taken Unknown] aspirin 81 mg chewable tablet 81 mg PO DAILY@0800 HEART HEALTH 04/07/20 [History Last Taken Unknown] pantoprazole 40 mg tablet,delayed release 40 mg PO DAILY ACID REFLUX 04/07/20 [History Last Taken Unknown] ranolazine 500 mg tablet,extended release,12 hr 500 mg PO BID CHEST PAIN 04/07/20 [History Last Taken Unknown] memantine 7 mg capsule sprinkle,extended release 24hr 7 mg PO QHS memory 03/28/23 [History Last Taken Unknown] ferrous sulfate 325 mg (65 mg iron) tablet 325 mg PO DAILY SUPPLEMENT 07/04/23 [History Last Taken Unknown] levothyroxine 100 mcg tablet 150 mcg PO DAILY@0600 THYROID 07/04/23 [History Last Taken Unknown] cinacalcet 60 mg tablet 60 mg PO BID #60 tabs 07/06/23 [Rx Last Taken Unknown] polyethylene glycol 3350 17 gram/dose oral powder (Miralax) 17 g PO DAILY CONSTIPATION 07/06/23 [History Last Taken Unknown] cefdinir 300 mg capsule 300 mg PO BID ANTIBIOTIC #10 caps 07/08/23 [Rx Last Taken Unknown] potassium chloride 20 mEq tablet,extended release(part/cryst) (Klor-Con M) 20 meq PO DAILY SUPPLEMENT #10 tabs 07/08/23 [Rx Last Taken Unknown] olmesartan 5 mg tablet 5 mg PO DAILY HIGH BLOOD PRESSURE 08/03/23 [History Last Taken Unknown] Allergy/AdvReac Type Severity Reaction Status Date / Time aspirin [ASA] Allergy Hives Verified 08/03/23 17:37 hydrocodone Allergy Nausea Verified 08/03/23 17:37 morphine Allergy PT UNSURE Verified 08/03/23 17:37 OF REACTION Penicillins Allergy Anaphylaxis Verified 08/03/23 17:37 Family History Daughter Diabetes Heart disease Surgical History S/P cholecystectomy Status post total hip replacement, right Social History (Updated 08/03/23 @ 18:27 by Emperatriz Spears) household members: family housing: house Smoking Status: Never smoker substance use type: does not use Physical Exam Const alert, oriented x3 and no apparent distress Neck Neck Narrative: Supple, no masses, nontender Resp normal respiratory effort Lab / Micro Data 08/04/23 05:53 08/04/23 05:53 Labs: Laboratory Results - last 24 hr 08/03/23 18:10: WBC 7.3, RBC 3.60 L, Hgb 11.7 L, Hct 34.8 L, MCV 96.7, MCH 32.5 H, MCHC 33.6, RDW Std Deviation 44.5 H, RDW Coeff of Theresa 12.5, Plt Count 250, MPV 11.7, Immature Gran % (Auto) 0.800, Neut % (Auto) 66.4, Lymph % (Auto) 24.0, Long % (Auto) 6.7, Eos % (Auto) 1.4, Baso % (Auto) 0.7, Absolute Neuts (auto) 4.9, Absolute Lymphs (auto) 1.76, Nucleated RBC % 0, Sodium 134 L, Potassium 2.9 L, Chloride 93 L, Carbon Dioxide 34.0 H, Anion Gap 7, BUN 13, Creatinine 1.31 H, Est GFR (MDRD) Af Amer 50 L, Est GFR (MDRD) Non-Af 42 L, BUN/Creatinine Ratio 9.9 L, Glucose 119 H, Lactic Acid 1.2, Calcium 12.6 H*, Total Bilirubin 0.80, AST 20, ALT 18, Alkaline Phosphatase 64, Total Protein 7.3, Albumin 4.0, Globulin 3.3, Albumin/Globulin Ratio 1.2, Lipase 20, Urine Color Yellow, Urine Clarity Clear, Urine pH 7.0, Ur Specific Rupert 1.010, Urine Protein 15 H, Urine Glucose (UA) Normal, Urine Ketones 5 H, Urine Occult Blood Negative, Urine Nitrite Negative, Urine Bilirubin Negative, Urine Urobilinogen Normal, Ur Leukocyte Esterase 25 H, Urine RBC 0 SEEN, Urine WBC 0-5 SEEN, Ur Squamous Epith Cells 0-5 SEEN, Urine Bacteria RARE, Urine Mucus 0 SEEN 08/04/23 05:53: WBC 8.3, RBC 3.03 L, Hgb 9.8 L, Hct 29.9 L, MCV 98.7, MCH 32.3 H, MCHC 32.8, RDW Std Deviation 45.5 H, RDW Coeff of Theresa 12.5, Plt Count 231, MPV 11.5, Immature Gran % (Auto) 0.800, Neut % (Auto) 45.6 L, Lymph % (Auto) 43.2 H, Long % (Auto) 8.3, Eos % (Auto) 1.4, Baso % (Auto) 0.7, Absolute Neuts (auto) 3.8, Absolute Lymphs (auto) 3.60, Nucleated RBC % 0, Sodium 139, Potassium 3.2 L, Chloride 100, Carbon Dioxide 32.0, Anion Gap 7, BUN 11, Creatinine 0.91, Estim Creat Clear Calc 45.11, Est GFR (MDRD) Af Amer 77, Est GFR (MDRD) Non-Af 64, BUN/Creatinine Ratio 12.1, Glucose 82, Calcium 10.9 H, Ionized Calcium 5.46 H, Total Bilirubin 0.50, AST 17, ALT 15, Alkaline Phosphatase 53, Total Protein 6.3 L, Albumin 3.4, Globulin 2.9, Albumin/Globulin Ratio 1.2 Micro: Microbiology 08/03/23 18:10 Urine, Catheterized Urine Culture - Preliminary Alpha hemolytic organism Imagaing Radiology Impression Chest X-Ray 08/03/23 19:00 IMPRESSION: No acute cardiopulmonary disease. Electronically Signed: Bharti Raymond MD at 19:11 EST , Charges/Coding Visit Charges Inpatient E&M: 84953 Init Hosp L2
[2023-08-04 14:04] LABS: Ionized Calcium Order ORDER TUBE
[2023-08-04 14:09] LABS: PTHIN 186.2 pg/mL (18.4-80.1)
[2023-08-04 14:30] VITALS: BP 132/82; PULSE 90; RESP 16; TEMP 36.2; O2SAT 93
[2023-08-04] MEDS: Potassium Chloride Oral Soln 20 MEQ/15 ML UDC 40 MEQ PO (16:37)
[2023-08-04 20:53] VITALS: BP 134/68; PULSE 63; RESP 16; TEMP 36.8; O2SAT 100
[2023-08-04] MEDS: Memantine Hydrochloride 5 MG Tablet PO (20:57)
[2023-08-04] MEDS: Ranolazine 500 MG Tablet PO (20:57)
[2023-08-04] MEDS: Cinacalcet HCl 30 MG Tablet 60 MG PO (20:57)
[2023-08-05 02:30] VITALS: BP 145/70; PULSE 62; RESP 16; TEMP 36.7; O2SAT 97
[2023-08-05] MEDS: Levothyroxine 150 MCG Tablet PO (05:09)
[2023-08-05 06:08] LABS: Absolute Lymphocyte Count 2.31 X10^3/uL (0.83-4.51); Absolute Neutrophil Count 4.2 X10^3/uL (2.0-7.7); Basophil# 0.04 X10^3/uL; Basophil% 0.5 % (0-1); Eosinophil# 0.13 X10^3/uL; Eosinophils% 1.7 % (0-5); Hematocrit 29.6 % (37-47); Hemoglobin 9.8 g/dL (12.0-15.0); Lymphocyte # 2.31 X10^3/ul (0.83-4.51); Lymphocyte % 31.1 % (19-41); Mean Corp Hgb Conc 33.1 g/dL (32-36); Mean Corpuscular Hgb 32.8 pg (27.0-32.0); Mean Platelet Vol. 11.2 fl (6.2-12.0); Monocyte# 0.66 X10^3/uL; Monocyte% 8.9 % (0-10); NRBC Flagged by Analyzer 0 % (0-5); Neutrophil # 4.24 X10^3/uL (2.7-7.7); Neutrophil % 57.1 % (47-70); Platelet Count 206 K/mm3 (150-450); RBC Distribution Width CV 12.9 % (11.6-14.6); RBC Distribution Width SD 46.5 fl (35.1-43.9); Red Blood Count 2.99 M/mm3 (4.2-5.4); White Blood Count 7.4 K/mm3 (4.4-11.0)
[2023-08-05 06:22] LABS: Anion Gap 6 (5-15); BUN 11 mg/dL (7-18); BUN/Creat Ratio 13.3 RATIO (10-20); Calcium,Total 11.2 mg/dL (8.5-10.1); Chloride 106 mmol/L (98-107); Creatinine, Serum 0.83 mg/dL (0.55-1.02); EST Glomerular Filtration Rate 71 mL/min (>60); Est Glom Filt Rate - Afr Amer 86 mL/min (>60); Estimated Creatinine Clearance 49.46 ml/min; Glucose 88 mg/dL (74-106); Magnesium 1.3 mg/dL (1.6-2.6); Phosphorus 2.3 mg/dL (2.5-4.9); Sodium Level 141 mmol/L (136-145)
[2023-08-05 10:12] VITALS: BP 148/61; PULSE 55; RESP 16; TEMP 35.8; O2SAT 95
[2023-08-05] MEDS: Cinacalcet HCl 30 MG Tablet 60 MG PO ×2 (10:15→23:11)
[2023-08-05] MEDS: Enoxaparin 40 MG/0.4 ML Syringe SC (10:15)
[2023-08-05] MEDS: Pantoprazole Sodium 40 MG Tablet PO (10:16)
[2023-08-05] MEDS: Losartan Potassium 25 MG Tablet PO (10:16)
[2023-08-05] MEDS: Potassium Chloride Oral Tablet 20 MEQ PO ×2 (10:16→17:18)
[2023-08-05] MEDS: Ranolazine 500 MG Tablet PO ×2 (10:16→23:11)
[2023-08-05] MEDS: Ferrous Sulfate 325 MG Tablet PO (10:16)
[2023-08-05] MEDS: Polyethylene Glycol 3350 17 GM PACKET PO (10:16)
--- NOTE | 2023-08-05 10:53 | PN.HOSP_ITS ---
Reason for Visit Reason for Visit: Diagnoses Hypothyroidism, unspecified (08/03/23) Hyperparathyroidism, unspecified (08/03/23) Hypokalemia (08/03/23) Weakness (08/03/23) Subjective Subjective Ms. Puente apparently pulled out her IV the day prior. Had a midline placed this a.m. Rehydration started. Patient calcium levels trending up. Was also found to be hypokalemic with potassium of 3.0 Objective Data Objective Data Vital Signs: Vital Signs Temp Pulse Resp BP Pulse Ox O2 Del Method 96.5 F L 55 L 16 148/61 H 95 Room Air 08/05/23 10:12 08/05/23 10:12 08/05/23 10:12 08/05/23 10:12 08/05/23 10:12 08/05/23 10:12 Oxygen Delivery Method Room Air Weight: 59 kg Body Mass Index (BMI) 21.6 Intake & Output: Intake and Output for Last 24 Hours 08/03/23 08/04/23 08/05/23 23:59 23:59 23:59 Intake Total 1200 / 1200 1572.5 / 1572.5 0 / 0 Output Total 775 / 775 Balance 1200 / 1200 797.5 / 797.5 0 / 0 Lab / Micro Data 08/05/23 05:50 08/05/23 05:50 Labs: Laboratory Results - last 24 hr 08/03/23 18:10: PTH Intact 186.2 H 08/05/23 05:50: WBC 7.4, RBC 2.99 L, Hgb 9.8 L, Hct 29.6 L, MCV 99.0, MCH 32.8 H , MCHC 33.1, RDW Std Deviation 46.5 H, RDW Coeff of Theresa 12.9, Plt Count 206, MPV 11.2, Immature Gran % (Auto) 0.700, Neut % (Auto) 57.1, Lymph % (Auto) 31.1, [place] % (Auto) 8.9, Eos % (Auto) 1.7, Baso % (Auto) 0.5, Absolute Neuts (auto) 4.2, Absolute Lymphs (auto) 2.31, Nucleated RBC % 0, Sodium 141, Potassium 3.0 L , Chloride 106, Carbon Dioxide 29.0, Anion Gap 6, BUN 11, Creatinine 0.83, Estim Creat Clear Calc 49.46, Est GFR (MDRD) Af Amer 86, Est GFR (MDRD) Non-Af 71, BUN/Creatinine Ratio 13.3, Glucose 88, Calcium 11.2 H, Phosphorus 2.3 L, Magnesium 1.3 L Micro: Microbiology 08/03/23 18:10 Urine, Catheterized Urine Culture - Preliminary Alpha hemolytic organism Physical Exam Narrative GENERAL: cooperative HEENT: Atraumatic; normocephalic EYES; Anicteric, Normal Conjunctiva NECK; supple, normal thyroid, RESPIRATORY: Diminished to auscultation CARDIOVASCULAR: Regular S1 S2, GI: soft, normoactive bowel sounds, : No Renal angle tenderness; EXTREMITIES: No edema, no clubbing, MUSCULOSKELETAL: no muscle wasting NEURO: Awake; no lateralizing signs. SKIN: No Rash PSYCH; Flat affect Assessment & Plan Assessment/Plan (1) Acute hypokalemia: (2) Weakness: (3) Hypothyroidism: QUALIFIERS: Hypothyroidism type: acquired Qualified Code(s): E03.9 - Hypothyroidism, unspecified (4) Hyperparathyroidism: PLAN: Plan Patient is a 77-year-old lady recently treated for acute urinary tract infection as outpatient with cefdinir who was brought to the emergency department with altered mental status and UTI symptoms. Repeat urinalysis in the emergency department however came back unremarkable. Patient was found to have hypercalc emia admitted to a monitored bed for further management 1. Hypercalcemia ? Patient has history of hyperparathyroidism hypercalcemia on Cinacalcet apparently noncompliant with therapy. Patient is followed by Dr. Marin as well as Dr. Moya on outpatient basis. Calcium on admission was 12.6 patient did receive zoledronic acid as well as IV fluid calcium down to 10.9. Repeat calcium ordered for a.m. ? 08/05/2023; patient calcium to 11.2. Rehydration initiated. 2. Recently treated acute cystitis ? Repeat urinalysis unremarkable 3. Hypothyroidism - Patient is on levothyroxine home dose continued 4. Hypokalemia ? Corrected per protocol ? 08/05/2023 potassium down to 3.0, additional potassium given 5. Hypertension - Blood pressure controlled, home medications continued with dose adjustment as needed 6. GERD ? On PPI 7. Dementia ? Patient is on Namenda 8. DVT prophylaxis - On enoxaparin Time spent in the patient's overall evaluation,decision-making process, review of diagnostic data, adjustment of management, discussion with other providers, nursing nursing and ancillary staff involved in patient's care documentation, 35 minutes Charges/Coding Visit Charges Inpatient E&M: 83999 Subs Hosp L2
--- NOTE | 2023-08-05 12:55 | PCM.OP.PRO ---
Procedure Report Date of Procedure: 08/05/23 Assessment & Plan Assessment/Plan (1) Difficult intravenous access: PLAN: Midline insertion in right basilic. Patient was confused on arrival to the room, but was reassured when we were able to call her daughter and talk on speaker phone to discuss inserting the midline. Patient identity was verified with two patient identifiers. Hands were sanitized. The patient was positioned supine with right arm at 90 degrees. The patient's upper arm vasculature was assessed using ultrasound, and the right basilic vein was externally marked. An external measurement was obtained of 13 cm. Cap, mask, and prep gloves were donned. The underdrape was placed under the patient's arm. The site was prepped with chlorhexidine, and tourniquet was loosely applied. Prep gloves were discarded, and hands were sanitized. The sterile kit was opened with additional supplies dropped in. Sterile gown and gloves were donned, and the patient was draped. The sterile kit was assembled with all needle, introducer, connector, and catheter flushed with sterile normal saline. The marked site of insertion was anesthetized with 1% lidocaine. Patient tolerated well. The right basilic vein was then accessed using ultrasound guidance and guidewire was inserted to safety qamar. The tourniquet was released. The access needle was removed while securing the guidewire in place. The site was again anesthetized with 1% lidocaine, prior to insertion of introducer sheath and dilator. Patient tolerated well. The catheter was trimmed to a length of 13 cm, and a flushed needleless connector was attached. The catheter was then inserted through the introducer sheath, slowly. There was no resistance on insertion. The introducer sheath was retracted and peeled away, incrementally, while keeping the catheter secured. The catheter was fully inserted leaving 0 cm external. Blood return was verified and the midline was flushed with sterile normal saline in a pulsatile fashion. Total sterile flushes used for the insertion was two 10 ml syringes, one from the kit. Finally, the insertion site was cleaned with chlorhexidine, and the catheter was secured using a StatLock. The site was covered with a Tegaderm CHG Dressing. Baseline arm circumference was obtained at the insertion site and measured 28 cm. The primary and charge nurse are aware that the midline is ready for use. Procedures Radiology Radiology US Procedures: Other Procedure See Report (Inpatient midline insertion: [facility] code)
[2023-08-05 15:02] VITALS: BP 146/74; PULSE 56; RESP 16; TEMP 36.5; O2SAT 99
--- NOTE | 2023-08-05 16:40 | CASEMGMT ---
ROMELIA BEAR chart review: Patient was admitted 07/04-07/08/23 for AMS, UTI, hypercalcemia. See RN CM assessment from 07/06/23. Patient was discharge to [facility] for additional therapy. Patient returned to [facility] ED for confusion and concern for UTI/dehydration. Patient was admitted for Hypercalcemia and generalized weakness. ROMELIA BEAR called daughter Sanjana as patient is confused. Per Daughter, patient was discharged from [facility] after 5 days there. Patient was discharged from [facility] with [facility] and grandson lives with patient. Per Daughter, patient was taking medications as prescribed and had attended follow-up appts. Daughter would like patient to return home with resumption of [facility]. CM will continue to follow this patient and plan for a safe discharge.
--- NOTE | 2023-08-05 20:00 | NURSING ---
Starting emergency charting
[2023-08-05] MEDS: 0.9% Normal Saline (1000mL) 1,000 ML 75 ML IV (23:04)
[2023-08-05 23:09] VITALS: BP 154/78; PULSE 56; RESP 16; TEMP 36.5; O2SAT 100
[2023-08-05] MEDS: Memantine Hydrochloride 5 MG Tablet PO (23:12)
[2023-08-06] MEDS: Levothyroxine 150 MCG Tablet PO (05:25)
[2023-08-06 05:26] VITALS: BP 139/68; PULSE 55; RESP 16; TEMP 36.5; O2SAT 97
[2023-08-06 06:03] LABS: Absolute Lymphocyte Count 2.88 X10^3/uL (0.83-4.51); Absolute Neutrophil Count 3.3 X10^3/uL (2.0-7.7); Basophil# 0.05 X10^3/uL; Basophil% 0.7 % (0-1); Eosinophil# 0.14 X10^3/uL; Hematocrit 29.3 % (37-47); Hemoglobin 9.7 g/dL (12.0-15.0); Lymphocyte # 2.88 X10^3/ul (0.83-4.51); Lymphocyte % 40.3 % (19-41); Mean Corp Hgb Conc 33.1 g/dL (32-36); Mean Corpuscular Hgb 32.7 pg (27.0-32.0); Mean Corpuscular Volume 98.7 fL (81-99); Mean Platelet Vol. 11.2 fl (6.2-12.0); Monocyte# 0.69 X10^3/uL; Monocyte% 9.7 % (0-10); NRBC Flagged by Analyzer 0 % (0-5); Neutrophil # 3.33 X10^3/uL (2.7-7.7); Neutrophil % 46.6 % (47-70); Platelet Count 203 K/mm3 (150-450); RBC Distribution Width CV 12.6 % (11.6-14.6); RBC Distribution Width SD 45.4 fl (35.1-43.9); Red Blood Count 2.97 M/mm3 (4.2-5.4); White Blood Count 7.1 K/mm3 (4.4-11.0)
[2023-08-06 06:29] LABS: Anion Gap 6 (5-15); BUN 11 mg/dL (7-18); BUN/Creat Ratio 13.5 RATIO (10-20); Chloride 107 mmol/L (98-107); Creatinine, Serum 0.82 mg/dL (0.55-1.02); EST Glomerular Filtration Rate 72 mL/min (>60); Est Glom Filt Rate - Afr Amer 87 mL/min (>60); Estimated Creatinine Clearance 50.06 ml/min; Glucose 92 mg/dL (74-106); Potassium 2.8 mmol/L (3.5-5.1); Sodium Level 142 mmol/L (136-145)
[2023-08-06] MEDS: Cinacalcet HCl 30 MG Tablet 60 MG PO ×2 (09:26→21:57)
[2023-08-06] MEDS: Pantoprazole Sodium 40 MG Tablet PO (09:26)
[2023-08-06] MEDS: Losartan Potassium 25 MG Tablet PO (09:27)
[2023-08-06] MEDS: Ranolazine 500 MG Tablet PO ×2 (09:27→21:57)
[2023-08-06] MEDS: Enoxaparin 40 MG/0.4 ML Syringe SC (09:27)
[2023-08-06] MEDS: Potassium Chloride Oral Tablet 20 MEQ PO ×2 (09:27→16:54)
[2023-08-06] MEDS: Ferrous Sulfate 325 MG Tablet PO (09:28)
[2023-08-06] MEDS: Polyethylene Glycol 3350 17 GM PACKET PO (09:28)
--- NOTE | 2023-08-06 09:51 | CASEMGMT ---
ROMELIA BEAR chart review: Patient was admitted 07/04-07/08/23 for AMS, UTI, hypercalcemia. See ROMELIA BEAR assessment from 07/06/23. Patient was discharge to [facility] for additional therapy. Patient returned to [facility] ED\\\\\\\\\\\\\
--- NOTE | 2023-08-06 09:52 | CASEMGMT ---
Discharge Planning HH [facility]. Fela Marley, Discharge Planning Asst.
--- NOTE | 2023-08-06 10:00 | PN.HOSP_ITS ---
Reason for Visit Reason for Visit: Diagnoses Hypothyroidism, unspecified (08/03/23) Hyperparathyroidism, unspecified (08/03/23) Hypokalemia (08/03/23) Weakness (08/03/23) Other specified health status (08/03/23) Subjective Subjective Patient seen, diagnostic data reviewed Signifor calcium of 11.0 and potassium of 2.8. Will continue with current hydration as well as potassium replacement. Objective Data Objective Data Vital Signs: Vital Signs Temp Pulse Resp BP Pulse Ox O2 Del Method 97.7 F L 55 L 16 139/68 H 97 Room Air 08/06/23 05:26 08/06/23 05:26 08/06/23 05:26 08/06/23 05:26 08/06/23 05:26 08/06/23 09:36 Oxygen Delivery Method Room Air Weight: 59 kg Body Mass Index (BMI) 21.6 Intake & Output: Intake and Output for Last 24 Hours 08/04/23 08/05/23 08/06/23 23:59 23:59 23:59 Intake Total 1572.5 / 1572.5 627.5 / 627.5 Output Total 775 / 775 600 / 600 800 / 800 Balance 797.5 / 797.5 27.5 / 27.5 -800 / -800 Lab / Micro Data 08/06/23 05:48 08/06/23 05:48 Labs: Laboratory Results - last 24 hr 08/06/23 05:48: WBC 7.1, RBC 2.97 L, Hgb 9.7 L, Hct 29.3 L, MCV 98.7, MCH 32.7 H , MCHC 33.1, RDW Std Deviation 45.4 H, RDW Coeff of Theresa 12.6, Plt Count 203, MPV 11.2, Immature Gran % (Auto) 0.700, Neut % (Auto) 46.6 L, Lymph % (Auto) 40.3, [place] % (Auto) 9.7, Eos % (Auto) 2.0, Baso % (Auto) 0.7, Absolute Neuts (auto) 3.3, Absolute Lymphs (auto) 2.88, Nucleated RBC % 0, Sodium 142, Potassium 2.8 L , Chloride 107, Carbon Dioxide 29.0, Anion Gap 6, BUN 11, Creatinine 0.82, Estim Creat Clear Calc 50.06, Est GFR (MDRD) Af Amer 87, Est GFR (MDRD) Non-Af 72, BUN/Creatinine Ratio 13.5, Glucose 92, Calcium 11.0 H Micro: Microbiology 08/03/23 18:10 Urine, Catheterized Urine Culture - Preliminary Enterococcus faecium Physical Exam Narrative GENERAL: cooperative HEENT: Atraumatic; normocephalic EYES; Anicteric, Normal Conjunctiva NECK; supple, normal thyroid, RESPIRATORY: Diminished to auscultation CARDIOVASCULAR: Regular S1 S2, GI: soft, normoactive bowel sounds, : No Renal angle tenderness; EXTREMITIES: No edema, no clubbing, MUSCULOSKELETAL: no muscle wasting NEURO: Awake; no lateralizing signs. SKIN: No Rash PSYCH; Flat affect Assessment & Plan Assessment/Plan (1) Acute hypokalemia: (2) Weakness: (3) Hypothyroidism: QUALIFIERS: Hypothyroidism type: acquired Qualified Code(s): E03.9 - Hypothyroidism, unspecified (4) Hyperparathyroidism: PLAN: Plan Patient is a 77-year-old lady recently treated for acute urinary tract infection as outpatient with cefdinir who was brought to the emergency department with altered mental status and UTI symptoms. Repeat urinalysis in the emergency d epartment however came back unremarkable. Patient was found to have hypercalcemia admitted to a monitored bed for further management 1. Hypercalcemia ? Patient has history of hyperparathyroidism hypercalcemia on Cinacalcet apparently noncompliant with therapy. Patient is followed by Dr. Marin as well as Dr. Moya on outpatient basis. Calcium on admission was 12.6 patient did receive zoledronic acid as well as IV fluid calcium down to 10.9. Repeat calcium ordered for a.m. ? 08/05/2023; patient calcium to 11.2. Rehydration initiated. ? 08/06/2023; calcium down to 11.0 2. Recently treated acute cystitis ? Repeat urinalysis unremarkable 3. Hypothyroidism - Patient is on levothyroxine home dose continued 4. Hypokalemia ? Corrected per protocol ? 08/05/2023 potassium down to 3.0, additional potassium given ? 08/06/2023 potassium down to 2.9 additional replacement given. 5. Hypertension - Blood pressure controlled, home medications continued with dose adjustment as needed 6. GERD ? On PPI 7. Dementia ? Patient is on Namenda 8. DVT prophylaxis - On enoxaparin Time spent in the patient's overall evaluation,decision-making process, review of diagnostic data, adjustment of management, discussion with other providers, nursing nursing and ancillary staff involved in patient's care documentation, 35 minutes Charges/Coding Visit Charges Inpatient E&M: 15650 Subs Hosp L2
[2023-08-06] MEDS: KCL 20MEQ in 0.45%NS 20 MEQ/1,000 ML IV.SOLN. 100 MEQ IV ×2 (10:36→21:54)
[2023-08-06] MEDS: Potassium Chloride 10mEq/100mL 10 MEQ/100 ML IV.SOLN. 100 MEQ IV BOLUS ×4 (10:59→14:15)
[2023-08-06 11:30] VITALS: BP 171/74; PULSE 65; RESP 14; TEMP 36.7; O2SAT 100
[2023-08-06 16:45] LABS: Potassium 4.1 mmol/L (3.5-5.1)
[2023-08-06] MEDS: 0.9% Saline Lock 10 ML Syringe IV (16:54)
[2023-08-06] MEDS: Ondansetron 4 MG/2 ML Vial IV (16:54)
[2023-08-06 17:30] VITALS: BP 150/91; PULSE 50; RESP 14; TEMP 36.9; O2SAT 100
--- NOTE | 2023-08-06 21:00 | NURSING ---
Starting emergency charting
[2023-08-06] MEDS: Memantine Hydrochloride 5 MG Tablet PO (21:57)
[2023-08-06 23:30] VITALS: BP 155/76; PULSE 58; RESP 18; TEMP 36.5; O2SAT 99
[2023-08-07 05:33] VITALS: BP 133/65; PULSE 56; RESP 16; TEMP 36.5; O2SAT 97
[2023-08-07] MEDS: Levothyroxine 150 MCG Tablet PO (05:34)
[2023-08-07 06:36] LABS: Absolute Lymphocyte Count 2.94 X10^3/uL (0.83-4.51); Absolute Neutrophil Count 3.7 X10^3/uL (2.0-7.7); Basophil# 0.05 X10^3/uL; Basophil% 0.7 % (0-1); Eosinophil# 0.21 X10^3/uL; Eosinophils% 2.8 % (0-5); Hematocrit 28.8 % (37-47); Hemoglobin 9.5 g/dL (12.0-15.0); Lymphocyte # 2.94 X10^3/ul (0.83-4.51); Lymphocyte % 38.8 % (19-41); Mean Corpuscular Hgb 32.4 pg (27.0-32.0); Mean Corpuscular Volume 98.3 fL (81-99); Monocyte% 7.9 % (0-10); NRBC Flagged by Analyzer 0 % (0-5); Neutrophil # 3.72 X10^3/uL (2.7-7.7); Platelet Count 186 K/mm3 (150-450); RBC Distribution Width CV 12.7 % (11.6-14.6); RBC Distribution Width SD 45.8 fl (35.1-43.9); Red Blood Count 2.93 M/mm3 (4.2-5.4); White Blood Count 7.6 K/mm3 (4.4-11.0)
[2023-08-07 07:10] LABS: Anion Gap 7 (5-15); BUN 9 mg/dL (7-18); Calcium,Total 10.5 mg/dL (8.5-10.1); Chloride 106 mmol/L (98-107); Creatinine, Serum 0.82 mg/dL (0.55-1.02); EST Glomerular Filtration Rate 71 mL/min (>60); Est Glom Filt Rate - Afr Amer 86 mL/min (>60); Estimated Creatinine Clearance 50.06 ml/min; Glucose 84 mg/dL (74-106); Potassium 3.7 mmol/L (3.5-5.1); Sodium Level 139 mmol/L (136-145)
[2023-08-07 07:48] VITALS: O2SAT 96
[2023-08-07] MEDS: KCL 20MEQ in 0.45%NS 20 MEQ/1,000 ML IV.SOLN. 100 MEQ IV (08:01)
[2023-08-07] MEDS: Potassium Chloride Oral Tablet 20 MEQ PO (08:03)
[2023-08-07] MEDS: Ferrous Sulfate 325 MG Tablet PO (08:03)
[2023-08-07] MEDS: Ondansetron 4 MG/2 ML Vial IV (08:06)
[2023-08-07] MEDS: 0.9% Saline Lock 10 ML Syringe IV (08:06)
[2023-08-07 09:09] VITALS: BP 136/70; PULSE 55; RESP 16; TEMP 37.1; O2SAT 98
--- NOTE | 2023-08-07 10:10 | PN.HOSP_ITS ---
Reason for Visit Reason for Visit: Diagnoses Hypothyroidism, unspecified (08/03/23) Hyperparathyroidism, unspecified (08/03/23) Hypokalemia (08/03/23) Weakness (08/03/23) Other specified health status (08/03/23) Subjective Subjective Patient seen appears to be back to her baseline she be assessed for possible discharge Objective Data Objective Data Vital Signs: Vital Signs Temp Pulse Resp BP Pulse Ox O2 Del Method 97.7 F L 56 L 16 133/65 H 97 Room Air 08/07/23 05:33 08/07/23 05:33 08/07/23 05:33 08/07/23 05:33 08/07/23 05:33 08/07/23 05:33 Oxygen Delivery Method Room Air Weight: 59 kg Body Mass Index (BMI) 21.6 Intake & Output: Intake and Output for Last 24 Hours 08/05/23 08/06/23 08/07/23 23:59 23:59 23:59 Intake Total 627.5 / 627.5 2265 / 2265 1000 / 1000 Output Total 600 / 600 1950 / 1950 700 / 700 Balance 27.5 / 27.5 315 / 315 300 / 300 Lab / Micro Data 08/07/23 06:24 08/07/23 06:24 Labs: Laboratory Results - last 24 hr 08/06/23 15:33: Potassium 4.1 08/07/23 06:24: WBC 7.6, RBC 2.93 L, Hgb 9.5 L, Hct 28.8 L, MCV 98.3, MCH 32.4 H , MCHC 33.0, RDW Std Deviation 45.8 H, RDW Coeff of Theresa 12.7, Plt Count 186, MPV 11.0, Immature Gran % (Auto) 0.800, Neut % (Auto) 49.0, Lymph % (Auto) 38.8, [place] % (Auto) 7.9, Eos % (Auto) 2.8, Baso % (Auto) 0.7, Absolute Neuts (auto) 3.7, Absolute Lymphs (auto) 2.94, Nucleated RBC % 0, Sodium 139, Potassium 3.7, Chloride 106, Carbon Dioxide 26.0, Anion Gap 7, BUN 9, Creatinine 0.82, Estim Creat Clear Calc 50.06, Est GFR (MDRD) Af Amer 86, Est GFR (MDRD) Non-Af 71, BUN/Creatinine Ratio 11.0, Glucose 84, Calcium 10.5 H Micro: Microbiology 08/03/23 18:10 Urine, Catheterized Urine Culture - Final Enterococcus faecium Physical Exam Narrative GENERAL: cooperative HEENT: Atraumatic; normocephalic EYES; Anicteric, Normal Conjunctiva NECK; supple, normal thyroid, RESPIRATORY: Diminished to auscultation CARDIOVASCULAR: Regular S1 S2, GI: soft, normoactive bowel sounds, : No Renal angle tenderness; EXTREMITIES: No edema, no clubbing, MUSCULOSKELETAL: no muscle wasting NEURO: Awake; no lateralizing signs. SKIN: No Rash PSYCH; Flat affect Assessment & Plan Assessment/Plan (1) Acute hypokalemia: (2) Weakness: (3) Hypothyroidism: QUALIFIERS: Hypothyroidism type: acquired Qualified Code(s): E03.9 - Hypothyroidism, unspecified (4) Hyperparathyroidism: PLAN: Plan Patient is a 77-year-old lady recently treated for acute urinary tract infection as outpatient with cefdinir who was brought to the emergency department with altered mental status and UTI symptoms. Repeat urinalysis in the emergency department however came back unremarkable. Patient was found to have hyp ercalcemia admitted to a monitored bed for further management 1. Hypercalcemia ? Patient has history of hyperparathyroidism hypercalcemia on Cinacalcet apparently noncompliant with therapy. Patient is followed by Dr. Marin as well as Dr. Moya on outpatient basis. Calcium on admission was 12.6 patient did receive zoledronic acid as well as IV fluid calcium down to 10.9. Repeat calcium ordered for a.m. ? 08/05/2023; patient calcium to 11.2. Rehydration initiated. ? 08/06/2023; calcium down to 11.0 2. Recently treated acute cystitis ? Repeat urinalysis unremarkable 3. Hypothyroidism - Patient is on levothyroxine home dose continued 4. Hypokalemia ? Corrected per protocol ? 08/05/2023 potassium down to 3.0, additional potassium given ? 08/06/2023 potassium down to 2.9 additional replacement given. 5. Hypertension - Blood pressure controlled, home medications continued with dose adjustment as needed 6. GERD ? On PPI 7. Dementia ? Patient is on Namenda 8. DVT prophylaxis - On enoxaparin Time spent in the patient's overall evaluation,decision-making process, review of diagnostic data, adjustment of management, discussion with other providers, nursing nursing and ancillary staff involved in patient's care documentation, 35 minutes Charges/Coding Visit Charges Inpatient E&M: 36290 Subs Hosp L2
[2023-08-07] MEDS: Polyethylene Glycol 3350 17 GM PACKET PO (10:17)
[2023-08-07] MEDS: Ranolazine 500 MG Tablet PO (10:17)
[2023-08-07] MEDS: Enoxaparin 40 MG/0.4 ML Syringe SC (10:17)
[2023-08-07] MEDS: Pantoprazole Sodium 40 MG Tablet PO (10:18)
[2023-08-07] MEDS: Cinacalcet HCl 30 MG Tablet 60 MG PO (10:18)
[2023-08-07] MEDS: Losartan Potassium 25 MG Tablet PO (10:18)
[2023-08-07 10:22] VITALS: BP 136/70; PULSE 55; RESP 16; TEMP 37.1; O2SAT 98
--- NOTE | 2023-08-07 10:24 | DS.PCM_ITS ---
Providers Date of Admission: 08/03/23 Primary Care Physician: Dr. Joey Smith, DO Consultations 08/03/23 21:09 Consult: General Surgery Routine Consulting Provider: Javier Moya Reason for Consult: Hypercalcemia EMERGENT Consult: Yes MD Notified: Yes Date Notified: 08/03/23 Time Notified: 20:25 Method of Notification: ED Physician Initiated Reason For Visit: HYPERCALCEMIA/GENERALIZED WEAKNESS Diagnosis Discharge Diagnosis (1) Acute hypokalemia: Status: Acute Code(s): E87.6 - Hypokalemia (2) Weakness: Status: Acute Code(s): R53.1 - Weakness (3) Hypothyroidism: Status: Chronic Code(s): E03.9 - Hypothyroidism, unspecified Qualifiers: Hypothyroidism type: acquired Qualified Code(s): E03.9 - Hypothyroidism, unspecified (4) Hyperparathyroidism: Status: Chronic Code(s): E21.3 - Hyperparathyroidism, unspecified Plan Patient is a 77-year-old lady recently treated for acute urinary tract infection as outpatient with cefdinir who was brought to the emergency department with altered mental status and UTI symptoms. Repeat urinalysis in the emergency department however came back unremarkable. Patient was found to have hypercalcemia admitted to a monitored bed for further management 1. Hypercalcemia ? Patient has history of hyperparathyroidism hypercalcemia on Cinacalcet apparently noncompliant with therapy. Patient is followed by Dr. Marin as well as Dr. Moya on outpatient basis. Calcium on admission was 12.6 patient did receive zoledronic acid as well as IV fluid calcium down to 10.9. Repeat calcium ordered for a.m. ? 08/05/2023; patient calcium to 11.2. Rehydration initiated. ? 08/06/2023; calcium down to 11.0 ? 08/07/2023 calcium down to 10.5 2. Recently treated acute cystitis ? Repeat urinalysis unremarkable 3. Hypothyroidism - Patient is on levothyroxine home dose continued 4. Hypokalemia ? Corrected per protocol ? 08/05/2023 potassium down to 3.0, additional potassium given ? 08/06/2023 potassium down to 2.9 additional replacement given. 5. Hypertension - Blood pressure controlled, home medications continued with dose adjustment as needed 6. GERD ? On PPI 7. Dementia ? Patient is on Namenda 8. DVT prophylaxis - On enoxaparin Time spent in the patient's overall evaluation,decision-making process, review of diagnostic data, adjustment of management, discussion with other providers, nursing nursing and ancillary staff involved in patient's care documentation, 35 minutes Medications at Discharge Home Medications amlodipine 5 mg tablet 5 mg PO BID HIGH BLOOD PRESSURE 04/07/20 aspirin 81 mg chewable tablet 81 mg PO DAILY@0800 HEART HEALTH 04/07/20 pantoprazole 40 mg tablet,delayed release 40 mg PO DAILY ACID REFLUX 04/07/20 ranolazine 500 mg tablet,extended release,12 hr 500 mg PO BID CHEST PAIN 04/07/20 memantine 7 mg capsule sprinkle,extended release 24hr 7 mg PO QHS memory 3 ferrous sulfate 325 mg (65 mg iron) tablet 325 mg PO DAILY SUPPLEMENT 07/04/23 levothyroxine 100 mcg tablet 150 mcg PO DAILY@0600 THYROID 07/04/23 cinacalcet 60 mg tablet 60 mg PO BID #60 tabs 07/06/23 polyethylene glycol 3350 17 gram/dose oral powder (Miralax) 17 g PO DAILY CONSTIPATION 07/06/23 cefdinir 300 mg capsule 300 mg PO BID ANTIBIOTIC #10 caps 07/08/23 potassium chloride 20 mEq tablet,extended release(part/cryst) (Klor-Con M) 20 meq PO DAILY SUPPLEMENT #10 tabs 07/08/23 olmesartan 5 mg tablet 5 mg PO DAILY HIGH BLOOD PRESSURE 08/03/23 Hospital Course Summary of Care Provided Minutes Spent on Discharge: 35 Physical Exam Narrative GENERAL: cooperative HEENT: Atraumatic; normocephalic EYES; Anicteric, Normal Conjunctiva NECK; supple, normal thyroid, RESPIRATORY: Diminished to auscultation CARDIOVASCULAR: Regular S1 S2, GI: soft, normoactive bowel sounds, : No Renal angle tenderness; EXTREMITIES: No edema, no clubbing, MUSCULOSKELETAL: no muscle wasting NEURO: Awake; no lateralizing signs. SKIN: No Rash PSYCH; Flat affect Weight / BMI Weight Weight: 59 kg Body Mass Index (BMI) 21.6 ABG / Lab / Microbiology Data 08/07/23 06:24 08/07/23 06:24 Laboratory: Laboratory Results - last 24 hr 08/06/23 15:33: Potassium 4.1 08/07/23 06:24: WBC 7.6, RBC 2.93 L, Hgb 9.5 L, Hct 28.8 L, MCV 98.3, MCH 32.4 H , MCHC 33.0, RDW Std Deviation 45.8 H, RDW Coeff of Theresa 12.7, Plt Count 186, MPV 11.0, Immature Gran % (Auto) 0.800, Neut % (Auto) 49.0, Lymph % (Auto) 38.8, [place] % (Auto) 7.9, Eos % (Auto) 2.8, Baso % (Auto) 0.7, Absolute Neuts (auto) 3.7, Absolute Lymphs (auto) 2.94, Nucleated RBC % 0, Sodium 139, Potassium 3.7, Chloride 106, Carbon Dioxide 26.0, Anion Gap 7, BUN 9, Creatinine 0.82, Estim Creat Clear Calc 50.06, Est GFR (MDRD) Af Amer 86, Est GFR (MDRD) Non-Af 71, BUN/Creatinine Ratio 11.0, Glucose 84, Calcium 10.5 H Microbiology: Microbiology 08/03/23 18:10 Urine, Catheterized Urine Culture - Final Enterococcus faecium D/C Instructions Discharge Diet: No restrictions Discharge Activity: Return to Normal Activity Call your doctor if you observe: Fever of 101 or Higher, Shortness of breath, Fainting spells and Chest pain Meaningful Use Info Meaningful Use Diagnoses (Choose all that apply): None applicable Discharge Plan Admission Admit Date/Time: 08/03/23 20:22 Attending Provider: Yury Lopez Primary Care Provider: Joey Smith Consulting Providers: Javier Moya; John Dubose Discharge Orders/Prescriptions Prescriptions: No Action amlodipine 5 MG tablet 5 mg PO BID Hold Instructions: DUE TO LOW BP pantoprazole 40 MG tablet 40 mg PO DAILY aspirin 81 MG tablet,chewable 81 mg PO DAILY@0800 ranolazine 500 MG tablet extended release 12 hr 500 mg PO BID ferrous sulfate 325 mg (65 mg iron) tablet 325 mg PO DAILY Patient Comments: TAKE 1 TABLET BY MOUTH TWICE A DAY levothyroxine 100 mcg Tablet 150 mcg PO DAILY@0600 polyethylene glycol 3350 [Miralax] 17 gram/dose powder 17 g PO DAILY potassium chloride [Klor-Con M20] 20 mEq tablet,ER particles/crystals 20 meq PO DAILY Qty: 10 0RF cefdinir 300 mg capsule 300 mg PO BID Qty: 10 0RF olmesartan 5 mg tablet 5 mg PO DAILY memantine 7 mg capsule,sprinkle,ER 24hr 7 mg PO QHS cinacalcet 60 mg tablet 60 mg PO BID Qty: 60 4RF Referrals / Follow Up: Javier Moya MD [Med Staff - Active Staff] - Within 2 Weeks Javier Martinez DO [Non-Staff] - Within 1 Week Joey Smith DO [Primary Care Provider] - Chaz Marin MD [Med Staff - Courtesy Staff] - Within 2 Weeks Disposition Disposition (needs filled in before D/C Order can be placed): Home, Self Care Charges/Coding Visit Charges Inpatient E&M: 02889 Disch Hosp >30min
[2023-08-07 10:27] VITALS: BP 136/70; PULSE 55; RESP 16; TEMP 37.1; O2SAT 98
--- NOTE | 2023-08-07 11:01 | CASEMGMT ---
ROMELIA BEAR NOTE: Pt being discharged. Fela, senior production planner, to notify [facility] via [employer]. ROMELIA BEAR to room and pt made aware she is discharging home. Minerva LEÓN, to call pt's daughter to notify her and to review discharge instructions w/her. Aquilino WHITTINGTON RN, CM
--- NOTE | 2023-08-07 11:16 | CASEMGMT ---
Discharge Planning Discharge summary sent to [facility] via [facility]. Fela Marley, Discharge Planning Asst.
--- NOTE | 2023-08-07 11:41 | NURSING ---
called patient's daughter, Sanjana, she will send someone to come pick patient up.
== END 2023-08-07 12:27 | disposition home health service (06) | DRG 641 ==
LOC: ED 20:02 → PCU 20:22
PROVIDERS: Nurse Practitioner; Admitting Provider Family Medicine; Emergency Provider Student in an Organized Health Care Education/Training Program; Visit Provider Internal Medicine
DX: E83.52 Hypercalcemia (principal); E03.9 Hypothyroidism, unspecified; F03.90 Unspecified dementia, unspecified severity, without behavioral disturbance, psychotic disturbance, mood disturbance, and anxiety; E21.3 Hyperparathyroidism, unspecified; I10 Essential (primary) hypertension; E87.6 Hypokalemia; K21.9 Gastro-esophageal reflux disease without esophagitis; T50.996A Underdosing of other drugs, medicaments and biological substances, initial encounter; Z91.148 Patient's other noncompliance with medication regimen for other reason; Z79.82 Long term (current) use of aspirin; Z79.899 Other long term (current) drug therapy; Z87.440 Personal history of urinary (tract) infections
CPT/HCPCS: 36415; 36569; 71045; 80048; 80053; 81001; 82330; 83605; 83690; 83735; 83970; 84100; 84132; 85025; 87077; 87086; 87088; 87186; 97116; 97162; 97166; 97530; 99284; J7030; A4216; J2405

== ENCOUNTER → 2023-08-10 | Outpatient (CLI) | payer MEDICARE, SELFPAY ==
--- NOTE | 2023-08-10 10:28 | NM_ITS ---
CLINICAL: 77-year-old female with history of clinical hyperparathyroidism. 99m Tc SESTAMIBI DUAL PHASE PLANAR and SPECT-CT PARATHYROID SCINTIGRAPHY COMPARISON: Thyroid ultrasound report 04/01/2023 FINDINGS: Following the intravenous administration of 27.1 mCi of 99m Tc sestamibi, planar image acquisitions of the anterior neck at approximately 15 minutes and 3.0 hours post radiopharmaceutical provision and SPECT-CT reconstructions obtained at 3.0 hours reveal: 1. Immediate static blood pool acquisitions demonstrate focal increased uptake noted in the region of the midline thyroid bed. 2. Delayed planar images depict persistent unchanged uptake noted in the region of the midline thyroid bed. Emission computed tomographic reconstructions of the anterior neck reveal confirmation of the planar projection findings. NM/Parathyroid SPECT w/ CONCUR CT IMPRESSION: 1. The focal increased in radiotracer distribution defined in the anterior neck, thyroid bed likely represents presence of a parathyroid adenoma. 2. No other scintigraphic abnormalities are defined. Electronically Signed: Benitez Rollins DO at 11:03 EST ,
== END | disposition home or self-care (01) ==
LOC: NM 10:26
PROVIDERS: Referring Provider Surgery; Visit Provider Surgery
DX: E21.3 Hyperparathyroidism, unspecified (principal)
CPT/HCPCS: 78072; A9500

== ENCOUNTER 2023-08-13 17:02 | Inpatient (IN) | payer MEDICARE, SELFPAY ==
[2023-08-13 17:03] VITALS: BP 126/75; PULSE 85; RESP 16; TEMP 35.7; O2SAT 96
--- OUTSIDE RECORDS SUMMARY | 2023-08-13 18:11 | XMS RPT_ITS | CCD ---
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 Name Role Phone Michelle SHINE MD, Bakari Primary Care Provider [phone] BAKARI RODRIGUEZ DO Primary Care Physician [phone] Sanajna Wallace PT Unavailable Unavailable Michelle SHINE MD, [...] Allergy 12-02-2019 Unknown, Eruption of skin (disorder) [facility] Medications Current Medications Medication Drug Class(es) [...] # 100 tab(s), 0 Refill(s), Pharmacy: [facility]/pharmacy #[id number], Right hip pain, 165.1, cm, 08/19/22 [...] 90 tab(s), 0 Refill(s), TRI, Pharmacy: [facility]/pharmacy #[id number], 165, cm, 02/23/23 12:59:00 EDT, Height, kg, 02/23/23 12:59:00 EDT, Dosing Weight Start Date: 02/23/23 Stop Date: 05/24/23 Status: Ordered Problems Active Problems Problem Classification Problem Date Documented Date Episodic/Chronic Abdominal hernia (10 sources) Hiatal hernia 05-03-2019 Episodic Adjustment disorders (6 sources) Grief finding; Translations: [Adjustment disorder with depressed mood] Onset: 0 12-23-2019 Chronic Allergic reactions (10 sources) Allergy to 7-pdukcqw-2-methylglutar yl-coenzyme A reductase inhibitor 03-16-2020 Episodic Cataract [...] Taking VItal Signs DR ABDON ARROYO MD [facility] 08-21-2022 10:38-[address] ABDON ARROYO MD [facility] 08-21-2022 10:38-[address] ABDON Anaya [facility] 08-21-2022 10:38-0500 Body temperature 97.52 [degF] DR ABDON ARROYO MD [facility] 08-21-2022 10:38-0500 Diastolic Blood Pressure Non-Invasive [address] ABDON ARROYO MD [facility] 08-21-2022 10:38-0500 Heart rate 53 /min DR ABDON ARROYO MD [facility] 08-21-2022 10:38-0500 Reason For Taking VItal Signs DR ABDON ARROYO MD [facility] 08-21-2022 10:38-0500 Respiratory rate 18 /min DR ABDON ARROYO MD [facility] 08-21-2022 10:38-0500 Systolic Blood Pressure Non-Invasive [address] ABDON ARROYO MD [facility] 08-21-2022 09:34-0500 Reason For Taking VItal Signs DR ABDON ARROYO MD [facility] 08-21-2022 06:50-[address] ABDON ARROYO MD [facility] 08-21-2022 06:50-[address] ABDON Anaya [facility] 08-21-2022 06:50-0500 Body temperature 98.06 [degF] DR ABDON ARROYO MD [facility] 08-21-2022 06:50-0500 Diastolic Blood Pressure Non-Invasive [address] ABDON ARROYO MD [facility] 08-21-2022 06:50-0500 Heart rate 56 /min DR ABDON ARROYO MD [facility] 08-21-2022 06:50-0500 Respiratory rate 18 /min DR ABDON ARROYO MD [facility] 08-21-2022 06:50-0500 Systolic Blood Pressure Non-Invasive [address] ABDON ARROYO MD [facility] 08-21-2022 03:47-0500 Body temperature 98.06 [degF] DR ABDON ARROYO MD [facility] 08-21-2022 03:47-0500 Diastolic Blood Pressure Non-Invasive [address] ABDON ARROYO MD [facility] 08-21-2022 03:47-0500 Heart rate 67 /min DR ABDON ARROYO MD [facility] 08-21-2022 03:47-0500 Respiratory rate 16 /min DR ABDON ARROYO MD [facility] 08-21-2022 03:47-0500 Systolic Blood Pressure Non-Invasive [address] ABDON ARROYO MD [facility] 08-20-2022 23:50-0500 Heart rate 54 /min DR ABDON ARROYO MD [facility] 08-19-2022 15:04-[address] ABDON ARROYO MD [facility] 08-19-2022 15:04-[address] ABDON Anaya [facility] 08-19-2022 13:11-0500 Body height 165.[address] ABDON ARROYO MD [facility] 08-19-2022 13:11-0500 Body weight 73.[address] ABDON ARROYO MD [facility] 08-19-2022 13:11-0500 Body weight 26.96 kg/m2 DR ABDON ARROYO MD [facility] 08-19-2022 13:04-0500 Body temperature 96.98 [degF] DR ABDON ARROYO MD [facility] 08-19-2022 11:50-0500 Body temperature 95.36 [degF] DR ABDON ARROYO MD [facility] 08-19-2022 11:45-0500 Respiratory Rate - Anes 11 br/min DR ABDON ARROYO MD [facility] 08-19-2022 11:40-0500 Respiratory Rate - Anes 12 br/min DR ABDON ARROYO MD [facility] 08-19-2022 11:35-0500 Respiratory Rate - Anes 12 br/min DR ABDON ARROYO MD [facility] 08-19-2022 07:52-0500 Body height 165.[address] ABDON ARROYO MD [facility] 08-19-2022 07:52-0500 Body temperature 97.88 [degF] DR ABDON ARROYO MD [facility] 08-19-2022 07:52-0500 Body weight 73.[address] ABDON ARROYO MD [facility] 08-19-2022 07:52-0500 Heart rate 56 /min DR ABDON ARROYO MD [facility] 08-05-2022 13:53-05[address] Pressure Cuff Size DR ABDON ARROYO MD [facility] 08-05-2022 13:53-[address] ABDON ARROYO MD [facility] 08-05-2022 13:53-[address] ABDON Anaya [facility] 08-05-2022 13:53-0500 Body height 165.[address] ABDON ARROYO MD [facility] 08-05-2022 13:53-0500 Body weight 73.[address] ABDON ARROYO MD [facility] 08-05-2022 13:53-0500 Body weight 26.96 kg/m2 DR ABDON ARROYO MD [facility] 08-05-2022 13:53-0500 Diastolic Blood Pressure Non-Invasive [address] ABDON ARROYO MD [facility] 08-05-2022 13:53-0500 Heart rate 45 /min DR ABDON ARROYO MD [facility] 08-05-2022 13:53-0500 Systolic Blood Pressure Non-Invasive [address] ABDON ARROYO MD [facility] Encounters Encounter Date Encounter Type Care Provider Facility Start: 07-29-2023 End: 07-30-2023 ambulatory JEREMIAH STEELE DO Facility:B Start: 07-29-2023 End: 07-29-2023 Patient encounter procedure JEREMIAH STEELE DO [facility] Start: 07-29-2023 End: 08-03-2023 ambulatory JEREMIAH STEELE DO Facility:B Start: 07-29-2023 End: 08-02-2023 Outreach Lab JEREMIAH STEELE DO [facility] Start: 07-28-2023 ambulatory JEREMIAH STEELE DO Faci lity:B Start: 07-28-2023 End: 08-01-2023 Outreach Lab DELANEY KRAUSE MD [facility] Start: 04-08-2023 ambulatory JEREMIAH STEELE DO Faci lity:B Start: 02-23-2023 End: 02-24-2023 ambulatory JEREMIAH STEELE DO Facility:[facility] Start: 02-23-2023 End: 02-23-2023 Patient encounter procedure JEREMIAH STEELE DO [facility] Start: 02-23-2023 End: 02-23-2023 Preprocedural examination done JEREMIAH STEELE DO [facility] Start: 01-28-2023 Refill Alvarado mercado DO Work Phone: [facility] Procedures Date Procedure Procedure Detail Performing [...] H/O percutaneous transluminal coronary angioplasty Krystle Donato AUTOMOBILE RENTAL REPRESENTATIVE.SALES SERVICE PROFESSIONAL Work Phone: Start: 12-25-1995 Heart structure (body structure) DR ABDON ARROYO MD Plan of Treatment Date Care Activity Detail Author Start: 03-27-2023 Influenza vaccination [facility] Start: 07-27-2022 ADVANCE DIRECTIVE DISCUSSION ADVANCE DIRECTIVE DISCUSSION [facility] Start: 07-27-2022 DEPRESSION ASSESSMENT DEPRESSION ASS ESSMENT [facility] Start: 03-27-2022 Influenza vaccination [facility] Start: 07-27-2021 ADVANCE DIRECTIVE DISCUSSION ADVANCE DIRECTIVE DISCUSSION [facility] Start: 05-06-2021 COVID-19 VACCINE (3 - Booster for Moderna series) COVID-19 VACCINE (3 - Booster for Moderna series) [facility] Start: 01-29-2021 COVID-19 VACCINE (3 - Booster for Moderna series) COVID-19 VACCINE (3 - Booster for Moderna series) [facility] Start: 11-08-2008 BONE DENSITY BONE DENSITY [facility] Start: 11-08-2008 PNEUMOVAX AGE 65 AND OVER WITH 5YR LOOKBACK (#1) PNEUMOVAX AGE 65 AND OVER WITH 5YR LOOKBACK (#1) [facility] Start: 11-08-1993 SHINGRIX VACCINE (1 of 2) OSPINA GRIX VACCINE (1 of 2) [facility] Start: 11-08-1988 DIABETES SCREEN DIABETES SCREEN [facility] Start: 11-08-1962 Urine microalbumin profile DTAP,TDAP ,TD (1 - Tdap) [facility] Start: 11-08-1961 ANNUAL PCP TEAM CYLINDER LOADER CECY DISEASE VISIT ANNUAL PCP TEAM CHRONIC DISEASE VISIT [facility] Start: 11-08-1961 BP CONTROLLED (<130/80) BP CONTROLLE D (<130/80) [facility] Start: 11-08-1961 Hepatitis B surface antibody level LDL CHOLESTEROL [facility] Start: 11-08-1961 HEPATITIS C SCREENING HEPATITIS C [facility] Start: 1955 Adult depression scr [facility] assessment DEPRESSION SCREENING [facility] Start: 11-08-1949 PNEUMOCOCCAL: 65+ (1 - PCV) PNEUMOCOCCAL: 65+ (1 - PCV) [facility] Immunizations Immunization Date Immunization Notes Care Provider Brendan hernadez 12-04-2020 SARS-CoV-2 (COVID-19 ) mRNA-[address] ABDON ARROYO MD [facility] Payers Date Payer Category Payer Medicare [id number] 2022 Unknown [id number] 2020 Unknown ANTHEM BLUE CROS S AND BLUE SHIELD ANTHEM MEDIBLUE HMO [id number] 2020-Present [phone] [address] [place] [address] HMO [id number] 2020 Unknown ANTHEM BLUE CROS S AND BLUE SHIELD ANTHEM JOSEUE HMO [id number] 2020-Present [phone] [address] [place] [address] HMO [id number] 1943 Unknown [id number] [id number]. 1943 Unknown [id number] 2.16.840.1.114498.3.579.2. 1943 Unknown [id number] 2.16840.1.994644.3.579.2. 1943 Unknown [id number] 2.16.840.1.360443.3.579.2. 1943 Unknown [id number] 2.16.840.1.395022.3.579.2. 1943 Unknown [id number] 2.16.840.1.703910.3.579.2. 1943 Unknown [id number] 2.16840.1.934870.3.579.2. 1943 Unknown [id number] 2.16.840.1.423212.3.579.2. 1943 Unknown [id number] 2.16.840.1.453692.3.579.2. 1943 Unknown [id number] 2.16.840.1.388068.3.579.2. 1943 Unknown [id number] 2.16.840.1.854510.3.579.2. 1943 Unknown [id number] [id number] Social History Date Type Detail Facility Start: 05-03-2019 End: 12-23-2019 Tobacco smoking status NHIS Never smoked tobacco [facility] Start: 12-23-2019 Tobacco use and exposure Smoke less tobacco non-user [facility] Start: 11-12-2021 End: 11-13-2022 Alcohol intake Ex-drinker (finding) [facility] Start: 1945 Sex Assigned At Not on file [facility] Sex Assigned At Female [facility] Functional Status Date Assessment Result Facility 08-21-2022 Functional Status [facility] 08-21-2022 Functional Status bilateral knee high [facility] 08-21-2022 Functional Status 3 [facility] 08-21-2022 [facility] Status [facility] 08-20-[address] [facility] Functional Status Lunch Percent 75 [facility] 08-20-2022 Functional Status [facility] 08-20-2022 Functional Status [facility] 08-20-2022 Functional Status [facility] 08-20-2022 [facility] Functional Status 1st floor bedr oom, 1st floor bathroom [facility] 08-19-2022 Functional Status Sensory Deficits None [facility] 08-19-2022 Functional Status ice on, tension pillow in place [facility] 08-19-2022 Functional Status Maintained [facility] Functional Status Sensory Deficits None [facility] Mental Status Date Assessment Result Facility 08-21-2022 Mental Status Not oriented to time, Not oriented to situation [facility] 08-20-2022 [facility] 08[facility] Mental Status [facility] Clinical Notes 11-18-2021 to 08-01-2023 Telephone [...] Locations *1: This test was performed at: [facility], [address] [place] [address], [phone] , [facility] ([place]) 01-28-2023 Miscellaneous Notes Pharmacy faxes requesting refill: Requested Prescriptions Refused Prescriptions Disp Refills ranolazine ER (RANEXA) 500 mg 12 hr tablet [Pharmacy Med Name: RANOLAZINE ER 500 MG TABLET] 60 tablet 0 Sig: TAKE 1 TABLET BY MOUTH TWICE A DAY Date of last visit:10/11/21 NO SHOW FOR 12/2022 APPT HAS NOT RESCHEDULED Phone #: [phone] (home) [phone] (cell) The patients preferred pharmacy has been captured for this encounter? yes documented in this encounter [facility] 01-01-2023 Miscellaneous Notes Pharmacy faxes requesting refill: Requested Prescriptions Pending Prescriptions Disp Refills ranolazine ER (RANEXA) 500 mg 12 hr tablet [Pharmacy Med Name: RANOLAZINE ER 500 MG TABLET] 60 tablet 0 Sig: TAKE 1 TABLET BY MOUTH TWICE A DAY Date of last visit:10/11/2021 Patient has appointment 01/14/2023 and is now being seen in [place]. Phone #: [phone] (home) [phone] (cell) The patients preferred pharmacy has been captured for this encounter? yes documented in this encounter [facility] 09-15-2022 Miscellaneous Notes Patient calls requesting refill: Requested Prescriptions Pending Prescriptions Disp Refills ranolazine ER (RANEXA) 500 mg 12 hr tablet 180 tablet 0 Sig: Take 1 tablet by mouth twice daily. Date of last visit:10/11/2021 Phone #: [phone] (home) [phone] (cell) The patients preferred pharmacy has been captured for this encounter? yes documented in this encounter [facility] 08-21-2022 Hospital Discharge instructions Patient Education 08/21/2022 14:31:09 5 - [facility] Post-op Instruction 02/2017 (22725) [facility] Post-operative Instructions PLEASE FOLLOW [facility] POST-OP INSTRUCTIONS GIVEN WATCH FOR SIGNS OF INFECTION: call the office ([phone]) if experencing any of the following: (Usually [...] on your follow up instructions. Form: 338A ([id number]) R: 11/3008/19/2022 12:42:01 Total Hip Replacement, Anterior, Care After, Elyw-qq-Vcik Total Hip Replacement, Anterior, Care After This sheet gives you information about how to care for yourself after your procedure. Your doctor may also give you more specific instructions. If you have problems or questions, contact your doctor. What can I expect after the procedure? After the procedure, it is common to have: Pain. Stiffness. Discomfort. Follow these instructions at home: Medicines Take gjhl-gbv-eqvxcvn and prescription medicines only as told by [...] use soap and water, use alcohol-based hand director of coding. ?Change your bandage as told by your [...] include fried or sweet foods. ?Take an ycni-pxn-xwseayy or prescription medicine for constipation. Do not [...] 10/27/2018 Document Revised: 11/21/2019 Document Reviewed: 10/27/2018 [employer] Patient Education 2020 [employer]. Follow Up Care 06/17/2022 14:40:44 With:DAVID SHABAZZ PA-C, Orthopedic Address: [facility] [address] [place] [id number]- When:09/01/2022 09:45:00 Comments:This is your post-op appointment. Follow-up as scheduled. With:BAKARI RODRIGUEZ DO Address: [address] [facility] [place] [address]- [phone] When:09/02/2022 11:00:00 Comments:This is your post-hospital follow-up to get your blood work results. Have your lab work done prior to this appointment. It is with Dr. Michelle Paul's nurse practitioner. [facility] 08-21-2022 Note Discharge Instructions Thank you for [...] Follow-Up 09/02/2022 11:00 AM EST SANJAY BERRY APRN-SALES SERVICE PROFESSIONAL [address] [address] OV 11/11/2022 08:30 AM EDT BAKARI RODRIGUEZ DO [address] [address] Follow Up Appointments Follow Up with BAKARI RODRIGUEZ DO When 09/02/2022 11:00 AM EST Why: This is your post-hospital follow-up to get your blood work results. Have your lab work done prior to this appointment. It is with Dr. Michelle Paul's nurse practitioner. Where: [address] [place] [phone] Follow Up with DAVID SHABAZZ PA-C, Orthopedic When 09/01/2022 09:45 AM EST Why: This is your post-op appointment. Follow-up as scheduled. Where: [facility] [address] [place] [id number]- The Following Activity and Diet Have Been [...] movement, then as needed Pickup at [facility]/pharmacy #[id number] New traMADol (traMADol 50 mg oral tablet) 1 tab(s) by mouth Every 6 hours as needed for Pain, scale 7-10 Status post total hip replacement, right Duration: 7 Days Pickup at [facility]/pharmacy #[id number] Changed acetaminophen (acetaminophen 500 mg oral tablet) 2 tab(s) by mouth Three (3) times a day as needed for as needed for pain not to exceed 3000 mg/ day Pickup at [facility]/pharmacy #4605 Changed aspirin 81 Milligram by mouth [...] mouth Once a day Pharmacy Information [facility]/pharmacy #[id number]: [address], [place] [id number] [phone] Please take this list to your next [...] FOR SIGNS OF INFECTION: call the office ([phone]) if experencing any of the following: (Usually [...] on your follow up instructions. Form: 338A (88322) R: 11/30 Total Hip Replacement, Anterior, Care [...] Follow these instructions at home: Medicines Take tfdu-wzu-bnmizfh and prescription medicines only as told by [...] use soap and water, use alcohol-based hand director of coding. ? Change your bandage as told by [...] fried or sweet foods. ? Take an olls-gra-xocffch or prescription medicine for constipation. Do not [...] Document Reviewed: 10/27/2018 Elsevier Patient Education 2019 [employer] Additional Information VACCINATE! IT SAVES LIVES! Members of the community who have not yet received the COVID-19 vaccine and would like to receive it can visit one of [facility] vaccine clinics. There are many vaccine clinic locations within the [facility]. For locations and available times, please visit [email or web address] It is important to note that some COVID mobile vaccine clinics are held outdoors and may be canceled in rainy or stormy conditions. To learn more about pediatric vaccinations (ages 5-11), we invite you to visit the [facility] webpage. [email or web address]/pages/[email or web address] 429-Yzzed-Rjuljqbikxw-Frequently-Asked -Questions.html To learn more about the COVID-19 vaccine, we invite you to visit the [place] website for a list of frequently asked questions. [email or web address]_Mg [email or web address]-Questions.[email or web address] [place] [facility] Patient Portal Access Instructions: Stay connected with your healthcare team and access your personal medical information anytime with the [facility] Patient Portal.If you would like a full copy of your medical records, please contact the [facility] Medical Records Department, Thursday through Thursday between 8a.m. and 4:30p.m. Please follow the directions below to access the portal: 1.Access the email account you provided upon registration to the [facility].2.Look for an invitation email from [facility].3.Open the email and access the invitation link: Accept Invitation to [facility]4.Fill in the required bright to create your account. Sign into www.[email or web address] with your username and password that you [...] you will allow to register on the [employer] Patient Portal for access to your information. You can also access the [employer] Patient Portal on the MemberConnection. Simply click on Health Records under Health Data and then click on the [employer]ic[employer].mx logo. HOW TO SAFELY DISPOSE OF PRESCRIPTION [...] Call your local pharmacy or go to http://TripFlick Travel Guide.Hit the Mark/2T0Sl3l to find one close to you.3.Make use of household items: Use cat litter or old coffee grounds to dispose medications if other options are not available. Mix your drugs with these household products, seal them in an airtight container and throw it into the garbage. Call [facility]: [phone] to be sure your drugs can be [...] [facility] Post-op Instruction 02/2017 (12476) Total Hip Replacement, Anterior, Care After, Oejr-og-Fxdt Medication Leaflets My discharge plan and instructions have been reviewed and explained to me and I,DANIE RAMIREZ M understand my current condition and have read and understand these discharge instructions. I have received a written copy of the plan/instructions. If I have questions, I am aware that I should contact my doctor. Patient/Relocation Manager Signature: _ Date/Time: Relationship to Patient: Witness Name/Signature: Date/Time: [facility] 08-21-2022 Note Date of Service 08/21/2022 Chief Complaint Osteoarthritis s/p Right Total Hip Replacement Subjective Patient is a 76 year old female seen at [facility] in consult for medical management. Patient [...] Push, q6h fluticasone nasal 0.05 mg/inh [place] 50 mcg 1 spray(s), Nostril, each, qDay [...] by MENDEZ REYNOLDS on 08/21/2022 09:20 AM [facility] 08-21-2022 Nurse Progress note per Madelaine Vaughn NP ok to give this patient Toradol as ordered in SEP for pain due to Tramadol being ineffective. Digitally Signed by Ward Fernandes LPN on 08/21/2022 12:16 AM [facility] 08-20-2022 Note Date of Service August 20, [...] Push, q6h fluticasone nasal 0.05 mg/inh [place] 50 mcg 1 spray(s), Nostril, each, qDay [...] Arroyo. I also discussed case with the drug abuse social worker and physical therapist. We would like to [...] therapy today for appropriate discharge planning. Possible group home facility versus home health. I have reviewed the [place] Automated Rx Reporting System (OARRS) report for [...] DAVID SHABAZZ PA-C on 08/20/2022 08:14 AM [facility] 08-19-2022 Note ORIGINAL EXAMINATION: ONE XRAY VIEW [...] 08/19/2022 12:41:03 PM Ordering Provider: ABDON ARROYO [facility] 08-19-2022 Note ORIGINAL EXAMINATION: ONE XRAY VIEW [...] 08/19/2022 12:41:03 PM Ordering Provider: ABDON ARROYO [facility] 08-19-2022 Note ORIGINAL Images acquired, not reported on this accession number. [facility] 08-19-2022 Note ORIGINAL Images acquired, not reported on this accession number. [facility] 08-19-2022 Anesthesiology Consult note Patient: DANIE RAMIREZ [...] list: Medical Allergic rhinitis / SNOMED CT 312441918 / Confirmed Allergy to statin medication / SNOMED CT 6739466811 / Confirmed Anemia of chronic disease / SNOMED CT 622537484 / Confirmed Aortic stenosis / SNOMED CT 561881970 / Confirmed Arthritis / SNOMED CT 5139377 / Confirmed Breast lump or mass / SNOMED CT 192129816 / Confirmed Cataract / SNOMED CT 100184782 / Confirmed Somatic dysfunction of cervical region / SNOMED CT 8718794982 / Confirmed CKD (chronic kidney disease) stage 3, GFR 30-59 ml/min / SNOMED CT 7000096295 / Confirmed Constipation / SNOMED CT 37385128 / Confirmed Dark stools / SNOMED CT 45931600 / Confirmed Depression / SNOMED CT 87993520 / Confirmed Sleep-wake cycle disorder / SNOMED CT 566399099 / Confirmed Dysuria / SNOMED CT 58382676 / Confirmed Fall at home / SNOMED CT 73819114 / Confirmed GERD (gastroesophageal reflux disease) / SNOMED CT 084181957 / Confirmed Hiatal hernia / SNOMED CT 295839015 / Confirmed Voice hoarseness / SNOMED CT 308345906 / Confirmed Hypercalcemia / SNOMED CT 401146596 / Confirmed Elevated fasting glucose / SNOMED CT 481311892 / Confirmed HLD (hyperlipidemia) / SNOMED CT 49821327 / Confirmed HTN (hypertension) / SNOMED CT 1264378317 / Confirmed Hypothyroidism / SNOMED CT 79565007 / Confirmed Immunization due / SNOMED CT 778563937 / Confirmed Cognitive impairment / SNOMED CT 2674387837 / Confirmed Urinary frequency / SNOMED CT 142032948 / Confirmed Insomnia / SNOMED CT 010949902 / Confirmed Iron deficiency anemia / SNOMED CT 721822325 / Confirmed Eyebrow laceration / SNOMED CT 8861452438 / Confirmed Enlarged liver / SNOMED CT 702496843 / Confirmed Right leg weakness / SNOMED CT 504723556 / Confirmed Rhinorrhea / SNOMED CT 568820076 / Confirmed Neck pain / SNOMED CT 956707945 / Confirmed Osteoarthritis of right hip / SNOMED CT 5651262522 / Confirmed Osteopenia / SNOMED CT 130573828 / Confirmed Medicare annual wellness visit, subsequent / SNOMED CT 726386859 / Confirmed Screening for cardiovascular condition / SNOMED CT 294823635 / Confirmed Preop examination / SNOMED CT 922584079 / Confirmed Pre-op exam / SNOMED CT 819827257 / Confirmed Pericardial effusion / SNOMED CT 1903741465 / Confirmed Pulmonary hypertension / SNOMED CT 154023230 / Confirmed CAD S/P percutaneous coronary angioplasty / SNOMED CT 3104478553 / Confirmed 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 Right bundle branch block / SNOMED CT 40316370 / Confirmed Screening due / SNOMED CT 187274129 / Confirmed Secondary hyperparathyroidism / SNOMED CT 338227360 / Confirmed Somatic dysfunction of pelvic region / SNOMED CT 7637969647 / Confirmed Somatic dysfunction of rib region / SNOMED CT 7313890198 / Confirmed Somatic dysfunction of thoracic region / SNOMED CT 1796783265 / Confirmed Systolic murmur / SNOMED CT 72430805 / Confirmed Tricuspid regurgitation / SNOMED CT 166822397 / Confirmed Vitamin D deficiency / SNOMED CT 72871628 / Confirmed Vitiligo / SNOMED CT 69319758 / Confirmed, Active Problems (54) Allergic rhinitis [...] Brother Alzheimer's disease Mother Procedure history: Echocardiogram ([id number]) on 10/29/2017 at 71 Years. Heart ([id number]) on 12/25/1995 at 50 Years. Comments: 05/03/2019 11:14 EDT - Prabha Bonner LPN stent Hysterectomy ([id number]). Cholecystectomy (91037099). Creation of pericardial window (12315302). Cataract (340000565). Comments: 11/11/2021 14:49 EDT - Ofelia Porter VEGETABLE TIER left eye EGD - Esophagogastroduodenoscopy ([id number]). Social History Social & Psychosocial Habits Alcohol [...] Height 165.1 cm Admission Weight 73.5 kg [place] Body Weight 57.00 kg Admission Body Mass [...] Height 165.1 cm Admission Weight 73.5 kg [place] Body Weight 57.00 kg Admission Body Mass [...] difficulties Skin Temperature Cool Skin Description [place], Dry Skin Integrity Intact Mucous Membrane Color [place] Skin Moisture General Dry IV Present Present Characteristics of Speech Clear Level of Consciousness Alert Strength All Extremities Moderate Affect/Behavior Appropriate, Calm, Cooperative Orientation Oriented x 4 Allergies Yes 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 Assessment and Plan [place] [employer] (ASA) physical status classification: Class III. Anesthetic Preoperative Plan Anesthetic technique: Spinal. Regional: Spinal. Postoperative pain management: Per surgeon. Risks discussed: nausea, vomiting, headache, hypotension, allergic reaction, serious complications. Informed consent: signed by patient. Digitally Signed by NERIS RUCKER on 08/19/2022 09:19 AM [facility] 08-01-2022 Miscellaneous Notes Per Aim, Approved; Auth # [id number] 08/01/2022-10/29/2022 Oli Estrada Prior authorization request for stress test to be done at [facility] is being submitted for review. Please notify clerical staff when ready. Mike Novak RN documented in this encounter [facility] 07-31-2022 Miscellaneous Notes Addended by: MIKE NOVAK on: 07/31/2022 01:12 PM Modules accepted: Orders Please sign order for stress test. Patient having surgery 08/19/22 Spoke to patient's daughter Janet and let her know it is ok to go to [facility] and we will notify them when it is scheduled Stress at [facility] is ok Appt with me depends upon the results of the stress Patient's daughter Janet called in stated Mom is having hip replacement surgery on 08/19/2022, per the cardiac clearance form it is recommended to have Stress test done. She would like to have it at [facility], she would also like to know if she needs an appointment to see dr. Peralta before surgery. Please call Janet she's going to be handling Mom's appointments. [phone] documented in this encounter [facility] 11-18-2021 Miscellaneous Notes Pt called and notified per carotid ultrasound normal for age. Pt agreeable Patient contacted by phone, no answer message left on voice mail. Call carotdi doppler normal for age Pt echo and carotid have been scanned in for review documented in this encounter [facility] Evaluation + Plan note Future Appointments Appointment Date:11/11/2022 08:30:00 AM Scheduled Provider:BAKARI RODRIGUEZ DO Location:[facility] Appointment Type:PC OV Future Scheduled TestsFerritin 08/14/21Thyroid Stimulating Hormone 08/14/21A1C Hemoglobin 08/14/21Complete Blood Count 08/14/21Complete Blood Count 02/12/22Lipid Profile 08/14/21Lipid Profile 02/12/22Microalbumin Level Urine 08/14/21Vitamin D Level 08/14/21Complete Metabolic Panel 08/14/21Complete Metabolic Panel 02/12/22MA Mammo Screening Bilateral w/ Adam 11/18/21BD Bone Density DEXA Axial Skeleton 11/10/21 [facility] Evaluation + Plan note Future Appointments Appointment Date:08/08/2022 08:15:00 AM Scheduled Provider: Location:[facility] Appointment Type:NM Myocardial Spect Rest/Stress [place] Appointment Date:08/22/2022 10:30:00 AM Scheduled Provider: Location:[facility] Appointment Type:PT Outpatient Evaluation Appointment Date:11/11/2022 08:30:00 AM Scheduled Provider:BAKARI RODRIGUEZ DO Location:[facility] Appointment Type:PC OV Future Scheduled TestsCalcium Level [...] Axial Skeleton 11/10/21NM Myocardial Spect Rest/Stress 08/08/22 [facility] Evaluation + Plan note Future Appointments Appointment Date:08/22/2022 10:30:00 AM Scheduled Provider: Location:[facility] Appointment Type:PT Outpatient Evaluation Appointment Date:11/11/2022 08:30:00 AM Scheduled Provider:BAKARI RODRIGUEZ DO Location:[facility] Appointment Type:[facility] Future Scheduled TestsCalcium Level Ionized 07/04/22Ferritin [...] 11/18/21BD Bone Density DEXA Axial Skeleton 11/10/21 [facility] Evaluation + Plan note Future Appointments Appointment Date:09/02/2022 11:00:00 AM Scheduled Provider:SANJAY BERRY Location:[facility] Appointment Type:[facility] Hospital Follow-Up Appointment Date:11/11/2022 08:30:00 AM Scheduled Provider:BAKARI RODRIGUEZ DO Location:[facility] Appointment Type:PC OV Future Scheduled TestsCalcium Level Ionized 07/04/22Ferritin 07/04/22Thyroid Stimulating Hormone 07/04/22Free T4 07/04/22A1C Hemoglobin 07/04/22Complete Blood Count 07/04/22Complete Blood Count 02/12/22Free T3 07/04/22Lipid Profile 02/12/22Iron Studies 07/04/22PTH, Intact 07/04/22Vitamin D Level 07/04/22Complete Metabolic Panel 07/04/22Complete Metabolic Panel 02/12/22MA Mammo Screening Bilateral w/ Adam 11/18/21BD Bone Density DEXA Axial Skeleton 11/10/21 [facility] Evaluation + Plan note Future Appointments Appointment Date:11/11/2022 08:30:00 AM Scheduled Provider:BAKARI RODRIGUEZ DO Location:[facility] Appointment Type: OV Future Scheduled [...] 11/18/21BD Bone Density DEXA Axial Skeleton 11/10/21 [facility] Evaluation + Plan note Future Appointments Appointment Date:05/01/2023 10:00:00 AM Scheduled Provider:JEREMIAH STEELE DO Location:[facility] Appointment Type: OV Appointment Date:05/15/2023 01:30:00 PM Scheduled Provider:JEREMIAH STEELE DO Location:[facility] Appointment Type: OV [facility] Evaluation + Plan note Future Appointments Appointment Date:05/01/2023 10:00:00 AM Scheduled Provider:JEREMIAH STEELE DO Location:[facility] Appointment Type: OV Appointment Date:05/15/2023 01:30:00 PM Scheduled Provider:JEREMIAH STEELE DO Location:[facility] Appointment Type:PC OV Future Scheduled TestsCross-Linked N-Telopeptide Urine 02/26/23PTH, Related Peptide 02/26/23Calcium Level Ionized 02/26/23Magnesium Level 02/26/23Phosphorus Level 02/26/23Urinalysis 02/26/23Thyroid Stimulating Hormone 02/24/23Thyroid Stimulating Hormone 02/26/23Thyroxine 02/24/23Free T4 02/26/23Calcium Random Urine 02/26/23Creatinine Random Urine 02/26/23Vitamin D, 1,25-Dihydroxy 02/26/23Free T3 02/26/23Protein Electrophoresis Panel 02/26/23PTH, Intact 02/26/23Total T3 02/24/23Vitamin D Level 02/26/23Complete Metabolic Panel 02/26/23NM Parathyroid Study 02/24/23 [facility] Evaluation + Plan note Future Appointments Appointment Date:08/03/2023 01:00:00 PM Scheduled Provider:JEREMIAH STEELE DO Location:[facility] Appointment Type:PC OV Appointment Date:09/29/2023 02:30:00 PM Scheduled Provider:BOGDAN ZHENG Location:[facility] Appointment Type: OV Future [...] 07/25/23Complete Metabolic Panel 02/26/23NM Parathyroid Study 02/24/23 [facility] Evaluation + Plan note Future Appointments Appointment Date:08/06/2023 03:30:00 PM Scheduled Provider:JEREMIAH STEELE DO Location:[facility] Appointment Type:PC OV Appointment Date:09/29/2023 02:30:00 PM Scheduled Provider:BOGDAN ZHENG Location[place] Appointment Type:CV OV Future Scheduled TestsCross-Linked [...] 07/25/23Complete Metabolic Panel 02/26/23NM Parathyroid Study 02/24/23 [facility] Diagnosis Stable angina (HCC) Other and unspecified angina pectoris Chest pain in adult [facility] Diagnosis Stable angina (HCC) Other and unspecified angina pectoris Chest pain in adult [facility] Narrative No data available for this section [facility] Hospital Discharge instructions No data available for this section [facility] Progress note No data available for this section [facility] Summary Purpose Family History No Family History [...] or prosecute any alcohol or drug abuse patient.[facility] the event this information is protected by the Federal Confidentiality of Alcohol and Drug Abuse Patient Records regulations: The Federal rules restrict any use of the information to criminally investigate or prosecute any alcohol or drug abuse patient.[facility] the event this information is protected by the Federal Confidentiality of Alcohol and Drug Abuse Patient Records regulations: The Federal rules restrict any use of the information to criminally investigate or prosecute any alcohol or drug abuse patient.[facility] the event this information is protected by the Federal Confidentiality of Alcohol and Drug Abuse Patient Records regulations: The Federal rules restrict any use of the information to criminally investigate or prosecute any alcohol or drug abuse patient.[facility] HospitalIn the event this information is protected by the Federal Confidentiality of Alcohol and Drug Abuse Patient Records regulations: The Federal rules restrict any use of the information to criminally investigate or prosecute any alcohol or drug abuse patient.[facility] Hospital[facility] the event this information is protected by the Federal Confidentiality of Alcohol and Drug Abuse Patient Records regulations: The Federal rules restrict any use of the information to criminally investigate or prosecute any alcohol or drug abuse patient.[facility] Reason for Visit (unrecogniz ed section and content) Reason Comments Patient Question Reason Comments PA for stress test Reason Onset Date Comments Refill Request 09/15/2022 Reason Comments Refill Request Care Teams (unrecognized sec tion and content) 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 Relationship Specialty Start Date End Date Bakari Rodriguez IV, MD [address] [place] [id number] PCP - General Family Medicine 12/23/19 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 Relationship Specialty Start Date End Date Bakari Rodriguez IV, MD [address] [place] [id number] PCP - General Family Medicine 12/23/19 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 Relationship Specialty Start Date End Date Bakari Rodriguez IV, DO [address] [place] [id number] PCP - General Family Medicine 12/23/19 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 Relationship 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 Start Date End Date Bakari Rodriguez IV, DO [address] [place] [id number] PCP - General Family Medicine 12/23/19 Care Team (unrecognized sect ion and content) Care Team Personnel Name: Herson Wallace PT Position: P3 Scheduling - Procurement Coordinator Advanced Member Role: Other Name: BAKARI RODRIGUEZ DO Position: P4 Physician - Primary Care Member Role: Primary Care Physician Address: Address: [address] [place] [id number]- Care Team Related Persons Name: JANET RAMIREZ Address: Home [address] [place] [phone] [place] Name: JANET RAMIREZ Address: Home [address] [place] [phone] [place] Address: Temporary [address] [place] [phone] Care Team Personnel Name: Herson Wallace PT Position: P3 Scheduling - Procurement Coordinator Advanced Member Role: Other Name: BAKARI RODRIGUEZ DO Position: P4 Physician - Primary Care Member Role: Primary Care Physician Address: Address: [address] [place] [id number] Care Team Related Persons Name: JANET RAMIREZ Address: Home [address] [place] [phone] [place] Name: JANET RAMIREZ Address: Home [address] [place] [phone] [place] Address: Temporary [address] [place], [place] [phone] Care Team Personnel Name: Herson Wallacerk Sanjana PT Position: P3 Scheduling - Procurement Coordinator Advanced Member Role: Other Name: BAKARI RODRIGUEZ DO Position: P4 Physician - Primary Care Member Role: Primary Care Physician Address: Address: [address] [place] [phone]- Care Team Related Persons Name: JANET RAMIREZ Address: Home [address] [place], [place] [phone] [place] Name: JANET RAMIREZ Address: Home [address] [place], [place] [phone] [place] Address: Temporary [address] [place] [place], [place] [phone] Care Team Personnel Name: Herson Wallace Clerk Sanjana PT Position: P3 Scheduling - Procurement Coordinator Advanced Member Role: Other Name: BAKARI RODRIGUEZ DO Position: P4 Physician - Primary Care Member Role: Primary Care Physician Address: Address: [address] [place] [phone]- Care Team Related Persons Name: JANET RAMIREZ Address: Home [address] [place], [place] [phone] [place] Name: JANET RAMIREZ Address: Home [address] [facility], [phone] Name: JANET RAMIREZ Address: Home [address] [place], [place] [phone] [place] Address: Temporary [address] [place], [place] [phone] Care Team Personnel Name: Hreson Wallacerjosefa Allan PT Position: P3 Scheduling - Procurement Coordinator Advanced Member Role: Other Name: BAKARI RODRIGUEZ DO Position: P4 Physician - Primary Care Member Role: Primary Care Physician Address: Address: [address] [place] [phone]- Care Team Related Persons Name: JANET RAMIREZ Address: Home [address] [facility], [phone] Name: JANET RAMIREZ Address: Home [address] [place], [place] [phone] [place] Name: JANET RAMIREZ Address: Home [address] [place], [place] [phone] [place] Address: [place] [address] [address] [place] [phone] INFORMATION SOURCE (unrecogn ized section and content) DATE CREATED AUTHOR AUTHOR'S DANITA FERNANDEZ 08/04/2023 [facility] princess (MS) FOR RECORDS PERTAINING TO PATIENTS WHO ARE [...] BE BASED ON THE PRIMARY CLINICAL RECORDS. [employer] provides no warranty or guarantee of the accuracy or completeness of information in this document.
--- NOTE | 2023-08-13 18:14 | EKG12_ITS ---
Test Reason : DYSRHYTHMIA Blood Pressure : / mmHG Vent. Rate : 069 BPM Atrial Rate : 069 BPM P-R Int : 168 ms QRS Dur : 176 ms QT Int : 458 ms P-R-T Axes : 066 050 -01 degrees QTc Int : 490 ms Normal sinus rhythm with sinus arrhythmia Right bundle branch block Abnormal ECG Confirmed by SRINI MCLAUGHLIN, LIZ ([id number]), brands editor ADILSON MATA ([id number]) on 08/14/2023 10:26:07 AM Referred By: Confirmed By:LIZ MILLIGAN MD
[2023-08-13 18:47] VITALS: BMI 22.1
[2023-08-13 18:48] LABS: Mucous, Urine 0 SEEN /hpf (<or=2+); Red Blood Cells-Urine 0 SEEN /hpf (0-5)
[2023-08-13 18:50] VITALS: BP 157/83; PULSE 69; RESP 14; TEMP 36.4; O2SAT 98
[2023-08-13 18:51] LABS: Color, Urine Yellow (Yellow); Glucose, Dipstick Normal (Normal); Leukocyte Esterase-Dipstick 100 /ul (Negative); Nitrite-Dipstick Positive (Negative); Occult Blood-Urine 10 /ul (Negative); Protein-Dipstick 30 mg/dl (Negative); Urine Bilirubin Dipstick Negative (Negative); Urine Clarity Sl. Cloudy (Clear); Urine Urobilinogen 1 mg/dl (Normal)
[2023-08-13] MEDS: 0.9% Normal Saline (1000mL) 1,000 ML 999 ML IV ×2 (18:51→20:52)
[2023-08-13 19:17] LABS: Ketone-Dipstick 150 mg/dl (Negative)
[2023-08-13 19:21] LABS: Bacteria 3+ /hpf (None Seen); Squamous Epithelial Cells - UA 0-5 SEEN /hpf (5-10); White Blood Cells 0-5 SEEN /hpf (0-5)
--- NOTE | 2023-08-13 19:38 | EX.ED.DYSGE1 ---
HPI History of Present Illness Chief Complaint: Weakness Narrative Narrative: 77-year-old female presenting with weakness, nausea, vomiting. Patient has a history of hyperparathyroidism hypercalcemia and is on Cinacalcet but has been so far noncompliant with therapy per previous admission notes. Patient follows with Dr. Marin and Dr. Moya on an outpatient basis. Patient recently admitted for calcium of 12.6. Patient was treated in the hospital with zoledronic acid as well as IV fluids and the calcium did improve. Patient presents today with nausea and vomiting and is concerned that she has not been able to take her medications as well as may have a UTI or hypercalcemia. Patient has dementia and is a poor informant. Family states that she is too weak to even get around. She fainted twice today while they were trying to get her to the car into the hospital. No head injury. She did lose consciousness briefly. She was caught both times. Family is concerned that the reason why she cannot keep anything down is because of the Cinacalcet which she does not tolerate well. Told me that she discussed this with Dr. Marin but medications not changed. [facility] Medical History Acute hypokalemia Bradycardia, sinus Generalized weakness Hx of gastroesophageal reflux (GERD) Hypercalcemia Hyperparathyroidism Hypertension Hypothyroidism Prolonged QT interval Home Medications aspirin 81 mg chewable tablet 81 mg PO DAILY@0800 HEART HEALTH 04/07/20 [History Last Taken Unknown] pantoprazole 40 mg tablet,delayed release 40 mg PO DAILY ACID REFLUX 04/07/20 [History Last Taken 08/13/23] ranolazine 500 mg tablet,extended release,12 hr 500 mg PO BID CHEST PAIN 04/07/20 [History Last Taken 08/13/23] memantine 7 mg capsule sprinkle,extended release 24hr 7 mg PO QHS memory 03/28/23 [History Last Taken 08/13/23] ferrous sulfate 325 mg (65 mg iron) tablet 325 mg PO DAILY SUPPLEMENT 07/04/23 [History Last Taken 08/13/23] levothyroxine 100 mcg tablet 150 mcg PO DAILY@0600 THYROID 07/04/23 [History Last Taken 08/13/23] cinacalcet 60 mg tablet 60 mg PO BID parathyroid #60 tabs 07/06/23 [Rx Last Taken 08/13/23] polyethylene glycol 3350 17 gram/dose oral powder (Miralax) 17 g PO DAILY CONSTIPATION 07/06/23 [History Last Taken Unknown] olmesartan 5 mg tablet 5 mg PO DAILY HIGH BLOOD PRESSURE 08/03/23 [History Last Taken 08/13/23] amlodipine 5 mg tablet 5 mg PO .qdaily 08/13/23 [History Last Taken Unknown] docusate sodium 100 mg capsule (Colace) 100 mg PO DAILY 08/13/23 [History Last Taken Unknown] Allergy/AdvReac Type Severity Reaction Status Date / Time aspirin [ASA] Allergy Hives Verified 08/03/23 17:37 hydrocodone Allergy Nausea Verified 08/03/23 17:37 morphine Allergy PT UNSURE Verified 08/03/23 17:37 OF REACTION Penicillins Allergy Anaphylaxis Verified 08/03/23 17:37 Family History Daughter Diabetes Heart disease Surgical History S/P cholecystectomy Status post total hip replacement, right Social History household members: family housing: house Smoking Status: Never smoker substance use type: does not use ROS ROS ED Constitutional Constitutional ED: Denies chills, fever(s) or sweats Eyes Eyes: Denies blurry vision or change in vision ENT ENT ED: Denies ear pain or sore throat Cardiovascular Cardiovascular: Denies chest pain, palpitations or racing heartbeat Respiratory/Chest Respiratory/Chest: Denies cough, dyspnea or sputum Gastrointestinal Gastrointestinal: Reports nausea and vomiting; Denies abdominal pain, constipation or diarrhea Genitourinary Genitourinary ED: Denies dysuria, hematuria or urinary frequency Musculoskeletal Musculoskeletal: Denies arthralgias, myalgias or neck pain Integumentary Denies abscess, Abrasions or rash Neurologic Neurologic: Denies headache(s), paresthesias or weakness Psychiatric Psychiatric: Denies anxiety, depression, suicidal ideation or suicidal thoughts Endocrine Endocrinology: Denies polydipsia or polyuria EXAM Physical Exam Const Vital Signs: 08/13/23 17:03 08/13/23 18:47 08/13/23 18:50 Temperature 96.2 F L 97.6 F L Temperature Source Temporal Oral Pulse Rate 85 69 Respiratory Rate 16 14 Respiratory Effort Normal Non-Labored Respiratory Pattern Normal Blood Pressure 126/75 H 157/83 H Blood Pressure Mean 92 107 Pulse Ox 96 98 Oxygen Delivery Method Room Air Room Air 08/13/23 20:24 08/13/23 20:58 Temperature 97.8 F 98.6 F Temperature Source Oral Pulse Rate 67 66 Respiratory Rate 17 17 Respiratory Effort Respiratory Pattern Blood Pressure 159/75 H 152/77 H Blood Pressure Mean 103 102 Pulse Ox 98 99 Oxygen Delivery Method Room Air Positive well nourished General Appearance ED: NAD; Negative for pallor HEENT Reports moist mucous membranes Eyes PERRL and EOMs intact bilaterally Resp normal respiratory effort Cardio regular rate and regular rhythm Neuro oriented x3 and CN's II-XII intact bilaterally Sensorium / Orientation: alert Psych mental status grossly normal Skin no rashes or lesions noted General Skin Exam: Negative for jaundice or pallor MDM MDM MDM Narrative Medical decision making narrative: 77-year-old female present with nausea, vomiting, generalized weakness and had 2 syncopal episodes. Differential includes ACS, vasovagal syncope, dehydration, anemia, electrolyte abnormalities, pneumonia, UTI, hypercalcemia, hypokalemia. CBC shows leukocytosis of 14.6. Hemoglobin 10.7 near baseline. Creatinine is elevated today at 1.16 and her GFR is down to crease down to 48. Patient given IV fluids. EKG shows sinus rhythm with ventricular rate of 69 bpm with right bundle branch block. No ST elevation or depression. High-sensitivity troponin came back at 116. Discussed with cardiology and they recommended aspirin but no heparin. Will replace magnesium with IV magnesium chloride. Urinalysis treated with Cipro. Urine culture sent. Discussed with hospitalist for admission. Impression: 1. Nausea/vomiting 2. Syncope 3. NSTEMI 4. UTI 5. Hypercalcemia 6. Hypokalemia 7. Hypomagnesemia Lab Data Labs: Laboratory Results - last 24 hr 08/13/23 08/13/23 18:40 19:53 WBC 14.6 H RBC 3.29 L Hgb 10.7 L Hct 31.8 L MCV 96.7 MCH 32.5 H MCHC 33.6 RDW Std Deviation 45.0 H RDW Coeff of Theresa 12.7 Plt Count 202 MPV 11.4 Immature Gran % (Auto) 1.100 H Neut % (Auto) 82.0 H Lymph % (Auto) 8.3 L [place] % (Auto) 8.3 Eos % (Auto) 0.0 Baso % (Auto) 0.3 Absolute Neuts (auto) 12.0 H Absolute Lymphs (auto) 1.21 Nucleated RBC % 0 Sodium 138 Potassium 3.1 L Chloride 100 Carbon Dioxide 25.0 Anion Gap 13 BUN 19 H Creatinine 1.16 H Estim Creat Clear Calc 35.39 Est GFR (MDRD) Af Amer 58 L Est GFR (MDRD) Non-Af 48 L BUN/Creatinine Ratio 16.4 Glucose 137 H Calcium 13.1 H* Magnesium 1.4 L Total Bilirubin 1.10 H AST 21 ALT 11 L Alkaline Phosphatase 64 Troponin I High Sens 116 H Total Protein 7.0 Albumin 3.7 Globulin 3.3 Albumin/Globulin Ratio 1.1 Urine Color Yellow Urine Clarity Sl. Cloudy Urine pH 5.0 Ur Specific [place] 1.020 Urine Protein 30 H Urine Glucose (UA) Normal Urine Ketones 150 A* Urine Occult Blood 10 H Urine Nitrite Positive H Urine Bilirubin Negative Urine Urobilinogen 1 H Ur Leukocyte Esterase 100 H Urine RBC 0 SEEN Urine WBC 0-5 SEEN Ur Squamous Epith Cells 0-5 SEEN Urine Bacteria 3+ Urine Mucus 0 SEEN Discharge Plan Triage Chief Complaint: Weakness Other Complaint: Nausea/Vomiting ED Provider: Kiet Jerez Dx/Rx/DC Orders Prescriptions: No Action pantoprazole 40 MG tablet 40 mg PO DAILY aspirin 81 MG tablet,chewable 81 mg PO DAILY@0800 ranolazine 500 MG tablet extended release 12 hr 500 mg PO BID ferrous sulfate 325 mg (65 mg iron) tablet 325 mg PO DAILY Patient Comments: TAKE 1 TABLET BY MOUTH TWICE A DAY levothyroxine 100 mcg Tablet 150 mcg PO DAILY@0600 polyethylene glycol 3350 [Miralax] 17 gram/dose powder 17 g PO DAILY olmesartan 5 mg tablet 5 mg PO DAILY memantine 7 mg capsule,sprinkle,ER 24hr 7 mg PO QHS docusate sodium [Colace] 100 mg capsule 100 mg PO DAILY amlodipine 5 mg tablet 5 mg PO .qdaily Patient Comments: TAKE 1 TABLET BY MOUTH TWICE A DAY cinacalcet 60 mg tablet 60 mg PO BID Qty: 60 4RF Primary Care Provider: Joey Smith Referrals: Joey Smith DO [Primary Care Provider] - Capacity Legal Dirt [employer]er Reflex Medical hold order details:: IF a medical hold is selected below, a suggested order for a MEDICAL HOLD will reflex upon signing the document. Next of kin: [place] law dictates a PRIORITY LIST for identifying legal decision-maker/legal next of kin in the following order (LNOK): 1st: The patient?s legal guardian, if any 2nd: The patient's spouse (if status is questionable, consult Risk Management) 3rd: The patient?s adult child(elias) (majority, if multiple children) 4th: The patient?s parents 5th: The patient?s adult siblings (majority, if multiple children siblings)
[2023-08-13 20:02] LABS: Absolute Lymphocyte Count 1.21 X10^3/uL (0.83-4.51); Basophil# 0.05 X10^3/uL; Basophil% 0.3 % (0-1); Hematocrit 31.8 % (37-47); Hemoglobin 10.7 g/dL (12.0-15.0); Lymphocyte # 1.21 X10^3/ul (0.83-4.51); Lymphocyte % 8.3 % (19-41); Mean Corp Hgb Conc 33.6 g/dL (32-36); Mean Corpuscular Hgb 32.5 pg (27.0-32.0); Mean Corpuscular Volume 96.7 fL (81-99); Mean Platelet Vol. 11.4 fl (6.2-12.0); Monocyte# 1.22 X10^3/uL; Monocyte% 8.3 % (0-10); NRBC Flagged by Analyzer 0 % (0-5); Platelet Count 202 K/mm3 (150-450); RBC Distribution Width CV 12.7 % (11.6-14.6); Red Blood Count 3.29 M/mm3 (4.2-5.4); White Blood Count 14.6 K/mm3 (4.4-11.0)
[2023-08-13 20:24] VITALS: BP 159/75; PULSE 67; RESP 17; TEMP 36.6; O2SAT 98
[2023-08-13 20:26] LABS: ALB/GLOB Ratio 1.1 RATIO (0.9-2.4); AST(SGOT) 21 U/L (15-37); Alanine Aminotransfer ALT/SGPT 11 U/L (13-56); Albumin, Serum 3.7 g/dL (3.2-5.0); Alkaline Phosphatase 64 U/L (45-117); Anion Gap 13 (5-15); BUN 19 mg/dL (7-18); BUN/Creat Ratio 16.4 RATIO (10-20); Calcium,Total 13.1 mg/dL (8.5-10.1); Chloride 100 mmol/L (98-107); Creatinine, Serum 1.16 mg/dL (0.55-1.02); EST Glomerular Filtration Rate 48 mL/min (>60); Est Glom Filt Rate - Afr Amer 58 mL/min (>60); Estimated Creatinine Clearance 35.39 ml/min; Globulin 3.3 g/dL (2.2-4.2); Glucose 137 mg/dL (74-106); Potassium 3.1 mmol/L (3.5-5.1); Sodium Level 138 mmol/L (136-145); Troponin-I HS 116 pg/mL (3.0-54.0)
[2023-08-13] MEDS: Ciprofloxacin 400 MG/200 ML BAG 200 MG IV (20:51)
[2023-08-13 20:53] LABS: Magnesium 1.4 mg/dL (1.6-2.6)
--- NOTE | 2023-08-13 20:56 | HP.PCM.HOS_ITS ---
[facility] - General General Date of Admission: 08/13/23 Date of Service: 08/13/23 Chief Complaint: Weakness, Nausea, Vomiting and Syncope x 2. HPI Narrative DANIE RAMIREZ, is a 77 F with a past medical history of essential hypertension, hypothyroidism, history of prolonged QT-interval, chronic dementia; with medical noncompliance, GERD, chronic hyperparathyroidism; with recent admission here from August 05, 2023 to August 07, 2023 for treatment of a UTI and hypercalcemia of 12.6 mg/dL after she did not take her prescribed Cinacalcet that was subsequently treated with Zoledronic Acid and IVF who presents to [facility] ER complaining of weakness, nausea, vomiting and syncope x 2. Ms. Ramirez is not a fully-reliable historian at this time so information was gathered from chart, medical staff and computer. According to the records her family reported worsening nausea with bilious emesis that caused her to be unable to take her Cinacalcet and her antibiotics to treat her UTI. Her family states she is too weak to get around now and that even when she does take her medications they seem to make her worse. She allegedly fainted twice earlier today while they were trying to get her in the car to come to the hospital with a LOC but no head trauma as they caught her both times. The family says they spoke to Dr. Marin about her intolerance of her Cinacalcet causing her to be unable to keep her medications down. They also apparently have spoke with Dr. Moya about her being too frail to undergo parathyroidectomy but they also are leaning toward a potential feeding tube with an ultimate goal to get her admitted to TCU though she seems to have very poor rehabilitation potential. The ER physician spoke with the family at length about potentially making the patient comfortable since she cannot tolerate the necessary medications to manage her increasingly complex and brittle condition - but they were resistant to any suggestion of doing less than everything in spite of serial readmission and aggressive care. There was no report of fever, chills, diarrhea, constipation or chest pain. In the ER she was diagnosed with recurrent critical hypercalcemia of 13.1 mg/dL present on admission (which was down to 10.5 mg/dL on 08/07/2023) with hypokalemia of 3.1 mmol/L and hypomagnesemia of 1.4 mg/dL present on admission with ZENAIDA likely due to dehydration evidenced by increased serum creatinine of 1.16 mg/dL and BUN of 19 mg/dL (up from her previous baseline serum creatinine of 0.82 mg/dL and BUN of 9 mg/dL on 08/07/2023) complicated by leukocytosis of 14.6 present on admission with UA positive for evidence of partially-treated acute cystitis; without hematuria compounded by an elevated troponin of 116 pg/mL consistent with suspected NSTEMI-II plus syncope x 2 all contributing to clinical evidence of acute metabolic encephalopathy in the setting of chronic dementia and seeming medical futility with serial readmission and she was then admitted to the PCU for ongoing care for a stay that is expected to be greater than 48 hours. [facility] Medical History Acute hypokalemia Bradycardia, sinus Generalized weakness Hx of gastroesophageal reflux (GERD) Hypercalcemia Hyperparathyroidism Hypertension Hypothyroidism Prolonged QT interval Home Medications aspirin 81 mg chewable tablet 81 mg PO DAILY@0800 HEART HEALTH 04/07/20 [History Last Taken Unknown] pantoprazole 40 mg tablet,delayed release 40 mg PO DAILY ACID REFLUX 04/07/20 [History Last Taken 08/13/23] ranolazine 500 mg tablet,extended release,12 hr 500 mg PO BID CHEST PAIN 04/07/20 [History Last Taken 08/13/23] memantine 7 mg capsule sprinkle,extended release 24hr 7 mg PO QHS memory 03/28/23 [History Last Taken 08/13/23] ferrous sulfate 325 mg (65 mg iron) tablet 325 mg PO DAILY SUPPLEMENT 07/04/23 [History Last Taken 08/13/23] levothyroxine 100 mcg tablet 150 mcg PO DAILY@0600 THYROID 07/04/23 [History Last Taken 08/13/23] cinacalcet 60 mg tablet 60 mg PO BID parathyroid #60 tabs 07/06/23 [Rx Last Taken 08/13/23] polyethylene glycol 3350 17 gram/dose oral powder (Miralax) 17 g PO DAILY CONSTIPATION 07/06/23 [History Last Taken Unknown] olmesartan 5 mg tablet 5 mg PO DAILY HIGH BLOOD PRESSURE 08/03/23 [History Last Taken 08/13/23] amlodipine 5 mg tablet 5 mg PO .qdaily 08/13/23 [History Last Taken Unknown] docusate sodium 100 mg capsule (Colace) 100 mg PO DAILY 08/13/23 [History Last Taken Unknown] Allergy/AdvReac Type Severity Reaction Status Date / Time aspirin [ASA] Allergy Hives Verified 08/03/23 17:37 hydrocodone Allergy Nausea Verified 08/03/23 17:37 morphine Allergy PT UNSURE Verified 08/03/23 17:37 OF REACTION Penicillins Allergy Anaphylaxis Verified 08/03/23 17:37 Family History Daughter Diabetes Heart disease Surgical History S/P cholecystectomy Status post total hip replacement, right Social History household members: family housing: house Smoking Status: Never smoker substance use type: does not use ROS ROS Narrative Review of systems: General: Patient denies fevers or chills. HENT: Denies headache, denies stuffy nose, denies sore throat EYES: Denies changes in vision Resp: Denies cough, denies shortness of breath Cardiac: Patient admits to syncope x 2 but she denies chest pain or palpitations. GI: Patient admits to nausea and vomiting but denies abdominal pain, constipation or diarrhea. : Denies changes in urination Extremity: Denies swelling Musculoskeletal: Patient denies arthralgias or myalgias. Neuro: Patient is confused and a poor historian with obvious dementia. Heme: Denies any bleeding or bruising Skin: Denies rashes Psychiatric: No complaints voiced related to uncontrolled depression or anxiety. Endocrine: No polyuria, polydipsia or polyphagia. The rest of the 14 point ROS was negative except for positives in HPI. Vital Signs Vital Signs Vital Signs: 08/13/23 17:03 08/13/23 18:47 08/13/23 18:50 Temperature 96.2 F L 97.6 F L Temperature Source Temporal Oral Pulse Rate 85 69 Respiratory Rate 16 14 Respiratory Effort Normal Non-Labored Respiratory Pattern Normal Blood Pressure 126/75 H 157/83 H Blood Pressure Mean 92 107 Pulse Ox 96 98 Oxygen Delivery Method Room Air Room Air 08/13/23 20:24 Temperature 97.8 F Temperature Source Oral Pulse Rate 67 Respiratory Rate 17 Respiratory Effort Respiratory Pattern Blood Pressure 159/75 H Blood Pressure Mean 103 Pulse Ox 98 Oxygen Delivery Method Room Air Weight Weight: 132 lb 15.02 oz Body Mass Index (BMI) 22.1 Physical Exam Const alert, no apparent distress and average body habitus Constitutional Narrative: Patient is a suboptimal historian with obvious dementia. General Appearance: cooperative Orientation / Consciousness: confused HEENT normocephalic, head/scalp atraumatic and hearing grossly normal bilaterally HEENT Narrative: Oropharynx dry. Eyes PERRL and EOMs intact bilaterally Neck no lymphadenopathy and supple Resp normal respiratory effort, no retractions, no use of accessory muscles and clear to auscultation bilaterally Cardio regular rate and regular rhythm GI normal to inspection, nondistended, normoactive bowel sounds, soft to palpation, non-tender and non-distended Extremity normal to inspection and full ROM Skin Skin Narrative: Patient has no evidence of rash or jaundice at this time. Neuro CN's II-XII intact bilaterally, moves all extremities and no focal motor deficits Sensorium / Orientation: awake, alert, oriented to person and oriented to place Speech: speech normal Motor Exam: strength 5/5 throughout Psych affect normal Results Medical Records Data Attestation: I reviewed the patient's medical records Lab / Micro Data Attestation: I reviewed the patient's lab results. 08/13/23 19:53 08/13/23 19:53 Labs: Laboratory Results - last 24 hr 08/13/23 18:40: Urine Color Yellow, Urine Clarity Sl. Cloudy, Urine pH 5.0, Ur Specific [place] 1.020, Urine Protein 30 H, Urine Glucose (UA) Normal, Urine Ketones 150 A*, Urine Occult Blood 10 H, Urine Nitrite Positive H, Urine Bilirubin Negative, Urine Urobilinogen 1 H, Ur Leukocyte Esterase 100 H, Urine RBC 0 SEEN, Urine WBC 0-5 SEEN, Ur Squamous Epith Cells 0-5 SEEN, Urine Bacteria 3+, Urine Mucus 0 SEEN 08/13/23 19:53: WBC 14.6 H, RBC 3.29 L, Hgb 10.7 L, Hct 31.8 L, MCV 96.7, MCH 32.5 H, MCHC 33.6, RDW Std Deviation 45.0 H, RDW Coeff of [place] 12.7, Plt Count 202, MPV 11.4, Immature Gran % (Auto) 1.100 H, Neut % (Auto) 82.0 H, Lymph % (Auto) 8.3 L, [place] % (Auto) 8.3, Eos % (Auto) 0.0, Baso % (Auto) 0.3, Absolute Neuts (auto) 12.0 H, Absolute Lymphs (auto) 1.21, Nucleated RBC % 0, Sodium 138, Potassium 3.1 L, Chloride 100, Carbon Dioxide 25.0, Anion Gap 13, BUN 19 H, Creatinine 1.16 H, Estim Creat Clear Calc 35.39, Est GFR (MDRD) Af Amer 58 L, Est GFR (MDRD) Non-Af 48 L, BUN/Creatinine Ratio 16.4, Glucose 137 H, Calcium 13.1 H*, Magnesium 1.4 L, Total Bilirubin 1.10 H, AST 21, ALT 11 L, Alkaline Phosphatase 64, Troponin I High Sens 116 H, Total Protein 7.0, Albumin 3.7, Globulin 3.3, Albumin/Globulin Ratio 1.1 Assessment & Plan Assessment/Plan (1) Hyperparathyroidism: (2) Acute dehydration: (3) Acute renal insufficiency: (4) Acute hypokalemia: (5) Syncope: (6) Elevated troponin I level: PLAN: Plan 1. Critical hypercalcemia of 13.1 mg/dL present on admission (which was down to 10.5 mg/dL on 08/07/2023); with recent admission here from August 05, 2023 to August 07, 2023 for treatment of a UTI and hypercalcemia of 12.6 mg/dL - Admit to PCU. Continue IV fluid along with Lasix plus repeat Zometa as previous. Then we will recheck CMP in the AM to ensure improvement. 2. Severe Hyperparathyroidism with family reluctant to proceed with parathyroidectomy but with patient also unable to tolerate Cinacalcet resulting in serial readmission complicating #1 - We will consult Dr. Moya to see this patient on-rounds in the AM to discuss treatment options with this fragile, elderly patient with a family that has relatively poor insight into her complex medical condition. 3. ZENAIDA likely due to dehydration from intractable nausea and vomiting evidenced by increased serum creatinine of 1.16 mg/dL and BUN of 19 mg/dL (up from her previous baseline serum creatinine of 0.82 mg/dL and BUN of 9 mg/dL on 08/07/2023) with hypokalemia of 3.1 mmol/L and hypomagnesemia of 1.4 mg/dL present on admission compounding #1 & #2 - Vigorously volume resuscitate and recheck CMP in the AM to ensure improvement. Give supplemental KCl and magne sium. 4. Partially-treated UTI; without hematuria with leukocytosis of 14.6 present on admission adding to the pathology of #1 - #3 - Continue treatment with IV Cipro begun in the ER in light of her listed allergy to PCN. 5. Elevated troponin of 116 pg/mL consistent with suspected NSTEMI-II plus syncope x 2 arising from #1 - #4 - Avoid heparin as per cardiology recommendations. Patient also has listed allergy to aspirin but she is currently prescribed this agent which will be continued plus start Plavix. Continue Ranolazine as previous. Check echocardiogram to evaluate LVEF. Finally, we will consult Dr. Wyatt to see this patient on-rounds in the AM for further recommendations with help appreciated in advance. 6. Acute metabolic encephalopathy in the setting of chronic dementia with medical noncompliance and seeming medical futility due to #1 - #5 - Check TSH and UDS to evaluate for other reversible causes of confusion. Continue supportive care and attempt to educate patient and family about her prognosis so their expectations with be more aligned with the reality of her dire situation. 7. Essential hypertension - Hold scheduled antihypertensives until her dehydration improves. 8. Hypothyroidism - Continue Synthroid and check TSH. 9. History of prolonged QT-interval - Noted. Recheck EKG this admission to reassess. 10. GERD - Continue PPI IV in light of nausea and vomiting outlined in #3. 11. DVT prophylaxis - Give full-dose Lovenox 60 mg sq BID in light of #5. Total time: Approximately 95 minutes. Charges/Coding Visit Charges Inpatient E&M: 85122 Init Hosp L3
[2023-08-13 20:58] VITALS: BP 152/77; PULSE 66; RESP 17; TEMP 37; O2SAT 99
[2023-08-13] MEDS: Aspirin 81 MG TAB.CHEW 324 MG PO (21:02)
[2023-08-13] MEDS: Ondansetron 4 MG/2 ML Vial IV (21:12)
--- OUTSIDE RECORDS SUMMARY | 2023-08-13 21:42 | XMS RPT_ITS | CCD ---
Author Name Unknown Address [address] [place] [address] Organization [facility] Care Team Providers Care Aeronautical Engineering Technologist Name Role Phone Michelle SHINE MD, Bakari Primary Care Provider [phone] BAKARI RODRIGUEZ DO Primary Care Physician [phone] Sanjana Wallace PT Unavailable Unavailable Michelle SHINE MD, Michael Primary Care Provider [phone] Michelle SHINE DO, Michael Primary Care Provider [phone] Michelle SHINE DO, Michael A Primary Care Provider [phone] JEREMIAH STEELE DO Primary Care Physician JEREMIAH [...] Allergy 12-02-2019 Unknown, Eruption of skin (disorder) [facility] Medications Current Medications Medication Drug Class(es) [...] period., # 100 tab(s), 0 Refill(s), Pharmacy: [facility]/pharmacy #[id number], Right hip pain, 165.1, cm, 08/19/22 [...] # 90 tab(s), 0 Refill(s), TRI, Pharmacy: [facility]/pharmacy #[id number], 165, cm, 02/23/23 12:59:00 EDT, Height, kg, 02/23/23 12:59:00 EDT, Dosing Weight Start Date: 02/23/23 Stop Date: 05/24/23 Status: Ordered Problems Active Problems Problem Classification Problem Date Documented Date Episodic/Chronic Abdominal hernia (10 sources) Hiatal hernia 05-03-2019 Episodic Adjustment disorders (6 sources) Grief finding; Translations: [Adjustment disorder with depressed mood] Onset: 0 12-23-2019 Chronic Allergic reactions (10 sources) Allergy to 2-sljabxm-8-methylglutar yl-coenzyme A reductase inhibitor 03-16-2020 Episodic Cataract [...] Taking VItal Signs DR ABDON ARROYO MD [facility] 08-21-2022 10:38-[address] ABDON ARROYO MD [facility] 08-21-2022 10:38-[address] ABDON Anaya [facility] 08-21-2022 10:38-0500 Body temperature 97.52 [degF] DR ABDON ARROYO MD [facility] 08-21-2022 10:38-0500 Diastolic Blood Pressure Non-Invasive [address] ABDON ARROYO MD [facility] 08-21-2022 10:38-0500 Heart rate 53 /min DR ABDON RAROYO MD [facility] 08-21-2022 10:38-0500 Reason For Taking VItal Signs DR ABDON ARROYO MD [facility] 08-21-2022 10:38-0500 Respiratory rate 18 /min DR ABDON ARROYO MD [facility] 08-21-2022 10:38-0500 Systolic Blood Pressure Non-Invasive [address] ABDON ARROYO MD [facility] 08-21-2022 09:34-0500 Reason For Taking VItal Signs DR ABDON ARROYO MD [facility] 08-21-2022 06:50-[address] ABDON ARROYO MD [facility] 08-21-2022 06:50-[address] ABDON Anaya [facility] 08-21-2022 06:50-0500 Body temperature 98.06 [degF] DR ABDON ARROYO MD [facility] 08-21-2022 06:50-0500 Diastolic Blood Pressure Non-Invasive [address] ABDON ARROYO MD [facility] 08-21-2022 06:50-0500 Heart rate 56 /min DR ABDON ARROYO MD [facility] 08-21-2022 06:50-0500 Respiratory rate 18 /min DR ABDON ARROYO MD [facility] 08-21-2022 06:50-0500 Systolic Blood Pressure Non-Invasive [address] ABDON ARROYO MD [facility] 08-21-2022 03:47-0500 Body temperature 98.06 [degF] DR ABDON ARROYO MD [facility] 08-21-2022 03:47-0500 Diastolic Blood Pressure Non-Invasive [address] ABDON ARROYO MD [facility] 08-21-2022 03:47-0500 Heart rate 67 /min DR ABDON ARORYO MD [facility] 08-21-2022 03:47-0500 Respiratory rate 16 /min DR ABDON ARROYO MD [facility] 08-21-2022 03:47-0500 Systolic Blood Pressure Non-Invasive [address] ABDON ARROYO MD [facility] 08-20-2022 23:50-0500 Heart rate 54 /min DR ABDON ARROYO MD [facility] 08-19-2022 15:04-[address] ABDON ARROYO MD [facility] 08-19-2022 15:04-[address] ABDON Anaya [facility] 08-19-2022 13:11-0500 Body height 165.[address] ABDON ARROYO MD [facility] 08-19-2022 13:11-0500 Body weight 73.[address] ABDON ARROYO MD [facility] 08-19-2022 13:11-0500 Body weight 26.96 kg/m2 DR ABDON ARROYO MD [facility] 08-19-2022 13:04-0500 Body temperature 96.98 [degF] DR ABDON ARROYO MD [facility] 08-19-2022 11:50-0500 Body temperature 95.36 [degF] DR ABDON ARROYO MD [facility] 08-19-2022 11:45-0500 Respiratory Rate - Anes 11 br/min DR ABDON ARROYO MD [facility] 08-19-2022 11:40-0500 Respiratory Rate - Anes 12 br/min DR ABDON ARROYO MD [facility] 08-19-2022 11:35-0500 Respiratory Rate - Anes 12 br/min DR ABDON ARROYO MD [facility] 08-19-2022 07:52-0500 Body height 165.[address] ABDON ARROYO MD [facility] 08-19-2022 07:52-0500 Body temperature 97.88 [degF] DR ABDON ARROYO MD [facility] 08-19-2022 07:52-0500 Body weight 73.[address] ABDON ARROYO MD [facility] 08-19-2022 07:52-0500 Heart rate 56 /min DR ABDON ARROYO MD [facility] 08-05-2022 13:53-[address] Pressure Cuff Size DR ABDON ARROYO MD [facility] 08-05-2022 13:53-[address] ABDON ARROYO MD [facility] 08-05-2022 13:53-[address] ABDON Anaya [facility] 08-05-2022 13:53-0500 Body height 165.[address] ABDON ARROYO MD [facility] 08-05-2022 13:53-0500 Body weight 73.[address] ABDON ARROYO MD [facility] 08-05-2022 13:53-0500 Body weight 26.96 kg/m2 DR ABDON ARROYO MD [facility] 08-05-2022 13:53-0500 Diastolic Blood Pressure Non-Invasive [address] ABDON ARROYO MD [facility] 08-05-2022 13:53-0500 Heart rate 45 /min DR ABDON ARROYO MD [facility] 08-05-2022 13:53-0500 Systolic Blood Pressure Non-Invasive [address] ABDON ARROYO MD [facility] Encounters Encounter Date Encounter Type Care Provider Facility Start: 07-29-2023 End: 07-30-2023 ambulatory JEREMIAH STEELE DO Facility:B Start: 07-29-2023 End: 07-29-2023 Patient encounter procedure JEREMIAH STEELE DO [facility] Start: 07-29-2023 End: 08-03-2023 ambulatory JEREMIAH STEELE DO Facility:[facility] Start: 07-29-2023 End: 08-02-2023 Outreach Lab JEREMIAH STEELE DO [facility] Start: 07-28-2023 ambulatory JEREMIAH STEELE DO Faci lity:B Start: 07-28-2023 End: 08-01-2023 Outreach Lab DELANEY KRAUSE MD [facility] Start: 04-08-2023 ambulatory JEREMIAH STEELE DO Faci lity:B Start: 02-23-2023 End: 02-24-2023 ambulatory JEREMIAH STEELE DO Facility:[facility] Start: 02-23-2023 End: 02-23-2023 Patient encounter procedure JEREMIAH STEELE DO [facility] Start: 02-23-2023 End: 02-23-2023 Preprocedural examination done JEREMIAH STEELE DO [facility] Start: 01-28-2023 Refill Alvarado mercado DO Work Phone: [facility] Cardiology Procedures Date Procedure Procedure Detail [...] H/O percutaneous transluminal coronary angioplasty Krystle Donato [employer] OFFICIAL.MEDICAID NURSE Work Phone: Start: 12-25-1995 Heart structure (body structure) DR ABDON ARROYO MD Plan of Treatment Date Care Activity Detail Author Start: 03-27-2023 Influenza vaccination C [facility] Start: 07-27-2022 ADVANCE DIRECTIVE DISCUSSION ADVANCE DIRECTIVE DISCUSSION [facility] Start: 07-27-2022 DEPRESSION ASSESSMENT DEPRESSION ASS ESSMENT [facility] Start: 03-27-2022 Influenza vaccination C [facility] Start: 07-27-2021 ADVANCE DIRECTIVE DISCUSSION ADVANCE DIRECTIVE DISCUSSION [facility] Start: 05-06-2021 COVID-19 VACCINE (3 - Booster for Moderna series) COVID-19 VACCINE (3 - Booster for Moderna series) [facility] Start: 01-29-2021 COVID-19 VACCINE (3 - Booster for Moderna series) COVID-19 VACCINE (3 - Booster for Moderna series) [facility] Start: 11-08-2008 BONE DENSITY BONE DENSITY [facility] Start: 11-08-2008 PNEUMOVAX AGE 65 AND OVER WITH 5YR LOOKBACK (#1) PNEUMOVAX AGE 65 AND OVER WITH 5YR LOOKBACK (#1) [facility] Start: 11-08-1993 SHINGRIX VACCINE (1 of 2) OSPINA GRIX VACCINE (1 of 2) [facility] Start: 11-08-1988 DIABETES SCREEN DIABETES SCREEN [facility] Start: 11-08-1962 Urine microalbumin profile DTAP,TDAP ,TD (1 - Tdap) [facility] Start: 11-08-1961 ANNUAL PCP TEAM PLATE SHOP HELPER CECY DISEASE VISIT ANNUAL PCP TEAM CHRONIC DISEASE VISIT [facility] Start: 11-08-1961 BP CONTROLLED (<130/80) BP CONTROLLE D (<130/80) [facility] Start: 11-08-1961 Hepatitis B surface antibody level LDL CHOLESTEROL [facility] Start: 11-08-1961 HEPATITIS C SCREENING HEPATITIS C [facility] Start: 1955 Adult depression scr [facility] assessment DEPRESSION SCREENING [facility] Start: 11-08-1949 PNEUMOCOCCAL: 65+ (1 - PCV) PNEUMOCOCCAL: 65+ (1 - PCV) [facility] Immunizations Immunization Date Immunization Notes Care Provider Brendan hernadez 12-04-2020 SARS-CoV-2 (COVID-19 ) mRNA-[address] ABDON ARROYO MD [facility] Payers Date Payer Category Payer Medicare [id number] 2022 Unknown [id number] 2020 Unknown ANTHEM BLUE CROS S AND BLUE SHIELD ANTHEM MEDIBLUE HMO [id number] 2020-Present [phone] [address] [place] [address] HMO [id number] 2020 Unknown ANTHEM BLUE CROS S AND BLUE SHIELD ANTHEM JOSEUE HMO [id number] 2020-Present [phone] [address] [place] [address] HMO [id number] 1943 Unknown [id number] [id number]. 1943 Unknown [id number] 2.16.840.1.945125.3.579.2. 1943 Unknown [id number] 2.16840.1.341306.3.579.2. 1943 Unknown [id number] 2.16.840.1.410861.3.579.2. 1943 Unknown [id number] 2.16.840.1.399818.3.579.2. 1943 Unknown [id number] 2.16.840.1.831122.3.579.2. 1943 Unknown [id number] 2.16840.1.678533.3.579.2. 1943 Unknown [id number] 2.16.840.1.349402.3.579.2. 1943 Unknown [id number] 2.16.840.1.038986.3.579.2. 1943 Unknown [id number] 2.16.840.1.475095.3.579.2. 1943 Unknown [id number] 2.16.840.1.372040.3.579.2. 1943 Unknown [id number] [id number] Social History Date Type Detail Facility Start: 05-03-2019 End: 12-23-2019 Tobacco smoking status NHIS Never smoked tobacco [facility] Start: 12-23-2019 Tobacco use and exposure Smoke less tobacco non-user [facility] Start: 11-12-2021 End: 11-13-2022 Alcohol intake Ex-drinker (finding) [facility] Start: 1945 Sex Assigned At Not on file C [facility] Sex Assigned At Female [facility] Functional Status Date Assessment Result Facility 08-21-2022 Functional Status [facility] 08-21-2022 Functional Status bilateral knee high [facility] 08-21-2022 Functional Status 3 Teena [facility] 08-21-2022 [facility] Functional Status Teena [facility] 08-20-2022 [facility] Functional Status Lunch Percent 75 [facility] 08-20-2022 Functional Status Teena [facility] 08-20-2022 Functional Status Teena [facility] 08-20-2022 Functional Status Teena [facility] 08-20-2022 [facility] 08-19-[facility]22 Functional Status 1st floor bedr oom, 1st floor bathroom [facility] 08-19-2022 Functional Status Sensory Deficits None A [facility] 08-19-2022 Functional Status ice on, tension pillow in place [facility] 08-19-2022 Functional [facility] Functional Status Sensory Deficits None A [facility] Mental Status Date Assessment Result Facility 08-21-2022 Mental Status Not oriented to time, Not oriented to situation [facility] 08-20-2022 Mental Status [facility] 08-20-2022 Mental Status [facility] Clinical Notes 11-18-2021 to 08-01-2023 Telephone [...] Locations *1: This test was performed at: [facility], [address] [place] [address], [id number] , [facility] ([place]) 01-28-2023 Miscellaneous Notes Pharmacy faxes requesting refill: Requested Prescriptions Refused Prescriptions Disp Refills ranolazine ER (RANEXA) 500 mg 12 hr tablet [Pharmacy Med Name: RANOLAZINE ER 500 MG TABLET] 60 tablet 0 Sig: TAKE 1 TABLET BY MOUTH TWICE A DAY Date of last visit:10/11/21 NO SHOW FOR 12/2022 APPT HAS NOT RESCHEDULED Phone #: [phone] (home) [phone] (cell) The patients preferred pharmacy has been captured for this encounter? yes documented in this encounter [facility] 01-01-2023 Miscellaneous Notes Pharmacy faxes requesting refill: Requested Prescriptions Pending Prescriptions Disp Refills ranolazine ER (RANEXA) 500 mg 12 hr tablet [Pharmacy Med Name: RANOLAZINE ER 500 MG TABLET] 60 tablet 0 Sig: TAKE 1 TABLET BY MOUTH TWICE A DAY Date of last visit:10/11/2021 Patient has appointment 01/14/2023 and is now being seen in [place]. Phone #: [phone] (home) [phone] (cell) The patients preferred pharmacy has been captured for this encounter? yes documented in this encounter [facility] 09-15-2022 Miscellaneous Notes Patient calls requesting refill: Requested Prescriptions Pending Prescriptions Disp Refills ranolazine ER (RANEXA) 500 mg 12 hr tablet 180 tablet 0 Sig: Take 1 tablet by mouth twice daily. Date of last visit:10/11/2021 Phone #: [phone] (home) [phone] (cell) The patients preferred pharmacy has been captured for this encounter? yes documented in this encounter [facility] 08-21-2022 Hospital Discharge instructions Patient Education 08/21/2022 14:31:09 5 - [facility] Post-op Instruction 02/2017 (68065) [facility] Post-operative Instructions PLEASE FOLLOW [facility] POST-OP INSTRUCTIONS GIVEN WATCH FOR SIGNS OF INFECTION: call the office ([phone]) if experencing any of the following: (Usually [...] on your follow up instructions. Form: 338A (20202) R: 11/3008/19/2022 12:42:01 Total Hip Replacement, Anterior, Care After, Xupv-oc-Hibt Total Hip Replacement, Anterior, Care After This sheet gives you information about how to care for yourself after your procedure. Your doctor may also give you more specific instructions. If you have problems or questions, contact your doctor. What can I expect after the procedure? After the procedure, it is common to have: Pain. Stiffness. Discomfort. Follow these instructions at home: Medicines Take qmnt-zcn-zduhqza and prescription medicines only as told by [...] use soap and water, use alcohol-based hand document control supervisor. ?Change your bandage as told by your [...] include fried or sweet foods. ?Take an mdba-vda-jrzniaw or prescription medicine for constipation. Do not [...] 10/27/2018 Document Revised: 11/21/2019 Document Reviewed: 10/27/2018 [employer] Patient Education 2020 [employer]. Follow Up Care 06/17/2022 14:40:44 With:DAVID SHABAZZ PA-C, Orthopedic Address: [facility] [address] [place] [address]- When:09/01/2022 09:45:00 Comments:This is your post-op appointment. Follow-up as scheduled. With:BAKARI RODRIGUEZ DO Address: [address] [facility] [place] [address]- [phone] When:09/02/2022 11:00:00 Comments:This is your post-hospital follow-up to get your blood work results. Have your lab work done prior to this appointment. It is with Dr. Michelle Paul's nurse practitioner. [facility] 08-21-2022 Note Discharge Instructions Thank [...] Follow-Up 09/02/2022 11:00 AM EST SANJAY BERRY APRN-MEDICAID NURSE [address] [address] OV 11/11/2022 08:30 AM EDT BAKARI RODRIGUEZ DO [address] [address] Follow Up Appointments Follow Up with BAKARI RODRIGUEZ DO When 09/02/2022 11:00 AM EST Why: This is your post-hospital follow-up to get your blood work results. Have your lab work done prior to this appointment. It is with Dr. Michelle Paul's nurse practitioner. Where: [address] [place] [phone] Follow Up with DAVID SHABAZZ PA-C, Orthopedic When 09/01/2022 09:45 AM EST Why: This is your post-op appointment. Follow-up as scheduled. Where: [facility] [address] [place] [address]- The Following Activity and Diet Have Been [...] bowel movement, then as needed Pickup at [facility]/pharmacy #[id number] New traMADol (traMADol 50 mg oral tablet) 1 tab(s) by mouth Every 6 hours as needed for Pain, scale 7-10 Status post total hip replacement, right Duration: [address] [facility]/pharmacy #[id number] Changed acetaminophen (acetaminophen 500 mg oral tablet) 2 tab(s) by mouth Three (3) times a day as needed for as needed for pain not to exceed 3000 mg/ day Pickup at [facility]/pharmacy #4605 Changed aspirin 81 Milligram by mouth [...] by mouth Once a day Pharmacy Information [facility]/pharmacy #[id number]: [address] [place], [place] [phone] Please take this list to your next [...] FOR SIGNS OF INFECTION: call the office ([phone]) if experencing any of the following: (Usually [...] on your follow up instructions. Form: 338A (23368) R: 11/30 Total Hip Replacement, Anterior, Care [...] Follow these instructions at home: Medicines Take exbc-zby-ctrmorc and prescription medicines only as told by [...] use soap and water, use alcohol-based hand document control supervisor. ? Change your bandage as told by [...] fried or sweet foods. ? Take an ppex-chn-frbnzfx or prescription medicine for constipation. Do not [...] Document Reviewed: 10/27/2018 Elsevier Patient Education 2019 [employer] Additional Information VACCINATE! IT SAVES LIVES! Members of the community who have not yet received the COVID-19 vaccine and would like to receive it can visit one of [facility] vaccine clinics. There are many vaccine clinic locations within the [facility]. For locations and available times, please visit [email or web address] It is important to note that some COVID mobile vaccine clinics are held outdoors and may be canceled in rainy or stormy conditions. To learn more about pediatric vaccinations (ages 5-11), we invite you to visit the [facility] webpage. [email or web address]/pages/[email or web address] 870-[email or web address]-Ignmejplxsp-Frequently-[email or web address] -Questions.html To learn more about the COVID-19 vaccine, we invite you to visit the [facility] website for a list of frequently asked questions. [email or web address]_Vn [email or web address]-Questions.pdf [facility] Patient Portal Access Instructions: Stay connected with your healthcare team and access your personal medical information anytime with the [facility] Patient Portal.If you would like a full copy of your medical records, please contact the [facility] Medical Records Department, Thursday through Thursday between 8a.m. and 4:30p.m. Please follow the directions below to access the portal: 1.Access the email account you provided upon registration to the [facility].2.Look for an invitation email from [facility].3.Open the email and access the invitation link: Accept Invitation to [facility]4.Fill in the required bright to create your account. Sign into [email or web address] with your username and password that you [...] you will allow to register on the [facility] Patient Portal for access to your information. You can also access the [facility] Patient Portal on the NPTV. Simply click on Health Records under Health Data and then click on the [employer] logo. HOW TO SAFELY DISPOSE OF PRESCRIPTION [...] Call your local pharmacy or go to [email or web address] to find one close to you.3.Make use of household items: Use cat litter or old coffee grounds to dispose medications if other options are not available. Mix your drugs with these household products, seal them in an airtight container and throw it into the garbage. Call [facility]: [phone] to be sure your drugs can be [...] [facility] - [facility] Post-op Instruction 02/2017 (43821) Total Hip Replacement, Anterior, Care After, Fmwv-ku-Dycn Medication Leaflets My discharge plan and instructions have been reviewed and explained to me and I,DANIE RAMIREZ M understand my current condition and have read and understand these discharge instructions. I have received a written copy of the plan/instructions. If I have questions, I am aware that I should contact my doctor. Patient/Bariatric Physician Signature: _ Date/Time: Relationship to Patient: Witness Name/Signature: Date/Time: [facility] 08-21-2022 Note Date of Service 08/21/2022 Chief Complaint Osteoarthritis s/p Right Total Hip Replacement Subjective Patient is a 76 year old female seen at [facility] in consult for medical management. [...] IV Push, q6h fluticasone nasal 0.05 mg/inh [place] 50 mcg 1 spray(s), Nostril, each, qDay [...] by MENDEZ REYNOLDS on 08/21/2022 09:20 AM [facility] 08-21-2022 Nurse Progress note per Madelaine Vaughn NP ok to give this patient Toradol as ordered in SEP for pain due to Tramadol being ineffective. Digitally Signed by Ward Fernandes LPN on 08/21/2022 12:16 AM [facility] 08-20-2022 Note Date of Service [...] IV Push, q6h fluticasone nasal 0.05 mg/inh [place] 50 mcg 1 spray(s), Nostril, each, qDay [...] I also discussed case with the social services counselor and physical therapist. We would like to [...] therapy today for appropriate discharge planning. Possible snf facility versus home health. I have reviewed the [place] Automated Rx Reporting System (OARRS) report for [...] DAVID SHABAZZ PA-C on 08/20/2022 08:14 AM [facility] 08-19-2022 Note ORIGINAL EXAMINATION: ONE [...] 08/19/2022 12:41:03 PM Ordering Provider: ABDON ARROYO [facility] 08-19-2022 Note ORIGINAL EXAMINATION: ONE [...] 08/19/2022 12:41:03 PM Ordering Provider: ABDON ARROYO [facility] 08-19-2022 Note ORIGINAL Images acquired, not reported on this accession number. [facility] 08-19-2022 Note ORIGINAL Images acquired, not reported on this accession number. [facility] 08-19-2022 Anesthesiology Consult note Patient: [...] list: Medical Allergic rhinitis / SNOMED CT 288784427 / Confirmed Allergy to statin medication / SNOMED CT 1980117227 / Confirmed Anemia of chronic disease / SNOMED CT 180602768 / Confirmed Aortic stenosis / SNOMED CT 213698761 / Confirmed Arthritis / SNOMED CT 5116636 / Confirmed Breast lump or mass / SNOMED CT 439519123 / Confirmed Cataract / SNOMED CT 136094344 / Confirmed Somatic dysfunction of cervical region / SNOMED CT 0287289997 / Confirmed CKD (chronic kidney disease) stage 3, GFR 30-59 ml/min / SNOMED CT 0595289476 / Confirmed Constipation / SNOMED CT 57354811 / Confirmed Dark stools / SNOMED CT 82360023 / Confirmed Depression / SNOMED CT 18962471 / Confirmed Sleep-wake cycle disorder / SNOMED CT 075509631 / Confirmed Dysuria / SNOMED CT 93896386 / Confirmed Fall at home / SNOMED CT 04327415 / Confirmed GERD (gastroesophageal reflux disease) / SNOMED CT 059915355 / Confirmed Hiatal hernia / SNOMED CT 107682965 / Confirmed Voice hoarseness / SNOMED CT 883472255 / Confirmed Hypercalcemia / SNOMED CT 080957286 / Confirmed Elevated fasting glucose / SNOMED CT 732174010 / Confirmed HLD (hyperlipidemia) / SNOMED CT 35818377 / Confirmed HTN (hypertension) / SNOMED CT 2118845223 / Confirmed Hypothyroidism / SNOMED CT 61654870 / Confirmed Immunization due / SNOMED CT 956929063 / Confirmed Cognitive impairment / SNOMED CT 4084955834 / Confirmed Urinary frequency / SNOMED CT 522853177 / Confirmed Insomnia / SNOMED CT 425225822 / Confirmed Iron deficiency anemia / SNOMED CT 502262332 / Confirmed Eyebrow laceration / SNOMED CT 8848554921 / Confirmed Enlarged liver / SNOMED CT 703988064 / Confirmed Right leg weakness / SNOMED CT 553403789 / Confirmed Rhinorrhea / SNOMED CT 727135164 / Confirmed Neck pain / SNOMED CT 680797386 / Confirmed Osteoarthritis of right hip / SNOMED CT 7194982221 / Confirmed Osteopenia / SNOMED CT 166734225 / Confirmed Medicare annual wellness visit, subsequent / SNOMED CT 852787538 / Confirmed Screening for cardiovascular condition / SNOMED CT 093718615 / Confirmed Preop examination / SNOMED CT 618076881 / Confirmed Pre-op exam / SNOMED CT 949913922 / Confirmed Pericardial effusion / SNOMED CT 2004234916 / Confirmed Pulmonary hypertension / SNOMED CT 864611196 / Confirmed CAD S/P percutaneous coronary angioplasty / SNOMED CT 9200604536 / Confirmed 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 Right bundle branch block / SNOMED CT 00501666 / Confirmed Screening due / SNOMED CT 544936791 / Confirmed Secondary hyperparathyroidism / SNOMED CT 582784400 / Confirmed Somatic dysfunction of pelvic region / SNOMED CT 0166175393 / Confirmed Somatic dysfunction of rib region / SNOMED CT 3949657581 / Confirmed Somatic dysfunction of thoracic region / SNOMED CT 6487702880 / Confirmed Systolic murmur / SNOMED CT 66100474 / Confirmed Tricuspid regurgitation / SNOMED CT 671200427 / Confirmed Vitamin D deficiency / SNOMED CT 35565419 / Confirmed Vitiligo / SNOMED CT 61797465 / Confirmed, Active Problems (54) Allergic rhinitis [...] Brother Alzheimer's disease Mother Procedure history: Echocardiogram ([id number]) on 10/29/2017 at 71 Years. Heart ([id number]) on 12/25/1995 at 50 Years. Comments: 05/03/2019 11:14 EDT - Prabha Bonner LPN stent Hysterectomy ([id number]). Cholecystectomy (97906843). Creation of pericardial window (36227152). Cataract (808667907). Comments: 11/11/2021 14:49 EDT - Ofelia Porter PERFORMANCE REPORTER left eye EGD - Esophagogastroduodenoscopy ([id number]). Social History Social & Psychosocial Habits Alcohol [...] Height 165.1 cm Admission Weight 73.5 kg [place] Body Weight 57.00 kg Admission Body Mass [...] Height 165.1 cm Admission Weight 73.5 kg [place] Body Weight 57.00 kg Admission Body Mass [...] no difficulties Skin Temperature Cool Skin Description [place], Dry Skin Integrity Intact Mucous Membrane Color [place] Skin Moisture General Dry IV Present Present Characteristics of Speech Clear Level of Consciousness Alert Strength All Extremities Moderate Affect/Behavior Appropriate, Calm, Cooperative Orientation Oriented x 4 Allergies Yes Manager [place] On Yes 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 Assessment and Plan [place] [employer] Anesthesiologists (ASA) physical status classification: Class III. Anesthetic Preoperative Plan Anesthetic technique: Spinal. Regional: Spinal. Postoperative pain management: Per surgeon. Risks discussed: nausea, vomiting, headache, hypotension, allergic reaction, serious complications. Informed consent: signed by patient. Digitally Signed by NERIS RUCKER on 08/19/2022 09:19 AM [facility] 08-01-2022 Miscellaneous Notes Per Aim, Approved; Auth # [id number] 08/01/2022-10/29/2022 Oli Estrada Prior authorization request for stress test to be done at [facility] is being submitted for review. Please notify clerical staff when ready. Mike Novak RN documented in this encounter [facility] 07-31-2022 Miscellaneous Notes Addended by: MIKE ONVAK on: 07/31/2022 01:12 PM Modules accepted: Orders Please sign order for stress test. Patient having surgery 08/19/22 Spoke to patient's daughter Janet and let her know it is ok to go to [facility] and we will notify them when it is scheduled Stress at [facility] is ok Appt with me depends upon the results of the stress Patient's daughter Janet called in stated Mom is having hip replacement surgery on 08/19/2022, per the cardiac clearance form it is recommended to have Stress test done. She would like to have it at [facility], she would also like to know if she needs an appointment to see dr. Peralta before surgery. Please call Janet she's going to be handling Mom's appointments. [phone] documented in this encounter [facility] 11-18-2021 Miscellaneous Notes Pt called and notified per carotid ultrasound normal for age. Pt agreeable Patient contacted by phone, no answer message left on voice mail. Call carotdi doppler normal for age Pt echo and carotid have been scanned in for review documented in this encounter [facility] Evaluation + Plan note Future Appointments Appointment Date:11/11/2022 08:30:00 AM Scheduled Provider:BAKAIR RODRIGUEZ DO Location:[facility] Appointment Type:PC OV Future Scheduled TestsFerritin 08/14/21Thyroid Stimulating Hormone 08/14/21A1C Hemoglobin 08/14/21Complete Blood Count 08/14/21Complete Blood Count 02/12/22Lipid Profile 08/14/21Lipid Profile 02/12/22Microalbumin Level Urine 08/14/21Vitamin D Level 08/14/21Complete Metabolic Panel 08/14/21Complete Metabolic Panel 02/12/22MA Mammo Screening Bilateral w/ Adam 11/18/21BD Bone Density DEXA Axial Skeleton 11/10/21 [facility] Evaluation + Plan note Future Appointments Appointment Date:08/08/2022 08:15:00 AM Scheduled Provider: Location:[facility] Appointment Type:NM Myocardial Spect Rest/Stress [place]a Appointment Date:08/22/2022 10:30:00 AM Scheduled Provider: Location:[facility] Appointment Type:PT Outpatient Evaluation Appointment Date:11/11/2022 08:30:00 AM Scheduled Provider:BAKARI RODRIGUEZ DO Location:[facility] Appointment Type:PC OV Future Scheduled TestsCalcium Level [...] Axial Skeleton 11/10/21NM Myocardial Spect Rest/Stress 08/08/22 [facility] Evaluation + Plan note Future Appointments Appointment Date:08/22/2022 10:30:00 AM Scheduled Provider: Location:[facility] Appointment Type:PT Outpatient Evaluation Appointment Date:11/11/2022 08:30:00 AM Scheduled Provider:BAKARI RODRIGUEZ DO Location:[facility] Appointment Type:[facility] Future Scheduled TestsCalcium Level Ionized 07/04/22Ferritin 08/14/21Ferritin [...] 11/18/21BD Bone Density DEXA Axial Skeleton 11/10/21 [facility] Evaluation + Plan note Future Appointments Appointment Date:09/02/2022 11:00:00 AM Scheduled Provider:SANJAY BERRY Location:[facility] Appointment Type:[facility] Hospital Follow-Up Appointment Date:11/11/2022 08:30:00 AM Scheduled [...] 11/18/21BD Bone Density DEXA Axial Skeleton 11/10/21 [facility] Evaluation + Plan note Future [...] 11/18/21BD Bone Density DEXA Axial Skeleton 11/10/21 [facility] Evaluation + Plan note Future Appointments Appointment Date:05/01/2023 10:00:00 AM Scheduled Provider:JEREMIAH STEELE DO Location:[facility] Appointment Type: OV Appointment Date:05/15/2023 01:30:00 PM Scheduled Provider:JEREMIAH STEELE DO Location:[facility] Appointment Type: OV [facility] Evaluation + Plan note Future [...] 02/26/23Complete Metabolic Panel 02/26/23NM Parathyroid Study 02/24/23 [facility] Evaluation + Plan note Future Appointments Appointment Date:08/03/2023 01:00:00 PM Scheduled Provider:JEREMIAH STEELE DO Location:[facility] Appointment Type:PC OV Appointment Date:09/29/2023 02:30:00 PM Scheduled Provider:BOGDAN ZHENG Location:[facility] Appointment Type: OV Future Scheduled TestsCross-Linked [...] 07/25/23Complete Metabolic Panel 02/26/23NM Parathyroid Study 02/24/23 [facility] Evaluation + Plan note Future Appointments Appointment Date:08/06/2023 03:30:00 PM Scheduled Provider:JEREMIAH STEELE DO Location:[facility] Appointment Type:PC OV Appointment Date:09/29/2023 02:30:00 PM Scheduled Provider:BOGDAN ZHENG Location[facility] Appointment Type:CV OV Future Scheduled [...] 07/25/23Complete Metabolic Panel 02/26/23NM Parathyroid Study 02/24/23 [facility] Narrative No data available for this section [facility] Hospital Discharge instructions No data available for this section [facility] Progress note No data available for this section [facility] Summary Purpose Family History No [...] or prosecute any alcohol or drug abuse patient.[facility] the event this information is protected by the Federal Confidentiality of Alcohol and Drug Abuse Patient Records regulations: The Federal rules restrict any use of the information to criminally investigate or prosecute any alcohol or drug abuse patient.[facility] HospitalIn the event this information is protected by the Federal Confidentiality of Alcohol and Drug Abuse Patient Records regulations: The Federal rules restrict any use of the information to criminally investigate or prosecute any alcohol or drug abuse patient.[facility] HospitalIn the event this information is protected by the Federal Confidentiality of Alcohol and Drug Abuse Patient Records regulations: The Federal rules restrict any use of the information to criminally investigate or prosecute any alcohol or drug abuse patient.[facility] HospitalIn the event this information is protected by the Federal Confidentiality of Alcohol and Drug Abuse Patient Records regulations: The Federal rules restrict any use of the information to criminally investigate or prosecute any alcohol or drug abuse patient.[facility] HospitalIn the event this information is protected by the Federal Confidentiality of Alcohol and Drug Abuse Patient Records regulations: The Federal rules restrict any use of the information to criminally investigate or prosecute any alcohol or drug abuse patient.[facility] Reason for Visit (unrecogniz ed section and content) Reason Comments Patient Question Reason Comments PA for stress test Reason Onset Date Comments Refill Request 09/15/2022 Reason Comments Refill Request Care Teams (unrecognized sec tion and content) Aeronautical Engineering Technologist Relationship Specialty Start Date End Date Bakari Rodriguez IV, MD [address] [place] [address] PCP - General Family Medicine 12/23/19 Aeronautical Engineering Technologist Relationship Specialty Start Date End Date Bakari Rodriguez IV, MD [address] [place] [address] PCP - General Family Medicine 12/23/19 Aeronautical Engineering Technologist Relationship Specialty Start Date End Date Bakari Rodriguez IV, DO [address] [place] [id number] PCP - General Family Medicine 12/23/19 Aeronautical Engineering Technologist Relationship Specialty Start Date End Date Bakari Rodriguez IV, DO [address] [place] [address] PCP - General Family Medicine 12/23/19 Care Team (unrecognized sect ion and content) Care Team Personnel Name: Herson Wallace PT Position: P3 Scheduling - Belt Sewer Advanced Member Role: Other Name: BAKARI RODRIGUEZ DO Position: P4 Physician - Primary Care Member Role: Primary Care Physician Address: Address: [address] [place] [address]- Care Team Related Persons Name: JANET RAMIREZ Address: Home [address] [place] [phone] [place] Name: JANET RAMIREZ Address: Home [address] [place] [phone] [place] Address: Temporary [address] [place] [phone] Care Team Personnel Name: Herson Wallace PT Position: P3 Scheduling - Belt Sewer Advanced Member Role: Other Name: BAKARI RODRIGUEZ DO Position: P4 Physician - Primary Care Member Role: Primary Care Physician Address: Address: [address] [place] [id number] Care Team Related Persons Name: JANET RAMIREZ Address: Home [address] [place] [phone] [place] Name: JANET RAMIREZ Address: Home [address] [place] [phone] [place] Address: Temporary [address] [place], [place] [phone] Care Team Personnel Name: Herson Wallacerk Sanjana PT Position: P3 Scheduling - Belt Sewer Advanced Member Role: Other Name: BAKARI RODRIGUEZ DO Position: P4 Physician - Primary Care Member Role: Primary Care Physician Address: Address: [address] [place] [address]- Care Team Related Persons Name: JANET RAMIREZ Address: Home [address] [place], [place] [phone] [place] Name: JANET RAMIREZ Address: Home [address] [place], [place] [phone] [place] Address: Temporary [address], [place] [phone] Care Team Personnel Name: Herson Wallace Clerk Sajnana PT Position: P3 Scheduling - Belt Sewer Advanced Member Role: Other Name: BAKARI RODRIGUEZ DO Position: P4 Physician - Primary Care Member Role: Primary Care Physician Address: Address: [address] [place] [address]- Care Team Related Persons Name: JANET RAMIREZ Address: Home [address] [place], [place] [phone] [place] Name: JANET RAMIREZ Address: Home [address] [facility], [phone] Name: JANET RAMIREZ Address: Home [address] [place], [place] [phone] [place] Address: Temporary [address] [place], [place] [phone] Care Team Personnel Name: Herson Wallacerjosefa Allan PT Position: P3 Scheduling - Belt Sewer Advanced Member Role: Other Name: BAKARI RODRIGUEZ DO Position: P4 Physician - Primary Care Member Role: Primary Care Physician Address: Address: [address] [place] [address]- Care Team Related Persons Name: JANET RAMIREZ Address: Home [address] [facility], [phone] Name: JANET RAMIREZ Address: Home [address] [place], [place] [phone] [place] Name: JANET RAMIREZ Address: Home [address] [place], [place] [phone] [place] Address: [place] [address] [address] [place], [place] [phone] INFORMATION SOURCE (unrecogn ized section and content) DATE CREATED AUTHOR AUTHOR'S DANITA FERNANDEZ 08/04/2023 [facility] [place] ([place]) FOR RECORDS PERTAINING TO PATIENTS WHO ARE [...] BE BASED ON THE PRIMARY CLINICAL RECORDS. [employer] provides no warranty or guarantee of the accuracy or completeness of information in this document.
[2023-08-13] MEDS: Magnesium Sulfate 4gm/100mL 4 GM/100 ML IV.SOLN. IV (21:59)
--- NOTE | 2023-08-13 22:03 | ECHOD_ITS ---
Reason For Study: Syncope/Near Syncope Procedure This was a 2D Doppler, Color Flow transthoracic echocardiogram. Exam performed portable in patient room. Left Ventricle Normal left ventricle. The estimated ejection fraction is 60-65 %. Right Ventricle Normal right ventricle. Normal systolic function. Atria Normal left atrium. Normal right atrium. Tricuspid Valve The tricuspid valve is not well visualized. Aortic Valve Moderate diffuse aortic valve calcification. Trivial aortic valve insufficiency. Pulmonic Valve The pulmonic valve is not well visualized. Great Vessels Normal aortic root. Pericardium/Pleural No pericardial effusion. MMode/2D Measurements & Calculations LVIDd: 4.6 cm IVSd: 1.0 cm LVOT diam: 2.0 cm LVIDs: 2.5 cm LVPWd: 0.81 cm LVOT area: 3.2 cm2 RVDd: 4.0 cm FS: 45.1 % Ao root diam: 3.2 cm LAV(MOD-bp): 23.3 ml LVAd ap4: 21.1 cm2 LAV(MOD-bp) Indexed: 14.0 ml/m2 LVLd ap4: 6.0 cm LAV(MOD-sp2): 22.9 ml EDV(MOD-sp4): 59.9 ml LAV(MOD-sp4): 22.0 ml EDV(sp4-el): 62.5 ml LVAs ap4: 10.2 cm2 LVLs ap4: 4.5 cm ESV(MOD-sp4): 19.9 ml ESV(sp4-el): 19.6 ml EF(MOD-sp4): 66.8 % EF(sp4-el): 68.6 % SV(MOD-sp4): 40.0 ml SV(sp4-el): 42.9 ml LA A4 area: 11.0 cm2 LA dimension(2D): 2.9 cm RA A4 area: 15.4 cm2 TAPSE: 2.7 cm Time Measurements MV dec time: 0.32 sec Doppler Measurements & Calculations MV E max easton: 45.4 cm/sec Lat Peak E' [place]on: 7.6 cm/sec Med Peak E' [place]on: 4.5 cm/sec MV A max easton: 70.2 cm/sec E/E' lat: 6.0 E/E' med: 10.0 MV E/A: 0.65 Ao V2 max: 252.2 cm/sec LV V1 max: 145.5 cm/sec MV dec slope: 143.9 cm/sec2 Ao max P.4 mmHg LV V1 max P.5 mmHg Ao V2 mean: 183.0 cm/sec LV V1 mean P.2 mmHg Ao mean P.5 mmHg LV V1 mean: 108.7 cm/sec Ao V2 VTI: 47.6 cm LV V1 VTI: 31.6 cm AV (velocity ratio): 0.67 ISABELLA(I,D): 2.1 cm2 ISABELLA(V,D): 1.8 cm2 SV(LVOT): 99.7 ml PA V2 max: 111.5 cm/sec PI end-d easton: 122.5 cm/sec TR max easton: 274.3 cm/sec TR max P.1 mmHg ECHO/Echo Complete Interpretation Summary The estimated ejection fraction is 60-65 %. Trivial mitral regurgitation Trivial aortic incompetence. No pericardial effusion No prior study to compare. Ordering Physician: Yury Cool Referring Physician: Joey Smith Performed By: Olga Lidia Alvarez RDCS, RVT
[2023-08-13 22:30] VITALS: BP 160/67; PULSE 64; RESP 16; TEMP 36.2; O2SAT 97
[2023-08-13 22:31] VITALS: BMI 21.8
--- OUTSIDE RECORDS SUMMARY | 2023-08-13 22:40 | XMS RPT_ITS | CCD ---
Author Name Unknown Address [address] [place] [address] Organization [facility] Care Team Providers Care Dried Yeast Supervisor Name Role Phone Michelle SHINE MD, Bakari Primary Care Provider [phone] BAKARI RODRIGUEZ DO Primary Care Physician [phone] Sanjana Wallace PT Unavailable Unavailable Michelle SHINE MD, Michael Primary Care Provider [phone] Michelle SHINE DO, Michael Primary Care Provider [phone] Michelle SHINE DO, Michael A Primary Care Provider [phone] JEREMIAH STEELE DO Primary Care Physician JEREMIAH [...] Allergy 12-02-2019 Unknown, Eruption of skin (disorder) [facility] Medications Current Medications Medication Drug [...] period., # 100 tab(s), 0 Refill(s), Pharmacy: [facility]/pharmacy #[id number], Right hip pain, 165.1, cm, [...] # 90 tab(s), 0 Refill(s), TRI, Pharmacy: [facility]/pharmacy #[id number], 165, cm, 02/23/23 12:59:00 EDT, Height, kg, 02/23/23 12:59:00 EDT, Dosing Weight Start Date: 02/23/23 Stop Date: 05/24/23 Status: Ordered Problems Active Problems Problem Classification Problem Date Documented Date Episodic/Chronic Abdominal hernia (10 sources) Hiatal hernia 05-03-2019 Episodic Adjustment disorders (6 sources) Grief finding; Translations: [Adjustment disorder with depressed mood] Onset: 0 12-23-2019 Chronic Allergic reactions (10 sources) Allergy to 6-hihhxbs-0-methylglutar yl-coenzyme A reductase inhibitor 03-16-2020 Episodic Cataract [...] Taking VItal Signs DR ABDON ARROYO MD [facility] 08-21-2022 10:38-[address] ABDON ARROYO MD [facility] 08-21-2022 10:38-[address] ABDON Anaya [facility] 08-21-2022 10:38-0500 Body temperature 97.52 [degF] DR ABDON ARROYO MD [facility] 08-21-2022 10:38-0500 Diastolic Blood Pressure Non-Invasive [address] ABDON ARROYO MD [facility] 08-21-2022 10:38-0500 Heart rate 53 /min DR ABDON ARROYO MD [facility] 08-21-2022 10:38-0500 Reason For Taking VItal Signs DR ABDON ARROYO MD [facility] 08-21-2022 10:38-0500 Respiratory rate 18 /min DR ABDON ARROYO MD [facility] 08-21-2022 10:38-0500 Systolic Blood Pressure Non-Invasive [address] ABDON ARROYO MD [facility] 08-21-2022 09:34-0500 Reason For Taking VItal Signs DR ABDON ARROYO MD [facility] 08-21-2022 06:50-[address] ABDON ARROYO MD [facility] 08-21-2022 06:50-[address] ABDON Anaya [facility] 08-21-2022 06:50-0500 Body temperature 98.06 [degF] DR ABDON ARROYO MD [facility] 08-21-2022 06:50-0500 Diastolic Blood Pressure Non-Invasive [address] ABDON ARROYO MD [facility] 08-21-2022 06:50-0500 Heart rate 56 /min DR ABDON ARROYO MD [facility] 08-21-2022 06:50-0500 Respiratory rate 18 /min DR ABDON ARROYO MD [facility] 08-21-2022 06:50-0500 Systolic Blood Pressure Non-Invasive [address] ABDON ARROYO MD [facility] 08-21-2022 03:47-0500 Body temperature 98.06 [degF] DR ABDON ARROYO MD [facility] 08-21-2022 03:47-0500 Diastolic Blood Pressure Non-Invasive [address] ABDON ARROYO MD [facility] 08-21-2022 03:47-0500 Heart rate 67 /min DR ABDON ARROYO MD [facility] 08-21-2022 03:47-0500 Respiratory rate 16 /min DR ABDON ARROYO MD [facility] 08-21-2022 03:47-0500 Systolic Blood Pressure Non-Invasive [address] ABDON ARROYO MD [facility] 08-20-2022 23:50-0500 Heart rate 54 /min DR ABDON ARROYO MD [facility] 08-19-2022 15:04-[address] ABDON ARROYO MD [facility] 08-19-2022 15:04-[address] ABDON Anaya [facility] 08-19-2022 13:11-0500 Body height 165.[address] ABDON ARROYO MD [facility] 08-19-2022 13:11-0500 Body weight 73.[address] ABDON ARROYO MD [facility] 08-19-2022 13:11-0500 Body weight 26.96 kg/m2 DR ABDON ARROYO MD [facility] 08-19-2022 13:04-0500 Body temperature 96.98 [degF] DR ABDON ARROYO MD [facility] 08-19-2022 11:50-0500 Body temperature 95.36 [degF] DR ABDON ARROYO MD [facility] 08-19-2022 11:45-0500 Respiratory Rate - Anes 11 br/min DR ABDON ARROYO MD [facility] 08-19-2022 11:40-0500 Respiratory Rate - Anes 12 br/min DR ABDON ARROYO MD [facility] 08-19-2022 11:35-0500 Respiratory Rate - Anes 12 br/min DR ABDON ARROYO MD [facility] 08-19-2022 07:52-0500 Body height 165.[address] ABDON ARROYO MD [facility] 08-19-2022 07:52-0500 Body temperature 97.88 [degF] DR ABDON ARROYO MD [facility] 08-19-2022 07:52-0500 Body weight 73.[address] ABODN ARROYO MD [facility] 08-19-2022 07:52-0500 Heart rate 56 /min DR ABDON ARROYO MD [facility] 08-05-2022 13:53-[address] Cuff Size DR ABDON ARROYO MD [facility] 08-05-2022 13:53-[address] ABDON ARROYO MD [facility] 08-05-2022 13:53-[address] ABDON Anaya [facility] 08-05-2022 13:53-0500 Body height 165.[address] ABDON ARROYO MD [facility] 08-05-2022 13:53-0500 Body weight 73.[address] ABDON ARROYO MD [facility] 08-05-2022 13:53-0500 Body weight 26.96 kg/m2 DR ABDON ARROYO MD [facility] 08-05-2022 13:53-0500 Diastolic Blood Pressure Non-Invasive [address] ABDON ARROYO MD [facility] 08-05-2022 13:53-0500 Heart rate 45 /min DR ABDON ARROYO MD [facility] 08-05-2022 13:53-0500 Systolic Blood Pressure Non-Invasive [address] ABDON ARROYO MD [facility] Encounters Encounter Date Encounter Type Care Provider Facility Start: 07-29-2023 End: 07-30-2023 ambulatory JEREMIAH STEELE DO Facility:B Start: 07-29-2023 End: 07-29-2023 Patient encounter procedure JEREMIAH STEELE DO [facility] Start: 07-29-2023 End: 08-03-2023 ambulatory JEREMIAH STEELE DO Facility:B Start: 07-29-2023 End: 08-02-2023 Outreach Lab JEREMIAH STEELE DO [facility] Start: 07-28-2023 ambulatory JEREMIAH STEELE DO Faci lity:B Start: 07-28-2023 End: 08-01-2023 Outreach Lab DELANEY KRAUSE MD [facility] Start: 04-08-2023 ambulatory JEREMIAH STEELE DO Faci lity:B Start: 02-23-2023 End: 02-24-2023 ambulatory JEREMIAH STEELE DO Facility:B Start: 02-23-2023 End: 02-23-2023 Patient encounter procedure JEREMIAH STEELE DO [facility] Start: 02-23-2023 End: 02-23-2023 Preprocedural examination done JEREMIAH STEELE DO [facility] Start: 01-28-2023 Refill Alvarado mercado DO Work Phone: [facility] Cardiology Procedures Date Procedure Procedure Detail Performing [...] H/O percutaneous transluminal coronary angioplasty Krystle Donato RECRUITING INTERNSHIP.PLATE KEEPER Work Phone: Start: 12-25-1995 Heart structure (body structure) DR ABDON ARROYO MD Plan of Treatment Date Care Activity Detail Author Start: 03-27-2023 Influenza vaccination C [facility] Start: 07-27-2022 ADVANCE DIRECTIVE DISCUSSION ADVANCE DIRECTIVE DISCUSSION [facility] Start: 07-27-2022 DEPRESSION ASSESSMENT DEPRESSION ASS ESSMENT [facility] Start: 03-27-2022 Influenza vaccination [facility] Start: 07-27-2021 ADVANCE DIRECTIVE DISCUSSION ADVANCE DIRECTIVE DISCUSSION [facility] Start: 05-06-2021 COVID-19 VACCINE (3 - Booster for Moderna series) COVID-19 VACCINE (3 - Booster for Moderna series) [facility] Start: 01-29-2021 COVID-19 VACCINE (3 - Booster for Moderna series) COVID-19 VACCINE (3 - Booster for Moderna series) [facility] Start: 11-08-2008 BONE DENSITY BONE DENSITY [facility] Start: 11-08-2008 PNEUMOVAX AGE 65 AND OVER WITH 5YR LOOKBACK (#1) PNEUMOVAX AGE 65 AND OVER WITH 5YR LOOKBACK (#1) [facility] Start: 11-08-1993 SHINGRIX VACCINE (1 of 2) OSPINA GRIX VACCINE (1 of 2) [facility] Start: 11-08-1988 DIABETES SCREEN DIABETES SCREEN [facility] Start: 11-08-1962 Urine microalbumin profile DTAP,TDAP ,TD (1 - Tdap) [facility] Start: 11-08-1961 ANNUAL PCP TEAM INSTRUCTOR WATCH ASSEMBLY CECY DISEASE VISIT ANNUAL PCP TEAM CHRONIC DISEASE VISIT [facility] Start: 11-08-1961 BP CONTROLLED (<130/80) BP CONTROLLE D (<130/80) [facility] Start: 11-08-1961 Hepatitis B surface antibody level LDL CHOLESTEROL [facility] Start: 11-08-1961 HEPATITIS [facility] Start: 1955 Adult depression scr [facility] assessment DEPRESSION SCREENING [facility] Start: 11-08-1949 PNEUMOCOCCAL: 65+ (1 - PCV) PNEUMOCOCCAL: 65+ (1 - PCV) [facility] Immunizations Immunization Date Immunization Notes Care Provider Brendan hernadez 12-04-2020 SARS-CoV-2 (COVID-19 ) mRNA-[address] ABDON ARROYO MD [facility] Payers Date Payer Category Payer Medicare [id number] 2022 Unknown [id number] 2020 Unknown ANTHEM BLUE CROS S AND BLUE SHIELD ANTHEM MEDIBLUE HMO [id number] 2020-Present [phone] [address] [place] [address] HMO [id number] 2020 Unknown ANTHEM BLUE CROS S AND BLUE SHIELD ANTHEM JOSEUE HMO [id number] 2020-Present [phone] [address] [place] [address] HMO [id number] 1943 Unknown [id number] [id number]. 1943 Unknown [id number] [id number]. 1943 Unknown [id number] [id number]. 1943 Unknown [id number] 2.16.840.1.932652.3.579.2. 1943 Unknown [id number] 2.16.840.1.860323.3.579.2. 1943 Unknown [id number] 2.16.840.1.792623.3.579.2. 1943 Unknown [id number] [id number]. 1943 Unknown [id number] 2.16.840.1.590136.3.579.2. 1943 Unknown [id number] 2.16.840.1.325660.3.579.2. 1943 Unknown [id number] 2.16.840.1.436369.3.579.2. 1943 Unknown [id number] 2.16.840.1.416311.3.579.2. 1943 Unknown [id number] [id number] Social History Date Type Detail Facility Start: 05-03-2019 End: 12-23-2019 Tobacco smoking status NHIS Never smoked tobacco [facility] Start: 12-23-2019 Tobacco use and exposure Smoke less tobacco non-user [facility] Start: 11-12-2021 End: 11-13-2022 Alcohol intake Ex-drinker (finding) [facility] Start: 1945 Sex Assigned At Not on file [facility] Sex Assigned At Female [facility] Functional Status Date Assessment Result Facility 08-21-2022 Functional Status [facility] 08-21-2022 Functional Status bilateral knee high [facility] 08-21-2022 Functional Status 3 [facility] 08-21-2022 [facility] 08-20-2022 Functional Status [facility] 08-20-2022 Functional Status [facility] 08-20-2022 Functional Status Lunch Percent 75 [facility] 08-20-2022 Functional Status [facility] 08-20-2022 Functional Status [facility] 08-20-2022 Functional Status [facility] 08-20-2022 Functional Status [facility] 08-19-2022 Functional Status 1st floor bedr oom, 1st floor bathroom [facility] 08-19-2022 Functional Status Sensory Deficits None A [facility] 08-19-2022 Functional Status ice on, tension pillow in place [facility] 08-19-2022 Functional Status Maintained [facility] 08-05-2022 Functional Status Sensory Deficits None A [facility] Mental Status Date Assessment Result Facility 08-21-2022 Mental Status Not oriented to time, Not oriented to situation [facility] 08-20-[address] [facility] 08-20-[facility]22 Mental Status [facility] Clinical Notes 11-18-2021 to 08-01-2023 Telephone [...] Locations *1: This test was performed at: [facility], [address] [place] [address], [id number] , [facility] ([place]) 01-28-2023 Miscellaneous Notes Pharmacy faxes requesting refill: Requested Prescriptions Refused Prescriptions Disp Refills ranolazine ER (RANEXA) 500 mg 12 hr tablet [Pharmacy Med Name: RANOLAZINE ER 500 MG TABLET] 60 tablet 0 Sig: TAKE 1 TABLET BY MOUTH TWICE A DAY Date of last visit:10/11/21 NO SHOW FOR 12/2022 APPT HAS NOT RESCHEDULED Phone #: [phone] (home) [phone] (cell) The patients preferred pharmacy has been captured for this encounter? yes documented in this encounter [facility] 01-01-2023 Miscellaneous Notes Pharmacy faxes requesting refill: Requested Prescriptions Pending Prescriptions Disp Refills ranolazine ER (RANEXA) 500 mg 12 hr tablet [Pharmacy Med Name: RANOLAZINE ER 500 MG TABLET] 60 tablet 0 Sig: TAKE 1 TABLET BY MOUTH TWICE A DAY Date of last visit:10/11/2021 Patient has appointment 01/14/2023 and is now being seen in [place]. Phone #: [phone] (home) [phone] (cell) The patients preferred pharmacy has been captured for this encounter? yes documented in this encounter [facility] 09-15-2022 Miscellaneous Notes Patient calls requesting refill: Requested Prescriptions Pending Prescriptions Disp Refills ranolazine ER (RANEXA) 500 mg 12 hr tablet 180 tablet 0 Sig: Take 1 tablet by mouth twice daily. Date of last visit:10/11/2021 Phone #: [phone] (home) [phone] (cell) The patients preferred pharmacy has been captured for this encounter? yes documented in this encounter [facility] 08-21-2022 Hospital Discharge instructions Patient Education 08/21/2022 14:31:09 5 - [facility] Post-op Instruction 02/2017 (26940) [facility] Post-operative Instructions PLEASE FOLLOW [facility] POST-OP INSTRUCTIONS GIVEN WATCH FOR SIGNS OF INFECTION: call the office ([phone]) if experencing any of the following: (Usually [...] on your follow up instructions. Form: 338A (49933) R: 11/3008/19/2022 12:42:01 Total Hip Replacement, Anterior, Care After, Otkm-qh-Cukc Total Hip Replacement, Anterior, Care After This sheet gives you information about how to care for yourself after your procedure. Your doctor may also give you more specific instructions. If you have problems or questions, contact your doctor. What can I expect after the procedure? After the procedure, it is common to have: Pain. Stiffness. Discomfort. Follow these instructions at home: Medicines Take yojq-gvj-rhbpqrs and prescription medicines only as told by [...] soap and water, use alcohol-based hand fence manufacture supervisor. ?Change your bandage as told by [...] include fried or sweet foods. ?Take an coes-fbm-qqmszss or prescription medicine for constipation. Do not [...] 10/27/2018 Document Revised: 11/21/2019 Document Reviewed: 10/27/2018 [employer] Patient Education 2020 [employer]. Follow Up Care 06/17/2022 14:40:44 With:DAVID SHABAZZ PA-C, Orthopedic Address: [facility] [address] [place] [address]- When:09/01/2022 09:45:00 Comments:This is your post-op appointment. Follow-up as scheduled. With:BAKARI RODRIGUEZ DO Address: 0 [facility] [place] [address]- [phone] When:09/02/2022 11:00:00 Comments:This is your post-hospital follow-up to get your blood work results. Have your lab work done prior to this appointment. It is with Dr. Michelle Paul's nurse practitioner. [facility] 08-21-2022 Note Discharge Instructions Thank you [...] Follow-Up 09/02/2022 11:00 AM EST SANJAY BERRY APRN-PLATE KEEPER [address] [address] OV 11/11/2022 08:30 AM EDT BAKARI RODRIGUEZ DO [address] [address] Follow Up Appointments Follow Up with BAKARI RODRIGUEZ DO When 09/02/2022 11:00 AM EST Why: This is your post-hospital follow-up to get your blood work results. Have your lab work done prior to this appointment. It is with Dr. Michelle Paul's nurse practitioner. Where: [address] [place] [id number] [phone] Follow Up with DAVID SHABAZZ PA-C, Orthopedic When 09/01/2022 09:45 AM EST Why: This is your post-op appointment. Follow-up as scheduled. Where: [facility] [address] [place] [address]- The Following Activity and Diet Have Been [...] bowel movement, then as needed Pickup at [facility]/pharmacy #[id number] New traMADol (traMADol 50 mg oral tablet) 1 tab(s) by mouth Every 6 hours as needed for Pain, scale 7-10 Status post total hip replacement, right Duration: 7 Days Pickup at [facility]/pharmacy #[id number] Changed acetaminophen (acetaminophen 500 mg oral tablet) 2 tab(s) by mouth Three (3) times a day as needed for as needed for pain not to exceed 3000 mg/ day Pickup at [facility]/pharmacy #[id number] Changed aspirin 81 Milligram by [...] by mouth Once a day Pharmacy Information [facility]/pharmacy #[id number]: [address] [place], [place] [id number] [phone] Please take this list to your next [...] FOR SIGNS OF INFECTION: call the office ([phone]) if experencing any of the following: (Usually [...] on your follow up instructions. Form: 338A (86023) R: 11/30 Total Hip Replacement, Anterior, Care [...] Follow these instructions at home: Medicines Take rdkx-jlu-dktpuwm and prescription medicines only as told by [...] soap and water, use alcohol-based hand fence manufacture supervisor. ? Change your bandage as told [...] fried or sweet foods. ? Take an aaws-bpd-gpjdyvi or prescription medicine for constipation. Do not [...] Document Reviewed: 10/27/2018 Elsevier Patient Education 2019 [employer] Additional Information VACCINATE! IT SAVES LIVES! Members of the community who have not yet received the COVID-19 vaccine and would like to receive it can visit one of [facility] vaccine clinics. There are many vaccine clinic locations within the [facility]. For locations and available times, please visit [email or web address] It is important to note that some COVID mobile vaccine clinics are held outdoors and may be canceled in rainy or stormy conditions. To learn more about pediatric vaccinations (ages 5-11), we invite you to visit the [facility] webpage. [email or web address]/pages/[email or web address]-[email or web address]-Nokgyussavy-Frequently-Asked -Questions.html To learn more about the COVID-19 vaccine, we invite you to visit the [place] website for a list of frequently asked questions. [email or web address]_Os ked-Questions.pdf [facility] Patient Portal Access Instructions: Stay connected with your healthcare team and access your personal medical information anytime with the [facility] Patient Portal.If you would like a full copy of your medical records, please contact the [facility] Medical Records Department, Thursday through Thursday between 8a.m. and 4:30p.m. Please follow the directions below to access the portal: 1.Access the email account you provided upon registration to the [facility].2.Look for an invitation email from [facility].3.Open the email and access the invitation link: Accept Invitation to [facility].Fill in the required bright to create your account. Sign into [email or web address] with your username and password that you [...] you will allow to register on the [employer] Patient Portal for access to your information. You can also access the [employer] Patient Portal on the [employer]. Simply click on Health Records under Health Data and then click on the Fi.tt logo. HOW TO SAFELY DISPOSE OF PRESCRIPTION [...] Call your local pharmacy or go to [email or web address] to find one close to you.3.Make use of household items: Use cat litter or old coffee grounds to dispose medications if other options are not available. Mix your drugs with these household products, seal them in an airtight container and throw it into the garbage. Call [facility]: [phone] to be sure your drugs can be [...] [facility] Post-op Instruction 02/2017 (37712) Total Hip Replacement, Anterior, Care After, Tycm-bp-Rjkc Medication Leaflets My discharge plan and instructions have been reviewed and explained to me and I,DANIE RAMIREZ M understand my current condition and have read and understand these discharge instructions. I have received a written copy of the plan/instructions. If I have questions, I am aware that I should contact my doctor. 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 Patient [...] IV Push, q6h fluticasone nasal 0.05 mg/inh [place] 50 mcg 1 spray(s), Nostril, each, qDay [...] by MENDEZ REYNOLDS on 08/21/2022 09:20 AM [facility] 08-21-2022 Nurse Progress note per Madelaine Vaughn NP ok to give this patient Toradol as ordered in SEP for pain due to Tramadol being ineffective. Digitally Signed by Ward Fernandes LPN on 08/21/2022 12:16 AM [facility] 08-20-2022 Note Date of Service August [...] IV Push, q6h fluticasone nasal 0.05 mg/inh Surprise 50 mcg 1 spray(s), Nostril, each, qDay [...] also discussed case with the social media campaign manager and physical therapist. We would like [...] versus home health. I have reviewed the [place] Automated Rx Reporting System (OARRS) report for [...] DAVID SHABAZZ PA-C on 08/20/2022 08:14 AM [facility] 08-19-2022 Note ORIGINAL EXAMINATION: ONE XRAY [...] 08/19/2022 12:41:03 PM Ordering Provider: ABDON ARROYO [facility] 08-19-2022 Note ORIGINAL EXAMINATION: ONE XRAY [...] 08/19/2022 12:41:03 PM Ordering Provider: ABDON ARROYO [facility] 08-19-2022 Note ORIGINAL Images acquired, not reported on this accession number. [facility] 08-19-2022 Note ORIGINAL Images acquired, not reported on this accession number. [facility] 08-19-2022 Anesthesiology Consult note Patient: DANIE [...] list: Medical Allergic rhinitis / SNOMED CT 253501546 / Confirmed Allergy to statin medication / SNOMED CT 4187642209 / Confirmed Anemia of chronic disease / SNOMED CT 479977742 / Confirmed Aortic stenosis / SNOMED CT 040287768 / Confirmed Arthritis / SNOMED CT 9540678 / Confirmed Breast lump or mass / SNOMED CT 563540633 / Confirmed Cataract / SNOMED CT 645791486 / Confirmed Somatic dysfunction of cervical region / SNOMED CT 7469150085 / Confirmed CKD (chronic kidney disease) stage 3, GFR 30-59 ml/min / SNOMED CT 9415092006 / Confirmed Constipation / SNOMED CT 67427129 / Confirmed Dark stools / SNOMED CT 92506432 / Confirmed Depression / SNOMED CT 89471952 / Confirmed Sleep-wake cycle disorder / SNOMED CT 793186738 / Confirmed Dysuria / SNOMED CT 28573346 / Confirmed Fall at home / SNOMED CT 81945300 / Confirmed GERD (gastroesophageal reflux disease) / SNOMED CT 641031861 / Confirmed Hiatal hernia / SNOMED CT 729136538 / Confirmed Voice hoarseness / SNOMED CT 084017428 / Confirmed Hypercalcemia / SNOMED CT 354623810 / Confirmed Elevated fasting glucose / SNOMED CT 330301299 / Confirmed HLD (hyperlipidemia) / SNOMED CT 08963671 / Confirmed HTN (hypertension) / SNOMED CT 6500947561 / Confirmed Hypothyroidism / SNOMED CT 76654694 / Confirmed Immunization due / SNOMED CT 351957357 / Confirmed Cognitive impairment / SNOMED CT 9893845447 / Confirmed Urinary frequency / SNOMED CT 911121438 / Confirmed Insomnia / SNOMED CT 990164384 / Confirmed Iron deficiency anemia / SNOMED CT 821564031 / Confirmed Eyebrow laceration / SNOMED CT 7503215939 / Confirmed Enlarged liver / SNOMED CT 087309159 / Confirmed Right leg weakness / SNOMED CT 202230177 / Confirmed Rhinorrhea / SNOMED CT 450342254 / Confirmed Neck pain / SNOMED CT 000166305 / Confirmed Osteoarthritis of right hip / SNOMED CT 7269230391 / Confirmed Osteopenia / SNOMED CT 599873118 / Confirmed Medicare annual wellness visit, subsequent / SNOMED CT 804252085 / Confirmed Screening for cardiovascular condition / SNOMED CT 734706202 / Confirmed Preop examination / SNOMED CT 503781515 / Confirmed Pre-op exam / SNOMED CT 450865508 / Confirmed Pericardial effusion / SNOMED CT 2633183724 / Confirmed Pulmonary hypertension / SNOMED CT 200606135 / Confirmed CAD S/P percutaneous coronary angioplasty / SNOMED CT 0993406435 / Confirmed 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 Right bundle branch block / SNOMED CT 81006476 / Confirmed Screening due / SNOMED CT 030703038 / Confirmed Secondary hyperparathyroidism / SNOMED CT 431020460 / Confirmed Somatic dysfunction of pelvic region / SNOMED CT 0874740073 / Confirmed Somatic dysfunction of rib region / SNOMED CT 6117290959 / Confirmed Somatic dysfunction of thoracic region / SNOMED CT 6253771903 / Confirmed Systolic murmur / SNOMED CT 25879329 / Confirmed Tricuspid regurgitation / SNOMED CT 939581410 / Confirmed Vitamin D deficiency / SNOMED CT 48481282 / Confirmed Vitiligo / SNOMED CT 69366513 / Confirmed, Active Problems (54) Allergic rhinitis [...] Brother Alzheimer's disease Mother Procedure history: Echocardiogram ([id number]) on 10/29/2017 at 71 Years. Heart ([id number]) on 12/25/1995 at 50 Years. Comments: 05/03/2019 11:14 EDT - Prabha Bonner LPN stent Hysterectomy (319410192). Cholecystectomy (34220540). Creation of pericardial window (51987293). Cataract (868222228). Comments: 11/11/2021 14:49 EDT - Ofelia Porter [employer] left eye EGD - Esophagogastroduodenoscopy ([id number]). Social History Social & Psychosocial Habits Alcohol [...] Height 165.1 cm Admission Weight 73.5 kg [place] Body Weight 57.00 kg Admission Body Mass [...] Height 165.1 cm Admission Weight 73.5 kg [place] Body Weight 57.00 kg Admission Body Mass [...] no difficulties Skin Temperature Cool Skin Description [place], Dry Skin Integrity Intact Mucous Membrane Color [place] Skin Moisture General Dry IV Present Present Characteristics of Speech Clear Level of Consciousness Alert Strength All Extremities Moderate Affect/Behavior Appropriate, Calm, Cooperative Orientation Oriented x 4 Allergies Yes Contract Admin On Yes 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 Assessment and Plan [place] [employer] (ASA) physical status classification: Class III. Anesthetic Preoperative Plan Anesthetic technique: Spinal. Regional: Spinal. Postoperative pain management: Per surgeon. Risks discussed: nausea, vomiting, headache, hypotension, allergic reaction, serious complications. Informed consent: signed by patient. Digitally Signed by NERIS RUCKER on 08/19/2022 09:19 AM [facility] 08-01-2022 Miscellaneous Notes Per Aim, Approved; Auth # [id number] 08/01/2022-10/29/2022 Oli Estrada Prior authorization request for stress test to be done at [facility] is being submitted for review. Please notify clerical staff when ready. Mike Novak RN documented in this encounter [facility] 07-31-2022 Miscellaneous Notes Addended by: MIKE NOVAK on: 07/31/2022 01:12 PM Modules accepted: Orders Please sign order for stress test. Patient having surgery 08/19/22 Spoke to patient's daughter Janet and let her know it is ok to go to [facility] and we will notify them when it is scheduled Stress at [facility] is ok Appt with me depends upon the results of the stress Patient's daughter Janet called in stated Mom is having hip replacement surgery on 08/19/2022, per the cardiac clearance form it is recommended to have Stress test done. She would like to have it at [facility], she would also like to know if she needs an appointment to see dr. Peralta before surgery. Please call Janet she's going to be handling Mom's appointments. [phone] documented in this encounter [facility] 11-18-2021 Miscellaneous Notes Pt called and notified per carotid ultrasound normal for age. Pt agreeable Patient contacted by phone, no answer message left on voice mail. Call carotdi doppler normal for age Pt echo and carotid have been scanned in for review documented in this encounter [facility] Evaluation + Plan note Future Appointments Appointment Date:11/11/2022 08:30:00 AM Scheduled Provider:BAKARI RODRIGUEZ DO Location:[facility] Appointment Type:PC OV Future Scheduled TestsFerritin 08/14/21Thyroid Stimulating Hormone 08/14/21A1C Hemoglobin 08/14/21Complete Blood Count 08/14/21Complete Blood Count 02/12/22Lipid Profile 08/14/21Lipid Profile 02/12/22Microalbumin Level Urine 08/14/21Vitamin D Level 08/14/21Complete Metabolic Panel 08/14/21Complete Metabolic Panel 02/12/22MA Mammo Screening Bilateral w/ Adam 11/18/21BD Bone Density DEXA Axial Skeleton 11/10/21 [facility] Evaluation + Plan note Future Appointments Appointment Date:08/08/2022 08:15:00 AM Scheduled Provider: Location:[facility] Appointment Type:NM Myocardial Spect Rest/Stress [place] Appointment Date:08/22/2022 10:30:00 AM Scheduled Provider: Location:[facility] Appointment Type:PT Outpatient Evaluation Appointment Date:11/11/2022 08:30:00 AM Scheduled Provider:BAKARI RODRIGUEZ DO Location:[facility] Appointment Type:PC OV Future Scheduled TestsCalcium [...] Axial Skeleton 11/10/21NM Myocardial Spect Rest/Stress 08/08/22 [facility] Evaluation + Plan note Future Appointments Appointment Date:08/22/2022 10:30:00 AM Scheduled Provider: Location:[facility] Appointment Type:PT Outpatient Evaluation Appointment Date:11/11/2022 08:30:00 AM Scheduled Provider:BAKARI RODRIGUEZ DO Location:[facility] Appointment Type:[facility] Future Scheduled TestsCalcium Level Ionized 07/04/22Ferritin [...] 11/18/21BD Bone Density DEXA Axial Skeleton 11/10/21 [facility] Evaluation + Plan note Future Appointments Appointment Date:09/02/2022 11:00:00 AM Scheduled Provider:SANJAY BERRY Location:[facility] Appointment Type:[facility] Hospital Follow-Up Appointment Date:11/11/2022 08:30:00 AM Scheduled Provider:BAKARI RODRIGUEZ DO Location:[facility] Appointment Type:PC OV Future Scheduled TestsCalcium Level Ionized 07/04/22Ferritin 07/04/22Thyroid Stimulating Hormone 07/04/22Free T4 07/04/22A1C Hemoglobin 07/04/22Complete Blood Count 07/04/22Complete Blood Count 02/12/22Free T3 07/04/22Lipid Profile 02/12/22Iron Studies 07/04/22PTH, Intact 07/04/22Vitamin D Level 07/04/22Complete Metabolic Panel 07/04/22Complete Metabolic Panel 02/12/22MA Mammo Screening Bilateral w/ Adam 11/18/21BD Bone Density DEXA Axial Skeleton 11/10/21 [facility] Evaluation + Plan note Future Appointments Appointment Date:11/11/2022 08:30:00 AM Scheduled Provider:BAKARI RODRIGUEZ DO Location:[facility] Appointment Type: OV Future Scheduled TestsCalcium Level Ionized 07/04/22Ferritin 07/04/22Thyroid Stimulating Hormone 08/27/22Thyroid Stimulating Hormone 07/04/22Free T4 08/27/22Free T4 07/04/22A1C Hemoglobin 07/04/22Complete Blood Count 08/27/22Complete Blood Count 07/04/22Complete Blood Count 02/12/22Free T3 08/27/22Free T3 07/04/22Lipid Profile 02/12/22Iron Studies 07/04/22PTH, Intact 07/04/22Vitamin D Level 07/04/22Complete Metabolic Panel 07/04/22Complete Metabolic Panel 02/12/22MA Mammo Screening Bilateral w/ Adam 11/18/21BD Bone Density DEXA Axial Skeleton 11/10/21 [facility] Evaluation + Plan note Future Appointments Appointment Date:05/01/2023 10:00:00 AM Scheduled Provider:JEREMIAH STEELE DO Location:[facility] Appointment Type: OV Appointment Date:05/15/2023 01:30:00 PM Scheduled Provider:JEREMIAH STEELE DO Location:[facility] Appointment Type: OV [facility] Evaluation + Plan note Future Appointments Appointment Date:05/01/2023 10:00:00 AM Scheduled Provider:JEREMIAH STEELE DO Location:[facility] Appointment Type: OV Appointment Date:05/15/2023 01:30:00 PM Scheduled Provider:JEREMIAH STEELE DO Location:[facility] Appointment Type:PC OV Future Scheduled TestsCross-Linked N-Telopeptide Urine 02/26/23PTH, Related Peptide 02/26/23Calcium Level Ionized 02/26/23Magnesium Level 02/26/23Phosphorus Level 02/26/23Urinalysis 02/26/23Thyroid Stimulating Hormone 02/24/23Thyroid Stimulating Hormone 02/26/23Thyroxine 02/24/23Free T4 02/26/23Calcium Random Urine 02/26/23Creatinine Random Urine 02/26/23Vitamin D, 1,25-Dihydroxy 02/26/23Free T3 02/26/23Protein Electrophoresis Panel 02/26/23PTH, Intact 02/26/23Total T3 02/24/23Vitamin D Level 02/26/23Complete Metabolic Panel 02/26/23NM Parathyroid Study 02/24/23 [facility] Evaluation + Plan note Future Appointments Appointment Date:08/03/2023 01:00:00 PM Scheduled Provider:JEREMIAH STEELE DO Location:[facility] Appointment Type:PC OV Appointment Date:09/29/2023 02:30:00 PM Scheduled Provider:BOGDAN ZHENG Location:[facility] Appointment Type: OV Future [...] 07/25/23Complete Metabolic Panel 02/26/23NM Parathyroid Study 02/24/23 [facility] Evaluation + Plan note Future Appointments Appointment Date:08/06/2023 03:30:00 PM Scheduled Provider:JEREMIAH STEELE DO Location:[facility] Appointment Type:PC OV Appointment Date:09/29/2023 02:30:00 PM Scheduled Provider:BOGDAN ZHENG [facility] Appointment Type:CV OV Future Scheduled [...] 07/25/23Complete Metabolic Panel 02/26/23NM Parathyroid Study 02/24/23 [facility] Stable angina (HCC) Other and unspecified angina pectoris Chest pain in adult [facility] Diagnosis Stable angina (HCC) Other and unspecified angina pectoris Chest pain in adult [facility] Narrative No data available for this section [facility] Hospital Discharge instructions No data available for this section [facility] Progress note No data available for this section [facility] Summary Purpose Family History No Family [...] or prosecute any alcohol or drug abuse patient.[facility] the event this information is protected by the Federal Confidentiality of Alcohol and Drug Abuse Patient Records regulations: The Federal rules restrict any use of the information to criminally investigate or prosecute any alcohol or drug abuse patient.[facility] Hospital[facility] the event this information is protected by the Federal Confidentiality of Alcohol and Drug Abuse Patient Records regulations: The Federal rules restrict any use of the information to criminally investigate or prosecute any alcohol or drug abuse patient.[facility] Hospital[facility] the event this information is protected by the Federal Confidentiality of Alcohol and Drug Abuse Patient Records regulations: The Federal rules restrict any use of the information to criminally investigate or prosecute any alcohol or drug abuse patient.[facility] Hospital[facility] the event this information is protected by the Federal Confidentiality of Alcohol and Drug Abuse Patient Records regulations: The Federal rules restrict any use of the information to criminally investigate or prosecute any alcohol or drug abuse patient.[facility] Hospital[facility] the event this information is protected by the Federal Confidentiality of Alcohol and Drug Abuse Patient Records regulations: The Federal rules restrict any use of the information to criminally investigate or prosecute any alcohol or drug abuse patient.[facility] Reason for Visit (unrecogniz ed section and content) Reason Comments Patient Question Reason Comments PA for stress test Reason Onset Date Comments Refill Request 09/15/2022 Reason Comments Refill Request Care Teams (unrecognized sec tion and content) Dried Yeast Supervisor Relationship Specialty Start Date End Date Bakari Rodriguez IV, MD [address] [place] [id number] PCP - General Family Medicine 12/23/19 Dried Yeast Supervisor Relationship Specialty Start Date End Date Bakari Rodriguez IV, MD [address] [place] [phone] PCP - General Family Medicine 12/23/19 Dried Yeast Supervisor Relationship Specialty Start Date End Date Bakari Rodriguez IV, DO [address] [place] [id number] PCP - General Family Medicine 12/23/19 Dried Yeast Supervisor Relationship Specialty Start Date End Date Bakari Rodriguez IV, DO [address] [place] [id number] PCP - General Family Medicine 12/23/19 Care Team (unrecognized sect ion and content) Care Team Personnel Name: Herson Wallace PT Position: P3 Scheduling - Intelligence Agent Advanced Member Role: Other Name: BAKARI RODRIGUEZ DO Position: P4 Physician - Primary Care Member Role: Primary Care Physician Address: Address: [address] [place] [address]- Care Team Related Persons Name: JANET RAMIREZ Address: Home [address] [place] [phone] [place] Name: JANET RAMIREZ Address: Home [address] [place] [phone] [place] Address: Temporary [address] [place] [phone] Care Team Personnel Name: Herson Wallace PT Position: P3 Scheduling - Intelligence Agent Advanced Member Role: Other Name: BAKARI RODRIGUEZ DO Position: P4 Physician - Primary Care Member Role: Primary Care Physician Address: Address: [address] [place] [id number] Care Team Related Persons Name: JANET RAMIREZ Address: Home [address] [place] [phone] [place] Name: JANET RAMIREZ Address: Home [address] [place] [phone] [place] Address: Temporary [address] [place], [place] [phone] Care Team Personnel Name: Herson Wallacerk Sanjana PT Position: P3 Scheduling - Intelligence Agent Advanced Member Role: Other Name: BAKARI RODRIGUEZ DO Position: P4 Physician - Primary Care Member Role: Primary Care Physician Address: Address: [address] [place] [id number]- Care Team Related Persons Name: JANET RAMIREZ Address: Home [address] [place], [place] [phone] [place] Name: JANET RAMIREZ Address: Home [address] [place], [place] [phone] [place] Address: Temporary [address] [place], [place] [phone] Care Team Personnel Name: Herson Wallace Clerk Sanjana PT Position: P3 Scheduling - Intelligence Agent Advanced Member Role: Other Name: BAKARI RODRIGUEZ DO Position: P4 Physician - Primary Care Member Role: Primary Care Physician Address: Address: [address] [place] [address]- Care Team Related Persons Name: JANET RAMIREZ Address: Home [address] [place], [place] [phone] [place] Name: JANET RAMIREZ Address: Home [address] [facility], [phone] Name: JANET RAMIREZ Address: Home [address] [place], [place] [phone] [place] Address: Temporary [address] [place], [place] [phone] Care Team Personnel Name: Herson Wallacerjosefa Allan PT Position: P3 Scheduling - Intelligence Agent Advanced Member Role: Other Name: BAKARI RODRIGUEZ DO Position: P4 Physician - Primary Care Member Role: Primary Care Physician Address: Address: [address] [place] [address]- Care Team Related Persons Name: JANET RAMIREZ Address: Home [address] [facility], [phone] Name: JANET RAMIREZ Address: Home [address] [place], [place] [phone] [place] Name: JANET RAMIREZ Address: Home [address] [place], [place] [phone] [place] Address: [place] [address] [address] [place] [place], [place] [phone] INFORMATION SOURCE (unrecogn ized section and content) DATE CREATED AUTHOR AUTHOR'S DANITA FERNANDEZ 08/04/2023 [facility] ([place]) FOR RECORDS PERTAINING TO PATIENTS WHO ARE [...] BE BASED ON THE PRIMARY CLINICAL RECORDS. [employer](i)². provides no warranty or guarantee of the accuracy or completeness of information in this document.
[2023-08-13 23:05] LABS: Amphetamine Urine VISTA NEGATIVE (<1000 ng/mL); Barbiturate Urine VISTA NEGATIVE (< 200 ng/mL); Benzodiazepine Urine VISTA NEGATIVE (< 200 ng/mL); Cocaine Urine VISTA NEGATIVE (< 300 ng/mL); Ecstacy Urine VISTA NEGATIVE (< 500 ng/mL); Methadone Urine VISTA NEGATIVE (< 300 ng/mL); PCP Urine VISTA NEGATIVE (< 25 ng/mL); THC Urine VISTA NEGATIVE (< 50 ng/mL); Vista UDS pH Range 5
[2023-08-13 23:15] LABS: Cholesterol 240 mg/dL (200); High Density Lipoprotein 59 mg/dL; Triglycerides 158 mg/dL; Very Low Density Lipoprotein 32 mg/dL (5-40)
[2023-08-13] MEDS: Enoxaparin 60 MG/0.6 ML Syringe SC (23:25)
[2023-08-13] MEDS: KCL 20MEQ in 0.9% NS 20 MEQ/1,000 ML IV.SOLN. 125 MEQ IV (23:25)
[2023-08-13] MEDS: NORMAL SALINE 0.9% IV (23:53)
[2023-08-13] MEDS: ZOLEDRONIC ACID IV (23:53)
[2023-08-14] MEDS: Furosemide 40 MG/4 ML Vial IV (01:26)
--- NOTE | 2023-08-14 02:56 | NURSING ---
Patient unable to tolerate oral intake. She throws up as soon as whatever she has had hits her stomach. 08/13 PM medications not administered.
[2023-08-14 05:09] VITALS: BMI 21.8
[2023-08-14 05:30] VITALS: BP 141/64; PULSE 61; RESP 16; TEMP 36.8; O2SAT 98
[2023-08-14 07:07] LABS: Absolute Lymphocyte Count 2.32 X10^3/uL (0.83-4.51); Absolute Neutrophil Count 8.4 X10^3/uL (2.0-7.7); Basophil# 0.03 X10^3/uL; Basophil% 0.2 % (0-1); Eosinophil# 0.04 X10^3/uL; Eosinophils% 0.3 % (0-5); Hematocrit 27.7 % (37-47); Hemoglobin 9.7 g/dL (12.0-15.0); Lymphocyte # 2.32 X10^3/ul (0.83-4.51); Lymphocyte % 19.1 % (19-41); Mean Corpuscular Hgb 33.6 pg (27.0-32.0); Mean Corpuscular Volume 95.8 fL (81-99); Mean Platelet Vol. 11.3 fl (6.2-12.0); Monocyte# 1.27 X10^3/uL; Monocyte% 10.5 % (0-10); NRBC Flagged by Analyzer 0 % (0-5); Neutrophil # 8.36 X10^3/uL (2.7-7.7); Neutrophil % 68.9 % (47-70); Platelet Count 210 K/mm3 (150-450); RBC Distribution Width CV 12.7 % (11.6-14.6); RBC Distribution Width SD 44.1 fl (35.1-43.9); Red Blood Count 2.89 M/mm3 (4.2-5.4); White Blood Count 12.1 K/mm3 (4.4-11.0)
[2023-08-14 07:45] LABS: Troponin-I HS 105 pg/mL (3.0-54.0)
[2023-08-14 08:13] LABS: AST(SGOT) 18 U/L (15-37); Alanine Aminotransfer ALT/SGPT 11 U/L (13-56); Albumin, Serum 3.1 g/dL (3.2-5.0); Alkaline Phosphatase 53 U/L (45-117); Anion Gap 9 (5-15); BUN 14 mg/dL (7-18); BUN/Creat Ratio 13.2 RATIO (10-20); Calcium,Total 11.9 mg/dL (8.5-10.1); Chloride 105 mmol/L (98-107); Creatinine, Serum 1.06 mg/dL (0.55-1.02); EST Glomerular Filtration Rate 53 mL/min (>60); Est Glom Filt Rate - Afr Amer 64 mL/min (>60); Estimated Creatinine Clearance 38.72 ml/min; Globulin 3.1 g/dL (2.2-4.2); Glucose 95 mg/dL (74-106); Magnesium 2.4 mg/dL (1.6-2.6); Phosphorus 2.1 mg/dL (2.5-4.9); Potassium 2.5 mmol/L (3.5-5.1); Protein, Total 6.2 g/dL (6.4-8.2); Sodium Level 142 mmol/L (136-145); Thyroid Stim Hormone (TSH) 0.14 uIU/mL (0.358-3.74)
[2023-08-14] MEDS: Ondansetron 4 MG/2 ML Vial IV (08:18)
[2023-08-14] MEDS: Potassium Chloride Oral Soln 20 MEQ/15 ML UDC 40 MEQ PO (08:20)
[2023-08-14 08:38] VITALS: BP 154/83; PULSE 82; RESP 12; TEMP 36.8; O2SAT 99
[2023-08-14] MEDS: KCL 20MEQ in 0.9% NS 20 MEQ/1,000 ML IV.SOLN. 125 MEQ IV ×2 (09:15→18:26)
[2023-08-14] MEDS: Potassium Chloride 10mEq/100mL 10 MEQ/100 ML IV.SOLN. 100 MEQ IV BOLUS ×3 (09:16→11:44)
[2023-08-14] MEDS: Aspirin 81 MG TAB.CHEW PO (09:20)
[2023-08-14] MEDS: Enoxaparin 60 MG/0.6 ML Syringe SC ×2 (11:48→21:31)
--- NOTE | 2023-08-14 12:03 | CASEMGMT ---
[facility] updated via [facility] that patient has been admitted and may need snf placement. Fela Marley, Discharge Planning Asst.
--- NOTE | 2023-08-14 13:17 | CASEMGMT ---
JAY called patient's daughter as SW was informed that patient's family would like patient placed in a [facility] facility. JAY called patient's daughter Sanjana. Introduced self and role at [facility]. Sanjana confirmed that she would like placement for patient. Sanjana said she is going to be at the hospital in a couple of hours. Sanjana said she is at an appointment right now. JAY told Sanjana to ask for [facility] when she comes in later. Beverly LARRY
--- NOTE | 2023-08-14 13:28 | CON.PCM.CA_ITS ---
<Statement entered by Sly Wyatt MD - 08/14/23 13:49> Pt seen & evaluated w/ANNIE. I personally interviewed & exam the pt. I was involved in all aspects of pt's orders, interpretation of results & treatment I saw and evaluated this patient at bedside along with the midlevel I concur with cardiac care plan as per midlevel note and documentation No further cardiac evaluation would be required, we will sign out and will be available if cardiac care plan needed Assessment & Plan Assessment/Plan (1) Elevated troponin I level: (2) Syncope: PLAN: Plan * Feel that this is a type II event. Recommend continue medical management with her blood pressure medication, aspirin. Patient previously was on Ranexa for chest discomfort. * Echocardiogram is pending, Based on findings we will make further adjustments if needed HPI Consult Data Date of Consult: 08/14/23 HPI Narrative HPI Narrative: DANIE RAMIREZ, is a 77 F who presented to [facility] ER for weakness, N/V and 2 syncopal events. . Patient has a history of hyperparathyroidism hypercalcemia and is on Cinacalcet but has been so far noncompliant. She has had several admissions. She is too frail for a parathyroidectomy. With her questionable syncope a troponin was obtained, this was noted to be slightly elevated at 116/105. EKG demonstrated NSR with sinus arrhythmia and RBBB. Unable to obtain a Hx from pt. [facility] Medical History Acute hypokalemia Bradycardia, sinus Generalized weakness Hx of gastroesophageal reflux (GERD) Hypercalcemia Hyperparathyroidism Hypertension Hypothyroidism Prolonged QT interval Home Medications aspirin 81 mg chewable tablet 81 mg PO DAILY@0800 HEART HEALTH 04/07/20 [History Last Taken Unknown] pantoprazole 40 mg tablet,delayed release 40 mg PO DAILY ACID REFLUX 04/07/20 [History Last Taken 08/13/23] ranolazine 500 mg tablet,extended release,12 hr 500 mg PO BID CHEST PAIN 0 [History Last Taken 08/13/23] memantine 7 mg capsule sprinkle,extended release 24hr 7 mg PO QHS memory 03/28/23 [History Last Taken 08/13/23] ferrous sulfate 325 mg (65 mg iron) tablet 325 mg PO DAILY SUPPLEMENT 07/04/23 [History Last Taken 08/13/23] levothyroxine 100 mcg tablet 150 mcg PO DAILY@0600 THYROID 07/04/23 [History Last Taken 08/13/23] cinacalcet 60 mg tablet 60 mg PO BID parathyroid #60 tabs 07/06/23 [Rx Last Taken 08/13/23] polyethylene glycol 3350 17 gram/dose oral powder (Miralax) 17 g PO DAILY CONSTIPATION 07/06/23 [History Last Taken Unknown] olmesartan 5 mg tablet 5 mg PO DAILY HIGH BLOOD PRESSURE 08/03/23 [History Last Taken 08/13/23] amlodipine 5 mg tablet 5 mg PO .qdaily 08/13/23 [History Last Taken Unknown] docusate sodium 100 mg capsule (Colace) 100 mg PO DAILY 08/13/23 [History Last Taken Unknown] Allergy/AdvReac Type Severity Reaction Status Date / Time aspirin [ASA] Allergy Hives Verified 08/03/23 17:37 hydrocodone Allergy Nausea Verified 08/03/23 17:37 morphine Allergy PT UNSURE Verified 08/03/23 17:37 OF REACTION Penicillins Allergy Anaphylaxis Verified 08/03/23 17:37 Family History Daughter Diabetes Heart disease Surgical History S/P cholecystectomy Status post total hip replacement, right Social History household members: family housing: house Smoking Status: Never smoker substance use type: does not use ROS Review of Systems ROS Unobtainable: due to encephalopathy Physical Exam Const General Appearance: frail Orientation / Consciousness: lethargic HEENT normocephalic, head/scalp atraumatic, external ears normal and external nose normal Eyes PERRL, EOMs intact bilaterally, conjunctivae normal and no scleral icterus Neck no lymphadenopathy, supple and no JVD Cardio regular rate, regular rhythm, S1 normal heart sound and S2 normal heart sound Heart Sounds: murmur systolic II/ harsh GI normal to inspection, nondistended, normoactive bowel sounds, soft to palpation, non-tender and non-distended Extremity normal to inspection, normal capillary refill and no clubbing, cyanosis or edema Risk Stratification Risk Stratification Applicable: No Objective Data Vital Signs: Vital Signs Temp Pulse Resp BP Pulse Ox O2 Del Method 98.3 F 82 12 154/83 H 99 Room Air 08/14/23 08:38 08/14/23 08:38 08/14/23 08:38 08/14/23 08:38 08/14/23 08:38 08/14/23 10:00 Oxygen Delivery Method Room Air Weight: 131 lb 2.801 oz Body Mass Index (BMI) 21.8 Intake & Output: Intake and Output for Last 24 Hours 08/12/23 08/13/23 08/14/23 23:59 23:59 23:59 Intake Total 2200 / 2200 1403.75 / 1403.75 Output Total 1720 / 1720 Balance 2200 / 1700 -316.25 / -316.25 Lab / Micro Data 08/14/23 06:45 08/14/23 06:45 Labs: Laboratory Results - last 24 hr 08/13/23 18:40: Urine Color Yellow, Urine Clarity Sl. Cloudy, Urine pH 5.0, Ur Specific [place] 1.020, Urine Protein 30 H, Urine Glucose (UA) Normal, Urine Ketones 150 A*, Urine Occult Blood 10 H, Urine Nitrite Positive H, Urine Bilirubin Negative, Urine Urobilinogen 1 H, Ur Leukocyte Esterase 100 H, Urine RBC 0 SEEN, Urine WBC 0-5 SEEN, Ur Squamous Epith Cells 0-5 SEEN, Urine Bacteria 3+, Urine Mucus 0 SEEN, Urine Opiates Screen NEGATIVE, Urine Methadone Screen NEGATIVE, Ur Barbiturates Screen NEGATIVE, Ur Phencyclidine Scrn NEGATIVE, Ur Amphetamines Screen NEGATIVE, MDMA (Ecstasy) Screen NEGATIVE, U Benzodiazepines Scrn NEGATIVE, Urine Cocaine Screen NEGATIVE, U Cannabinoids Screen NEGATIVE, Ur Drug Screen Comment 08/13/23 19:53: WBC 14.6 H, RBC 3.29 L, Hgb 10.7 L, Hct 31.8 L, MCV 96.7, MCH 32 .5 H, MCHC 33.6, RDW Std Deviation 45.0 H, RDW Coeff of Theresa 12.7, Plt Count 202, MPV 11.4, Immature Gran % (Auto) 1.100 H, Neut % (Auto) 82.0 H, Lymph % (Auto) 8.3 L, [place] % (Auto) 8.3, Eos % (Auto) 0.0, Baso % (Auto) 0.3, Absolute Neuts (auto) 12.0 H, Absolute Lymphs (auto) 1.21, Nucleated RBC % 0, Sodium 138, Potassium 3.1 L, Chloride 100, Carbon Dioxide 25.0, Anion Gap 13, BUN 19 H, Creatinine 1.16 H, Estim Creat Clear Calc 35.39, Est GFR (MDRD) Af Amer 58 L, Est GFR (MDRD) Non-Af 48 L, BUN/Creatinine Ratio 16.4, Glucose 137 H, Calcium 13.1 H*, Magnesium 1.4 L, Total Bilirubin 1.10 H, AST 21, ALT 11 L, Alkaline Phosphatase 64, Troponin I High Sens 116 H, Total Protein 7.0, Albumin 3.7, Globulin 3.3, Albumin/Globulin Ratio 1.1, Triglycerides 158, Cholesterol 240 H, LDL Cholesterol 149 H, VLDL Cholesterol 32, HDL Cholesterol 59 08/14/23 06:45: WBC 12.1 H, RBC 2.89 L, Hgb 9.7 L, Hct 27.7 L, MCV 95.8, MCH 33.6 H, MCHC 35.0, RDW Std Deviation 44.1 H, RDW Coeff of Theresa 12.7, Plt Count 210, MPV 11.3, Immature Gran % (Auto) 1.000 H, Neut % (Auto) 68.9, Lymph % (Auto) 19.1, [place] % (Auto) 10.5 H, Eos % (Auto) 0.3, Baso % (Auto) 0.2, Absolute Neuts (auto) 8.4 H, Absolute Lymphs (auto) 2.32, Nucleated RBC % 0, Sodium 142, Potassium 2.5 L*, Chloride 105, Carbon Dioxide 28.0, Anion Gap 9, BUN 14, Crea tinine 1.06 H, Estim Creat Clear Calc 38.72, Est GFR (MDRD) Af Amer 64, Est GFR (MDRD) Non-Af 53 L, BUN/Creatinine Ratio 13.2, Glucose 95, Calcium 11.9 H, Phosphorus 2.1 L, Magnesium 2.4, Total Bilirubin 0.70, AST 18, ALT 11 L, Alkaline Phosphatase 53, Troponin I High Sens 105 H, Total Protein 6.2 L, Albumin 3.1 L, Globulin 3.1, Albumin/Globulin Ratio 1.0, TSH 0.14 L Micro: Microbiology 08/13/23 18:40 Urine, Catheterized Urine Culture - Preliminary Gram negative any Cardiology Labs/Tests 08/13/23 18:40: Urine Color Yellow, Urine Clarity Sl. Cloudy, Urine pH 5.0, Ur Specific [place] 1.020, Urine Protein 30 H, Urine Glucose (UA) Normal, Urine Ketones 150 A*, Urine Occult Blood 10 H, Urine Nitrite Positive H, Urine Bilirubin Negative, Urine Urobilinogen 1 H, Ur Leukocyte Esterase 100 H, Urine RBC 0 SEEN, Urine WBC 0-5 SEEN 08/13/23 19:53: WBC 14.6 H, RBC 3.29 L, Hgb 10.7 L, Hct 31.8 L, MCV 96.7, MCH 32.5 H, MCHC 33.6, Plt Count 202, MPV 11.4, Immature Gran % (Auto) 1.100 H, Neut % (Auto) 82.0 H, Lymph % (Auto) 8.3 L, [place] % (Auto) 8.3, Eos % (Auto) 0.0, Baso % (Auto) 0.3, Absolute Neuts (auto) 12.0 H, Nucleated RBC % 0, Sodium 138, Potassium 3.1 L, Chloride 100, Carbon Dioxide 25.0, Anion Gap 13, BUN 19 H, Creatinine 1.16 H, Est GFR (MDRD) Af Amer 58 L, Est GFR (MDRD) Non-Af 48 L, BUN/Creatinine Ratio 16.4, Glucose 137 H, Calcium 13.1 H*, Magnesium 1.4 L, Total Bilirubin 1.10 H, Triglycerides 158, Cholesterol 240 H, LDL Cholesterol 149 H, VLDL Cholesterol 32, HDL Cholesterol 59 08/14/23 06:45: WBC 12.1 H, RBC 2.89 L, Hgb 9.7 L, Hct 27.7 L, MCV 95.8, MCH 3 3.6 H, MCHC 35.0, Plt Count 210, MPV 11.3, Immature Gran % (Auto) 1.000 H, Neut % (Auto) 68.9, Lymph % (Auto) 19.1, [place] % (Auto) 10.5 H, Eos % (Auto) 0.3, Baso % (Auto) 0.2, Absolute Neuts (auto) 8.4 H, Nucleated RBC % 0, Sodium 142, Potassium 2.5 L*, Chloride 105, Carbon Dioxide 28.0, Anion Gap 9, BUN 14, Creatinine 1.06 H, Est GFR (MDRD) Af Amer 64, Est GFR (MDRD) Non-Af 53 L, BUN/Creatinine Ratio 13.2, Glucose 95, Calcium 11.9 H, Phosphorus 2.1 L, Magnesium 2.4, Total Bilirubin 0.70
[2023-08-14] MEDS: Pantoprazole Sodium 40 MG in 0.9% Normal Saline (100mL MB+) 100 ML 330 MG IV (14:05)
[2023-08-14] MEDS: Ciprofloxacin 200 MG/100 ML BAG 100 MG IV ×2 (14:17→21:25)
--- NOTE | 2023-08-14 14:19 | CASEMGMT ---
JAY spoke with patient's daughter Sanjana. JAY introduced self and role at [facility]. Sanjana said she would like patient to go to TCU or [facility] ([facility] JAY explained TCU would not be able to take her. Sanjana said she would like [facility]. JAY asked Fela d/c wind science and planning to please send a referral to [facility]. Plan: SNF pending patient being medically ready, accepting facility, and insurance approval. Beverly Melgar MSW LARON
--- NOTE | 2023-08-14 15:21 | EX.PCM.CON.S ---
Assessment & Plan Assessment/Plan (1) Hyperparathyroidism: PLAN: This is a 77-year-old female with diagnosis of primary hyperparathyroidism. I first met her through another inpatient admission and since have established outpatient follow-up to complete localization of her parathyroid adenoma. She is also established with endocrinology. Jointly, we have discussed this case and believe that patient does now require senior care assistance if she is to be rehabilitated to the point that she can undergo surgery. It is apparent that she becomes quickly dehydrated and this leads to a rise in her calcium which translates to more nausea on the account of both and an inability to take her medications. We believe that if patient can remain hydrated and regularly take her Cinacalcet she may be rehabilitated to the point where we could perform a parathyroidectomy. At this point, from a surgical standpoint, I am confident in our localization studies and do not find need for additional testing prior to proceeding with surgery. Case has been thoroughly discussed with social work and they pledged to provide their assistance to our care team as well as family. For now, recommend continued medical management of calcium through IV hydration, bisphosphonate infusion, diuresis and could consider the use of calcitriol. If I could be of other assistance please do not hesitate to reach out. HPI Consult Data Date of Consult: 08/14/23 HPI Narrative Reason for Consultation: Hyperparathyroidism with failure of outpatient management HPI Narrative: DANIE PUENTE, is a 77 F who presents to [facility] for at least her third admission related to hypercalcemia and recurrent urinary tract infections. I was notified via our office staff that patient was not doing well and telephoned her daughter to find out that they were on their way to the hospital. The majority of this history is based on that conversation. Patient's daughter shared that she no longer felt like the family could care for her mother at home and felt insistent on her mother receiving placement in a senior care facility. She shared that her mother has become weaker and weaker through this experience and has lost approximately 15 pounds over the last 1 month. The nausea that her mother experiences prevents her from taking food or her medications with any regularity. Upon visiting Ms. Puente she reports that she is feeling somewhat better but nursing states that she is very lethargic and primarily sleeping. [facility] Medical History Acute hypokalemia Bradycardia, sinus Generalized weakness Hx of gastroesophageal reflux (GERD) Hypercalcemia Hyperparathyroidism Hypertension Hypothyroidism Prolonged QT interval Home Medications aspirin 81 mg chewable tablet 81 mg PO DAILY@0800 HEART HEALTH 04/07/20 [History Last Taken Unknown] pantoprazole 40 mg tablet,delayed release 40 mg PO DAILY ACID REFLUX 04/07/20 [History Last Taken 08/13/23] ranolazine 500 mg tablet,extended release,12 hr 500 mg PO BID CHEST PAIN 04/07/20 [History Last Taken 08/13/23] memantine 7 mg capsule sprinkle,extended release 24hr 7 mg PO QHS memory 03/28/23 [History Last Taken 08/13/23] ferrous sulfate 325 mg (65 mg iron) tablet 325 mg PO DAILY SUPPLEMENT 07/04/23 [History Last Taken 08/13/23] levothyroxine 100 mcg tablet 150 mcg PO DAILY@0600 THYROID 07/04/23 [History Last Taken 08/13/23] cinacalcet 60 mg tablet 60 mg PO BID parathyroid #60 tabs 07/06/23 [Rx Last Taken 08/13/23] polyethylene glycol 3350 17 gram/dose oral powder (Miralax) 17 g PO DAILY CONSTIPATION 07/06/23 [History Last Taken Unknown] olmesartan 5 mg tablet 5 mg PO DAILY HIGH BLOOD PRESSURE 08/03/23 [History Last Taken 08/13/23] amlodipine 5 mg tablet 5 mg PO .qdaily 08/13/23 [History Last Taken Unknown] docusate sodium 100 mg capsule (Colace) 100 mg PO DAILY 08/13/23 [History Last Taken Unknown] Allergy/AdvReac Type Severity Reaction Status Date / Time aspirin [ASA] Allergy Hives Verified 08/03/23 17:37 hydrocodone Allergy Nausea Verified 08/03/23 17:37 morphine Allergy PT UNSURE Verified 08/03/23 17:37 OF REACTION Penicillins Allergy Anaphylaxis Verified 08/03/23 17:37 Family History Daughter Diabetes Heart disease Surgical History S/P cholecystectomy Status post total hip replacement, right Social History household members: family housing: house Smoking Status: Never smoker substance use type: does not use Physical Exam Const Constitutional Narrative: Initially alert and appropriate but later found sleeping. Patient does appear somewhat thinner and frail. Medical Records Data Medical Nutrition Assessment Dietitian: Malnutrition Criteria Met Start: 08/14/23 12:45 Freq: Status: Active Protocol: Document 08/14/23 12:46 SLA (Rec: 08/14/23 12:46 SLA Desktop) Nutrition Malnutrition Evidence of Malnutrition Exists Yes Malnutrition (severe): Acute Illness/Injury Evidenced By Suboptimal Energy Intake ( Severe),Weight Loss (Severe) Clinical Problem Acute Disease or Injury Related Malnutrition Etiology related to acute illness and gi dysfunction so unable to consume adequate energy Signs/Symptoms as evidenced by unintended 9.6 % wt loss x 1 month and pt meeting <75% of est nutritional needs x < 1 week Status Active Problem Recommendation Dietitian Recommendations/Changes As medically able, rec SHELBY to liberal Regular d/t signs and symptoms of malnutrition. Will order 120 ml ensure clear 4x/day w/ medpass for increased nutrition if consumed. Lab / Micro Data 08/14/23 06:45 08/14/23 14:50 Labs: Laboratory Results - last 24 hr 08/13/23 18:40: Urine Color Yellow, Urine Clarity Sl. Cloudy, Urine pH 5.0, Ur Specific [place] 1.020, Urine Protein 30 H, Urine Glucose (UA) Normal, Urine Ketones 150 A*, Urine Occult Blood 10 H, Urine Nitrite Positive H, Urine Bilirubin Negative, Urine Urobilinogen 1 H, Ur Leukocyte Esterase 100 H, Urine RBC 0 SEEN, Urine WBC 0-5 SEEN, Ur Squamous Epith Cells 0-5 SEEN, Urine Bacteria 3+, Urine Mucus 0 SEEN, Urine Opiates Screen NEGATIVE, Urine Methadone Screen NEGATIVE, Ur Barbiturates Screen NEGATIVE, Ur Phencyclidine Scrn NEGATIVE, Ur Amphetamines Screen NEGATIVE, MDMA (Ecstasy) Screen NEGATIVE, U Benzodiazepines Scrn NEGATIVE, Urine Cocaine Screen NEGATIVE, U Cannabinoids Screen NEGATIVE, Ur Drug Screen Comment 08/13/23 19:53: WBC 14.6 H, RBC 3.29 L, Hgb 10.7 L, Hct 31.8 L, MCV 96.7, MCH 32.5 H, MCHC 33.6, RDW Std Deviation 45.0 H, RDW Coeff of Theresa 12.7, Plt Count 202, MPV 11.4, Immature Gran % (Auto) 1.100 H, Neut % (Auto) 82.0 H, Lymph % (Auto) 8.3 L, [place] % (Auto) 8.3, Eos % (Auto) 0.0, Baso % (Auto) 0.3, Absolute Neuts (auto) 12.0 H, Absolute Lymphs (auto) 1.21, Nucleated RBC % 0, Sodium 138, Potassium 3.1 L, Chloride 100, Carbon Dioxide 25.0, Anion Gap 13, BUN 19 H, Creatinine 1.16 H, Estim Creat Clear Calc 35.39, Est GFR (MDRD) Af Amer 58 L, Est GFR (MDRD) Non-Af 48 L, BUN/Creatinine Ratio 16.4, Glucose 137 H, Calcium 13.1 H*, Magnesium 1.4 L, Total Bilirubin 1.10 H, AST 21, ALT 11 L, Alkaline Phosphatase 64, Troponin I High Sens 116 H, Total Protein 7.0, Albumin 3.7, Globulin 3.3, Albumin/Globulin Ratio 1.1, Triglycerides 158, Cholesterol 240 H, LDL Cholesterol 149 H, VLDL Cholesterol 32, HDL Cholesterol 59 08/14/23 06:45: WBC 12.1 H, RBC 2.89 L, Hgb 9.7 L, Hct 27.7 L, MCV 95.8, MCH 33.6 H, MCHC 35.0, RDW Std Deviation 44.1 H, RDW Coeff of Theresa 12.7, Plt Count 210, MPV 11.3, Immature Gran % (Auto) 1.000 H, Neut % (Auto) 68.9, Lymph % (Auto) 19.1, [place] % (Auto) 10.5 H, Eos % (Auto) 0.3, Baso % (Auto) 0.2, Absolute Neuts (auto) 8.4 H, Absolute Lymphs (auto) 2.32, Nucleated RBC % 0, Sodium 142, Potassium 2.5 L*, Chloride 105, Carbon Dioxide 28.0, Anion Gap 9, BUN 14, Creatinine 1.06 H, Estim Creat Clear Calc 38.72, Est GFR (MDRD) Af Amer 64, Est GFR (MDRD) Non-Af 53 L, BUN/Creatinine Ratio 13.2, Glucose 95, Calcium 11.9 H, Phosphorus 2.1 L, Magnesium 2.4, Total Bilirubin 0.70, AST 18, ALT 11 L, Alkaline Phosphatase 53, Troponin I High Sens 105 H, Total Protein 6.2 L, Albumin 3.1 L, Globulin 3.1, Albumin/Globulin Ratio 1.0, TSH 0.14 L Micro: Microbiology 08/13/23 18:40 Urine, Catheterized Urine Culture - Preliminary Gram negative any Charges/Coding Visit Charges Inpatient E&M: 07860 Init Hosp L2
--- NOTE | 2023-08-14 15:46 | CASEMGMT ---
[facility] is not able to take patient. JAY met with patient's daughter Sanjana and she asked that a referral be made to [facility]. The next choice would be [facility]. JAY let Sanjana know that JAY will not hear back from [facility] today so JAY will follow up with her on Thursday. Plan: SNF pending accepting facility and insurance approval. Beverly LARRY
[2023-08-14 15:49] LABS: Anion Gap 7 (5-15); BUN 14 mg/dL (7-18); BUN/Creat Ratio 13.1 RATIO (10-20); Calcium,Total 11.1 mg/dL (8.5-10.1); Chloride 111 mmol/L (98-107); Creatinine, Serum 1.07 mg/dL (0.55-1.02); EST Glomerular Filtration Rate 53 mL/min (>60); Est Glom Filt Rate - Afr Amer 64 mL/min (>60); Estimated Creatinine Clearance 38.36 ml/min; Glucose 150 mg/dL (74-106); Potassium 3.4 mmol/L (3.5-5.1); Sodium Level 143 mmol/L (136-145)
--- NOTE | 2023-08-14 15:52 | CASEMGMT ---
Addendum entered by Fela Marley 08/17/23 13:04: [facility] has accepted patient and will submit for precert. Fela Marley, Discharge Planning Asst. Addendum entered by Fela Marley 08/17/23 10:17: Updates sent to [facility] Fela Marley, Discharge Planning Asst. Original Note: Discharge Planning Referral sent to [facility] via [facility]. Fela Marley, Discharge Planning Asst.
[2023-08-14 16:26] VITALS: BP 156/92; PULSE 77; RESP 12; TEMP 36.6; O2SAT 99
--- NOTE | 2023-08-14 20:01 | PCM.PN.HOSP ---
Reason for Visit Reason for Visit: Diagnoses Hyperparathyroidism, unspecified (08/13/23) Dehydration (08/13/23) Hypokalemia (08/13/23) Disorder of kidney and ureter, unspecified (08/13/23) Syncope and collapse (08/13/23) Other specified abnormal findings of blood chemistry (08/13/23) Subjective Subjective Patient was seen and examined today, she is alert, she answers some simple questions. Patient's potassium was slightly low at 3.4 today, serum calcium was 11.1. I spoke briefly with general surgery about her care. Cardiology saw the patient in consultation today, her echocardiogram showed a normal EF. Objective Data Objective Data Vital Signs: Vital Signs Temp Pulse Resp BP Pulse Ox O2 Del Method 97.8 F 77 12 156/92 H 99 Room Air 08/14/23 16:26 08/14/23 16:26 08/14/23 16:26 08/14/23 16:26 08/14/23 16:26 08/14/23 18:00 Oxygen Delivery Method Room Air Weight: 59.5 kg Body Mass Index (BMI) 21.8 Intake & Output: Intake and Output for Last 24 Hours 08/12/23 08/13/23 08/14/23 23:59 23:59 23:59 Intake Total 2200 / 2200 2713.75 / 2713.75 Output Total 1720 / 1720 Balance 2200 / 1700 993.75 / 993.75 Medical Nutrition Assessment Dietitian: Malnutrition Criteria Met Start: 08/14/23 12:45 Freq: Status: Active Protocol: Document 08/14/23 12:46 SLA (Rec: 08/14/23 12:46 SLA Desktop) Nutrition Malnutrition Evidence of Malnutrition Exists Yes Malnutrition (severe): Acute Illness/Injury Evidenced By Suboptimal Energy Intake ( Severe),Weight Loss (Severe) Clinical Problem Acute Disease or Injury Related Malnutrition Etiology related to acute illness and gi dysfunction so unable to consume adequate energy Signs/Symptoms as evidenced by unintended 9.6 % wt loss x 1 month and pt meeting <75% of est nutritional needs x < 1 week Status Active Problem Recommendation Dietitian Recommendations/Changes As medically able, rec SHELBY to liberal Regular d/t signs and symptoms of malnutrition. Will order 120 ml ensure clear 4x/day w/ medpass for increased nutrition if consumed. Lab / Micro Data 08/14/23 06:45 08/14/23 14:50 Labs: Laboratory Results - last 24 hr 08/13/23 18:40: Urine Opiates Screen NEGATIVE, Urine Methadone Screen NEGATIVE, Ur Barbiturates Screen NEGATIVE, Ur Phencyclidine Scrn NEGATIVE, Ur Amphetamines Screen NEGATIVE, MDMA (Ecstasy) Screen NEGATIVE, U Benzodiazepines Scrn NEGATIVE, Urine Cocaine Screen NEGATIVE, U Cannabinoids Screen NEGATIVE, Ur Drug Screen Comment 08/13/23 19:53: WBC 14.6 H, RBC 3.29 L, Hgb 10.7 L, Hct 31.8 L, MCV 96.7, MCH 32.5 H, MCHC 33.6, RDW Std Deviation 45.0 H, RDW Coeff of Theresa 12.7, Plt Count 202, MPV 11.4, Immature Gran % (Auto) 1.100 H, Neut % (Auto) 82.0 H, Lymph % (Auto) 8.3 L, [place] % (Auto) 8.3, Eos % (Auto) 0.0, Baso % (Auto) 0.3, Absolute Neuts (auto) 12.0 H, Absolute Lymphs (auto) 1.21, Nucleated RBC % 0, Sodium 138, Potassium 3.1 L, Chloride 100, Carbon Dioxide 25.0, Anion Gap 13, BUN 19 H, Creatinine 1.16 H, Estim Creat Clear Calc 35.39, Est GFR (MDRD) Af Amer 58 L, Est GFR (MDRD) Non-Af 48 L, BUN/Creatinine Ratio 16.4, Glucose 137 H, Calcium 13.1 H*, Magnesium 1.4 L, Total Bilirubin 1.10 H, AST 21, ALT 11 L, Alkaline Phosphatase 64, Troponin I High Sens 116 H, Total Protein 7.0, Albumin 3.7, Globulin 3.3, Albumin/Globulin Ratio 1.1, Triglycerides 158, Cholesterol 240 H, LDL Cholesterol 149 H, VLDL Cholesterol 32, HDL Cholesterol 59 08/14/23 06:45: WBC 12.1 H, RBC 2.89 L, Hgb 9.7 L, Hct 27.7 L, MCV 95.8, MCH 33.6 H, MCHC 35.0, RDW Std Deviation 44.1 H, RDW Coeff of Theresa 12.7, Plt Count 210, MPV 11.3, Immature Gran % (Auto) 1.000 H, Neut % (Auto) 68.9, Lymph % (Auto) 19.1, [place] % (Auto) 10.5 H, Eos % (Auto) 0.3, Baso % (Auto) 0.2, Absolute Neuts (auto) 8.4 H, Absolute Lymphs (auto) 2.32, Nucleated RBC % 0, Sodium 142, Potassium 2.5 L*, Chloride 105, Carbon Dioxide 28.0, Anion Gap 9, BUN 14, Creatinine 1.06 H, Estim Creat Clear Calc 38.72, Est GFR (MDRD) Af Amer 64, Est GFR (MDRD) Non-Af 53 L, BUN/Creatinine Ratio 13.2, Glucose 95, Calcium 11.9 H, Phosphorus 2.1 L, Magnesium 2.4, Total Bilirubin 0.70, AST 18, ALT 11 L, Alkaline Phosphatase 53, Troponin I High Sens 105 H, Total Protein 6.2 L, Albumin 3.1 L, Globulin 3.1, Albumin/Globulin Ratio 1.0, TSH 0.14 L 08/14/23 14:50: Sodium 143, Potassium 3.4 L, Chloride 111 H, Carbon Dioxide 25.0, Anion Gap 7, BUN 14, Creatinine 1.07 H, Estim Creat Clear Calc 38.36, Est GFR (MDRD) Af Amer 64, Est GFR (MDRD) Non-Af 53 L, BUN/Creatinine Ratio 13.1, Glucose 150 H, Calcium 11.1 H Micro: Microbiology 08/13/23 18:40 Urine, Catheterized Urine Culture - Preliminary Gram negative any Radiography Diagnostic Testing: Radiology Impression Echocardiogram 08/13/23 22:03 Interpretation Summary The estimated ejection fraction is 60-65 %. Trivial mitral regurgitation Trivial aortic incompetence. No pericardial effusion No prior study to compare. Ordering Physician: Yury Cool Referring Physician: Joey Smith Performed By: Olga Lidia Alvarez, SARITA, RVT Physical Exam Const alert and no apparent distress Constitutional Narrative: Patient appears frail and weak Orientation / Consciousness: confused HEENT head/scalp atraumatic Head and Scalp: normocephalic Eyes PERRL Neck no JVD Resp normal respiratory effort, no retractions, no use of accessory muscles and clear to auscultation bilaterally Cardio regular rate, regular rhythm, S1 normal heart sound, S2 normal heart sound, no rub and no gallops GI normal to inspection, nondistended, normoactive bowel sounds, soft to palpation, non-tender and non-distended Extremity normal to inspection Neuro CN's II-XII intact bilaterally Neuro Narrative: Patient is confused Sensorium / Orientation: awake and alert Psych Psych Narrative: Patient is confused Assessment & Plan Assessment/Plan (1) Weakness: PLAN: Plan 1. Hypercalcemia due to hyperparathyroidism-IV fluids will continue, patient was given repeat Zometa dosage on admission, serum calcium will be monitored #2 Dehydration secondary to nausea and vomiting as an outpatient-patient will be given IV fluids, labs will be rechecked #3 UTI present on admission, patient will remain on IV Cipro #4 acute metabolic encephalopathy in the setting of chronic dementia-complicates care, medical course, recovery, and prognosis #5 essential hypertension-patient's blood pressure medications are being held due to her dehydration #6 hypokalemia-patient will be given supplemental potassium, labs will be rechecked #7 type II [id number] recommends supportive care, echocardiogram was unremarkable Acute kidney injury was ruled out-patient is a full code at this time #8 hyperparathyroidism-patient is a poor surgical candidate at this time, I discussed the case with general surgery. Acute kidney injury was ruled out-patient is a full code at this time Total clinical time spent by myself addressing the patient's medical issues, reviewing all of her data, and collaborating with patient's care team: 35 minutes Charges/Coding Visit Charges Inpatient E&M: 71197 Subs Hosp L2
[2023-08-14 20:30] VITALS: BP 138/70; PULSE 75; RESP 16; TEMP 36.9; O2SAT 99
[2023-08-15] MEDS: KCL 20MEQ in 0.9% NS 20 MEQ/1,000 ML IV.SOLN. 125 MEQ IV ×3 (00:19→23:43)
[2023-08-15 02:30] VITALS: BP 150/78; PULSE 75; RESP 16; TEMP 37.1; O2SAT 99
[2023-08-15 06:00] VITALS: BMI 21.4
[2023-08-15 07:40] VITALS: O2SAT 94
[2023-08-15 07:58] LABS: Albumin, Serum 2.8 g/dL (3.2-5.0); BUN 9 mg/dL (7-18); BUN/Creat Ratio 12.1 RATIO (10-20); Calcium,Total 10.1 mg/dL (8.5-10.1); Chloride 110 mmol/L (98-107); Creatinine, Serum 0.74 mg/dL (0.55-1.02); EST Glomerular Filtration Rate 80 mL/min (>60); Est Glom Filt Rate - Afr Amer 96 mL/min (>60); Estimated Creatinine Clearance 51.31 ml/min; Glucose 89 mg/dL (74-106); Potassium 2.8 mmol/L (3.5-5.1); Sodium Level 142 mmol/L (136-145)
[2023-08-15 08:37] VITALS: BP 155/69; PULSE 87; RESP 18; TEMP 36.9; O2SAT 94
[2023-08-15] MEDS: Pantoprazole Sodium 40 MG in 0.9% Normal Saline (100mL MB+) 100 ML 330 MG IV (08:38)
[2023-08-15] MEDS: Enoxaparin 60 MG/0.6 ML Syringe SC (08:39)
[2023-08-15] MEDS: Ciprofloxacin 200 MG/100 ML BAG 100 MG IV (09:34)
[2023-08-15] MEDS: Potassium Phosphate 40 MM in 0.9% Normal Saline (500mL Bag) 500 ML 62.5 MM IV (10:52)
--- NOTE | 2023-08-15 12:17 | CASEMGMT ---
[facility] responded that they would not have any beds until Thursday. SW requested back that they look at referral anyway as pt would need a precert that would likely take until Thursday anyway. SW awaiting response. RUDY Meyers
--- NOTE | 2023-08-15 13:31 | PCM.PN.HOSP ---
Reason for Visit Reason for Visit: Diagnoses Hyperparathyroidism, unspecified (08/13/23) Dehydration (08/13/23) Hypokalemia (08/13/23) Disorder of kidney and ureter, unspecified (08/13/23) Weakness (08/13/23) Syncope and collapse (08/13/23) Other specified abnormal findings of blood chemistry (08/13/23) Subjective Subjective Patient seen at bedside this morning. Laying comfortably in bed, no acute distress. Patient was alert and answering my questions with short appropriate responses. She reported mild back pain, which is chronic for her. She has had some difficulty swallowing this morning, states she has a sore throat and it has been difficult to get food and drink down. She otherwise denies any acute pain or discomfort. No other acute concerns morning. Objective Data Objective Data Vital Signs: Vital Signs Temp Pulse Resp BP Pulse Ox O2 Del Method 98.4 F 87 18 155/69 H 94 Room Air 08/15/23 08:37 08/15/23 08:37 08/15/23 08:37 08/15/23 08:37 08/15/23 08:37 08/15/23 08:37 Oxygen Delivery Method Room Air Weight: 58.4 kg Body Mass Index (BMI) 21.4 Intake & Output: Intake and Output for Last 24 Hours 08/13/23 08/14/23 08/15/23 23:59 23:59 23:59 Intake Total 2200 / 2200 2813.75 / 2813.75 2422.50 / 2422.50 Output Total 2220 / 2220 1999 / 1999 Balance 2200 / 1700 593.75 / 593.75 422.50 / 422.50 Medical Nutrition Assessment Dietitian: Malnutrition Criteria Met Start: 08/14/23 12:45 Freq: Status: Active Protocol: Document 08/14/23 12:46 SLA (Rec: 08/14/23 12:46 SLA Desktop) Nutrition Malnutrition Evidence of Malnutrition Exists Yes Malnutrition (severe): Acute Illness/Injury Evidenced By Suboptimal Energy Intake ( Severe),Weight Loss (Severe) Clinical Problem Acute Disease or Injury Related Malnutrition Etiology related to acute illness and gi dysfunction so unable to consume adequate energy Signs/Symptoms as evidenced by unintended 9.6 % wt loss x 1 month and pt meeting <75% of est nutritional needs x < 1 week Status Active Problem Recommendation Dietitian Recommendations/Changes As medically able, rec SHELBY to liberal Regular d/t signs and symptoms of malnutrition. Will order 120 ml ensure clear 4x/day w/ medpass for increased nutrition if consumed. Lab / Micro Data 08/14/23 06:45 08/15/23 07:07 Labs: Laboratory Results - last 24 hr 08/14/23 14:50: Sodium 143, Potassium 3.4 L, Chloride 111 H, Carbon Dioxide 25.0, Anion Gap 7, BUN 14, Creatinine 1.07 H, Estim Creat Clear Calc 38.36, Est GFR (MDRD) Af Amer 64, Est GFR (MDRD) Non-Af 53 L, BUN/Creatinine Ratio 13.1, Glucose 150 H, Calcium 11.1 H 08/15/23 07:07: Sodium 142, Potassium 2.8 L, Chloride 110 H, Carbon Dioxide 27.0, BUN 9, Creatinine 0.74, Estim Creat Clear Calc 51.31, Est GFR (MDRD) Af Amer 96, Est GFR (MDRD) Non-Af 80, BUN/Creatinine Ratio 12.1, Glucose 89, Calcium 10.1, Phosphorus 1.0 L*, Albumin 2.8 L Micro: Microbiology 08/13/23 18:40 Urine, Catheterized Urine Culture - Final Escherichia coli Radiography Diagnostic Testing: Radiology Impression Echocardiogram 08/13/23 22:03 Interpretation Summary The estimated ejection fraction is 60-65 %. Trivial mitral regurgitation Trivial aortic incompetence. No pericardial effusion No prior study to compare. Ordering Physician: Yury Cool Referring Physician: Joey Smith Performed By: Olga Lidia Alvarez, SARITA, RVT Physical Exam Const alert and no apparent distress Constitutional Narrative: Elderly female, thin and chronically ill-appearing, laying comfortably in bed, answering questions appropriately which responses, no acute distress. General Appearance: cooperative and comfortable HEENT normocephalic, head/scalp atraumatic, hearing grossly normal bilaterally and nasal mucous membranes and turbinates normal Eyes PERRL, EOMs intact bilaterally and conjunctivae normal Neck no lymphadenopathy and supple Lymph Lymphatic: no lymphadenopathy noted Chest inspection of chest normal Resp normal respiratory effort, normal air movement, no use of accessory muscles and clear to auscultation bilaterally Cardio regular rate, regular rhythm, no murmurs and peripheral pulses 2+ throughout GI normal to inspection, nondistended, normoactive bowel sounds, soft to palpation, non-tender and non-distended Back/Spine normal ROM Extremity normal to inspection and no pedal edema Skin no rashes or lesions noted Neuro no focal motor deficits and no sensory deficits noted Speech: speech normal Psych mental status grossly normal Assessment & Plan Assessment/Plan (1) Hypercalcemia: (2) Hyperparathyroidism: (3) Debility: PLAN: Plan Patient is a 77-year-old female who presented to [facility] ED on 08/13/2023 with worsening weakness and nausea/vomiting. 1. Recurrent hypercalcemia secondary to primary hyperparathyroidism with dehydration, improving Patient with known history of hyperparathyroidism secondary to parathyroid adenoma, follows with Dr. Moya with General Surgery and Dr. Marin with endocrinology. Has been poor surgical candidate to this point given her functional status. Has now had several admissions for hypercalcemia secondary to medication nonadherence at home and poor p.o. intake. Calcium 13.1 on admit. ? General surgery following. Calcium improving with IV fluid resuscitation and adherence to home Cinacalcet, most recent calcium 10.1 on 08/15. Continue IV fluids and Cinacalcet, likely okay to discontinue IV fluids tomorrow. Planning for SNF on discharge as noted below, with goal being to have patient take her medications consistently and rehab appropriately in order to become a candidate for surgery. 2. Debility, medication nonadherence ? Poor functional status at baseline. Multiple recent admissions for nausea/vomiting and dehydration secondary to hypercalcemia as noted above. Has difficulty taking medication regularly at home given poor social support and history of dementia, which leads to worsening of her hypercalcemia and overall condition. PT/OT/case management consulted. Planning for SNF on discharge. 3. UTI ? Urine culture growing greater than 100 K E. coli, resistant to floroquinolones. Switched from IV ciprofloxacin to IV ceftriaxone 08/15, plan to complete 5-day course. 4. Hypokalemia, hypophosphatemia, hypomagnesemia ? Presumed secondary to hypercalcemia as noted above. Monitor daily labs, replete electrolytes as needed. 5. Elevated troponins ? Cardiology followed. TTE 08/13 showed EF 60 to 65%, no other abnormalities. Troponins felt to be elevated secondary to dehydration from hypercalcemia as noted above. Continue home aspirin and ranolazine. No further workup needed. Chronic medical conditions: ? Hypertension: Holding home amlodipine and losartan, restart as needed. ? Dementia: Continue home memantine. ? GERD: Continue home PPI. ? Hypothyroidism: Continue home Synthroid. DVT prophylaxis: Lovenox CODE STATUS: Full code, verified Expected disposition: SNF, TBD Total clinical time spent by myself addressing the patient's medical issues, reviewing all the data, and collaborating with patient's care team: 35 minutes. Charges/Coding Visit Charges Inpatient E&M: 94268 Subs Hosp L2
[2023-08-15] MEDS: Ceftriaxone 1 GM/50 ML BAG IV (14:46)
[2023-08-15 14:52] VITALS: BP 123/76; PULSE 80; RESP 18; TEMP 36.6; O2SAT 98
[2023-08-15] MEDS: Memantine Hydrochloride 5 MG Tablet PO (20:46)
[2023-08-15] MEDS: Cinacalcet HCl 30 MG Tablet 60 MG PO (20:46)
[2023-08-15] MEDS: Clopidogrel Bisulfate 75 MG Tablet PO (20:48)
[2023-08-15 20:50] VITALS: BP 152/72; PULSE 86; RESP 18; TEMP 37.6; O2SAT 97
[2023-08-15] MEDS: 0.9% Saline Lock 10 ML Syringe IV (23:44)
[2023-08-15] MEDS: Ondansetron 4 MG/2 ML Vial IV (23:44)
[2023-08-16 02:50] VITALS: BP 150/94; PULSE 87; RESP 18; TEMP 37.7; O2SAT 97
[2023-08-16 02:51] VITALS: BMI 21.6
[2023-08-16] MEDS: KCL 20MEQ in 0.9% NS 20 MEQ/1,000 ML IV.SOLN. 125 MEQ IV (06:01)
[2023-08-16 06:29] LABS: Albumin, Serum 2.6 g/dL (3.2-5.0); BUN 8 mg/dL (7-18); BUN/Creat Ratio 12.9 RATIO (10-20); Calcium,Total 8.3 mg/dL (8.5-10.1); Chloride 110 mmol/L (98-107); Creatinine, Serum 0.62 mg/dL (0.55-1.02); EST Glomerular Filtration Rate 99 mL/min (>60); Est Glom Filt Rate - Afr Amer 120 mL/min (>60); Estimated Creatinine Clearance 51.31 ml/min; Glucose 85 mg/dL (74-106); Phosphorus 1.7 mg/dL (2.5-4.9); Potassium 2.8 mmol/L (3.5-5.1); Sodium Level 141 mmol/L (136-145)
[2023-08-16 08:18] VITALS: O2SAT 95
[2023-08-16 09:40] VITALS: BP 123/90; PULSE 81; RESP 18; TEMP 36.6; O2SAT 98
[2023-08-16] MEDS: Clopidogrel Bisulfate 75 MG Tablet PO (09:58)
[2023-08-16] MEDS: Aspirin 81 MG TAB.CHEW PO (09:58)
[2023-08-16] MEDS: Cinacalcet HCl 30 MG Tablet 60 MG PO ×2 (09:58→20:55)
[2023-08-16] MEDS: Pantoprazole Sodium 40 MG in 0.9% Normal Saline (100mL MB+) 100 ML 330 MG IV (10:20)
[2023-08-16] MEDS: 0.9% Saline Lock 10 ML Syringe IV (10:20)
[2023-08-16] MEDS: Enoxaparin 40 MG/0.4 ML Syringe SC (10:21)
[2023-08-16] MEDS: Potassium Phosphate 40 MM in 0.9% Normal Saline (500mL Bag) 500 ML 62.5 MM IV (10:21)
[2023-08-16] MEDS: Ceftriaxone 1 GM/50 ML BAG IV (11:20)
--- NOTE | 2023-08-16 12:11 | PCM.PN.HOSP ---
Reason for Visit Reason for Visit: Diagnoses Hyperparathyroidism, unspecified (08/13/23) Hypercalcemia (08/13/23) Dehydration (08/13/23) Hypokalemia (08/13/23) Disorder of kidney and ureter, unspecified (08/13/23) Weakness (08/13/23) Other malaise (08/13/23) Syncope and collapse (08/13/23) Other specified abnormal findings of blood chemistry (08/13/23) Subjective Subjective Patient seen at bedside this morning. Was sitting up comfortably in bed, no acute distress. Alert but slightly slowed responses and not answering all questions appropriately, but appears this may be her baseline given her history of dementia. She denies any acute pain or discomfort this morning. No other acute concerns. Objective Data Objective Data Vital Signs: Vital Signs Temp Pulse Resp BP Pulse Ox O2 Del Method 97.9 F 81 18 123/90 H 98 Room Air 08/16/23 09:40 08/16/23 09:40 08/16/23 09:40 08/16/23 09:40 08/16/23 09:40 08/16/23 09:40 Oxygen Delivery Method Room Air Weight: 59 kg Body Mass Index (BMI) 21.6 Intake & Output: Intake and Output for Last 24 Hours 08/14/23 08/15/23 08/16/23 23:59 23:59 23:59 Intake Total 2813.75 / 2813.75 3745.9533 / 3895.9533 1645.42 / 1645.42 Output Total 2220 / 2220 2950 / 4050 1600 / 1600 Balance 593.75 / 593.75 795.9533 / -154.0467 45.42 / 45.42 Medical Nutrition Assessment Dietitian: Malnutrition Criteria Met Start: 08/14/23 12:45 Freq: Status: Active Protocol: Document 08/14/23 12:46 SLA (Rec: 08/14/23 12:46 SLA Desktop) Nutrition Malnutrition Evidence of Malnutrition Exists Yes Malnutrition (severe): Acute Illness/Injury Evidenced By Suboptimal Energy Intake ( Severe),Weight Loss (Severe) Clinical Problem Acute Disease or Injury Related Malnutrition Etiology related to acute illness and gi dysfunction so unable to consume adequate energy Signs/Symptoms as evidenced by unintended 9.6 % wt loss x 1 month and pt meeting <75% of est nutritional needs x < 1 week Status Active Problem Recommendation Dietitian Recommendations/Changes As medically able, rec SHELBY to liberal Regular d/t signs and symptoms of malnutrition. Will order 120 ml ensure clear 4x/day w/ medpass for increased nutrition if consumed. Lab / Micro Data 08/14/23 06:45 08/16/23 05:23 Labs: Laboratory Results - last 24 hr 08/16/23 05:23: Sodium 141, Potassium 2.8 L, Chloride 110 H, Carbon Dioxide 27.0, BUN 8, Creatinine 0.62, Estim Creat Clear Calc 51.31, Est GFR (MDRD) Af Amer 120, Est GFR (MDRD) Non-Af 99, BUN/Creatinine Ratio 12.9, Glucose 85, Calcium 8.3 L, Phosphorus 1.7 L, Albumin 2.6 L Micro: Microbiology 08/13/23 18:40 Urine, Catheterized Urine Culture - Final Escherichia coli Physical Exam Const alert and no apparent distress Constitutional Narrative: Elderly female, thin and chronically ill-appearing, laying comfortably in bed, answering questions appropriately which responses, no acute distress. General Appearance: cooperative and comfortable HEENT normocephalic, head/scalp atraumatic, hearing grossly normal bilaterally and nasal mucous membranes and turbinates normal Eyes PERRL, EOMs intact bilaterally and conjunctivae normal Neck no lymphadenopathy and supple Lymph Lymphatic: no lymphadenopathy noted Chest inspection of chest normal Resp normal respiratory effort, normal air movement, no use of accessory muscles and clear to auscultation bilaterally Cardio regular rate, regular rhythm, no murmurs and peripheral pulses 2+ throughout GI normal to inspection, nondistended, normoactive bowel sounds, soft to palpation, non-tender and non-distended Back/Spine normal ROM Extremity normal to inspection and no pedal edema Skin no rashes or lesions noted Neuro no focal motor deficits and no sensory deficits noted Speech: speech normal Psych mental status grossly normal Assessment & Plan Assessment/Plan (1) Hypercalcemia: (2) Hyperparathyroidism: (3) Debility: PLAN: Plan Patient is a 77-year-old female who presented to [facility] ED on 08/13/2023 with worsening weakness and nausea/vomiting. 1. Recurrent hypercalcemia secondary to primary hyperparathyroidism with dehydration, resolved Patient with known history of hyperparathyroidism secondary to parathyroid adenoma, follows with Dr. Moya with General Surgery and Dr. Marin with endocrinology. Has been poor surgical candidate to this point given her functional status. Has now had several admissions for hypercalcemia secondary to medication nonadherence at home and poor p.o. intake. Calcium 13.1 on admit. ? General surgery following. Calcium improved with IV fluid resuscitation and adherence to home Cinacalcet, most recent calcium 8.3 on 08/16. Supplemental IV fluids discontinued on 08/16. Continue home Cinacalcet. Planning for SNF on discharge as noted below, with goal being to have patient take her medications consistently and rehab appropriately in order to become a candidate for surgery. 2. Debility, medication nonadherence ? Poor functional status at baseline. Multiple recent admissions for nausea/vomiting and dehydration secondary to hypercalcemia as noted above. Has difficulty taking medication regularly at home given poor social support and history of dementia, which leads to worsening of her hypercalcemia and overall condition. PT/OT/case management consulted. Planning for SNF on discharge. 3. UTI ? Urine culture growing greater than 100 K E. coli, resistant to floroquinolones. Switched from IV ciprofloxacin to IV ceftriaxone 08/15, plan to complete 5-day course. 4. Hypokalemia, hypophosphatemia, hypomagnesemia ? Presumed secondary to hypercalcemia as noted above. Monitor daily labs, replete electrolytes as needed. 5. Elevated troponins ? Cardiology followed. TTE 08/13 showed EF 60 to 65%, no other abnormalities. Troponins felt to be elevated secondary to dehydration from hypercalcemia as noted above. Continue home aspirin and ranolazine. No further workup needed. Chronic medical conditions: ? Hypertension: Holding home amlodipine and losartan, restart as needed. ? Dementia: Continue home memantine. ? GERD: Continue home PPI. ? Hypothyroidism: Continue home Synthroid. DVT prophylaxis: Lovenox CODE STATUS: Full code, verified Expected disposition: SNF, likely medically ready by 08/17 Total clinical time spent by myself addressing the patient's medical issues, reviewing all the data, and collaborating with patient's care team: 35 minutes. Charges/Coding Visit Charges Inpatient E&M: 91982 Subs Hosp L2
[2023-08-16] MEDS: Na Biphos/Potassium Phosphate PACKET 1 PACKET PO ×2 (14:00→20:55)
[2023-08-16 14:33] VITALS: BP 131/76; PULSE 80; RESP 16; TEMP 37.3; O2SAT 95
[2023-08-16 20:50] VITALS: BP 127/65; PULSE 90; RESP 18; TEMP 37.6; O2SAT 95
[2023-08-16] MEDS: Memantine Hydrochloride 5 MG Tablet PO (20:52)
[2023-08-17] VITALS (8 sets, daily range): BP systolic 124–136; BP diastolic 64–87; PULSE 77–83; RESP 12–18; TEMP 36.7–37.6; O2SAT 96–97; BMI 21.7
[2023-08-17 05:36] LABS: Albumin, Serum 2.5 g/dL (3.2-5.0); BUN 11 mg/dL (7-18); BUN/Creat Ratio 15.9 RATIO (10-20); Calcium,Total 7.6 mg/dL (8.5-10.1); Chloride 107 mmol/L (98-107); Creatinine, Serum 0.69 mg/dL (0.55-1.02); EST Glomerular Filtration Rate 87 mL/min (>60); Est Glom Filt Rate - Afr Amer 105 mL/min (>60); Estimated Creatinine Clearance 51.31 ml/min; Glucose 94 mg/dL (74-106); Phosphorus 2.6 mg/dL (2.5-4.9); Potassium 2.9 mmol/L (3.5-5.1); Sodium Level 141 mmol/L (136-145)
[2023-08-17] MEDS: 0.9% Saline Lock 10 ML Syringe IV ×2 (08:06→09:25)
[2023-08-17] MEDS: Pantoprazole Sodium 40 MG in 0.9% Normal Saline (100mL MB+) 100 ML 330 MG IV (08:07)
[2023-08-17] MEDS: Potassium Chloride 10mEq/100mL 10 MEQ/100 ML IV.SOLN. 100 MEQ IV BOLUS ×4 (08:52→12:45)
[2023-08-17] MEDS: Ondansetron 4 MG/2 ML Vial IV (09:23)
--- NOTE | 2023-08-17 10:41 | PN.HOSP_ITS ---
Reason for Visit Reason for Visit: Diagnoses Hyperparathyroidism, unspecified (08/13/23) Hypercalcemia (08/13/23) Dehydration (08/13/23) Hypokalemia (08/13/23) Disorder of kidney and ureter, unspecified (08/13/23) Weakness (08/13/23) Other malaise (08/13/23) Syncope and collapse (08/13/23) Other specified abnormal findings of blood chemistry (08/13/23) Subjective Subjective Patient is a 77-year-old female who presented to [facility] ED on 08/13/2023 with worsening weakness and nausea/vomiting. Objective Data Objective Data Vital Signs: Vital Signs Temp Pulse Resp BP Pulse Ox O2 Del Method 98.2 F 83 14 130/72 H 96 Room Air 08/17/23 08:20 08/17/23 08:20 08/17/23 08:20 08/17/23 08:20 08/17/23 08:20 08/17/23 09:08 Oxygen Delivery Method Room Air Weight: 59.2 kg Body Mass Index (BMI) 21.7 Intake & Output: Intake and Output for Last 24 Hours 08/15/23 08/16/23 08/17/23 23:59 23:59 23:59 Intake Total 3745.9533 / 3895.9533 2578.7533 / 2578.7533 405 / 405 Output Total 2950 / 4050 2300 / 2700 800 / 800 Balance 795.9533 / -154.0467 278.7533 / -121.2467 -395 / -395 Medical Nutrition Assessment Dietitian: Malnutrition Criteria Met Start: 08/14/23 12:45 Freq: Status: Active Protocol: Document 08/14/23 12:46 SLA (Rec: 08/14/23 12:46 SLA Desktop) Nutrition Malnutrition Evidence of Malnutrition Exists Yes Malnutrition (severe): Acute Illness/Injury Evidenced By Suboptimal Energy Intake ( Severe),Weight Loss (Severe) Clinical Problem Acute Disease or Injury Related Malnutrition Etiology related to acute illness and gi dysfunction so unable to consume adequate energy Signs/Symptoms as evidenced by unintended 9.6 % wt loss x 1 month and pt meeting <75% of est nutritional needs x < 1 week Status Active Problem Recommendation Dietitian Recommendations/Changes As medically able, rec SHELBY to liberal Regular d/t signs and symptoms of malnutrition. Will order 120 ml ensure clear 4x/day w/ medpass for increased nutrition if consumed. Lab / Micro Data 08/14/23 06:45 08/17/23 03:45 Labs: Laboratory Results - last 24 hr 08/17/23 03:45: Sodium 141, Potassium 2.9 L, Chloride 107, Carbon Dioxide 26.0, BUN 11, Creatinine 0.69, Estim Creat Clear Calc 51.31, Est GFR (MDRD) Af Amer 105, Est GFR (MDRD) Non-Af 87, BUN/Creatinine Ratio 15.9, Glucose 94, Calcium 7.6 L, Phosphorus 2.6, Magnesium 1.0 L, Albumin 2.5 L Micro: Microbiology 08/13/23 18:40 Urine, Catheterized Urine Culture - Final Escherichia coli Physical Exam Const alert, no apparent distress and average body habitus Constitutional Narrative: Elderly female, thin and chronically ill-appearing, laying comfortably in bed, answering questions appropriately which responses, no acute distress. General Appearance: cooperative and comfortable Orientation / Consciousness: confused HEENT normocephalic, head/scalp atraumatic, hearing grossly normal bilaterally and nasal mucous membranes and turbinates normal Eyes PERRL, EOMs intact bilaterally and conjunctivae normal Neck no lymphadenopathy, supple and no JVD Lymph Lymphatic: no lymphadenopathy noted Chest inspection of chest normal Resp normal respiratory effort, normal air movement, no retractions, no use of accessory muscles and clear to auscultation bilaterally Cardio regular rate, regular rhythm, S1 normal heart sound, S2 normal heart sound, no murmurs, no rub, no gallops and peripheral pulses 2+ throughout GI normal to inspection, nondistended, normoactive bowel sounds, soft to palpation, non-tender and non-distended Back/Spine normal ROM Extremity normal to inspection, full ROM and no pedal edema Skin no rashes or lesions noted Skin Narrative: Patient has no evidence of rash or jaundice at this time. Neuro CN's II-XII intact bilaterally, moves all extremities, no focal motor deficits and no sensory deficits noted Neuro Narrative: Patient is confused Sensorium / Orientation: awake, alert, oriented to person and oriented to place Speech: speech normal Motor Exam: strength 5/5 throughout Psych mental status grossly normal and affect normal Psych Narrative: Patient is confused Assessment & Plan Assessment/Plan (1) Hypercalcemia: (2) Hyperparathyroidism: (3) Debility: PLAN: Plan Patient is a 77-year-old female who presented to [facility] ED on 08/13/2023 with worsening weakness and nausea/vomiting. 1. Recurrent hypercalcemia -secondary to primary hyperparathyroidism with dehydration, resolved 2. Hypokalemia -Corrected per protocol 3. Hypophosphatemia ? Corrected per protocol 4. Hypomagnesemia ? Corrected per protocol 5. Hypothyroidism - Patient is on levothyroxine home dose continued 6. Hypertension - Blood pressure controlled, home medications continued with dose adjustment as needed 7. Acute cystitis with E. coli ? Resistant to flocculence managed with ceftriaxone 8. Elevated troponin ? Secondary to myocardial injury. 2D echo obtained on 08/13/2023 demonstrated EF of 60 to 65% with no regional wall motion abnormalities 9. Physical deconditioning - Requested for PT OT eval and social work case manager to assist with discharge planning 10. Dementia ? Complicating her care and compliance to therapy. Patient is on Namenda 11. DVT prophylaxis - On enoxaparin Time spent in the patient's overall evaluation,decision-making process, review of diagnostic data, adjustment of management, discussion with other providers, nursing nursing and ancillary staff involved in patient's care documentation, 40 Minutes
[2023-08-17] MEDS: Enoxaparin 40 MG/0.4 ML Syringe SC (11:04)
[2023-08-17] MEDS: Docusate Sodium 100 MG Capsule PO ×2 (11:05→11:06)
[2023-08-17] MEDS: Magnesium Sulfate 4gm/100mL 4 GM/100 ML IV.SOLN. IV (11:25)
[2023-08-17] MEDS: Ceftriaxone 1 GM/50 ML BAG IV (13:00)
--- NOTE | 2023-08-17 13:11 | CASEMGMT ---
Addendum entered by Beverly Melgar 08/17/23 13:22: JAY notified patient's daughter Sanjana that patient was accepted at [facility]. Beverly LARRY Original Note: [facility] accepted patient. [facility] will start the process for pre-cert. JAY will notify patient's daughter Sanjana. Plan: [facility] pending insurance approval. Beverly LARRY
[2023-08-17 13:29] LABS: Anion Gap 7 (5-15); BUN 12 mg/dL (7-18); BUN/Creat Ratio 14.4 RATIO (10-20); Calcium,Total 7.8 mg/dL (8.5-10.1); Chloride 107 mmol/L (98-107); Creatinine, Serum 0.83 mg/dL (0.55-1.02); EST Glomerular Filtration Rate 70 mL/min (>60); Est Glom Filt Rate - Afr Amer 85 mL/min (>60); Estimated Creatinine Clearance 49.46 ml/min; Glucose 115 mg/dL (74-106); Potassium 3.7 mmol/L (3.5-5.1); Sodium Level 139 mmol/L (136-145)
[2023-08-17] MEDS: Potassium Phosphate 40 MM in 0.9% Normal Saline (500mL Bag) 500 ML 62.5 MM IV (13:49)
[2023-08-17] MEDS: Cinacalcet HCl 30 MG Tablet 60 MG PO (19:38)
[2023-08-17] MEDS: Memantine Hydrochloride 5 MG Tablet PO (19:38)
[2023-08-17] MEDS: Ranolazine 500 MG Tablet PO (19:41)
[2023-08-18 03:25] VITALS: PULSE 76
[2023-08-18 04:07] VITALS: BP 119/63; PULSE 76; RESP 16; TEMP 36.7; O2SAT 95
[2023-08-18 04:13] VITALS: BMI 22.1
[2023-08-18] MEDS: Levothyroxine 150 MCG Tablet PO (04:59)
--- NOTE | 2023-08-18 07:26 | PCM.PN.HOSP ---
Reason for Visit Reason for Visit: Diagnoses Hyperparathyroidism, unspecified (08/13/23) Hypercalcemia (08/13/23) Dehydration (08/13/23) Hypokalemia (08/13/23) Disorder of kidney and ureter, unspecified (08/13/23) Weakness (08/13/23) Other malaise (08/13/23) Syncope and collapse (08/13/23) Other specified abnormal findings of blood chemistry (08/13/23) Subjective Subjective Patient seen appears to be back to baseline. Awaiting transfer to halfway facility pending insurance approval Objective Data Objective Data Vital Signs: Vital Signs Temp Pulse Resp BP Pulse Ox O2 Del Method 98.1 F 76 16 119/63 95 Room Air 08/18/23 04:07 08/18/23 04:07 08/18/23 04:07 08/18/23 04:07 08/18/23 04:07 08/18/23 04:08 Oxygen Delivery Method Room Air Weight: 60.328 kg Body Mass Index (BMI) 22.1 Intake & Output: Intake and Output for Last 24 Hours 08/16/23 08/17/23 08/18/23 23:59 23:59 23:59 Intake Total 2578.7533 / 2578.7533 1628.3333 / 1628.3333 50 / 50 Output Total 2300 / 2700 800 / 800 Balance 278.7533 / -121.2467 828.3333 / 828.3333 50 / 50 Medical Nutrition Assessment Dietitian: Malnutrition Criteria Met Start: 08/14/23 12:45 Freq: Status: Active Protocol: Document 08/17/23 13:13 RMA (Rec: 08/17/23 13:14 RMA [id number]) Nutrition Malnutrition Evidence of Malnutrition Exists Yes Malnutrition (severe): Acute Illness/Injury Evidenced By Suboptimal Energy Intake ( Severe),Weight Loss (Severe) Clinical Problem Acute Disease or Injury Related Malnutrition Etiology Severe protein-calorie manutrition in the context of acute on chronic disease related to altered GI function , N/V and inadequate oral/ energy intake Signs/Symptoms as evidenced by unintended wt loss~8-10% x 1 month, oral intake meeting less than 50% meals x past month and PO les than 50% meals since admit Status Active Problem Recommendation Dietitian Recommendations/Changes Continue liberalized Regular diet with consistency/texture as per BALANCE ENGINEER. Will d/c 120 ml ensure clear 4x/day w/ medpass, pt refusing . Will offer ensure compact w/ breakfast for tolerance. Will add fortified pudding BID w/ lunch and dinner as tolerated. Adjust ONS as tolerated to optimize oral intake and prevent further weight loss. May need to consider nutrition support if weight loss and inadequate oral intake continue. Lab / Micro Data 08/18/23 07:25 08/18/23 07:25 Labs: Laboratory Results - last 24 hr 08/17/23 03:45: Magnesium 1.0 L 08/17/23 13:10: Sodium 139, Potassium 3.7, Chloride 107, Carbon Dioxide 25.0, Anion Gap 7, BUN 12, Creatinine 0.83, Estim Creat Clear Calc 49.46, Est GFR (MDRD) Af Amer 85, Est GFR (MDRD) Non-Af 70, BUN/Creatinine Ratio 14.4, Glucose 115 H, Calcium 7.8 L Micro: Microbiology 08/13/23 18:40 Urine, Catheterized Urine Culture - Final Escherichia coli Physical Exam Narrative GENERAL: cooperative HEENT: Atraumatic; normocephalic EYES; Anicteric, Normal Conjunctiva NECK; supple, normal thyroid, RESPIRATORY: Diminished to auscultation CARDIOVASCULAR: Regular S1 S2, GI: soft, normoactive bowel sounds, : No Renal angle tenderness; EXTREMITIES: No edema, no clubbing, MUSCULOSKELETAL: no muscle wasting NEURO: Awake; no lateralizing signs. SKIN: No Rash PSYCH; Flat affect Assessment & Plan Assessment/Plan (1) Hypercalcemia: (2) Hyperparathyroidism: (3) Debility: PLAN: Plan Patient is a 77-year-old female who presented to [facility] ED on 08/13/2023 with worsening weakness and nausea/vomiting. 1. Recurrent hypercalcemia -secondary to primary hyperparathyroidism with dehydration, resolved 2. Hypokalemia -Corrected per protocol 3. Hypophosphatemia ? Corrected per protocol 4. Hypomagnesemia ? Corrected per protocol 5. Hypothyroidism - Patient is on levothyroxine home dose continued 6. Hypertension - Blood pressure controlled, home medications continued with dose adjustment as needed 7. Acute cystitis with E. coli ? Resistant to flocculence managed with ceftriaxone 8. Elevated troponin ? Secondary to myocardial injury. 2D echo obtained on 08/13/2023 demonstrated EF of 60 to 65% with no regional wall motion abnormalities 9. Physical deconditioning - Requested for PT OT eval and social services technician to assist with discharge planning 10. Dementia ? Complicating her care and compliance to therapy. Patient is on Namenda 11. DVT prophylaxis - On enoxaparin 12. Severe malnutrition -related to acute illness and gi dysfunction so unable to consume adequate energy? as evidenced by unintended 9.6% wt loss x 1 month and pt meeting <75% of est nutritional needs x < 1 week As medically able, rec SHELBY to liberal Regular d/t signs and symptoms of malnutrition. Will order 120 ml ensure clear 4x/day w/ medpass for increased nutrition if consumed. Time spent in the patient's overall evaluation,decision-making process, review of diagnostic data, adjustment of management, discussion with other providers, nursing nursing and ancillary staff involved in patient's care documentation, 35 Minutes Charges/Coding Visit Charges Inpatient E&M: 27572 Subs Hosp L2
[2023-08-18 08:03] LABS: Absolute Lymphocyte Count 1.57 X10^3/uL (0.83-4.51); Basophil# 0.05 X10^3/uL; Basophil% 0.6 % (0-1); Eosinophil# 0.09 X10^3/uL; Hematocrit 24.6 % (37-47); Hemoglobin 8.2 g/dL (12.0-15.0); Lymphocyte # 1.57 X10^3/ul (0.83-4.51); Mean Corp Hgb Conc 33.3 g/dL (32-36); Mean Corpuscular Hgb 32.7 pg (27.0-32.0); Mean Platelet Vol. 10.9 fl (6.2-12.0); Monocyte# 0.84 X10^3/uL; Monocyte% 9.6 % (0-10); NRBC Flagged by Analyzer 0 % (0-5); Neutrophil # 6.03 X10^3/uL (2.7-7.7); Platelet Count 225 K/mm3 (150-450); RBC Distribution Width CV 12.9 % (11.6-14.6); RBC Distribution Width SD 46.4 fl (35.1-43.9); Red Blood Count 2.51 M/mm3 (4.2-5.4); White Blood Count 8.7 K/mm3 (4.4-11.0)
[2023-08-18 08:14] VITALS: BP 135/76; PULSE 76; RESP 12; TEMP 36.6; O2SAT 97
[2023-08-18] MEDS: Pantoprazole Sodium 40 MG in 0.9% Normal Saline (100mL MB+) 100 ML 330 MG IV (08:15)
[2023-08-18] MEDS: 0.9% Saline Lock 10 ML Syringe IV ×2 (08:16→20:47)
[2023-08-18] MEDS: Docusate Sodium 100 MG Capsule PO (08:23)
[2023-08-18] MEDS: Clopidogrel Bisulfate 75 MG Tablet PO (08:23)
[2023-08-18] MEDS: Cinacalcet HCl 30 MG Tablet 60 MG PO ×2 (08:23→20:48)
[2023-08-18] MEDS: Aspirin 81 MG TAB.CHEW PO (08:23)
[2023-08-18] MEDS: Ranolazine 500 MG Tablet PO ×2 (08:24→20:47)
[2023-08-18 08:28] LABS: Anion Gap 5 (5-15); BUN 12 mg/dL (7-18); BUN/Creat Ratio 14.4 RATIO (10-20); Calcium,Total 7.6 mg/dL (8.5-10.1); Chloride 108 mmol/L (98-107); Creatinine, Serum 0.83 mg/dL (0.55-1.02); EST Glomerular Filtration Rate 70 mL/min (>60); Est Glom Filt Rate - Afr Amer 85 mL/min (>60); Estimated Creatinine Clearance 49.46 ml/min; Glucose 104 mg/dL (74-106); Magnesium 1.9 mg/dL (1.6-2.6); Phosphorus 2.8 mg/dL (2.5-4.9); Potassium 3.4 mmol/L (3.5-5.1); Sodium Level 139 mmol/L (136-145)
[2023-08-18] MEDS: Ceftriaxone 1 GM/50 ML BAG IV (08:29)
[2023-08-18] MEDS: Ondansetron 4 MG/2 ML Vial IV (08:32)
[2023-08-18 15:05] VITALS: BP 112/76; PULSE 84; RESP 12; TEMP 36.5; O2SAT 98
[2023-08-18] MEDS: Potassium Chloride Oral Soln 20 MEQ/15 ML UDC 40 MEQ PO (16:56)
[2023-08-18 20:42] VITALS: BP 123/81; PULSE 80; RESP 18; TEMP 36.9; O2SAT 98
[2023-08-18] MEDS: Memantine Hydrochloride 5 MG Tablet PO (20:47)
[2023-08-19 02:52] VITALS: BP 121/62; PULSE 78; RESP 18; TEMP 36.7; O2SAT 98
[2023-08-19 04:53] VITALS: BMI 21.9
[2023-08-19] MEDS: Levothyroxine 150 MCG Tablet PO (05:20)
[2023-08-19 07:57] LABS: Absolute Lymphocyte Count 1.77 X10^3/uL (0.83-4.51); Absolute Neutrophil Count 4.4 X10^3/uL (2.0-7.7); Basophil# 0.03 X10^3/uL; Basophil% 0.4 % (0-1); Eosinophil# 0.12 X10^3/uL; Eosinophils% 1.7 % (0-5); Hematocrit 24.2 % (37-47); Hemoglobin 7.9 g/dL (12.0-15.0); Lymphocyte # 1.77 X10^3/ul (0.83-4.51); Lymphocyte % 24.4 % (19-41); Mean Corp Hgb Conc 32.6 g/dL (32-36); Mean Corpuscular Hgb 32.2 pg (27.0-32.0); Mean Corpuscular Volume 98.8 fL (81-99); Mean Platelet Vol. 10.6 fl (6.2-12.0); Monocyte# 0.81 X10^3/uL; Monocyte% 11.2 % (0-10); NRBC Flagged by Analyzer 0 % (0-5); Neutrophil # 4.41 X10^3/uL (2.7-7.7); Neutrophil % 60.6 % (47-70); Platelet Count 252 K/mm3 (150-450); RBC Distribution Width CV 12.7 % (11.6-14.6); Red Blood Count 2.45 M/mm3 (4.2-5.4); White Blood Count 7.3 K/mm3 (4.4-11.0)
[2023-08-19 08:07] LABS: Anion Gap 3 (5-15); BUN 11 mg/dL (7-18); BUN/Creat Ratio 11.1 RATIO (10-20); Calcium,Total 7.9 mg/dL (8.5-10.1); Chloride 107 mmol/L (98-107); Creatinine, Serum 0.99 mg/dL (0.55-1.02); EST Glomerular Filtration Rate 57 mL/min (>60); Est Glom Filt Rate - Afr Amer 69 mL/min (>60); Estimated Creatinine Clearance 41.46 ml/min; Glucose 102 mg/dL (74-106); Potassium 3.8 mmol/L (3.5-5.1); Sodium Level 135 mmol/L (136-145)
--- NOTE | 2023-08-19 08:14 | PCM.PN.HOSP ---
Reason for Visit Reason for Visit: Diagnoses Hyperparathyroidism, unspecified (08/13/23) Hypercalcemia (08/13/23) Dehydration (08/13/23) Hypokalemia (08/13/23) Disorder of kidney and ureter, unspecified (08/13/23) Weakness (08/13/23) Other malaise (08/13/23) Syncope and collapse (08/13/23) Other specified abnormal findings of blood chemistry (08/13/23) Subjective Subjective Patient seen no change in clinical condition remains stable. Awaiting transfer to a intermediate facility pending insurance approval Objective Data Objective Data Vital Signs: Vital Signs Temp Pulse Resp BP Pulse Ox O2 Del Method 98.0 F 78 18 121/62 H 98 Room Air 08/19/23 02:52 08/19/23 02:52 08/19/23 02:52 08/19/23 02:52 08/19/23 02:52 08/19/23 02:56 Oxygen Delivery Method Room Air Weight: 59.7 kg Body Mass Index (BMI) 21.9 Intake & Output: Intake and Output for Last 24 Hours 08/17/23 08/18/23 08/19/23 23:59 23:59 23:59 Intake Total 1628.3333 / 1628.3333 430 / 430 Output Total 800 / 800 Balance 828.3333 / 828.3333 430 / 430 Medical Nutrition Assessment Dietitian: Malnutrition Criteria Met Start: 08/14/23 12:45 Freq: Status: Active Protocol: Document 08/17/23 13:13 RMA (Rec: 08/17/23 13:14 RMA [id number]) Nutrition Malnutrition Evidence of Malnutrition Exists Yes Malnutrition (severe): Acute Illness/Injury Evidenced By Suboptimal Energy Intake ( Severe),Weight Loss (Severe) Clinical Problem Acute Disease or Injury Related Malnutrition Etiology Severe protein-calorie manutrition in the context of acute on chronic disease related to altered GI function , N/V and inadequate oral/ energy intake Signs/Symptoms as evidenced by unintended wt loss~8-10% x 1 month, oral intake meeting less than 50% meals x past month and PO les than 50% meals since admit Status Active Problem Recommendation Dietitian Recommendations/Changes Continue liberalized Regular diet with consistency/texture as per WEB SITE ADMINISTRATOR. Will d/c 120 ml ensure clear 4x/day w/ medpass, pt refusing . Will offer ensure compact w/ breakfast for tolerance. Will add fortified pudding BID w/ lunch and dinner as tolerated. Adjust ONS as tolerated to optimize oral intake and prevent further weight loss. May need to consider nutrition support if weight loss and inadequate oral intake continue. Lab / Micro Data 08/19/23 07:00 08/19/23 07:00 Labs: Laboratory Results - last 24 hr 08/18/23 07:25: Sodium 139, Potassium 3.4 L, Chloride 108 H, Carbon Dioxide 26.0, Anion Gap 5, BUN 12, Creatinine 0.83, Estim Creat Clear Calc 49.46, Est GFR (MDRD) Af Amer 85, Est GFR (MDRD) Non-Af 70, BUN/Creatinine Ratio 14.4, Glucose 104, Calcium 7.6 L, Phosphorus 2.8, Magnesium 1.9 08/19/23 07:00: WBC 7.3, RBC 2.45 L, Hgb 7.9 L, Hct 24.2 L, MCV 98.8, MCH 32.2 H, MCHC 32.6, RDW Std Deviation 46.0 H, RDW Coeff of Theresa 12.7, Plt Count 252, MPV 10.6, Immature Gran % (Auto) 1.700 H, Neut % (Auto) 60.6, Lymph % (Auto) 24.4, [place] % (Auto) 11.2 H, Eos % (Auto) 1.7, Baso % (Auto) 0.4, Absolute Neuts (auto) 4.4, Absolute Lymphs (auto) 1.77, Nucleated RBC % 0, Sodium 135 L, Potassium 3.8, Chloride 107, Carbon Dioxide 25.0, Anion Gap 3 L, BUN 11, Creatinine 0.99, Estim Creat Clear Calc 41.46, Est GFR (MDRD) Af Amer 69, Est GFR (MDRD) Non-Af 57 L, BUN/Creatinine Ratio 11.1, Glucose 102, Calcium 7.9 L Micro: Microbiology 08/13/23 18:40 Urine, Catheterized Urine Culture - Final Escherichia coli Physical Exam Narrative GENERAL: cooperative HEENT: Atraumatic; normocephalic EYES; Anicteric, Normal Conjunctiva NECK; supple, normal thyroid, RESPIRATORY: Diminished to auscultation CARDIOVASCULAR: Regular S1 S2, GI: soft, normoactive bowel sounds, : No Renal angle tenderness; EXTREMITIES: No edema, no clubbing, MUSCULOSKELETAL: no muscle wasting NEURO: Awake; no lateralizing signs. SKIN: No Rash PSYCH; Flat affect Assessment & Plan Assessment/Plan (1) Hypercalcemia: (2) Hyperparathyroidism: (3) Debility: PLAN: Plan Patient is a 77-year-old female who presented to [facility] ED on 08/13/2023 with worsening weakness and nausea/vomiting. 1. Recurrent hypercalcemia -secondary to primary hyperparathyroidism with dehydration, resolved 2. Hypokalemia -Corrected per protocol 3. Hypophosphatemia ? Corrected per protocol 4. Hypomagnesemia ? Corrected per protocol 5. Hypothyroidism - Patient is on levothyroxine home dose continued 6. Hypertension - Blood pressure controlled, home medications continued with dose adjustment as needed 7. Acute cystitis with E. coli ? Resistant to flocculence managed with ceftriaxone 8. Elevated troponin ? Secondary to myocardial injury. 2D echo obtained on 08/13/2023 demonstrated EF of 60 to 65% with no regional wall motion abnormalities 9. Physical deconditioning - Requested for PT OT eval and forensic social worker to assist with discharge planning -08/19/2023 patient seen no change in clinical condition remains stable. Awaiting transfer to a intermediate facility pending insurance approval 10. Dementia ? Complicating her care and compliance to therapy. Patient is on Namenda 11. DVT prophylaxis - On enoxaparin 12. Severe malnutrition -related to acute illness and gi dysfunction so unable to consume adequate energy? as evidenced by unintended 9.6% wt loss x 1 month and pt meeting <75% of est nutritional needs x < 1 week As medically able, rec SHELBY to liberal Regular d/t signs and symptoms of malnutrition. Will order 120 ml ensure clear 4x/day w/ medpass for increased nutrition if consumed. Time spent in the patient's overall evaluation,decision-making process, review of diagnostic data, adjustment of management, discussion with other providers, nursing nursing and ancillary staff involved in patient's care documentation, 35 Minutes Charges/Coding Visit Charges Inpatient E&M: 06750 Subs Hosp L2
[2023-08-19 08:50] VITALS: BP 118/68; PULSE 75; RESP 16; TEMP 36.4; O2SAT 96
[2023-08-19] MEDS: 0.9% Saline Lock 10 ML Syringe IV (08:54)
[2023-08-19] MEDS: Ondansetron 4 MG/2 ML Vial IV (08:54)
--- NOTE | 2023-08-19 09:45 | CASEMGMT ---
Discharge Planning [facility] has obtained auth. SW updated. Fela Marley, Discharge Planning Asst.
--- NOTE | 2023-08-19 09:48 | PCM.DC.SUM ---
Providers Date of Admission: 08/13/23 Date of Discharge: 08/19/23 Primary Care Physician: Dr. Joey Smith, Consultations 08/13/23 22:05 Consult: Cardiology Routine Consulting Provider: Sly Wyatt Reason for Consult: Elevated troponin and syncope x 2 EMERGENT Consult: No Notified: Yes Date Notified: 08/13/23 Time Notified: 06:48 Method of Notification: Text Method of Consult:: In-Person 08/13/23 22:46 Consult: General Surgery Routine Consulting Provider: Javier Moya Reason for Consult: Hyperparathyroidism failing medical tx EMERGENT Consult: No Notified: Yes Date Notified: 08/13/23 Time Notified: 06:40 Method of Notification: Text Reason For Visit: CRITICAL HYPERCALCEMIA, ACUTE KIDNEY INJURY Diagnosis Discharge Diagnosis (1) Hypercalcemia: Status: Acute Code(s): E83.52 - Hypercalcemia (2) Hyperparathyroidism: Status: Chronic Code(s): E21.3 - Hyperparathyroidism, unspecified (3) Debility: Status: Acute Code(s): R53.81 - Other malaise Plan Patient is a 77-year-old female who presented to [facility] ED on 08/13/2023 with worsening weakness and nausea/vomiting. 1. Recurrent hypercalcemia -secondary to primary hyperparathyroidism with dehydration, resolved 2. Hypokalemia -Corrected per protocol 3. Hypophosphatemia ? Corrected per protocol 4. Hypomagnesemia ? Corrected per protocol 5. Hypothyroidism - Patient is on levothyroxine home dose continued 6. Hypertension - Blood pressure controlled, home medications continued with dose adjustment as needed 7. Acute cystitis with E. coli ? Resistant to flocculence managed with ceftriaxone 8. Elevated troponin ? Secondary to myocardial injury. 2D echo obtained on 08/13/2023 demonstrated EF of 60 to 65% with no regional wall motion abnormalities 9. Physical deconditioning - Requested for PT OT eval and high school social science teacher to assist with discharge planning -08/19/2023 patient seen no change in clinical condition remains stable. [facility] pending insurance approval 10. Dementia ? Complicating her care and compliance to therapy. Patient is on Namenda 11. DVT prophylaxis - On enoxaparin 12. Severe malnutrition -related to acute illness and gi dysfunction so unable to consume adequate energy? as evidenced by unintended 9.6% wt loss x 1 month and pt meeting <75% of est nutritional needs x < 1 week As medically able, rec SHELBY to liberal Regular d/t signs and symptoms of malnutrition. Will order 120 ml ensure clear 4x/day w/ medpass for increased nutrition if consumed. Time spent in the patient's overall evaluation,decision-making process, review of diagnostic data, adjustment of management, discussion with other providers, nursing nursing and ancillary staff involved in patient's care documentation, 35 Minutes Medications at Discharge Home Medications aspirin 81 mg chewable tablet 81 mg PO DAILY@0800 HEART HEALTH 04/07/20 pantoprazole 40 mg tablet,delayed release 40 mg PO DAILY ACID REFLUX 04/07/20 ranolazine 500 mg tablet,extended release,12 hr 500 mg PO BID CHEST PAIN 04/07/20 memantine 7 mg capsule sprinkle,extended release 24hr 7 mg PO QHS memory 03/28/23 ferrous sulfate 325 mg (65 mg iron) tablet 325 mg PO DAILY SUPPLEMENT 07/04/23 levothyroxine 100 mcg tablet 150 mcg PO DAILY@0600 THYROID 07/04/23 cinacalcet 60 mg tablet 60 mg PO BID parathyroid #60 tabs 07/06/23 polyethylene glycol 3350 17 gram/dose oral powder (Miralax) 17 g PO DAILY CONSTIPATION 07/06/23 docusate sodium 100 mg capsule (Colace) 100 mg PO DAILY 08/13/23 acidophilus 25 million cell-pectin, citrus 100 mg tablet 2 tab PO BID #0 tabs 08/19/23 cefdinir 300 mg capsule 300 mg PO BID #10 caps 08/19/23 food supplemt, lactose-reduced 0.08 gram-1.5 kcal/mL oral liquid (Ensure Plus High Protein) 120 ml PO TIDCM #0 mL 08/19/23 melatonin 3 mg tablet 3 mg PO QHS PRN PRN Insomnia #0 tabs 08/19/23 Hospital Course Summary of Care Provided Minutes Spent on Discharge: 35 Physical Exam Narrative GENERAL: cooperative HEENT: Atraumatic; normocephalic EYES; Anicteric, Normal Conjunctiva NECK; supple, normal thyroid, RESPIRATORY: Diminished to auscultation CARDIOVASCULAR: Regular S1 S2, GI: soft, normoactive bowel sounds, : No Renal angle tenderness; EXTREMITIES: No edema, no clubbing, MUSCULOSKELETAL: no muscle wasting NEURO: Awake; no lateralizing signs. SKIN: No Rash PSYCH; Flat affect Medical Records Data Medical Nutrition Assessment Dietitian: Malnutrition Criteria Met Start: 08/14/23 12:45 Freq: Status: Active Protocol: Document 08/17/23 13:13 RMA (Rec: 08/17/23 13:14 RMA [id number]) Nutrition Malnutrition Evidence of Malnutrition Exists Yes Malnutrition (severe): Acute Illness/Injury Evidenced By Suboptimal Energy Intake ( Severe),Weight Loss (Severe) Clinical Problem Acute Disease or Injury Related Malnutrition Etiology Severe protein-calorie manutrition in the context of acute on chronic disease related to altered GI function , N/V and inadequate oral/ energy intake Signs/Symptoms as evidenced by unintended wt loss~8-10% x 1 month, oral intake meeting less than 50% meals x past month and PO les than 50% meals since admit Status Active Problem Recommendation Dietitian Recommendations/Changes Continue liberalized Regular diet with consistency/texture as per CRITICAL CARE TECHNICIAN. Will d/c 120 ml ensure clear 4x/day w/ medpass, pt refusing . Will offer ensure compact w/ breakfast for tolerance. Will add fortified pudding BID w/ lunch and dinner as tolerated. Adjust ONS as tolerated to optimize oral intake and prevent further weight loss. May need to consider nutrition support if weight loss and inadequate oral intake continue. Weight / BMI Weight Weight: 59.7 kg Body Mass Index (BMI) 21.9 ABG / Lab / Microbiology Data 08/19/23 07:00 08/19/23 07:00 Laboratory: Laboratory Results - last 24 hr 08/19/23 07:00: WBC 7.3, RBC 2.45 L, Hgb 7.9 L, Hct 24.2 L, MCV 98.8, MCH 32.2 H, MCHC 32.6, RDW Std Deviation 46.0 H, RDW Coeff of Theresa 12.7, Plt Count 252, MPV 10.6, Immature Gran % (Auto) 1.700 H, Neut % (Auto) 60.6, Lymph % (Auto) 24.4, Chase % (Auto) 11.2 H, Eos % (Auto) 1.7, Baso % (Auto) 0.4, Absolute Neuts (auto) 4.4, Absolute Lymphs (auto) 1.77, Nucleated RBC % 0, Sodium 135 L, Potassium 3.8, Chloride 107, Carbon Dioxide 25.0, Anion Gap 3 L, BUN 11, Creatinine 0.99, Estim Creat Clear Calc 41.46, Est GFR (MDRD) Af Amer 69, Est GFR (MDRD) Non-Af 57 L, BUN/Creatinine Ratio 11.1, Glucose 102, Calcium 7.9 L Microbiology: Microbiology 08/13/23 18:40 Urine, Catheterized Urine Culture - Final Escherichia coli D/C Instructions Discharge Diet: No restrictions Discharge Activity: Return to Normal Activity Call your doctor if you observe: Fever of 101 or Higher, Shortness of breath, Fainting spells and Chest pain Meaningful Use Info Meaningful Use Diagnoses (Choose all that apply): None applicable Discharge Plan Admission Admit Date/Time: 08/13/23 21:56 Attending Provider: Yury Lopez Primary Care Provider: Joey Smith Consulting Providers: Sly Wyatt; Javier Moya; Yury Cool; Rojas Kinney; Reid Santos Discharge Orders/Prescriptions Prescriptions: New melatonin 3 mg Tablet 3 mg PO QHS PRN PRN (Reason: Insomnia) Qty: 0 0RF acidophilus-pectin, citrus 25 million cell -100 mg Tablet 2 tab PO BID Qty: 0 0RF Ensure Plus High Protein 0.08 gram-1.5 kcal/mL Liquid 120 ml PO TIDCM Qty: 0 0RF cefdinir 300 mg capsule 300 mg PO BID Qty: 10 0RF Continued pantoprazole 40 MG tablet 40 mg PO DAILY aspirin 81 MG tablet,chewable 81 mg PO DAILY@0800 ranolazine 500 MG tablet extended release 12 hr 500 mg PO BID ferrous sulfate 325 mg (65 mg iron) tablet 325 mg PO DAILY Patient Comments: TAKE 1 TABLET BY MOUTH TWICE A DAY levothyroxine 100 mcg Tablet 150 mcg PO DAILY@0600 polyethylene glycol 3350 [Miralax] 17 gram/dose powder 17 g PO DAILY memantine 7 mg capsule,sprinkle,ER 24hr 7 mg PO QHS docusate sodium [Colace] 100 mg capsule 100 mg PO DAILY cinacalcet 60 mg tablet 60 mg PO BID Qty: 60 4RF Discontinued olmesartan 5 mg tablet 5 mg PO DAILY amlodipine 5 mg tablet 5 mg PO .qdaily Patient Comments: TAKE 1 TABLET BY MOUTH TWICE A DAY Referrals / Follow Up: Joey Smith DO [Primary Care Provider] - Disposition Disposition (needs filled in before D/C Order can be placed): [facility] Charges/Coding Visit Charges Inpatient E&M: 73596 Disch Hosp >30min
[2023-08-19] MEDS: Aspirin 81 MG TAB.CHEW PO (10:00)
[2023-08-19] MEDS: Enoxaparin 40 MG/0.4 ML Syringe SC (10:00)
[2023-08-19] MEDS: Polyethylene Glycol 3350 17 GM PACKET PO (10:01)
[2023-08-19] MEDS: Clopidogrel Bisulfate 75 MG Tablet PO (10:02)
[2023-08-19] MEDS: Cinacalcet HCl 30 MG Tablet 60 MG PO (10:04)
[2023-08-19] MEDS: Ranolazine 500 MG Tablet PO (10:04)
--- NOTE | 2023-08-19 10:07 | PCM.TXEXTCAR ---
Diet Diet Order/Speech Therapy: 08/16/23 10:36 Diet: Regular - General Food consistency:: Soft & Bite Sized Liquid Consistency:: Regular/Thin Type of Dietary Supplement:: Ensure Compact w/ break Is pt able to select menu?: No Diet Comments: Meds crushed in ; fort pudd w/ L & D Routine Orders/Code Status Routine Lab Work: BMP Code Status: Full Code Problem/Diagnosis (1) Hypercalcemia: Status: Acute Code(s): E83.52 - Hypercalcemia (2) Hyperparathyroidism: Status: Chronic Code(s): E21.3 - Hyperparathyroidism, unspecified Comment: This is a 77-year-old female who makes her first outpatient follow-up for diagnosis of primary hyperparathyroidism after initial surgical consultation was made during an inpatient stay March 2023. Patient and her daughter report initial significant improvements following her hospital stay but share there have been recent regressions in the last couple of weeks. Based on their reports of increased arthralgias/myalgias, polydipsia, polyuria, and increased confusion, I am concerned for return of her hypercalcemia. She has not had further labs since April of this year. I also held a detailed conversation with patient and her daughter regarding the diagnosis of hyperparathyroidism and that I would recommend we simply proceed with further localization studies as well as a bone density testing at this juncture in her evaluation. I shared that I remain hesitant to offer surgery based on her significant apparent frailty. They suggest understanding of this hesitation in general agreement with this stance, however, they do share they are inclined to proceed with surgery if something can be done rather directly. (3) Debility: Status: Acute Code(s): R53.81 - Other malaise Plan Patient is a 77-year-old female who presented to [facility] ED on 08/13/2023 with worsening weakness and nausea/vomiting. 1. Recurrent hypercalcemia -secondary to primary hyperparathyroidism with dehydration, resolved 2. Hypokalemia -Corrected per protocol 3. Hypophosphatemia ? Corrected per protocol 4. Hypomagnesemia ? Corrected per protocol 5. Hypothyroidism - Patient is on levothyroxine home dose continued 6. Hypertension - Blood pressure controlled, home medications continued with dose adjustment as needed 7. Acute cystitis with E. coli ? Resistant to flocculence managed with ceftriaxone 8. Elevated troponin ? Secondary to myocardial injury. 2D echo obtained on 08/13/2023 demonstrated EF of 60 to 65% with no regional wall motion abnormalities 9. Physical deconditioning - Requested for PT OT eval and medical social worker to assist with discharge planning -08/19/2023 patient seen no change in clinical condition remains stable. Awaiting transfer to a care home facility pending insurance approval 10. Dementia ? Complicating her care and compliance to therapy. Patient is on Namenda 11. DVT prophylaxis - On enoxaparin 12. Severe malnutrition -related to acute illness and gi dysfunction so unable to consume adequate energy? as evidenced by unintended 9.6% wt loss x 1 month and pt meeting <75% of est nutritional needs x < 1 week As medically able, rec SHELBY to liberal Regular d/t signs and symptoms of malnutrition. Will order 120 ml ensure clear 4x/day w/ medpass for increased nutrition if consumed. Time spent in the patient's overall evaluation,decision-making process, review of diagnostic data, adjustment of management, discussion with other providers, nursing nursing and ancillary staff involved in patient's care documentation, 35 Minutes Allergies/Procedures Done in Hospital Allergies aspirin [ASA] Allergy (Verified 08/03/23 17:37) Hives Patient can't take high dose hydrocodone Allergy (Verified 08/03/23 17:37) Nausea morphine Allergy (Verified 08/03/23 17:37) PT UNSURE OF REACTION Penicillins Allergy (Verified 08/03/23 17:37) Anaphylaxis Type of Care/Length of Stay Estimated LOS: Convalescent Care Less Than 30 days Type of Care Needed: Skilled Rehab Potential: Fair Prognosis: Fair Additional Orders/Day of Discharge Day of Discharge: 08/19/23 Dietary and Speech Recommendations Dietitian Recommendations/Changes: Continue liberalized Regular diet with consistency/texture as per ENDOSCOPY REGISTERED NURSE. Will d/c 120 ml ensure clear 4x/day w/ medpass, pt refusing. Will offer ensure compact w/ breakfast for tolerance. Will add fortified pudding BID w/ lunch and dinner as tolerated. Adjust ONS as tolerated to optimize oral intake and prevent further weight loss. May need to consider nutrition support if weight loss and inadequate oral intake continue. Discharge Plan Admission Admit Date/Time: 08/13/23 21:56 Attending Provider: Yury Lopez Primary Care Provider: Joey Smith Consulting Providers: Sly Wyatt; Javeir Moya; Yury Cool; Rojas Kinney; Reid Santos Discharge Orders/Prescriptions Prescriptions: New melatonin 3 mg Tablet 3 mg PO QHS PRN PRN (Reason: Insomnia) Qty: 0 0RF acidophilus-pectin, citrus 25 million cell -100 mg Tablet 2 tab PO BID Qty: 0 0RF Ensure Plus High Protein 0.08 gram-1.5 kcal/mL Liquid 120 ml PO TIDCM Qty: 0 0RF cefdinir 300 mg capsule 300 mg PO BID Qty: 10 0RF Continued pantoprazole 40 MG tablet 40 mg PO DAILY aspirin 81 MG tablet,chewable 81 mg PO DAILY@0800 ranolazine 500 MG tablet extended release 12 hr 500 mg PO BID ferrous sulfate 325 mg (65 mg iron) tablet 325 mg PO DAILY Patient Comments: TAKE 1 TABLET BY MOUTH TWICE A DAY levothyroxine 100 mcg Tablet 150 mcg PO DAILY@0600 polyethylene glycol 3350 [Miralax] 17 gram/dose powder 17 g PO DAILY memantine 7 mg capsule,sprinkle,ER 24hr 7 mg PO QHS docusate sodium [Colace] 100 mg capsule 100 mg PO DAILY cinacalcet 60 mg tablet 60 mg PO BID Qty: 60 4RF Discontinued olmesartan 5 mg tablet 5 mg PO DAILY amlodipine 5 mg tablet 5 mg PO .qdaily Patient Comments: TAKE 1 TABLET BY MOUTH TWICE A DAY Referrals / Follow Up: Joey Smith DO [Primary Care Provider] - Disposition Disposition (needs filled in before D/C Order can be placed): [facility]
--- NOTE | 2023-08-19 10:16 | PHA.DC.MR.R ---
Pharmacy MA Med Reconciliation Pharmacy Service has performed discharge medication reconciliation for this patient. The patient's discharge medication list was reviewed for discrepancies and discrepancies were resolved. Medications at Discharge Home Medications aspirin 81 mg chewable tablet 81 mg PO DAILY@0800 HEART HEALTH 04/07/20 pantoprazole 40 mg tablet,delayed release 40 mg PO DAILY ACID REFLUX 04/07/20 ranolazine 500 mg tablet,extended release,12 hr 500 mg PO BID CHEST PAIN 04/07/20 memantine 7 mg capsule sprinkle,extended release 24hr 7 mg PO QHS memory 03/28/23 ferrous sulfate 325 mg (65 mg iron) tablet 325 mg PO DAILY SUPPLEMENT 07/04/23 levothyroxine 100 mcg tablet 150 mcg PO DAILY@0600 THYROID 07/04/23 cinacalcet 60 mg tablet 60 mg PO BID parathyroid #60 tabs 07/06/23 polyethylene glycol 3350 17 gram/dose oral powder (Miralax) 17 g PO DAILY CONSTIPATION 07/06/23 docusate sodium 100 mg capsule (Colace) 100 mg PO DAILY 08/13/23 acidophilus 25 million cell-pectin, citrus 100 mg tablet 2 tab PO BID #0 tabs 08/19/23 cefdinir 300 mg capsule 300 mg PO BID #10 caps 08/19/23 food supplemt, lactose-reduced 0.08 gram-1.5 kcal/mL oral liquid (Ensure Plus High Protein) 120 ml PO TIDCM #0 mL 08/19/23 melatonin 3 mg tablet 3 mg PO QHS PRN PRN Insomnia #0 tabs 08/19/23
--- NOTE | 2023-08-19 10:25 | CASEMGMT ---
Patient was approved to go to [facility]. JAY notified physician and patient's daughter Sanjana. Sanjana would like a call when transport was set up. JAY completed a 7000 in [employer] system. Plan: d/c to [facility] under skilled level of care on a convalescent stay. Physicians will transport patient via cot. Beverly LARRY
--- NOTE | 2023-08-19 11:27 | CASEMGMT ---
Discharge Planning Discharge orders, signed med list, covid results, and transport time sent to [facility] via [facility]. Physicians will transport patient by cot at 11:30a. Nursing, SW, patient, and her daughter, Sanjana, updated. Fela Marley, Discharge Planning Asst.
--- NOTE | 2023-08-19 12:02 | NURSING ---
This RN called and gave report to ROMELIA Romero at [facility].
== END 2023-08-19 12:18 | disposition skilled nursing facility (03) | DRG 643 ==
LOC: ED 18:06 → PCU 22:35
PROVIDERS: Hospitalist; Internal Medicine; Admitting Provider Internal Medicine; Emergency Provider Student in an Organized Health Care Education/Training Program; Visit Provider Internal Medicine
DX: E21.0 Primary hyperparathyroidism (principal); G93.41 Metabolic encephalopathy; E43 Unspecified severe protein-calorie malnutrition; I5A Non-ischemic myocardial injury (non-traumatic); N30.00 Acute cystitis without hematuria; F03.90 Unspecified dementia, unspecified severity, without behavioral disturbance, psychotic disturbance, mood disturbance, and anxiety; E86.0 Dehydration; I10 Essential (primary) hypertension; E03.9 Hypothyroidism, unspecified; E83.52 Hypercalcemia; K21.9 Gastro-esophageal reflux disease without esophagitis; E87.6 Hypokalemia; I45.10 Unspecified right bundle-branch block; I49.8 Other specified cardiac arrhythmias; Z79.82 Long term (current) use of aspirin; D35.1 Benign neoplasm of parathyroid gland; B96.20 Unspecified Escherichia coli [E. coli] as the cause of diseases classified elsewhere; Z68.21 Body mass index [BMI] 21.0-21.9, adult
CPT/HCPCS: 36415; 80048; 80053; 80061; 80069; 80307; 81001; 83735; 84100; 84443; 84484; 85025; 87077; 87086; 87088; 87186; 87811; 92526; 92610; 93005; 93306; 97110; 97116; 97162; 97166; 97530; 97535; 97802; 97803; 99285; J3489; J7030; J7040; J7050; A4216; J0744; J1940; J2405

== ENCOUNTER 2023-09-25 08:32 | Outpatient (CLI) | payer MEDICARE, SELFPAY ==
[2023-09-25 08:53] VITALS: BP 117/58; PULSE 57; RESP 16; TEMP 36; O2SAT 100
[2023-09-25 09:59] VITALS: BP 103/43; PULSE 52; RESP 16; TEMP 36.5; O2SAT 98
[2023-09-25 10:59] VITALS: BP 123/48; PULSE 51; RESP 16; TEMP 36.4; O2SAT 100
[2023-09-25 11:57] VITALS: BP 114/51; PULSE 55; RESP 16; TEMP 36.6; O2SAT 100
[2023-09-25 12:24] VITALS: BP 117/51; PULSE 50; RESP 16; TEMP 36.6; O2SAT 100
== END 2023-09-25 08:33 | disposition home or self-care (01) ==
LOC: MEDOUTP 08:34
PROVIDERS: Referring Provider Nurse Practitioner Adult Health; Visit Provider Nurse Practitioner Adult Health
DX: D64.9 Anemia, unspecified (principal)
CPT/HCPCS: 36415; 36430; 86850; 86900; 86901; 86920; 86922; J7040; P9016; A4216

== ENCOUNTER 2023-11-04 09:59 | Observation (INO) | payer MEDICARE, SELFPAY ==
[2023-11-04] VITALS (12 sets, daily range): BP systolic 104–149; BP diastolic 43–98; PULSE 52–62; RESP 16–17; TEMP 36.3–36.9; O2SAT 60–100; BMI 22.4
[2023-11-04] MEDS: Lactated Ringers 1,000 ML 15 ML IV (06:40)
--- NOTE | 2023-11-04 06:50 | HP.PCM_ITS ---
History and Physical Date of Admission: 11/04/23 Date of Service: 10/16/23 MR#: [id number] Acct: [id number] Name: DANIE RAMIREZ Rep #: [id number] : 1945 Provider: Dr. Javier Moya MD Age/Sex: 77/F Location: [facility] Status: Signed Intake Vital Signs 09/25/2407:53 10/15/2409:02 Height 5 ft 5 in 5 ft 5 in Weight: 130 lb 2 oz BMI 21.6 BP 107/67 Blood Pressure Location Rt brachial Position Sitting Respiration 18 Pulse 49 L Pulse Oximetry (%) 100 Intake Visit Reasons: DISCUSS SURGERY Chief Complaint: hypercalcemia/ discuss surgery Digital Solution Architect Required: No Is patient in pain?: No Allergies aspirin [ASA] Allergy (Verified 10/16/23 10:02) Hiveshydrocodone Allergy (Verified 10/16/23 10:02) Nauseamorphine Allergy (Verified 10/16/23 10:02) PT UNSURE OF REACTIONPenicillins Allergy (Verified 10/16/23 10:02) Anaphylaxis Medications memantine 7 mg capsule sprinkle,extended release 24hr 7 mg PO QHS memory 03/28/23 [History Confirmed 10/16/23] ferrous sulfate 325 mg (65 mg iron) tablet 325 mg PO DAILY SUPPLEMENT 07/04/23 [History Confirmed 10/16/23] levothyroxine 100 mcg tablet 150 mcg PO DAILY@0600 THYROID 07/04/23 [History Confirmed 10/16/23] cinacalcet 60 mg tablet 60 mg PO BID parathyroid #60 tabs 07/06/23 [Rx Confirmed 10/16/23] polyethylene glycol 3350 17 gram/dose oral powder (Miralax) 17 g PO DAILY CONSTIPATION 07/06/23 [History Confirmed 10/16/23] docusate sodium 100 mg capsule (Colace) 100 mg PO DAILY 08/13/23 [History Confirmed 10/16/23] food supplemt, lactose-reduced 0.08 gram-1.5 kcal/mL oral liquid (Ensure Plus High Protein) 120 ml PO TIDCM #0 mL 08/19/23 [Rx Confirmed 10/16/23] melatonin 3 mg tablet 3 mg PO QHS PRN PRN Insomnia #0 tabs 08/19/23 [Rx Confirmed 10/16/23] acetaminophen 650 mg tablet,extended release mg PO 09/25/23 [History Confirmed 10/16/23] fluticasone propionate 50 mcg/actuation nasal spray,suspension (Aller-Ananth) 1 spray intranasal DAILY 09/25/23 [History Confirmed 10/16/23] mirtazapine 7.5 mg tablet mg 09/25/23 [History Confirmed 10/16/23] amlodipine 5 mg tablet 10 mg PO 10/16/23 [History Confirmed 10/16/23] famotidine 20 mg tablet 20 mg PO DAILY 10/16/23 [History Confirmed 10/16/23] lactose-reduced food-fiber 0.07 gram-1.5 kcal/mL liquid for tube feed (Isosource 1.5 Foreign) ml PO 10/16/23 [History Confirmed 10/16/23] liothyronine 5 mcg tablet 5 mcg PO DAILY 10/16/23 [History Confirmed 10/16/23] olmesartan 5 mg tablet 5 mg PO QDAY 10/16/23 [History Confirmed 10/16/23] [facility] Medical History Acute hypokalemia Bradycardia, sinus Generalized weakness Hx of gastroesophageal reflux (GERD) Hypercalcemia Hyperparathyroidism Hypertension Hypothyroidism Prolonged QT interval Surgical History S/P cholecystectomy Status post total hip replacement, right Family History Daughter Diabetes Heart disease Social History household members: family housing: house Smoking Status: Never smoker substance use type: does not use HPI HPI HPI: Patient with last visit 07/03/2023. She then went on to have multiple hospitalizations in July 2023 during which I provided consultation. Today patient presents from her nursing facility with her 2 daughters. They share that their mother required admission at [facility] approximately 4 weeks ago due to altered mental status and they were told that she had bile coming out both ends. They reportedly pleated 4 a PEG tube placement and according to her 1 daughter this has made all the difference. She is starting to gain weight and she is able to reliably get her Cinacalcet. She still reports that her oral intake is suboptimal because things taste bad. In addition to the comment about bile output patient reportedly had Hemoccult testing which was negative. Patient's daughter shared that she is working with therapy and can now do 30 feet before resting. She is presently 35 days into 100-day stay. They note that despite these physical improvements they still observe cognitive issues. Additionally they report that she was recently discovered to have a 14 mm lung nodule and is due for follow-up CT on 10/21/2023 for further characterization. Below is recapitulated from patient's last visit here in clinic: Patient is a 77-year-old female who presents for outpatient evaluation of hyperparathyroidism after an initial consultation was made during an inpatient stay for hypercalcemia on 04/01/2023. They are referred from Dr. Marin of endocrinology. She presents today in the company of her daughter. Her daughter provides much of the history. Patient's daughter states that her mother is doing better mentally but that her eating is terrible and that she has no appetite. She shares that her mother was doing so well after the hospital and a thought they had her back but they have seen more confusion recently as well. She does acknowledge that her m other had the flu for 3 days and this seems to have worked against her. Together they confirm there have been no new diagnoses since her inpatient stay in March. Beyond the above confusion and appetite changes, patient's daughter shares that they have had to split her mother's meds into thirds because she continually is getting sick. She reports that overall her mother is able to ambulate capably and is able to go to the store only occasionally requiring a walker. Ms. Ramirez shares that she has developed pain in her hips and legs and shares that this is primarily on the right side. She also shares that she is thirsty all the time and going to the bathroom a lot. By way of recall, patient underwent a thyroid ultrasound during her March evaluation that showed an indeterminate nodule within the left mid lower thyroid lobe as well as a isoechoic nodule just posterior to the right carotid artery with vascularity and differential diagnosis including abnormal lymph node versus vascular neoplasm. Below is recapitulated from my note on 04/01/2023 at patient's initial consultation: DANIE RAMIREZ, is a 77 F who presented to [facility] on 03/28/2023 due to complaints of weakness and confusion. She was found to have profound hypercalcemia of over 13 and a PTH level over 270. Her daughter, who accompanies her in the room provides much of the history. Jointly, they recall that Ms. Ramirez has been placed on Cinacalcet for 3 weeks after having a similar admission at [facility]. They also note establishing some following with endocrinology through that ordeal. Patient's daughter confirms that there is no suspicion of missed doses of Cinacalcet. For her part, Ms. Ramirez reports that she does drink a lot of water, but also has a moderate dairy intake. Ms. Ramirez denies any history of broken bones or kidney stones. Her daughter confirms a history of hypertension for the past 30 years. They also recall history of GERD. They note that both of these issues has been worse in recent months. Lastly they report that memory has been a real struggle for Mrs. Ramirez. Patient's daughter reports that her mother has a diagnosis of hypothyroidism, but denies any awareness of any thyroid nodularity. However, she also confesses that she is unaware of any prior thyroid imaging. 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 She states that thyroid is found all throughout her family. ROS HEENT HEENT: Yes eye injury and eye surgery Skin Skin: Yes changing moles Cardio Cardiovascular: Yes heart disease, high blood pressure and heart stent Resp Respiratory: Yes shortness of breath Gastro Gastrointestinal: Yes abdominal pain, Yes nausea or vomiting, Yes constipation, Yes acid reflux, Yes hemorrhoids and Yes black,tarry stools Exam Const General: cooperative and comfortable Orientation: alert, awake and oriented x3 Other: Patient is lively and responds to questions/conversation Neck Other: Slender, no discrete nodularity. Neck is examined with ultrasound did not identify a hypoechoic lesion still posterior to the right common carotid artery that measures less than 1 cm in diameter. Assessment and Plan Assessment and Plan (1) Hyperparathyroidism: Status: Chronic Comment: This is a 77-year-old female who makes follow-up for diagnosis of primary hyperparathyroidism after initial surgical consultation was made during an inpatient stay March 2023. Patient and her daughters report significant functional improvement since a PEG tube placement approximately 1 month ago. Patient also has improved her physical endurance during her therapy. Unfortunately patient's daughters perceive these to be temporary improvements without definitive treatment for her parathyroid disorder as they fear she will not be able to reliably take her medication ongoing when she is released from her nursing facility. Thus, we discussed in great detail the procedure for a minimally invasive parathyroidectomy targeting patient's localized lesion posterior to the right common carotid artery. Specifically, I discussed the risks around the surgery to include not only bleeding and infection but also the potential for hypoparathyroidism and recurrent laryngeal nerve paresis versus paralysis. I shared with them the physiology underpinning the use of intraoperative PTH monitoring to guide an operation and hopefully intraoperatively establish a cure of this condition. Lastly, I shared that I would strongly recommend following the operation with a overnight observational stay to monitor patient postanesthesia and follow her calcium prior to discharge to her nursing facility. All questions were answered from patient's daughters who are eager to be underway with surgery. Plan: ? Plan for minimally invasive right-sided parathyroidectomy at first mutually available date using intraoperative nerve and PTH monitoring. Postoperative disposition to include overnight observation. I have examined the patient and the H&P has been reviewed. There are no clinical changes since date of exam. Patient seen at bedside with her granddaughter and together they report that she continues to feel well and has been continuing to improve her nutrition?particularly. Procedure and post procedure expectations were reviewed. There are no further questions so we will proceed to the operating room for planned parathyroidectomy as detailed above.
[2023-11-04 06:54] LABS: PTHIN 97.7 pg/mL (18.4-80.1); Prothrombin Time (Protime)PT. 13.4 SECONDS (11.7-14.9)
--- NOTE | 2023-11-04 07:30 | PARA_PTH ---
PATIENT: DANIE RAMIREZ LOC: MS3 U#:[id number] AGE/SX: 77/F ROOM: [facility] RE11/04/[address]: Dr. Javier Moya MD : 1945 BED: 1 DIS: 11/05/2023 SPEC #: [id number] RECD: 11/04/23 09:26 STATUS: GARRY REAdriana #: [id number] SARAVANAN: 11/04/23 07:[address]: Javier Moya DEPT: SURGICAL PATHOLOGY RECD BY: Deepa Spicer ENTERED: 11/04/23 11:05 SP TYPE: PARATHY OTHR DR: Dr. Joey Smith, Tissues: Parathyroid Procedures: Frozen Section (charge) Surgery Specimen Level IV HEADER OPERATION: Parathyroidectomy PRE-OP DIAGNOSIS: Hyperparathyroidism TISSUE SUBMITTED: Right superior parathyroid tissue sent for frozen left room at 0920 FROZEN SECTION DIAGNOSIS Right superior parathyroid excision: Hyperplastic parathyroid (588mg). RENU/ 11/04/23 MICROSCOPIC DIAGNOSIS Right superior parathyroid, excision: Hyperplastic parathyroid tissue (588mg). See comment. Jesusita 11/05/23 COMMENT Unremarkable parathyroid tissue is also noted adjacent to hyperplastic parathyroid tissue. The findings may represent parathyroid adenoma. Correlation with clinical findings and appropriate follow up are necessary. MICROSCOPIC DESCRIPTION Slides are reviewed. GROSS DESCRIPTION Received fresh for frozen section diagnosis labeled with the patient's name is a specimen designated Right superior parathyroid tissue. The specimen consists of a pink-brown nodule measuring 1.5 x 1.0 x 0.5 and weighing 588mg. This specimen is bisected, and one half is submitted for frozen section diagnosis. The entire specimen is submitted in two cassettes as follows: 1- Frozen section, 2- Rest of the specimen. RENU/ 11/05/23TC:1 CPT:65442,24356
[2023-11-04] MEDS: Bupivacaine 0.25% 30 ML Vial (08:14)
[2023-11-04 08:50] LABS: PTHIN 1731.3 pg/mL (18.4-80.1)
[2023-11-04 09:46] LABS: PTHIN 39.4 pg/mL (18.4-80.1)
[2023-11-04 09:49] LABS: PTHIN 32.8 pg/mL (18.4-80.1)
[2023-11-04 09:53] LABS: PTHIN 26.5 pg/mL (18.4-80.1)
--- NOTE | 2023-11-04 11:11 | OP.PCM_ITS ---
Report of Operation Date of Procedure: 11/04/23 Pre-Operative Diagnosis: Primary hyperparathyroidism Post-Operative Diagnosis: Same Surgery/Procedure Performed:: Minimally invasive parathyroidectomy Description of Surgical Findings:: ? Markedly enlarged, hyperpigmented parathyroid gland found posterior to the superior pole and superior to the recurrent laryngeal nerve consistent with a superior parathyroid adenoma ? Recurrent laryngeal nerve with normal Nims signal Surgeon: Javier Moya bottle house cleaners supervisor: Gabriel Coughlin Type of Anesthesia: General/Supplemental Anesthesiologist: Delvis Rizo Specimen's removed: Right superior parathyroid Estimated Blood Loss (mL): 15 Description of Procedure: After appropriate identification in the preoperative holding area the patient was brought to the operating room where she was positioned supine on the o perating room table. There she was induced with general endotracheal anesthetic. Of note, a preoperative PTH had been obtained and was reported as 97.7. Patient was then intubated using a Nims tube and glidescope to ensure coaptation between the vocal cords and the Nims tube electrodes. A resistance check confirmed appropriate function of the tube after the electrodes were properly connected to the monitoring box. Patient was then positioned in cervical extension, but adequately supporting the occiput. A cursory ultrasound exam was performed to localize the suspicious hypoechoic area considered the most likely location for patient's parathyroid adenoma. Then an incision line was performed to incorporate this area. She was prepped and draped in the usual sterile fashion and a formal timeout followed to confirm patient and the procedure to be performed. A local block was produced with infiltration of local anesthetic and a 3 cm transverse incision was made. This was deepened wi th the use of electrocautery through the platysma. The strap muscles were exposed and were divided along their raphe with electrocautery. The strap muscles were from one another as I proceeded with dissection laterally towards the patient's right internal jugular vein. Once this structure was sufficiently exposed I obtained a baseline central vein PTH level. This ultimately returned at 1731.3. For the interim I returned to the patient's neck and elevated the inferior pole of the right thyroid lobe. This required division of the middle thyroid vein. After this division, the medial aspect of the common carotid and the tracheoesophageal groove were explored. Ultimately I visualized a hyperpigmented lesion in the mid polar region of the right thyroid lobe that was tucked within the soft tissue posterior to the thyroid gland. Also about this time I identified patient's right recurrent laryngeal nerve and obtained an excellent signal from our Nims monitor. Careful blunt dissection was employed to free the structure from its surrounding soft tissue attachments it was then circumferentially freed so that it remained suspended by its vascular pole only. The pole was then divided with application of the LigaSure device. This specimen was passed off the field for frozen section confirmation. (Later, pathology telephoned the room to notify us that indeed this represented a large parathyroid gland weighing 588 mg). As we awaited this result, I irrigated the surgical cavity with sterile water examined for hemostasis. Finding this intact, I also developed the plane between the thyroid capsule and the inferior aspect of the recurrent laryngeal nerve to try to identify the inferior gland. Here, I dissected around 2 areas that represented possible parathyroid candidates but neither of which appeared abnormal in color or size. I then returned to the lateral neck where right internal jugular ex vivo blood draws were made with a 22-gauge needle and syringe at 5, 10, and 15 minutes. Eventually these values resulted 39.4, 32.8, and 26.5, respectively. Satisfied with this result, the case was terminated and hemostasis was once again confirmed in the surgical bed. Selective electrocautery was used on a slightly oozing vessel on lung thyroid capsule. Then I performed closure of the neck in layers. The strap muscles were run with a 3-0 Vicryl suture to reapproximate the raphe, but a gap was left in the inferior most portion of the strap muscles. Additional local anesthetic was instilled. The skin was closed using a running 4-0 Monocryl in a subcuticular fashion. Steri-Strips and Telfa OpSite was applied as a dressing. Patient was then awoken from general anesthetic and taken to PACU for ongoing recovery. Complications None Admit VTE Documentation VTE Mechan Device Prophylaxis: SCD's
[2023-11-04] MEDS: 0.9% Normal Saline (1000mL) 1,000 ML 50 ML IV (11:32)
[2023-11-04] MEDS: Calcium Carb/Vitamin D 1 TABLET Tablet PO ×2 (12:24→17:26)
[2023-11-04] MEDS: Jevity 1.5. 1,000 ML Bottle 240 ML GT (18:20)
[2023-11-04] MEDS: Famotidine 20 MG Tablet GT (22:08)
[2023-11-04] MEDS: Memantine Hydrochloride 5 MG Tablet GT (22:08)
[2023-11-04] MEDS: Jevity 1.5. 1,000 ML Bottle 360 ML GT (22:09)
[2023-11-05 01:53] VITALS: BP 96/58; PULSE 59; RESP 16; TEMP 36.6; O2SAT 99
[2023-11-05 06:26] VITALS: BP 116/67; PULSE 58; RESP 18; TEMP 36.9; O2SAT 98
[2023-11-05] MEDS: Liothyronine 5 MCG Tablet PO (06:29)
[2023-11-05] MEDS: Levothyroxine 150 MCG Tablet GT (06:29)
[2023-11-05] MEDS: 0.9% Normal Saline (1000mL) 1,000 ML 50 ML IV (06:30)
[2023-11-05 06:36] LABS: Absolute Lymphocyte Count 1.94 X10^3/uL (0.83-4.51); Absolute Neutrophil Count 4.8 X10^3/uL (2.0-7.7); Basophil# 0.01 X10^3/uL; Basophil% 0.1 % (0-1); Hematocrit 24.3 % (37-47); Hemoglobin 7.9 g/dL (12.0-15.0); Lymphocyte # 1.94 X10^3/ul (0.83-4.51); Lymphocyte % 25.4 % (19-41); Mean Corp Hgb Conc 32.5 g/dL (32-36); Mean Corpuscular Hgb 33.5 pg (27.0-32.0); Mean Platelet Vol. 11.9 fl (6.2-12.0); Monocyte# 0.85 X10^3/uL; Monocyte% 11.1 % (0-10); NRBC Flagged by Analyzer 0 % (0-5); Platelet Count 158 K/mm3 (150-450); RBC Distribution Width CV 13.6 % (11.6-14.6); Red Blood Count 2.36 M/mm3 (4.2-5.4); White Blood Count 7.6 K/mm3 (4.4-11.0)
[2023-11-05 07:29] LABS: Anion Gap 3 (5-15); BUN 22 mg/dL (7-18); BUN/Creat Ratio 38.9 RATIO (10-20); Calcium,Total 7.5 mg/dL (8.5-10.1); Chloride 110 mmol/L (98-107); Creatinine, Serum 0.57 mg/dL (0.55-1.02); EST Glomerular Filtration Rate 109 mL/min (>60); Est Glom Filt Rate - Afr Amer 132 mL/min (>60); Estimated Creatinine Clearance 51.31 ml/min; Glucose 107 mg/dL (74-106); Sodium Level 140 mmol/L (136-145)
[2023-11-05 08:42] LABS: PTHIN 51.3 pg/mL (18.4-80.1)
[2023-11-05] MEDS: Calcium Carb/Vitamin D 1 TABLET Tablet PO ×3 (08:56→17:17)
[2023-11-05] MEDS: Ferrous Sulfate 300 MG/5 ML UDC GT (08:56)
[2023-11-05] MEDS: amLODIPine 5 MG Tablet PO (08:56)
[2023-11-05] MEDS: Jevity 1.5. 1,000 ML Bottle 240 ML GT (08:57)
[2023-11-05] MEDS: Famotidine 20 MG Tablet GT (08:57)
[2023-11-05 12:00] VITALS: BP 128/62; PULSE 55; RESP 18; TEMP 36.9; O2SAT 99
--- NOTE | 2023-11-05 12:05 | CASEMGMT ---
Addendum entered by Nicole Mcleod 11/05/23 13:35: ROMELIA BEAR in to discuss JACKSON form with patient and dtr Sanjana. ROMELIA BEAR explained JACKSON form, patient dtr voiced understanding. Pt dtr signed form and filed in chart. Pt dtr provided with a copy of signed JACKSON form. Patient and daughter had no further questions or concerns at this time. Original Note: ROMELIA BEAR into pt room to give JACKSON form, pt A&Ox3. Pt states she usually has her dtr, Sanjana sign her items. TC to Sanjana, she states she will be at the hospital shortly. ROMELIA BEAR to meet her in room when she arrives.
--- NOTE | 2023-11-05 13:07 | CASEMGMT ---
Addendum entered by Yolanda Velasco 11/05/23 16:01: [facility] stated they are able to accept pt. She was there skilled previously. Yolanda ÁLVAREZ Original Note: Social Work This worker met with patient. Her daughter Sanjana was in the room. Pt stated she is planning on returning to [facility] and she loves it there. Daughter agreed and stated the plan is for patient to move in with her once she is done with rehab at [facility]. Pt declined offer for list of nursing homes. This worker sent clinical updates to [facility] via [employer]. PREETI Miller
--- NOTE | 2023-11-05 16:31 | DCINST_ITS ---
Discharge Instructions Diet Discharge Diet: No restrictions (However recommend a liquid to soft diet initially postoperatively) Activity Discharge Activity: May Not Drive (While it remains difficult to check blind spots quickly) May shower in (days): 1 Ice area for (Minutes): 20 Lifting Restrictions: No lifting greater than 15 pounds for 2 weeks after surgery Dressing / Incision Call your doctor if your incision/area has: Continuous Slow Oozing, Sudden Increased Bleeding, Increased Pain/ Swelling, Increased Redness and Swelling at the incision site Call your doctor if you observe: Numbness or Tingling Remove Dressing in: 1 day (Please leave Steri-Strips intact until they fall off spontaneously or are taken off at your follow-up visit) Cleanse incision/area with: Soap & Water Follow Up Care Please Follow Up With: Javier Moya MD When: 7 days postop Test Results: Test results from this visit will be discussed in further detail at your follow- up appointment, if applicable. Discharge Plan Admission Admit Date/Time: 11/04/23 09:59 Primary Reason for Your Visit: Parathyroid surgery Attending Provider: Javier Moya Primary Care Provider: Joey Smith Instructions Additional Instructions / Restrictions: Please take a regular strength TUMS if experiencing numbness or tingling of fingertips, toes, or lips and immediately notify [facility] Discharge Orders/Prescriptions Prescriptions: New calcium carbonate-vitamin D3 [Oyster Shell Calcium-Vit D3] 500 mg-5 mcg (200 unit) Tablet 1 tab PO TIDCM Qty: 30 2RF Continued Isosource 1.5 Foreign 0.07 gram-1.5 kcal/mL liquid 240 ml feeding tube TID liothyronine 5 mcg tablet 5 mcg feeding tube DAILY levothyroxine 100 mcg Tablet 150 mcg feeding tube DAILY polyethylene glycol 3350 [Miralax] 17 gram/dose powder 17 g feeding tube DAILY memantine 7 mg capsule,sprinkle,ER 24hr 7 mg PO QHS fluticasone propionate [Aller-Ananth] 50 mcg/actuation spray,suspension 1 spray intranasal DAILY PRN PRN (Reason: nasal congestion) Rx Instructions: administer into each nostril mirtazapine 7.5 mg tablet 7.5 mg feeding tube QHS Patient Comments: TAKE 1 TABLET EVERY DAY AT BEDTIME amlodipine 5 mg tablet 5 mg PO DAILY ferrous sulfate 220 mg (44 mg iron)/5 mL solution 7.5 mg feeding tube DAILY famotidine [Pepcid AC] 20 mg tablet 20 mg PO BID Rx Instructions: 20MG PER GT BID Isosource 1.5 Foreign 0.07 gram-1.5 kcal/mL liquid 360 ml feeding tube QHS melatonin 3 mg Tablet 3 mg feeding tube QHS PRN PRN (Reason: Insomnia) Discontinued cinacalcet 60 mg tablet 60 mg PO DAILY Rx Instructions: 60MG PER GT DAILY Referrals / Follow Up: Joey Smith DO [Primary Care Provider] - Disposition Disposition (needs filled in before D/C Order can be placed): [facility]
--- NOTE | 2023-11-05 16:38 | DS.PCM_ITS ---
Providers Date of Admission: 11/04/23 Primary Care Physician: Dr. Joey Smith, DO Reason For Visit: Parathyroidectomy Medications at Discharge Home Medications memantine 7 mg capsule sprinkle,extended release 24hr 7 mg PO QHS memory 03/28/23 levothyroxine 100 mcg tablet 150 mcg feeding tube DAILY THYROID 07/04/23 polyethylene glycol 3350 17 gram/dose oral powder (Miralax) 17 g feeding tube DAILY CONSTIPATION 07/06/23 fluticasone propionate 50 mcg/actuation nasal spray,suspension (Aller-Ananth) 1 spray intranasal DAILY PRN PRN nasal congestion 09/25/23 mirtazapine 7.5 mg tablet 7.5 mg feeding tube QHS 09/25/23 amlodipine 5 mg tablet 5 mg PO DAILY 10/16/23 lactose-reduced food-fiber 0.07 gram-1.5 kcal/mL liquid for tube feed (Isosource 1.5 Foreign) 240 ml feeding tube TID 10/16/23 liothyronine 5 mcg tablet 5 mcg feeding tube DAILY 10/16/23 famotidine 20 mg tablet (Pepcid AC) 20 mg PO BID 11/03/23 ferrous sulfate 220 mg (44 mg iron)/5 mL oral solution 7.5 mg feeding tube DAILY 11/03/23 lactose-reduced food-fiber 0.07 gram-1.5 kcal/mL liquid for tube feed (Isosource 1.5 Foreign) 360 ml feeding tube QHS 11/03/23 melatonin 3 mg tablet 3 mg feeding tube QHS PRN PRN Insomnia 11/03/23 calcium carbonate 500 mg-vitamin D3 5 mcg (200 unit) tablet (Oyster Shell Calcium-Vitamin D3) 1 tab PO TIDCM #30 tabs 11/05/23 Hospital Course Operations - (Parathyroidectomy 11/04/2023) Procedures None Summary of Care Provided Hospital Course: Patient is a 77-year-old female who presented from her nursing facility the morning of 11/04/2023 for scheduled minimally invasive parathyroidectomy. She underwent the procedure in uncomplicated fashion but given her general frailty/debility she was admitted for postoperative monitoring. Morning of postoperative day 1 patient had minor expected pain complaints but no evidence of paresthesias. Her calcium was mildly low but her PTH remained in the range of normal. Thus, she was maintained on some calcium supplementation and advanced to a regular diet without difficulty. Her voice quality was noted to be excellent. With her tolerance of a diet and expressed comfort with family, patient was transferred back to her nursing facility with an expectation for postoperative follow-up in 1 week. A prescription for calcium and vitamin D supplementation was ordered with plans to obtain pre-clinic laboratories to continue to follow these levels. Physical Exam Const alert Constitutional Narrative: Oriented to person General Appearance: cooperative Neck Neck Narrative: Dressing with single spot of bloody drainage that was dried. Otherwise the neck soft and minimally but appropriately tender to palpation. No evidence of underlying hematoma. Weight / BMI Weight Weight: 134 lb 7.712 oz Body Mass Index (BMI) 22.4 ABG / Lab / Microbiology Data 11/05/23 06:14 11/05/23 06:14 Laboratory: Laboratory Results - last 24 hr 11/05/23 06:14: WBC 7.6, RBC 2.36 L, Hgb 7.9 L, Hct 24.3 L, MCV 103.0 H, MCH 33.5 H, MCHC 32.5, RDW Std Deviation 51.0 H, RDW Coeff of Theresa 13.6, Plt Count 158, MPV 11.9, Immature Gran % (Auto) 0.400, Neut % (Auto) 63.0, Lymph % (Auto) 25.4, [place] % (Auto) 11.1 H, Eos % (Auto) 0.0, Baso % (Auto) 0.1, Absolute Neuts (auto) 4.8, Absolute Lymphs (auto) 1.94, Nucleated RBC % 0, Sodium 140, Potassium 4.0, Chloride 110 H, Carbon Dioxide 27.0, Anion Gap 3 L, BUN 22 H, Creatinine 0.57, Estim Creat Clear Calc 51.31, Est GFR (MDRD) Af Amer 132, Est GFR (MDRD) Non-Af 109, BUN/Creatinine Ratio 38.9 H, Glucose 107 H, Calcium 7.5 L , PTH Intact 51.3 D/C Instructions Discharge Diet: No restrictions (However recommend a liquid to soft diet initially postoperatively) May shower in (days): 1 Ice area for (Minutes): 20 Call your doctor if your incision/area has: Continuous Slow Oozing, Sudden Increased Bleeding, Increased Pain/ Swelling, Increased Redness and Swelling at the incision site Call your doctor if you observe: Numbness or Tingling Cleanse incision/area with: Soap & Water Please Follow Up With: Javier Moya MD When: 7 days postop Meaningful Use Info Meaningful Use Diagnoses (Choose all that apply): None applicable Discharge Plan Admission Admit Date/Time: 11/04/23 09:59 Primary Reason for Your Visit: Parathyroid surgery Attending Provider: Javier Moya Primary Care Provider: Joey Smith Instructions Additional Instructions / Restrictions: Please take a regular strength TUMS if experiencing numbness or tingling of fingertips, toes, or lips and immediately notify [facility] Discharge Orders/Prescriptions Prescriptions: New calcium carbonate-vitamin D3 [Oyster Shell Calcium-Vit D3] 500 mg-5 mcg (200 unit) Tablet 1 tab PO TIDCM Qty: 30 2RF Continued Isosource 1.5 Foreign 0.07 gram-1.5 kcal/mL liquid 240 ml feeding tube TID liothyronine 5 mcg tablet 5 mcg feeding tube DAILY levothyroxine 100 mcg Tablet 150 mcg feeding tube DAILY polyethylene glycol 3350 [Miralax] 17 gram/dose powder 17 g feeding tube DAILY memantine 7 mg capsule,sprinkle,ER 24hr 7 mg PO QHS fluticasone propionate [Aller-Ananth] 50 mcg/actuation spray,suspension 1 spray intranasal DAILY PRN PRN (Reason: nasal congestion) Rx Instructions: administer into each nostril mirtazapine 7.5 mg tablet 7.5 mg feeding tube QHS Patient Comments: TAKE 1 TABLET EVERY DAY AT BEDTIME amlodipine 5 mg tablet 5 mg PO DAILY ferrous sulfate 220 mg (44 mg iron)/5 mL solution 7.5 mg feeding tube DAILY famotidine [Pepcid AC] 20 mg tablet 20 mg PO BID Rx Instructions: 20MG PER GT BID Isosource 1.5 Foreign 0.07 gram-1.5 kcal/mL liquid 360 ml feeding tube QHS melatonin 3 mg Tablet 3 mg feeding tube QHS PRN PRN (Reason: Insomnia) Discontinued cinacalcet 60 mg tablet 60 mg PO DAILY Rx Instructions: 60MG PER GT DAILY Referrals / Follow Up: Joey Smith DO [Primary Care Provider] - Disposition Disposition (needs filled in before D/C Order can be placed): [facility] Facility Charges/Coding Visit Charges Inpatient E&M: 81341 Disch Hosp
--- NOTE | 2023-11-05 17:17 | CASEMGMT ---
Social Work Physician stated patient can be DC today. SW contacted [facility] and they are able to accept pt today. Pt's daughter plans on transporting pt to facility. This worker met with pt. and daughter and let her know she can be DC today. Yolanda ÁLVAREZ
--- NOTE | 2023-11-05 17:26 | PCM.TXEXTCAR ---
Diet Diet Order/Speech Therapy: 11/05/23 11:13 Diet: Regular - General Is pt able to select menu?: No Diet Comments: no carbonation Tube Feed: Isosource 1.5 360mL QHS Routine Orders/Code Status Code Status: Full Code Wound(s) NECK, ANTERIOR: Wound Type: Surgical Incision (Discontinue Dressing in 24 hours) Therapies Weight Bearing: Full weight bearing Narrative: Patient underwent minimally invasive parathyroidectomy in uncomplicated fashion on 11/04/2023. Postoperatively she was admitted for observational stay. She did well during his observational stay. While she was noted to have some mild postoperative hypocalcemia she remained asymptomatic and her PTH normal. Therefore, she was maintained on supplemental calcium with the expectation that her calcium will continue to rise as her parathyroid activity normalizes. She is instructed to discontinue her dressing in 24 hours and then may begin showering. Steri-Strips are to remain in place until she follows up with surgery in approximately 1 week. She is to get pre-clinic laboratories here at [facility] prior to that visit. Should she experience any numbness or tingling it would be advised that she is administered 1 tablet of Tums and surgery notified immediately. Allergies/Procedures Done in Hospital Allergies aspirin [ASA] Allergy (Verified 11/04/23 06:37) Hives Patient can't take high dose hydrocodone Allergy (Verified 11/04/23 06:37) Nausea morphine Allergy (Verified 11/04/23 06:37) PT UNSURE OF REACTION Penicillins Allergy (Verified 11/04/23 06:37) Anaphylaxis Procedures: - (Parathyroidectomy) Type of Care/Length of Stay Estimated LOS: More Than 30 Days Type of Care Needed: Skilled Rehab Potential: Good Prognosis: Good Additional Orders/Day of Discharge Day of Discharge: 11/05/23 Follow Up Care Please Follow Up With: Javier Moya MD When: 1 week postop Discharge Plan Admission Admit Date/Time: 11/04/23 09:59 Primary Reason for Your Visit: Parathyroid surgery Attending Provider: Javier Moya Primary Care Provider: Joey Smith Instructions Additional Instructions / Restrictions: Please take a regular strength TUMS if experiencing numbness or tingling of fingertips, toes, or lips and immediately notify [facility] Discharge Orders/Prescriptions Prescriptions: New calcium carbonate-vitamin D3 [Oyster Shell Calcium-Vit D3] 500 mg-5 mcg (200 unit) Tablet 1 tab PO TIDCM Qty: 30 2RF Continued Isosource 1.5 Foreign 0.07 gram-1.5 kcal/mL liquid 240 ml feeding tube TID liothyronine 5 mcg tablet 5 mcg feeding tube DAILY levothyroxine 100 mcg Tablet 150 mcg feeding tube DAILY polyethylene glycol 3350 [Miralax] 17 gram/dose powder 17 g feeding tube DAILY memantine 7 mg capsule,sprinkle,ER 24hr 7 mg PO QHS fluticasone propionate [Aller-Ananth] 50 mcg/actuation spray,suspension 1 spray intranasal DAILY PRN PRN (Reason: nasal congestion) Rx Instructions: administer into each nostril mirtazapine 7.5 mg tablet 7.5 mg feeding tube QHS Patient Comments: TAKE 1 TABLET EVERY DAY AT BEDTIME amlodipine 5 mg tablet 5 mg PO DAILY ferrous sulfate 220 mg (44 mg iron)/5 mL solution 7.5 mg feeding tube DAILY famotidine [Pepcid AC] 20 mg tablet 20 mg PO BID Rx Instructions: 20MG PER GT BID Isosource 1.5 Foreign 0.07 gram-1.5 kcal/mL liquid 360 ml feeding tube QHS melatonin 3 mg Tablet 3 mg feeding tube QHS PRN PRN (Reason: Insomnia) Discontinued cinacalcet 60 mg tablet 60 mg PO DAILY Rx Instructions: 60MG PER GT DAILY Referrals / Follow Up: Joey Smith DO [Primary Care Provider] - Disposition Disposition (needs filled in before D/C Order can be placed): [facility] Facility
--- NOTE | 2023-11-05 17:51 | NURSING ---
Report given to [facility] staff, all questions and concerns answered.
== END 2023-11-05 18:22 | disposition home or self-care (01) ==
LOC: SDC 10:21 → MS3 10:21
PROVIDERS: Anesthesiology; Admitting Provider Surgery; Visit Provider Surgery
PROC: (CPT 60500; principal; 2023-11-04 07:15)
DX: E21.0 Primary hyperparathyroidism (principal); Z93.1 Gastrostomy status; I10 Essential (primary) hypertension; K21.9 Gastro-esophageal reflux disease without esophagitis; Z79.899 Other long term (current) drug therapy; Z79.890 Hormone replacement therapy; E04.1 Nontoxic single thyroid nodule; E03.9 Hypothyroidism, unspecified; D64.9 Anemia, unspecified; R91.1 Solitary pulmonary nodule; I51.9 Heart disease, unspecified; Z95.5 Presence of coronary angioplasty implant and graft; R06.02 Shortness of breath
CPT/HCPCS: 60500; 00320; 36415; 80048; 83970; 85025; 85610; 85730; 88305; 88331; 99221; J7030; J7120; G0378; J2405

== ENCOUNTER → 2023-11-13 | Outpatient (CLI) | payer MEDICARE, SELFPAY ==
[2023-11-13 12:49] LABS: Calcium,Total 8.9 mg/dL (8.5-10.1)
== END | disposition home or self-care (01) ==
LOC: LAB 11:36
PROVIDERS: Referring Provider Surgery; Visit Provider Surgery
DX: Z98.890 Other specified postprocedural states (principal); Z90.89 Acquired absence of other organs
CPT/HCPCS: 36415; 82310; 83970